=== PATIENT | female | born 1955 | race Caucasian/White ===

== ENCOUNTER 2022-12-05 09:31 | Outpatient (OUT) | payer MEDICARE, OTHER, SELFPAY ==
--- NOTE | 2022-12-05 09:58 | XR_ITS ---
The [address] [address] Patient Name: LIBBY SINGH MRN: [id number] date: 1955 Sex: F Assigned Patient Location: [facility] Current Patient Location: [facility] Accession/Order Number: [id number] Exam Date: 12/05/2022 09:49 Report Date: 12/05/2022 10:46 At the request of: DANE SHANNON Procedure: XR DEXA axial skeleton EXAMINATION: XR DEXA axial skeleton, 12/05/2022 9:49 AM EDT HISTORY: Menopause Z78 COMPARISON: None. TECHNIQUE: Dual-energy X-ray absorptiometry (DEXA) bone density study performed for the axial skeleton. HISTORY: Menopause Z78 FINDINGS: Bone mineral density right femoral trochanter measures 0.554 g/sq cm. Young adult T score -2.2. WHO classification: Osteopenia. Bone mineral density right forearm radius measures 0.637 g/sq cm. T score -1.1. WHO classification: Osteopenia XR/XR DEXA axial skeleton IMPRESSION: Osteopenia. Moderate fracture risk Electronically authenticated by: HALEIGH BAE Date: 12/05/2022 10:46
== END 2022-12-05 09:32 | disposition home or self-care (01) ==
LOC: RAD 09:31
PROVIDERS: PCP Internal Medicine; Visit Provider Internal Medicine
DX: Z78.0 Asymptomatic menopausal state (principal); M85.80 Other specified disorders of bone density and structure, unspecified site
CPT/HCPCS: 77080

== ENCOUNTER 2023-03-23 14:25 | Outpatient (OUT) | payer MEDICARE, OTHER, SELFPAY ==
--- NOTE | 2023-03-23 14:52 | MM_ITS ---
Patient Name: LIBBY SINGH MR#: [id number] : 1955 Exam Date: 03/23/2023 Ordering Doctor: DR Negrito Delgadillo D.O. RADIOLOGY REPORT PROCEDURE: MM TOMOSYNTHESIS SCREENING BI COMPARISON: MG MAMM SCREEN 3D JOSE ALEJANDRO CAD, 03/20/2022. MG MAMM SCREEN 3D JOSE ALEJANDRO CAD, 03/11/2021. INDICATIONS: Screening Calculator Name NCI Breast Cancer Risk Assessment Tool 5 Year Breast Cancer Risk 2.20% Lifetime Breast Cancer Risk 7.60% Personal Breast Cancer No Personal Ovarian Cancer No Treatments None Family Cancers None LOCATION: [facility] BREAST COMPOSITION: Heterogeneously dense,which may obscure small masses. FINDINGS: DIAGNOSTIC CATEGORY 1--NEGATIVE. NO CHANGE FROM COMPARISON ASSESSMENT. RIGHT BREAST: No significant suspicious finding. LEFT BREAST: No significant suspicious finding. RECOMMENDATIONS: ROUTINE MAMMOGRAM AND CLINICAL EVALUATION IN 12 MONTHS. PLEASE NOTE: A NORMAL MAMMOGRAM DOES NOT EXCLUDE THE POSSIBILITY OF BREAST CANCER. A CLINICALLY SUSPICIOUS PALPABLE LUMP SHOULD BE BIOPSIED. Dictated by: Markel Prescott MD on 03/23/2023 at 15:02 Approved by: Markel Prescott MD on 03/23/2023 at 15:03
== END 2023-03-23 14:26 | disposition home or self-care (01) ==
LOC: MAMMO 14:25
PROVIDERS: PCP Internal Medicine; Visit Provider Internal Medicine
DX: Z12.31 Encounter for screening mammogram for malignant neoplasm of breast (principal)
CPT/HCPCS: 77063; 77067

== ENCOUNTER 2023-12-03 11:45 | Outpatient (OUT) | payer MEDICARE, OTHER, SELFPAY ==
--- OUTSIDE RECORDS SUMMARY | 2023-12-03 12:07 | XMS_ITS | CCD ---
Author Organization [facility] Care Team Providers Care Finishing Operator Name Role Phone DR NEGRITO SHANNON Admitting Unavailable ELIE, DR VELA Primary Care Unavailable ELIE, DR VELA Consulting Unavailable ELIE, DR VELA Attending Unavailable KETAN, DR ZAIN Lott Consulting Unavailable Negrito Shannon Unavailable Allergies Allergy Classification Reported Allergen(s) Allergy Type Date of Onset Reaction(s) Facility (1 source) Lidocaine Drug Allergy 3 [facility] Repository (13 sources) Fenofibrate Drug Allergy Unknown [facility] Other (13 sources) Lovastatin Drug Allergy Unknown [facility] Other (13 sources) lidoderm patches Propensity to adverse reactions itching [facility] Other (1 source) patient allergy list reviewed by nurse or physicia Propensity to adverse reactions 3 Comment:Done [facility] Other Medications Current Medications Medication Drug Class(es) Dates Sig (Normalized) Sig (Original) alendronic acid 70 mg oral tablet (5 sources) Bisphosphonate Start: 12-07-2022 take 1 tablet by mouth once daily Alendronate Sodium 70 MG 1 tablet 30 minutes before the first food, beverage or medicine of the day with plain water Orally weekly for 30 days Nov, Active baclofen 10 mg oral tablet (13 sources) gamma-Aminobutyric Acid-ergic Agonist take 2 tablets by mouth once daily at mealtime Baclofen 10 MG 2 tablets with food or milk Orally Once a day Active Baclofen Not-Chip ing Calcium 1200 3958-9018 MG-UNIT (3 sources) take 1 tablet by mouth once daily Calcium 1200 4321-2920 MG-UNIT 1 tablet Orally Once a day Active DULoxetine 60 mg oral capsule (20 sources) Serotonin and Norepinephrine Reuptake Inhibitor Start: 3 take 1 capsule by mouth once daily DULoxetine HCl 60 MG 1 capsule Orally Once a day Feb, Active take 1 capsule by mouth once salazar ly DULoxetine HCl 60 MG take 1 capsule by mouth once daily for 90 Active Cymbalta Not-Chip ing/PRN Cymbalta Not-Chip ing ezetimibe 10 mg oral tablet (1 source) Dietary Cholesterol Absorption Inhibitor Start: 03-28-2023 take 1 tablet by mouth every twenty-four hours Ezetimibe 10 MG 1 tablet Orally Once a day for 30 days Feb, Active meloxicam 7.5 mg oral tablet (20 sources) Nonsteroidal Anti-inflammatory Drug take 1 tablet by mouth every twenty-four hours Meloxicam 7.5 MG 1 tablet Orally Once a day Active Mobic Not-Taking /PRN Mobic Not-Taking metroNIDAZOLE 7.5 mg/ml topical cream (7 sources) Nitroimidazole Antimicrobial met roNIDAZOLE 0.75 % APPLY TO FACE TWICE DAILY NEEDED FOR FLARES External for 14 Days Active metroNIDAZOLE 0. 75 % APPLY TO FACE TWICE DAILY NEEDED FOR FLARES External for 14 Days Active traMADol hydrochloride 50 mg oral tablet (13 sources) Opioid Agonist Start: 01-29-2023 take 1 tablet by mouth every twelve hours traMADol HCl 50 MG 1 tablet Orally twice a day for 30 days p/u 01/29, start 01/30 w/ 2RF Jan, Active Start: 11-01-2022 take 1 tablet by mary th every twelve hours traMADol HCl 50 MG 1 tablet Orally twice a day Start 11/01 w/ 2RF Oct, Active Start: 08-01-2022 take 1 tablet by mary th every twelve hours traMADol HCl 50 MG 1 tablet Orally twice a day p/u 08/01, start 08/02 w 2rf Jul, Active Start: 05-02-2022 take 1 tablet by mary th every twelve hours traMADol HCl 50 MG 1 tablet Orally twice a day p/u 05/02, start 05/04 w/ Apr, Active traZODone hydrochloride 50 mg oral tablet (13 sources) Serotonin Reuptake Inhibitor take 1 tablet by mouth at bedtime traZODone HCl 50 MG 1 tablet Orally at HS for 90 days Active Completed/Discontinued Medications Medication Drug Class(es) Dates Sig (Normalized) Sig (Original) amoxicillin 875 mg / clavulanate 125 mg oral tablet (13 sources) Penicillin-class Antibacterial Start: 10-25-2019 take 1 tablet by mouth every twelve hours Amoxicillin-Pot Clavulanate 875-125 MG 1 tablet Orally every 12 hrs for 7 days Sep, Not-Taking/PRN Estradiol (13 sources) Estrogen Estradiol Not-Taking/PRN Estradiol Not-Ta sam Probiotic (13 sources) Probiotic Not-Ta sam/PRN Probiotic Not-Ta sam Progesterone (13 sources) Progesterone Progesterone Not -Taking/PRN Progesterone Not -Taking Tylenol Arthritis Pain (13 sources) Tylenol Arthriti s Pain Not-Taking/PRN Tylenol Arthriti s Pain Not-Taking Problems Active Problems Problem Classification Problem Date Documented Date Episodic/Chronic Allergic reactions (1 source) Allergic contact dermatitis due to plants, except food; Translations: [Allergic contact dermatitis due to plants, except food] Episodic Cardiac dysrhythmias (1 source) Palpitations; Translations: [Palpitations] Episodic Disorders of lipid metabolism (18 sources) Mixed hyperlipidemia; Translations: [Mixed hyperlipidemia] Onset: 10-21-2012 Resolved: 06-16-2019 Chronic Immunizations and screening for infectious disease (1 source) Vaccination given; Translations: [Encounter for immunization] Episodic Miscellaneous mental health disorders (16 sources) Primary insomnia; Translations: [Primary insomnia] Chronic Nonmalignant breast conditions (1 source) Fibrocystic disease of breast; Translations: [Diffuse cystic mastopathy of unspecified breast] Chronic Osteoporosis (6 sources) Senile osteoporosis; Translations: [Age-related osteoporosis without current pathological fracture] Chronic Other aftercare (13 sources) High risk drug monitoring status; Translations: [director diversity (current) use of opiate analgesic] Episodic Other aftercare (5 sources) correction (current) use of opiate analgesic; Translations: [Chronic prescription opiate use] Episodic Other and unspecified benign neoplasm (12 sources) Lipoma of shoulder; Translations: [Benign lipomatous neoplasm of skin and subcutaneous tissue of unspecified limb] Episodic Other and unspecified benign neoplasm (1 source) Benign lipomatous tumor; Translations: [Benign lipomatous neoplasm of skin and subcutaneous tissue of unspecified limb] Episodic Other and unspecified benign neoplasm (1 source) Benign lipomatous neoplasm of skin and subcutaneous tissue of unspecified limb; Translations: [Lipoma of shoulder] Episodic Other circulatory disease (1 source) H/O: cardiovascular disease; Translations: [Unspecified circulatory disease] Episodic Other connective tissue disease (13 sources) Acquired trigger finger; Translations: [Trigger finger, unspecified finger] Episodic Other connective tissue disease (13 sources) Fibromyalgia; Translations: [Fibromyalgia] Episodic Other connective tissue disease (5 sources) Fibromyalgia Episodic Other connective tissue disease (1 source) Trigger finger, unspecified finger; Translations: [Trigger finger of right hand, unspecified finger] Episodic Other injuries and conditions due to external causes (1 source) History of fall; Translations: [History of falling] Episodic Other nervous system disorders (12 sources) Chronic pain syndrome; Translations: [Chronic pain syndrome] Chronic Other nervous system disorders (1 source) Chronic pain syndrome; Translations: [Chronic pain syndrome] Chronic Other non-epithelial cancer of skin (2 sources) Basal cell carcinoma of lower extremity; Translations: [Basal cell carcinoma of skin of lower limb, including hip] Onset: 10-21-2012 Resolved: 06-16-2019 Episodic Other screening for suspected conditions (not mental disorders or infectious disease) (8 sources) Encounter for screening mammogram for malignant neoplasm of breast; Translations: [Encounter for screening for diseases of the blood and blood-forming organs and certain disorders involving the immune mechanism] Onset: 04-13-2013 Resolved: 06-16-2019 Episodic Residual codes; unclassified (14 sources) Asymptomatic menopausal state; Translations: [Menopause] Episodic Residual codes; unclassified (1 source) Postmenopausal state; Translations: [Asymptomatic menopausal state] Episodic Spondylosis; intervertebral disc disorders; other back problems (20 sources) Lumbar spondylosis; Translations: [Spondylosis without myelopathy or radiculopathy, lumbar region] Resolved: 06-16-2019 Chronic Past or Other Problems Problem Classification Problem Date Documented Date Episodic/Chronic E Codes: Adverse effects of medical drugs (1 source) Lipid-lowering drug adverse reaction; Translations: [Adverse effect of antihyperlipidemic and antiarteriosclerotic drugs, initial encounter] Onset: 6 Resolved: 0 Episodic Inflammation; infection of eye (except that caused by tuberculosis or sexually transmitteddisease) (1 source) External hordeolum; Translations: [Hordeolum externum] Onset: 7 Episodic Malaise and fatigue (1 source) Malaise and fatigue; Translations: [Other malaise and fatigue] Resolved: 0 Episodic Menopausal disorders (1 source) Menopause present; Translations: [Menopausal and female climacteric states] Resolved: 1 Chronic Other connective tissue disease (1 source) Pain in limb; Translations: [Pain in soft tissues of limb] Onset: 6 Resolved: 0 Episodic Other connective tissue disease (1 source) Myalgia/myositis - multiple; Translations: [Unspecified myalgia and myositis] Onset: 6 Resolved: 0 Episodic Residual codes; unclassified (1 source) Requires influenza virus vaccination; Translations: [Need for prophylactic vaccination and inoculation, Influenza] Resolved: 0 Episodic Superficial injury; contusion (2 sources) Contusion of lower back; Translations: [Contusion of lower back and pelvis, initial encounter] Onset: 6 Resolved: 0 Episodic Unclassified (1 source) Long-term current use of drug therapy; Translations: [Long-term (current) use of other medications] Onset: 8 Resolved: 0 Results Test Name Value Interpretation Reference Range Facil ity MG MAMM SCREEN 3D JOSE ALEJANDRO CADon 03-11-2021 MG MAMM SCREEN 3D JOSE ALEJANDRO CAD Patient: LIBBY SINGH Exam Date: 03/11/2021 : 1955 Gender:F Ordering : DR NEGRITO SHANNON D.O. Admission #: [id number] Family : Order #: [id number] CLICK HERE TO VIEW EXAM RADIOLOGY REPORT PROCEDURE: MAMMOGRAM SCREENING 3D BILATERAL CAD COMPARISON: MG MAMM SCREEN JOSE ALEJANDRO W CAD, 02/16/2020. MG MAMM SCREEN JOSE ALEJANDRO W CAD, 02/14/2019. INDICATIONS: Screening mammography Calculator Name NCI Breast Cancer Risk Assessment Tool 5 Year Breast Cancer Risk 2.20% Lifetime Breast Cancer Risk 8.20% Personal Breast Cancer No Personal Ovarian Cancer No Treatments None Family Cancers None LOCATION: [facility] BREAST COMPOSITION: Heterogeneously dense,which may obscure small masses. FINDINGS: DIAGNOSTIC CATEGORY 1--NEGATIVE. RIGHT BREAST: No significant suspicious finding. No significant change has occurred. LEFT BREAST: No significant suspicious finding. No significant change has occurred. Skin surface moles noted and likely accounting for appearance of nodule/lymph nodes within breast on prior study. RECOMMENDATIONS: ROUTINE MAMMOGRAM AND CLINICAL EVALUATION IN 12 MONTHS. PLEASE NOTE: A NORMAL MAMMOGRAM DOES NOT EXCLUDE THE POSSIBILITY OF BREAST CANCER. A CLINICALLY SUSPICIOUS PALPABLE LUMP SHOULD BE BIOPSIED. Dictated by: Zain Owusu M.D. on 03/11/2021 at 15:03 Approved by: Zain Owusu M.D. on 03/11/2021 at 15:06 Normal [facility] CBC Without Differentialon 0 11-06-2020 Erythrocyte distribution width (RBC) [Ratio] 13.5 % Normal 11.9-15.3 [facility] Comment on above: Performed By: #### O UTREACH LIPID, OUTREACH CMP, CBCNOOUTREACH #### [address] Hematocrit (Bld) [Volume fraction] 41.1 % Normal 34.0-46.4 [facility] Comment on above: Performed By: #### O UTREACH LIPID, OUTREACH CMP, CBCNOOUTREACH #### [address] Hemoglobin (Bld) [Mass/Vol] 13.6 g/dL Normal 11.8-15.4 [facility] Comment on above: Performed By: #### O UTREACH LIPID, OUTREACH CMP, CBCNOOUTREACH #### [address] MCH (RBC) [Entitic mass] 27.4 pg Normal 24.7-34.3 [facility] Comment on above: Performed By: #### O UTREACH LIPID, OUTREACH CMP, CBCNOOUTREACH #### [place] [id number] [facility] MCV (RBC) [Entitic vol] 82.5 fL Normal 80-100 [facility] Comment on above: Performed By: #### O UTREACH LIPID, OUTREACH CMP, CBCNOOUTREACH #### [address] Mean Corpuscular HGB Conc 33.2 g/dL Normal 32.0-35.0 [facility] Comment on above: Performed By: #### O UTREACH LIPID, OUTREACH CMP, CBCNOOUTREACH #### [address] Platelet mean volume (Bld) [Entitic vol] 9.6 fL Normal 6.3-10.7 [facility] Comment on above: Result Comment: PERF ORMED BY: [place] [address] PATHOLOGIST LATH HAND MARSHA ASTORGA M.D. Performed By: #### O UTREACH LIPID, OUTREACH CMP, CBCNOOUTREACH #### [address] Platelets (Bld) [#/Vol] 231 10*3/uL Normal 150-450 [facility] Comment on above: Performed By: #### O UTREACH LIPID, OUTREACH CMP, CBCNOOUTREACH #### [address] RBC (Bld) [#/Vol] 4.98 10*6/uL Normal 3.60-5.00 [facility] Comment on above: Performed By: #### O UTREACH LIPID, OUTREACH CMP, CBCNOOUTREACH #### [address] WBC (Bld) [#/Vol] 4.3 10*3/uL Normal 3.8-11.6 [facility] Comment on above: Performed By: #### O UTREACH LIPID, OUTREACH CMP, CBCNOOUTREACH #### [address] CMP Outreachon 11-06-2020 Albumin [Mass/Vol] 4.4 g/dL Normal 3.2-5.5 [facility] Comment on above: Performed By: #### O UTREACH LIPID, OUTREACH CMP, CBCNOOUTREACH #### [address] ALP [Catalytic activity/Vol] 64 U/L Normal 32-92 [facility] Comment on above: Performed By: #### O UTREACH LIPID, OUTREACH CMP, CBCNOOUTREACH #### [facility] [address] ALT [Catalytic activity/Vol] 32 U/L Normal 10-60 [facility] Comment on above: Performed By: #### O UTREACH LIPID, OUTREACH CMP, CBCNOOUTREACH #### [facility] [address] AST [Catalytic activity/Vol] 25 U/L Normal 10-42 [facility] Comment on above: Performed By: #### O UTREACH LIPID, OUTREACH CMP, CBCNOOUTREACH #### [facility] [address] Bilirubin [Mass/Vol] 0.5 mg/dL Normal 0.3-1.2 [facility] Comment on above: Performed By: #### O UTREACH LIPID, OUTREACH CMP, CBCNOOUTREACH #### [facility] [address] [place] [address] [place] Calcium [Mass/Vol] 9.6 mg/dL Normal 8.2-10.2 [facility] Comment on above: Performed By: #### O UTREACH LIPID, OUTREACH CMP, CBCNOOUTREACH #### [facility] [address] [place] [id number] [place] Chloride [Moles/Vol] 105 mmol/L Normal 95-114 [facility] Comment on above: Performed By: #### O UTREACH LIPID, OUTREACH CMP, CBCNOOUTREACH #### [facility] [address] [place] [address] [place] CO2 [Moles/Vol] 26.7 mmol/L Normal 22.0-30.0 [facility] Comment on above: Performed By: #### O UTREACH LIPID, OUTREACH CMP, CBCNOOUTREACH #### [facility] [address] [place] [id number] [place] Creatinine [Mass/Vol] 0.63 mg/dL Normal 0.44-1.03 [facility] Comment on above: Performed By: #### O UTREACH LIPID, OUTREACH CMP, CBCNOOUTREACH #### [facility] [address] [place] [phone] [place] Estimated GFR ( Marianne > 60 Normal [facility] Comment on above: Result Comment: GFR estimated reference range: According to KDOQI guidelines, <60 ml/min/1.73m2 is sufficient to diagnose a patient with chronic kidney disease. Performed By: #### O UTREACH LIPID, OUTREACH CMP, CBCNOOUTREACH #### [facility] [address] [place] [phone] [place] Estimated GFR (Non- Am > 60 Normal [facility] Comment on above: Performed By: #### O UTREACH LIPID, OUTREACH CMP, CBCNOOUTREACH #### [facility] [address] [place] [phone] [place] Glucose [Mass/Vol] 118 mg/dL High 70-100 [facility] Comment on above: Result Comment: [place] Glucose Reference Range is dependent on time and content of last meal. Glucose of more than 200 mg/dL in a nonstressed, ambulatory subject supports the diagnosis of Diabetes Mellitus. ADA recommended reference range Performed By: #### O UTREACH LIPID, OUTREACH CMP, CBCNOOUTREACH #### [facility] [address] [place] [phone] [place] Potassium [Moles/Vol] 4.1 mmol/L Normal 3.5-5.1 [facility] Comment on above: Performed By: #### O UTREACH LIPID, OUTREACH CMP, CBCNOOUTREACH #### [facility] [address] [place] [phone] [place] Protein [Mass/Vol] 6.5 g/dL Normal 6.1-7.9 [facility] Comment on above: Performed By: #### O UTREACH LIPID, OUTREACH CMP, CBCNOOUTREACH #### [facility] [address] [place] [phone] [place] Sodium [Moles/Vol] 141 mmol/L Normal 136-146 [facility] Comment on above: Performed By: #### O UTREACH LIPID, OUTREACH CMP, CBCNOOUTREACH #### [facility] [address] [place] [address] [place] Urea nitrogen [Mass/Vol] 15 mg/dL Normal 9-23 [facility] Comment on above: Performed By: #### O UTREACH LIPID, OUTREACH CMP, CBCNOOUTREACH #### [facility] [address] [place] [address] [place] Lipid Profile Outreachon Cholesterol [Mass/Vol] 237 mg/dL High 140-200 [facility] Comment on above: Result Comment: Chol less than 200 mg/dl low risk Chol 201-239 mg/dl borderline risk Chol 240 mg/dl and greater high risk Performed By: #### O UTREACH LIPID, OUTREACH CMP, CBCNOOUTREACH #### [facility] [address] [place] [phone] [place] Cholesterol in HDL [Mass/Vol] 37 mg/dL Normal 35-85 [facility] Comment on above: Result Comment: HDL CHOL ATP-III CLASSIFICATION Cardiovascular Risk HDL > or equal to 60 mg/dL LOW HDL < 40 mg/dL HIGH Performed By: #### O UTREACH LIPID, OUTREACH CMP, CBCNOOUTREACH #### [facility] [address] [place] [phone] [place] Cholesterol.total/Ch olesterol in HDL [Mass ratio] 6.4 {ratio} Normal <5.0 [facility] Comment on above: Result Comment: PERF ORMED BY: [place] [address] PATHOLOGIST LATH HAND MARSHA ASTORGA M.D. Performed By: #### O UTREACH LIPID, OUTREACH CMP, CBCNOOUTREACH #### [facility] [address] [place] [phone] [place] LDL Cholesterol,Calculat ed 127 mg/dL High 0-100 [facility] Comment on above: Result Comment: LDL ATP III CLASSIFICATION LDL less than 100 mg/dL Optimal LDL 100-129 mg/dL Near or above optimal LDL 130-159 mg/dL Borderline high LDL 160-189 mg/dL High LDL greater than 189 mg/dL Very high Performed By: #### O UTREACH LIPID, OUTREACH CMP, CBCNOOUTREACH #### [facility] [address] [place] [address] [place] Triglyceride w/Reflex 364 mg/dL High 35-149 [facility] Comment on above: Result Comment: TRIG ATP III CLASSIFICATION TRIG less than 150 mg/dL Normal TRIG 150-199 mg/dL Borderline high TRIG 200-500 mg/dL High TRIG greater than 500 mg/dL Very high Standard traceable to the Center for Disease Conrtrol and Prevention (CDC) test method. Performed By: #### O UTREACH LIPID, OUTREACH CMP, CBCNOOUTREACH #### [facility] [address] [place] [id number] [facility] VLDL CHOLESTEROL 72 mg/dL Normal [facility] Comment on above: Performed By: #### O UTREACH LIPID, OUTREACH CMP, CBCNOOUTREACH #### [facility] [address] [place] [address] [facility] Vital Signs Date Time Vital Sign Value Performing Clinician Facility 02-16-2023 10:00-0500 Body height 167.64 cm Negrito Ball Other [facility] Other 02-16-2023 10:00-0500 Body mass index (BMI) [Ratio] 25.08 kg/m2 Negrito Ball Other [facility] Other 02-16-2023 10:00-0500 Body weight 70.49 kg Negrito Ball Other [facility] Other 02-16-2023 10:00-0500 Diastolic blood pressure 85 mm[Hg] Negrito Ball Other [facility] Other 02-16-2023 10:00-0500 Respiratory rate 18 /min Negrito Ball Other [facility] Other 02-16-2023 10:00-0500 Systolic blood pressure 135 mm[Hg] Negrito Ball Other [facility] Other 11-17-2022 11:30-0400 Body height 167.64 cm Negrito Ball Other [facility] Other 11-17-2022 11:30-0400 Body mass index (BMI) [Ratio] 24.6 kg/m2 Negrito Ball Other [facility] Other 11-17-2022 11:30-0400 Body weight 69.13 kg Negrito Ball Other [facility] Other 11-17-2022 11:30-0400 Diastolic blood pressure 84 mm[Hg] Negrito Ball Other [facility] Other 11-17-2022 11:30-0400 Respiratory rate 12 /min Negrito Ball Other [facility] Other 11-17-2022 11:30-0400 Systolic blood pressure 147 mm[Hg] Negrito Ball Other [facility] Other 08-18-2022 10:15-0400 Body height 167.64 cm Negrito Ball Other [facility] Other 08-18-2022 10:15-0400 Body mass index (BMI) [Ratio] 24.56 kg/m2 Negrito Ball Other [facility] Other 08-18-2022 10:15-0400 Body weight 69.04 kg Negrito Ball Other [facility] Other 08-18-2022 10:15-0400 Diastolic blood pressure 90 mm[Hg] Negrito Ball Other [facility] Other 08-18-2022 10:15-0400 Respiratory rate 12 /min Negrito Ball Other [facility] Other 08-18-2022 10:15-0400 Systolic blood pressure 155 mm[Hg] Negrito Ball Other [facility] Other 05-29-2022 15:30-0400 Body height 167.64 cm Negrito Ball Other [facility] Other 05-29-2022 15:30-0400 Body mass index (BMI) [Ratio] 24.24 kg/m2 Negrito Ball Other [facility] Other 05-29-2022 15:30-0400 Body weight 68.13 kg Negrito Ball Other [facility] Other 05-29-2022 15:30-0400 Diastolic blood pressure 68 mm[Hg] Negrito Ball Other [facility] Other 05-29-2022 15:30-0400 Respiratory rate 12 /min Negrito Ball Other [facility] Other 05-29-2022 15:30-0400 Systolic blood pressure 153 mm[Hg] Negrito Ball Other [facility] Other Encounters Encounter Date Encounter Type Care Provider Facility Start: 03-28-2023 End: 03-28-2023 ambulatory Negrito Ball Other [facility] Other Start: 03-28-2023 Telephone encounter Negrito Ball [facility] Start: 03-26-2023 End: 03-26-2023 ambulatory Negrito Ball Other [facility] Other Start: 03-26-2023 Telephone encounter Negrito Ball [facility] Start: 02-16-2023 End: 02-16-2023 ambulatory Negrito Ball Other [facility] Other Start: 02-16-2023 Office outpatient vi sit 15 minutes Negrito Ball [facility] Start: 01-29-2023 End: 01-29-2023 ambulatory Negrito Ball Other [facility] Other Start: 01-29-2023 Telephone encounter Negrito Ball [facility] Start: 12-06-2022 End: 12-06-2022 ambulatory Negrito Ball Other [facility] Other Start: 12-06-2022 Telephone encounter Negrito Ball [facility] Start: 12-05-2022 End: 12-05-2022 ambulatory Negrito Ball Other [facility] Other Start: 12-05-2022 Telephone encounter Negrito Ball [facility] Start: 11-17-2022 End: 11-17-2022 ambulatory Negrito Ball Other [facility] Other Start: 11-17-2022 Patient encounter procedure Negrito Ball [facility] Start: 11-01-2022 End: 11-01-2022 ambulatory Negrito Ball Other [facility] Other Start: 11-01-2022 Telephone encounter Negrito Ball [facility] Start: 09-07-2022 End: 09-07-2022 ambulatory Negrito Ball Other [facility] Other Start: 09-07-2022 Telephone encounter Negrito Ball [facility] Start: 08-18-2022 End: 08-18-2022 ambulatory Negrito Ball Other [facility] Other Start: 08-18-2022 Office outpatient vi sit 15 minutes Negrito Ball [facility] Start: 08-18-2022 Telephone encounter Negrito Ball [facility] Start: 08-01-2022 End: 08-01-2022 ambulatory Negrito Ball Other [facility] Other Start: 08-01-2022 Telephone encounter Negrito Shannon [facility] Start: 05-29-2022 End: 05-29-2022 ambulatory Negrito Shannon Other [facility] Other Start: 05-29-2022 Office outpatient vi sit 15 minutes [facility] Start: 11-11-2021 Adult health examination Negrito Shannon Other [facility] Other Start: 03-11-2021 End: 03-12-[address] NEGRITO SHANNON Facility:[facility] Procedures Date Procedure Procedure Detail Performing Clinician Start: 11-20-2017 Screening for malign ant neoplasm of colon Negrito Shannon Other Start: 11-14-2013 General examination of patient Negrito Shannon Other Depression screening Lawrence Shannon Other Screening for malign ant neoplasm of breast Negrito Shannon Other Immunizations Immunization Date Immunization Notes Care Provider Fa [facility] 01-23-2022 influenza virus vaccine, split virus (incl. purified surface antigen) Negrito Shannon Other [facility] 12-30-2021 influenza virus vaccine, split virus (incl. purified surface antigen) Negrito Shannon Other [facility] 12-31-2020 COVID-19 Vaccine Pfi zer - Documentation Purposes Only Negrito Shannon Other [facility] Other 11-08-2020 influenza virus vaccine, split virus (incl. purified surface antigen) Negrito Shannon Other [facility] 05-27-2020 COVID-19 Vaccine Pfi zer - Documentation Purposes Only Negrito Shannon Other [facility] 05-06-2020 COVID-19 Vaccine Pfi zer - Documentation Purposes Only Negrito Shannon Other [facility] 11-22-2019 influenza virus vaccine, split virus (incl. purified surface antigen) Negrito Shannon Other [facility] Other 10-25-2019 tetanus toxoid, redu paramjit diphtheria toxoid, and acellular pertussis vaccine, adsorbed Negrito Elie Other [facility] Other 11-10-2014 tetanus and diphther ia toxoids, adsorbed, preservative free, for adult use (5 Lf of tetanus toxoid and 2 Lf of diphtheria toxoid) Negrito Elie Other [facility] 12-17-2012 tetanus and diphther ia toxoids, adsorbed, preservative free, for adult use (5 Lf of tetanus toxoid and 2 Lf of diphtheria toxoid) Negrito Elie Other [facility] Other 10-07-2003 diphtheria, tetanus toxoids and acellular pertussis vaccine, unspecified formulation Negrito Shannon Other [facility] Other Payers Date Payer Category Payer Medicare [id number] 1959 Unknown [id number] 1955 Unknown [id number] Unknown [id number] Social History Date Type Detail Facility Unknown if ever smoked [facility] Sex Assigned At [facility]igned [facility] Other Clinical Notes 05-29-2022 to 03-28-2023 Note Date & Type Note Facility 03-28-2023 Evaluation note Encounter Date Diagnosis Assessment Notes Feb, Hypercholesterolemia (ICD-10 - E78.00) [facility] Other [id number] Evaluation note* Encounter Date Diagnosis Assessment Notes Treatment Notes Treatment Clinical Notes Jan, Lumbar spondylosis (ICD-10 - M47.816) The patient is instructed to avoid bending, twisting or lifting. They are to use intermittent heat and ice as needed. They may schedule a massage or gentle manipulation. They may safely use Tylenol as needed. Jan, Fibromyalgia (ICD-10 - M79.7) Stretching exercises, ice/heat and Tylenol Tramadol as needed Jan, Chronic prescription opiate use (ICD-10 - Z79.891) This patient requires opiate use on a daily basis to control pain.This patient does not exhibit drug-seeking or aberrant behavior.This patient is able to continue with ADL, with an adequate quality of life, that they would not be able toachieve without the prescription pain medication.There has been no surgical treatment recommended for this condition.Use of non-opiate treatment should be continued, such as nonstrenuous and aquatic exercises.This patient has a pain management contract and they have been counseled on safe storage of the medication.They have been counseled on the risks of concomitant use with alcohol or sedating meds. PDMP is being followed and this patient's OARRS report is being monitored every 90 days. [facility] Other 12-04-2023 Evaluation note* Encounter Date Diagnosis Assessment Notes Treatment Notes Treatment Clinical Notes Jan, Fibromyalgia (ICD-10 - M79.7) [facility] 10-11-2023 Evaluation note* Encounter Date Diagnosis Assessment Notes Treatment Notes Treatment Clinical Notes Nov, Age-related osteoporosis without current pathological fracture (ICD-10 - M81.0) [facility] 09-22-2023 Evaluation note* Encounter Date Diagnosis Assessment Notes Treatment Notes Treatment Clinical Notes Oct, Lumbar spondylosis (ICD-10 - M47.816) The patient is instructed to avoid bending, twisting or lifting. They are to use intermittent heat and ice as needed. They may schedule a massage or gentle manipulation. They may safely use Tylenol as needed. Oct, Fibromyalgia (ICD-10 - M79.7) Daily stretching and ROM exercises. Continue muscle relaxants. Oct, Chronic prescription opiate use (ICD-10 - Z79.891) Oct, Primary insomnia (ICD-10 - F51.01) Healthy diet and exercise. Proper sleep routine. Oct, Medicare annual wellness visit, subsequent (ICD-10 - Z00.00) Personalized health advice was given to the beneficiary including a written plan for screenings discussed and provided. Advanced care planning reviewed and/or information given as requested. Additional counseling was provided here today in regards to, [ ]. The above visit was performed by [ ], under direct supervision of [ ]. Document reviewed and amended by provider signed below. Oct, Menopause (ICD-10 - Z78.0) Screen for osteoporosis. Healthy diet and exercise Oct, Screening for colon cancer (ICD-10 - Z12.11) [facility] Other 09-06-2023 Evaluation note* Encounter Date Diagnosis Assessment Notes Treatment Notes Treatment Clinical Notes Oct, Lumbar spondylosis (ICD-10 - M47.816) [facility] 07-13-2023 Evaluation note* Encounter Date Diagnosis Assessment Notes Treatment Notes Treatment Clinical Notes Aug, Lumbar spondylosis (ICD-10 - M47.816) [facility] Other 06-23-2023 Evaluation note* Encounter Date Diagnosis Assessment Notes Treatment Notes Treatment Clinical Notes Jul, Lumbar spondylosis (ICD-10 - M47.816) The patient is instructed to avoid bending, twisting or lifting. They are to use intermittent heat and ice as needed. They may schedule a massage or gentle manipulation. They may safely use Tylenol as needed. Jul, Fibromyalgia (ICD-10 - M79.7) Stretching exercises, healthy diet and consistent sleep routine Jul, Chronic prescription opiate use (ICD-10 - Z79.891) This patient requires opiate use on a daily basis to control pain.This patient does not exhibit drug-seeking or aberrant behavior.This patient is able to continue with ADL, with an adequate quality of life, that they would not be able to achieve without the prescription pain medication.There has been no surgical treatment recommended for this condition.Use of nonopiate treatment should be continued, such as nonstrenuous and aquatic exercises.This patient has a pain management contract and they have been counseled on safe storage of the medication.They have been counseled on the risks of concomitant use with alcohol or sedating meds. PDMP is being followed and this patient's OARRS report is being monitored every 90 days. Jul, Primary insomnia (ICD-10 - F51.01) Continue present treatment. Consistent sleep routine, avoid TV, phone, computer and exercise prior to bedtime [facility] Other 06-23-2023 Evaluation note* Encounter Date Diagnosis Assessment Notes Treatment Notes Treatment Clinical Notes Jul, Lumbar spondylosis (ICD-10 - M47.816) [facility] 06-06-2023 Evaluation note* Encounter Date Diagnosis Assessment Notes Treatment Notes Treatment Clinical Notes Jul, Lumbar spondylosis (ICD-10 - M47.816) [facility] Other 04-03-2023 Evaluation note* Encounter Date Diagnosis Assessment Notes Treatment Notes Treatment Clinical Notes May, Lumbar spondylosis (ICD-10 - M47.816) The patient is instructed to avoid bending, twisting or lifting. They are to use intermittent heat and ice as needed. They may schedule a massage or gentle manipulation. They may safely use Tylenol as needed. May, Fibromyalgia (ICD-10 - M79.7) Stretching exercises. Healthy diet and keep active but abvoid high impact activity May, Chronic prescription opiate use (ICD-10 - Z79.891) No findings to suggest misuse May, Primary insomnia (ICD-10 - F51.01) Proper sleep routine. Healthy diet, avoid bedtime food, TV, computer and exercise [facility] Other Evaluation noteNo InformationNortiPosi Other History general Narrative - Reported* Type Description Date Medical History fibromyalgia Medical History Arthritis Medical History Chronic prescription opiate use Medical History Trigger finger of right hand, un specified finger Medical History Menopause Medical History Lipoma of shoulder Medical History Hyperlipidemia, mixed Medical History Chronic pain syndrome Surgical History tonsillectomy Surgical History C section Surgical History basal cell car right calf Surgical History lipoma removed from right shoul gaby Hospitalization History see above [facility] Other Summary Purpose Family History No Family History Records FoundNo Family History Records Found Advance Directives No Advanced Directives Records FoundNo Advanced Directives Records Found Additional Source Comments INFORMATION SOURCE (unrecogn ized section and content) DATE CREATED AUTHOR 03/16/2021 [facility] DATE CREATED AUTHOR AUTHOR'S ORGANIZ ATION 03/21/2021 [facility] REASON FOR VISIT (unrecogniz ed section and content) Med Check UpNo Information3 month Follow upNo InformationREFILLRefillwellnessCologuardDEXA resultsNo Information3 month Follow upmamm resultsMedication Question FOR RECORDS PERTAINING TO PATIENTS WHO ARE OR HAVE BEEN ENROLLED IN A CHEMICAL DEPENDENCY/SUBSTANCEABUSE PROGRAM, SOME INFORMATION MAY BE OMITTED. This clinical summary was aggregated from multiple sources. Caution should be exercised in using it in the provision of clinical care. This summary normalizes information from multiple sources, and as a consequence, information in this document may materially change the coding, format and clinical context of patient data. In addition, data may be omitted in some cases. CLINICAL DECISIONS SHOULD BE BASED ON THE PRIMARY CLINICAL RECORDS. [email or web address] provides no warranty or guarantee of the accuracy or completeness of information in this document.
--- NOTE | 2023-12-03 12:34 | P.CN_ITS ---
Consult Note: HPI Data of Consult Patient: new to practice Consult date: 12/03/23 Requesting Physician: Malgorzata Miles MD Primary Care Provider: Negrito Delgadillo, Consult Narrative Reason for consult: neck, bilateral shoulder, low back, bilateral hip pain Narrative: 68yof who presents for evaluation. longstanding chronic pain history. pain throughout neck, bilateral shoulers, low back, bilateral hips. states that first began ~30 years ago when she was injured at work. has been diagnosed with fibromyalgia. currently uses tramadol, cymbalta. engages in a series of provider directed home exercises >6 weeks, without benefit. denies adverse med side effects. cc:: CC: Malgorzata Miles MD Review of Systems ROS Status of ROS 10 or more systems reviewed and unremark able except as noted in history and below Exam Narrative Exam Narrative: Psych-alert and oriented x 3.? Attentive and appropriate, constitutionally normal, displays normal mood and affect per situation.? There are no obvious deficits in memory, reasoning, or intellect.? Skin-no obvious rashes, bruising, or erythema noted to the patient's area of pain. Extremities-upper extremities are warm with minimal edema and palpable pulses. Cervical- tenderness to palpation noted in the cervical spine and paraspinal musculature.? Pain is elicited with extension, and lateral rotation of the cervical spine.? Range of motion is slightly diminished due to pain. Facet loading maneuvers are positive bilaterally.? Lumbar-no significant tenderness to palpation noted in the lumbar spine and paraspinal musculature.? Pain is elicited with extension, and lateral rotation of the lumbar spine. Range of motion is slightly diminished with these motions due to pain. Facet loading maneuvers are positive bilaterally and do appear to be concordant with the patient's normal complaints of pain.? Coordination remains intact.? Gait remains non-antalgic. Assessment and Plan Assessment and Plan (1) Neck pain: (2) Lumbar spine pain: Plan 68yof who presents for evaluation. failed conservative measures, as noted. given symptoms and exam findings, will have her undergo cervical spine, bilateral shoulder, lumbar spine, bilateral hip, sacrum xrays. she is in agreement. discussed that we would discuss next steps based on imaging findings, whether more advanced imaging vs. interventional modalities. meds reviewed, will continue her current meds. follow up after imaging.
== END 2023-12-03 11:46 | disposition home or self-care (01) ==
LOC: PM 11:46
PROVIDERS: PCP Internal Medicine; Visit Provider Anesthesiology Pain Medicine
DX: M54.2 Cervicalgia (principal); M54.50 Low back pain, unspecified
CPT/HCPCS: G0463

== ENCOUNTER 2023-12-03 13:24 | Outpatient (OUT) | payer MEDICARE, OTHER, SELFPAY ==
--- NOTE | 2023-12-03 | XR_ITS ---
The [place] [id number] Patient Name: LIBBY SINGH MRN: [id number] date: 1955 Sex: F Assigned Patient Location: [facility] Current Patient Location: [facility] Accession/Order Number: [id number] Exam Date: 12/03/2023 13:40 Report Date: 12/03/2023 14:12 At the request of: JUSTO GONZALES Procedure: XR cervical spine 5V EXAMINATION: XR cervical spine 5V HISTORY: NECK PAIN COMPARISON: No relevant comparison available. FINDINGS: BONES: Normal alignment with no acute fracture or spondylolisthesis. Mild to moderate spondylosis and facet osteoarthropathy most significant C6-C7 DISC SPACES: Normal. No significant disc height narrowing, subluxation, or endplate abnormality. PARASPINOUS: Negative. No paraspinous abnormality is seen. OTHER: Negative. XR/XR cervical spine 5V IMPRESSION: Mild to moderate degenerative changes most significant C6-C7 Electronically authenticated by: HALEIGH BAE Date: 12/03/2023 14:12
--- NOTE | 2023-12-03 | XR_ITS ---
The [place] [id number] Patient Name: LIBBY SINGH MRN: [id number] date: 1955 Sex: F Assigned Patient Location: [facility] Current Patient Location: [facility] Accession/Order Number: [id number] Exam Date: 12/03/2023 13:40 Report Date: 12/03/2023 14:11 At the request of: JUSTO KRISHNAMURTHYEDRAINGRIS Procedure: XR sacrum coccyx min 2V EXAMINATION: XR lumbar spine min 4V, XR sacrum coccyx min 2V HISTORY: LOW BACK PAIN, BILATERAL HIP PAIN COMPARISON: No relevant comparison available. FINDINGS: BONES: 5 mm anterolisthesis of L4 in relation to L3 and L5. Otherwise normal alignment of the lumbar, sacrum and coccyx. Mild degenerative spondylosis. Moderate facet osteoarthropathy DISC SPACES: Moderate to severe narrowing with endplate sclerosis L3-4 PARASPINOUS: Negative. No paraspinous abnormality is seen. OTHER: Vascular calcifications XR/XR sacrum coccyx min 2V IMPRESSION: 5 mm anterolisthesis of L4 Mild to moderate degenerative change Electronically authenticated by: HALEIGH BAE Date: 12/03/2023 14:11
--- NOTE | 2023-12-03 | XR_ITS ---
The [place] [id number] Patient Name: LIBBY SINGH MRN: [id number] date: 1955 Sex: F Assigned Patient Location: [facility] Current Patient Location: [facility] Accession/Order Number: [id number] Exam Date: 12/03/2023 13:40 Report Date: 12/03/2023 14:11 At the request of: JUSOT GONZALES Procedure: XR lumbar spine min 4V EXAMINATION: XR lumbar spine min 4V, XR sacrum coccyx min 2V HISTORY: LOW BACK PAIN, BILATERAL HIP PAIN COMPARISON: No relevant comparison available. FINDINGS: BONES: 5 mm anterolisthesis of L4 in relation to L3 and L5. Otherwise normal alignment of the lumbar, sacrum and coccyx. Mild degenerative spondylosis. Moderate facet osteoarthropathy DISC SPACES: Moderate to severe narrowing with endplate sclerosis L3-4 PARASPINOUS: Negative. No paraspinous abnormality is seen. OTHER: Vascular calcifications XR/XR lumbar spine min 4V IMPRESSION: 5 mm anterolisthesis of L4 Mild to moderate degenerative change Electronically authenticated by: HALEIGH BAE Date: 12/03/2023 14:11
--- NOTE | 2023-12-03 | XR_ITS ---
The [address] [address] Patient Name: LIBBY SINGH MRN: [id number] date: 1955 Sex: F Assigned Patient Location: [facility] Current Patient Location: [facility] Accession/Order Number: [id number] Exam Date: 12/03/2023 13:40 Report Date: 12/03/2023 14:07 At the request of: ANDRI GIEDRAITIS Procedure: XR hip JOSE ALEJANDRO EXAMINATION: XR hip JOSE ALEJANDRO HISTORY: BILATERAL HIP PAIN COMPARISON: No relevant comparison available. FINDINGS: RIGHT FINDINGS: BONES: No acute fracture or dislocation. Mild osteoarthropathy with marginal osteophyte formation SOFT TISSUES: Negative. No visible soft tissue swelling. OTHER: Negative. LEFT FINDINGS: BONES: No acute fracture or dislocation. Mild osteoarthropathy with marginal osteophyte formation SOFT TISSUES: Negative. No visible soft tissue swelling. OTHER: Negative. XR/XR hip JOSE ALEJANDRO IMPRESSION: Mild bilateral hip osteoarthritis Electronically authenticated by: HALEIGH BAE Date: 12/03/2023 14:07
--- NOTE | 2023-12-03 | XR_ITS ---
The [address] [address] Patient Name: LIBBY SINGH MRN: [id number] date: 1955 Sex: F Assigned Patient Location: [facility] Current Patient Location: [facility] Accession/Order Number: [id number] Exam Date: 12/03/2023 13:40 Report Date: 12/03/2023 14:09 At the request of: JUSTO GONZALES Procedure: XR shoulder JOSE ALEJANDRO min 2V EXAMINATION: XR shoulder JOSE ALEJANDRO min 2V HISTORY: BILATERAL SHOULDER PAIN COMPARISON: No relevant comparison available. FINDINGS: RIGHT FINDINGS: BONES: Normal. No significant arthropathy or acute abnormality. SOFT TISSUES: Negative. No visible soft tissue swelling. OTHER: Negative. LEFT FINDINGS: BONES: Normal. No significant arthropathy or acute abnormality. SOFT TISSUES: Negative. No visible soft tissue swelling. OTHER: Negative. XR/XR shoulder JOSE ALEJANDRO min 2V IMPRESSION: No acute abnormality of the shoulders Electronically authenticated by: HALEIGH BAE Date: 12/03/2023 14:09
--- OUTSIDE RECORDS SUMMARY | 2023-12-03 13:48 | XMS_ITS | CCD ---
Author Organization 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 Name Role Phone DR NEGRITO SHANNON Admitting Unavailable ELIE, DR VELA Primary Care Unavailable ELIE, DR VELA Consulting Unavailable ELIE, DR VELA Attending Unavailable KETAN, DR ZAIN Lott Consulting Unavailable Negrito Shannon Unavailable Allergies Allergy Classification Reported Allergen(s) Allergy Type Date of Onset Reaction(s) Facility (1 source) Lidocaine Drug Allergy 3 [facility] Repository (13 sources) Fenofibrate Drug Allergy Unknown [facility] Other (13 sources) Lovastatin Drug Allergy Unknown [facility] Other (13 sources) lidoderm patches Propensity to adverse reactions itching [facility] Other (1 source) patient allergy list reviewed by nurse or physicia Propensity to adverse reactions 3 Comment:Done [facility] Other Medications Current Medications Medication Drug Class(es) [...] day Active Baclofen Not-Chip ing Calcium 1200 2774-3514 MG-UNIT (3 sources) take 1 tablet by mouth once daily Calcium 1200 9293-0495 MG-UNIT 1 tablet Orally Once a day [...] sources) High risk drug monitoring status; 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 Admission #: [id number] Family : Order #: [id number] CLICK HERE TO VIEW EXAM RADIOLOGY REPORT [...] Treatments None Family Cancers None LOCATION: [facility] BREAST COMPOSITION: Heterogeneously dense,which may obscure [...] Owusu M.D. on 03/11/2021 at 15:06 Normal [facility] CBC Without Differentialon 0 11-06-2020 Erythrocyte distribution width (RBC) [Ratio] 13.5 % Normal 11.9-15.3 [facility] Comment on above: Performed By: #### O UTREACH LIPID, OUTREACH CMP, CBCNOOUTREACH #### [address] Hematocrit (Bld) [Volume fraction] 41.1 % Normal 34.0-46.4 [facility] Comment on above: Performed By: #### O UTREACH LIPID, OUTREACH CMP, CBCNOOUTREACH #### [address] Hemoglobin (Bld) [Mass/Vol] 13.6 g/dL Normal 11.8-15.4 [facility] Comment on above: Performed By: #### O UTREACH LIPID, OUTREACH CMP, CBCNOOUTREACH #### [address] MCH (RBC) [Entitic mass] 27.4 pg Normal 24.7-34.3 [facility] Comment on above: Performed By: #### O UTREACH LIPID, OUTREACH CMP, CBCNOOUTREACH #### [place] [id number] [facility] MCV (RBC) [Entitic vol] 82.5 fL Normal 80-100 [facility] Comment on above: Performed By: #### O UTREACH LIPID, OUTREACH CMP, CBCNOOUTREACH #### [address] Mean Corpuscular HGB Conc 33.2 g/dL Normal 32.0-35.0 [facility] Comment on above: Performed By: #### O UTREACH LIPID, OUTREACH CMP, CBCNOOUTREACH #### [address] Platelet mean volume (Bld) [Entitic vol] 9.6 fL Normal 6.3-10.7 [facility] Comment on above: Result Comment: PERF ORMED BY: [place] [address] PATHOLOGIST BULLDOZER OPERATOR MARSHA ASTORGA M.D. Performed By: #### O UTREACH LIPID, OUTREACH CMP, CBCNOOUTREACH #### [address] Platelets (Bld) [#/Vol] 231 10*3/uL Normal 150-450 [facility] Comment on above: Performed By: #### O UTREACH LIPID, OUTREACH CMP, CBCNOOUTREACH #### [address] RBC (Bld) [#/Vol] 4.98 10*6/uL Normal 3.60-5.[address] [facility] Comment on above: Performed By: #### O UTREACH LIPID, OUTREACH CMP, CBCNOOUTREACH #### [address] WBC (Bld) [#/Vol] 4.3 10*3/uL Normal 3.8-11.6 [facility] Comment on above: Performed By: #### O UTREACH LIPID, OUTREACH CMP, CBCNOOUTREACH #### [address] CMP Outreachon 11-06-2020 Albumin [Mass/Vol] 4.4 g/dL Normal 3.2-5.5 [facility] Comment on above: Performed By: #### O UTREACH LIPID, OUTREACH CMP, CBCNOOUTREACH #### [address] ALP [Catalytic activity/Vol] 64 U/L Normal 32-92 [facility] Comment on above: Performed By: #### O UTREACH LIPID, OUTREACH CMP, CBCNOOUTREACH #### [facility] [address] ALT [Catalytic activity/Vol] 32 U/L Normal 10-60 [facility] Comment on above: Performed By: #### O UTREACH LIPID, OUTREACH CMP, CBCNOOUTREACH #### [facility] [address] AST [Catalytic activity/Vol] 25 U/L Normal 10-42 [facility] Comment on above: Performed By: #### O UTREACH LIPID, OUTREACH CMP, CBCNOOUTREACH #### [facility] [address] Bilirubin [Mass/Vol] 0.5 mg/dL Normal 0.3-1.2 [facility] Comment on above: Performed By: #### O UTREACH LIPID, OUTREACH CMP, CBCNOOUTREACH #### [facility] [address] [place] [address] [place] Calcium [Mass/Vol] 9.6 mg/dL Normal 8.2-10.2 [facility] Comment on above: Performed By: #### O UTREACH LIPID, OUTREACH CMP, CBCNOOUTREACH #### [facility] [address] [place] [id number] [place] Chloride [Moles/Vol] 105 mmol/L Normal 95-114 [facility] Comment on above: Performed By: #### O UTREACH LIPID, OUTREACH CMP, CBCNOOUTREACH #### [facility] [address] [place] [address] [place] CO2 [Moles/Vol] 26.7 mmol/L Normal 22.0-30.0 [facility] Comment on above: Performed By: #### O UTREACH LIPID, OUTREACH CMP, CBCNOOUTREACH #### [facility] [address] [place] [id number] [place] Creatinine [Mass/Vol] 0.63 mg/dL Normal 0.44-1.03 [facility] Comment on above: Performed By: #### O UTREACH LIPID, OUTREACH CMP, CBCNOOUTREACH #### [facility] [address] [place] [id number] [place] Estimated GFR ( Marianne > 60 Normal [facility] Comment on above: Result Comment: GFR estimated reference range: According to KDOQI guidelines, <60 ml/min/1.73m2 is sufficient to diagnose a patient with chronic kidney disease. Performed By: #### O UTREACH LIPID, OUTREACH CMP, CBCNOOUTREACH #### [facility] [address] [place] [id number] [place] Estimated GFR (Non- Am > 60 Normal [facility] Comment on above: Performed By: #### O UTREACH LIPID, OUTREACH CMP, CBCNOOUTREACH #### [facility] [address] [place] [id number] [place] Glucose [Mass/Vol] 118 mg/dL High 70-100 [facility] Comment on above: Result Comment: [place] Glucose Reference Range is dependent on time and content of last meal. Glucose of more than 200 mg/dL in a nonstressed, ambulatory subject supports the diagnosis of Diabetes Mellitus. ADA recommended reference range Performed By: #### O UTREACH LIPID, OUTREACH CMP, CBCNOOUTREACH #### [facility] [address] [place] [id number] [place] Potassium [Moles/Vol] 4.1 mmol/L Normal 3.5-5.1 [facility] Comment on above: Performed By: #### O UTREACH LIPID, OUTREACH CMP, CBCNOOUTREACH #### [facility] [address] [place] [id number] [place] Protein [Mass/Vol] 6.5 g/dL Normal 6.1-7.9 [facility] Comment on above: Performed By: #### O UTREACH LIPID, OUTREACH CMP, CBCNOOUTREACH #### [facility] [address] [place] [id number] [place] Sodium [Moles/Vol] 141 mmol/L Normal 136-146 [facility] Comment on above: Performed By: #### O UTREACH LIPID, OUTREACH CMP, CBCNOOUTREACH #### [facility] [address] [place] [address] [place] Urea nitrogen [Mass/Vol] 15 mg/dL Normal 9-23 [facility] Comment on above: Performed By: #### O UTREACH LIPID, OUTREACH CMP, CBCNOOUTREACH #### [facility] [address] [place] [address] [place] Lipid Profile Outreachon Cholesterol [Mass/Vol] 237 mg/dL High 140-200 [facility] Comment on above: Result Comment: Chol less than 200 mg/dl low risk Chol 201-239 mg/dl borderline risk Chol 240 mg/dl and greater high risk Performed By: #### O UTREACH LIPID, OUTREACH CMP, CBCNOOUTREACH #### [facility] [address] [place] [id number] [place] Cholesterol in HDL [Mass/Vol] 37 mg/dL Normal 35-85 [facility] Comment on above: Result Comment: HDL CHOL ATP-III CLASSIFICATION Cardiovascular Risk HDL > or equal to 60 mg/dL LOW HDL < 40 mg/dL HIGH Performed By: #### O UTREACH LIPID, OUTREACH CMP, CBCNOOUTREACH #### [facility] [address] [place] [id number] [place] Cholesterol.total/Ch olesterol in HDL [Mass ratio] 6.4 {ratio} Normal <5.0 [facility] Comment on above: Result Comment: PERF ORMED BY: [place] [address] PATHOLOGIST BULLDOZER OPERATOR MARSHA ASTORGA M.D. Performed By: #### O UTREACH LIPID, OUTREACH CMP, CBCNOOUTREACH #### [facility] [address] [place] [id number] [place] LDL Cholesterol,Calculat ed 127 mg/dL High 0-100 [facility] Comment on above: Result Comment: LDL ATP III CLASSIFICATION LDL less than 100 mg/dL Optimal LDL 100-129 mg/dL Near or above optimal LDL 130-159 mg/dL Borderline high LDL 160-189 mg/dL High LDL greater than 189 mg/dL Very high Performed By: #### O UTREACH LIPID, OUTREACH CMP, CBCNOOUTREACH #### [facility] [address] [place] [address] [place] Triglyceride w/Reflex 364 mg/dL High 35-149 [facility] Comment on above: Result Comment: TRIG ATP III CLASSIFICATION TRIG less than 150 mg/dL Normal TRIG 150-199 mg/dL Borderline high TRIG 200-500 mg/dL High TRIG greater than 500 mg/dL Very high Standard traceable to the Center for Disease Conrtrol and Prevention (CDC) test method. Performed By: #### O UTREACH LIPID, OUTREACH CMP, CBCNOOUTREACH #### [facility] [address] [place] [id number] [facility] VLDL CHOLESTEROL 72 mg/dL Normal [facility] Comment on above: Performed By: #### O UTREACH LIPID, OUTREACH CMP, CBCNOOUTREACH #### [facility] [address] [place] [address] [facility] Vital Signs Date Time Vital Sign Value Performing Clinician Facility 02-16-2023 10:00-0500 Body height 167.64 cm Negrito Ball Other [facility] Other 02-16-2023 10:00-0500 Body mass index (BMI) [Ratio] 25.08 kg/m2 Negrito Ball Other [facility] Other 02-16-2023 10:00-0500 Body weight 70.49 kg Negrito Ball Other [facility] Other 02-16-2023 10:00-0500 Diastolic blood pressure 85 mm[Hg] Negrito Ball Other [facility] Other 02-16-2023 10:00-0500 Respiratory rate 18 /min Negrito Ball Other [facility] Other 02-16-2023 10:00-0500 Systolic blood pressure 135 mm[Hg] Negrito Ball Other [facility] Other 11-17-2022 11:30-0400 Body height 167.64 cm Negrito Ball Other [facility] Other 11-17-2022 11:30-0400 Body mass index (BMI) [Ratio] 24.6 kg/m2 Negriot Ball Other [facility] Other 11-17-2022 11:30-0400 Body weight 69.13 kg Negrito Ball Other [facility] Other 11-17-2022 11:30-0400 Diastolic blood pressure 84 mm[Hg] Negrito Ball Other [facility] Other 11-17-2022 11:30-0400 Respiratory rate 12 /min Negrito Ball Other [facility] Other 11-17-2022 11:30-0400 Systolic blood pressure 147 mm[Hg] Negrito Ball Other [facility] Other 08-18-2022 10:15-0400 Body height 167.64 cm Negrito Ball Other [facility] Other 08-18-2022 10:15-0400 Body mass index (BMI) [Ratio] 24.56 kg/m2 Negrito Ball Other [facility] Other 08-18-2022 10:15-0400 Body weight 69.04 kg Negrito Ball Other [facility] Other 08-18-2022 10:15-0400 Diastolic blood pressure 90 mm[Hg] Negrito Ball Other [facility] Other 08-18-2022 10:15-0400 Respiratory rate 12 /min Negrito Ball Other [facility] Other 08-18-2022 10:15-0400 Systolic blood pressure 155 mm[Hg] Negrito Ball Other [facility] Other 05-29-2022 15:30-0400 Body height 167.64 cm Negrito Ball Other [facility] Other 05-29-2022 15:30-0400 Body mass index (BMI) [Ratio] 24.24 kg/m2 Negrito Ball Other [facility] Other 05-29-2022 15:30-0400 Body weight 68.13 kg Negrito Ball Other [facility] Other 05-29-2022 15:30-0400 Diastolic blood pressure 68 mm[Hg] Negrito Ball Other [facility] Other 05-29-2022 15:30-0400 Respiratory rate 12 /min Negrito Ball Other [facility] Other 05-29-2022 15:30-0400 Systolic blood pressure 153 mm[Hg] Negrito Ball Other [facility] Other Encounters Encounter Date Encounter Type Care Provider Facility Start: 03-28-2023 End: 03-28-2023 ambulatory Negrito Ball Other [facility] Other Start: 03-28-2023 Telephone encounter Negrito Ball [facility] Start: 03-26-2023 End: 03-26-2023 ambulatory Negrito Ball Other [facility] Other Start: 03-26-2023 Telephone encounter Negrito Ball [facility] Start: 02-16-2023 End: 02-16-2023 ambulatory Negrito Ball Other [facility] Other Start: 02-16-2023 Office outpatient vi sit 15 minutes Negrito Ball [facility] Start: 01-29-2023 End: 01-29-2023 ambulatory Negrito Ball Other [facility] Other Start: 01-29-2023 Telephone encounter Negrito Ball [facility] Start: 12-06-2022 End: 12-06-2022 ambulatory Negrito Ball Other [facility] Other Start: 12-06-2022 Telephone encounter Negrito Ball [facility] Start: 12-05-2022 End: 12-05-2022 ambulatory Negrito Ball Other [facility] Other Start: 12-05-2022 Telephone encounter Negrito Ball [facility] Start: 11-17-2022 End: 11-17-2022 ambulatory Negrito Ball Other [facility] Other Start: 11-17-2022 Patient encounter procedure Negrito Ball [facility] Start: 11-01-2022 End: 11-01-2022 ambulatory Negrito Ball Other [facility] Start: 11-01-2022 Telephone encounter Negrito Ball [facility] Start: 09-07-2022 End: 09-07-2022 ambulatory Negrito Ball Other [facility] Other Start: 09-07-2022 Telephone encounter Negrito Ball [facility] Start: 08-18-2022 End: 08-18-2022 ambulatory Negrito Ball Other [facility] Other Start: 08-18-2022 Office outpatient vi sit 15 minutes Negrito Ball [facility] Start: 08-18-2022 Telephone encounter Negrito Ball [facility] Start: 08-01-2022 End: 08-01-2022 ambulatory Negrito Ball Other [facility] Other Start: 08-01-2022 Telephone encounter Negrito Shannon [facility] Start: 05-29-2022 End: 05-29-2022 ambulatory Negrito Shannon Other [facility] Other Start: 05-29-2022 Office outpatient vi sit 15 minutes [facility] Start: 11-11-2021 Adult health examination Negrito Shannon Other [facility] Other Start: 03-11-2021 End: 03-12-[address] NEGRITO SHANNON Facility:[facility]1 Procedures Date Procedure Procedure Detail Performing Clinician Start: 11-20-2017 Screening for malign ant neoplasm of colon Negrito Shannon Other Start: 11-14-2013 General examination of patient Negrito Shannon Other Depression screening Lawrence Shannon Other Screening for malign ant neoplasm of breast Negrito Shannon Other Immunizations Immunization Date Immunization Notes Care Provider Fa [facility] 01-23-2022 influenza virus vaccine, split virus (incl. purified surface antigen) Negrito Shannon Other [facility] 12-30-2021 influenza virus vaccine, split virus (incl. purified surface antigen) Negrito Shannon Other [facility] 12-31-2020 COVID-19 Vaccine Pfi zer - Documentation Purposes Only Negrito Shannon Other [facility] 11-08-2020 influenza virus vaccine, split virus (incl. purified surface antigen) Negrito Shannon Other [facility] 05-27-2020 COVID-19 Vaccine Pfi zer - Documentation Purposes Only Negrito Shannon Other [facility] Other 05-06-2020 COVID-19 Vaccine Pfi zer - Documentation Purposes Only Negrito Shannon Other [facility] 11-22-2019 influenza virus vaccine, split virus (incl. purified surface antigen) Negrito Shannon Other [facility] Other 10-25-2019 tetanus toxoid, redu paramjit diphtheria toxoid, and acellular pertussis vaccine, adsorbed Negrito Elie Other [facility] Other 11-10-2014 tetanus and diphther ia toxoids, adsorbed, preservative free, for adult use (5 Lf of tetanus toxoid and 2 Lf of diphtheria toxoid) Negrito Elie Other [facility] Other 12-17-2012 tetanus and diphther ia toxoids, adsorbed, preservative free, for adult use (5 Lf of tetanus toxoid and 2 Lf of diphtheria toxoid) Negrito Elie Other [facility] Other 10-07-2003 diphtheria, tetanus toxoids and acellular pertussis vaccine, unspecified formulation Negrito Shannon Other [facility] Other Payers Date Payer Category Payer Medicare [id number] 1959 Unknown [id number] 1955 Unknown [id number] Unknown [id number] Social History Date Type Detail Facility Unknown if ever smoked [facility] Other Sex Assigned At Sex Assigned At Bir th [facility] Other Clinical Notes 05-29-2022 to 03-28-2023 Note Date & Type Note Facility 03-28-2023 Evaluation note Encounter Date Diagnosis Assessment Notes Feb, Hypercholesterolemia (ICD-10 - E78.00) [facility] Other [id number] Evaluation note* Encounter Date Diagnosis Assessment Notes [...] report is being monitored every 90 days. [facility] Other 12-04-2023 Evaluation note* Encounter Date Diagnosis Assessment Notes Treatment Notes Treatment Clinical Notes Jan, Fibromyalgia (ICD-10 - M79.7) [facility] 10-11-2023 Evaluation note* Encounter Date Diagnosis Assessment Notes Treatment Notes Treatment Clinical Notes Nov, Age-related osteoporosis without current pathological fracture (ICD-10 - M81.0) [facility] Other 09-22-2023 Evaluation note* Encounter Date Diagnosis [...] Screening for colon cancer (ICD-10 - Z12.11) [facility] Other 09-06-2023 Evaluation note* Encounter Date Diagnosis Assessment Notes Treatment Notes Treatment Clinical Notes Oct, Lumbar spondylosis (ICD-10 - M47.816) [facility] Other 07-13-2023 Evaluation note* Encounter Date Diagnosis Assessment Notes Treatment Notes Treatment Clinical Notes Aug, Lumbar spondylosis (ICD-10 - M47.816) [facility] Other 06-23-2023 Evaluation note* Encounter Date Diagnosis [...] phone, computer and exercise prior to bedtime [facility] 06-23-2023 Evaluation note* Encounter Date Diagnosis Assessment Notes Treatment Notes Treatment Clinical Notes Jul, Lumbar spondylosis (ICD-10 - M47.816) [facility] 06-06-2023 Evaluation note* Encounter Date Diagnosis Assessment Notes Treatment Notes Treatment Clinical Notes Jul, Lumbar spondylosis (ICD-10 - M47.816) [facility] Other 04-03-2023 Evaluation note* Encounter Date Diagnosis [...] avoid bedtime food, TV, computer and exercise [facility] Other Evaluation noteNo InformationNortWallerius Other History general Narrative - Reported* Type [...] right shoul gaby Hospitalization History see above [facility] Other Summary Purpose Family History No Family History Records FoundNo Family History Records Found Advance Directives No Advanced Directives Records FoundNo Advanced Directives Records Found Additional Source Comments INFORMATION SOURCE (unrecogn ized section and content) DATE CREATED AUTHOR 03/16/2021 [facility] DATE CREATED AUTHOR AUTHOR'S ORGANIZ ATION 03/21/2021 [facility] REASON FOR VISIT (unrecogniz ed section and [...] BE BASED ON THE PRIMARY CLINICAL RECORDS. [employer] provides no warranty or guarantee of the accuracy or completeness of information in this document.
== END 2023-12-03 13:25 | disposition home or self-care (01) ==
LOC: RAD 13:25
PROVIDERS: PCP Internal Medicine; Visit Provider Anesthesiology
DX: M54.2 Cervicalgia (principal); M54.50 Low back pain, unspecified; M25.511 Pain in right shoulder; M25.512 Pain in left shoulder; M25.551 Pain in right hip; M25.552 Pain in left hip; M51.369 Other intervertebral disc degeneration, lumbar region without mention of lumbar back pain or lower extremity pain
CPT/HCPCS: 72050; 72110; 72220; 73030; 73522; G0463

== ENCOUNTER 2023-12-10 13:09 | Outpatient (OUT) | payer MEDICARE, OTHER, SELFPAY ==
--- OUTSIDE RECORDS SUMMARY | 2023-12-10 13:29 | XMS_ITS | CCD ---
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 Name Role Phone DR NEGRITO SHANNON Admitting Unavailable ELIE, DR VELA Primary Care Unavailable ELIE, DR VELA Consulting Unavailable ELIE, DR VELA Attending Unavailable KETAN, DR ZAIN Lott Consulting Unavailable Negrito Shannon Unavailable Allergies Allergy Classification Reported Allergen(s) Allergy Type Date of Onset Reaction(s) Facility (1 source) Lidocaine Drug Allergy 3 [facility] Repository (13 sources) Fenofibrate Drug Allergy Unknown [facility] Other (13 sources) Lovastatin Drug Allergy Unknown [facility] Other (13 sources) lidoderm patches Propensity to adverse reactions itching [facility] Other (1 source) patient allergy list reviewed by nurse or physicia Propensity to adverse reactions 3 Comment:Done [facility] Other Medications Current Medications Medication Drug Class(es) [...] day Active Baclofen Not-Chip ing Calcium 1200 1595-3891 MG-UNIT (3 sources) take 1 tablet by mouth once daily Calcium 1200 1606-0110 MG-UNIT 1 tablet Orally Once a day [...] sources) High risk drug monitoring status; Translations: [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 Admission #: [id number] Family : Order #: [id number] CLICK HERE TO VIEW EXAM RADIOLOGY REPORT [...] Treatments None Family Cancers None LOCATION: [facility] BREAST COMPOSITION: Heterogeneously dense,which may obscure [...] M.D. on 03/11/2021 at 15:06 Normal [facility] CBC Without Differentialon 0 11-06-2020 Erythrocyte distribution width (RBC) [Ratio] 13.5 % Normal 11.9-15.3 [facility] Comment on above: Performed By: #### O UTREACH LIPID, OUTREACH CMP, CBCNOOUTREACH #### [address] Hematocrit (Bld) [Volume fraction] 41.1 % Normal 34.0-46.4 [facility] Comment on above: Performed By: #### O UTREACH LIPID, OUTREACH CMP, CBCNOOUTREACH #### [address] Hemoglobin (Bld) [Mass/Vol] 13.6 g/dL Normal 11.8-15.4 [facility] Comment on above: Performed By: #### O UTREACH LIPID, OUTREACH CMP, CBCNOOUTREACH #### [address] MCH (RBC) [Entitic mass] 27.4 pg Normal 24.7-34.3 [facility] Comment on above: Performed By: #### O UTREACH LIPID, OUTREACH CMP, CBCNOOUTREACH #### [place] [id number] [facility] MCV (RBC) [Entitic vol] 82.5 fL Normal 80-100 [facility] Comment on above: Performed By: #### O UTREACH LIPID, OUTREACH CMP, CBCNOOUTREACH #### [address] Mean Corpuscular HGB Conc 33.2 g/dL Normal 32.0-35.0 [facility] Comment on above: Performed By: #### O UTREACH LIPID, OUTREACH CMP, CBCNOOUTREACH #### [address] Platelet mean volume (Bld) [Entitic vol] 9.6 fL Normal 6.3-10.7 [facility] Comment on above: Result Comment: PERF ORMED BY: [place] [address] PATHOLOGIST SOCIAL WORK PROFESSOR MARSHA ASTORGA M.D. Performed By: #### O UTREACH LIPID, OUTREACH CMP, CBCNOOUTREACH #### [address] Platelets (Bld) [#/Vol] 231 10*3/uL Normal 150-450 [facility] Comment on above: Performed By: #### O UTREACH LIPID, OUTREACH CMP, CBCNOOUTREACH #### [address] RBC (Bld) [#/Vol] 4.98 10*6/uL Normal 3.60-5.[address] [facility] Comment on above: Performed By: #### O UTREACH LIPID, OUTREACH CMP, CBCNOOUTREACH #### [address] WBC (Bld) [#/Vol] 4.3 10*3/uL Normal 3.8-11.6 [facility] Comment on above: Performed By: #### O UTREACH LIPID, OUTREACH CMP, CBCNOOUTREACH #### [address] CMP Outreachon 11-06-2020 Albumin [Mass/Vol] 4.4 g/dL Normal 3.2-5.5 [facility] Comment on above: Performed By: #### O UTREACH LIPID, OUTREACH CMP, CBCNOOUTREACH #### [address] ALP [Catalytic activity/Vol] 64 U/L Normal 32-92 [facility] Comment on above: Performed By: #### O UTREACH LIPID, OUTREACH CMP, CBCNOOUTREACH #### [facility] [address] ALT [Catalytic activity/Vol] 32 U/L Normal 10-60 [facility] Comment on above: Performed By: #### O UTREACH LIPID, OUTREACH CMP, CBCNOOUTREACH #### [facility] [address] AST [Catalytic activity/Vol] 25 U/L Normal 10-42 [facility] Comment on above: Performed By: #### O UTREACH LIPID, OUTREACH CMP, CBCNOOUTREACH #### [facility] [address] Bilirubin [Mass/Vol] 0.5 mg/dL Normal 0.3-1.2 [facility] Comment on above: Performed By: #### O UTREACH LIPID, OUTREACH CMP, CBCNOOUTREACH #### [facility] [address] [place] [address] [place] Calcium [Mass/Vol] 9.6 mg/dL Normal 8.2-10.2 [facility] Comment on above: Performed By: #### O UTREACH LIPID, OUTREACH CMP, CBCNOOUTREACH #### [facility] [address] [place] [id number] [place] Chloride [Moles/Vol] 105 mmol/L Normal 95-114 [facility] Comment on above: Performed By: #### O UTREACH LIPID, OUTREACH CMP, CBCNOOUTREACH #### [facility] [address] [place] [address] [place] CO2 [Moles/Vol] 26.7 mmol/L Normal 22.0-30.0 [facility] Comment on above: Performed By: #### O UTREACH LIPID, OUTREACH CMP, CBCNOOUTREACH #### [facility] [address] [place] [id number] [place] Creatinine [Mass/Vol] 0.63 mg/dL Normal 0.44-1.03 [facility] Comment on above: Performed By: #### O UTREACH LIPID, OUTREACH CMP, CBCNOOUTREACH #### [facility] [address] [place] [id number] [place] Estimated GFR ( Marianne > 60 Normal [facility] Comment on above: Result Comment: GFR estimated reference range: According to KDOQI guidelines, <60 ml/min/1.73m2 is sufficient to diagnose a patient with chronic kidney disease. Performed By: #### O UTREACH LIPID, OUTREACH CMP, CBCNOOUTREACH #### [facility] [address] [place] [id number] [place] Estimated GFR (Non- Am > 60 Normal [facility] Comment on above: Performed By: #### O UTREACH LIPID, OUTREACH CMP, CBCNOOUTREACH #### [facility] [address] [place] [id number] [place] Glucose [Mass/Vol] 118 mg/dL High 70-100 [facility] Comment on above: Result Comment: [place] Glucose Reference Range is dependent on time and content of last meal. Glucose of more than 200 mg/dL in a nonstressed, ambulatory subject supports the diagnosis of Diabetes Mellitus. ADA recommended reference range Performed By: #### O UTREACH LIPID, OUTREACH CMP, CBCNOOUTREACH #### [facility] [address] [place] [id number] [place] Potassium [Moles/Vol] 4.1 mmol/L Normal 3.5-5.1 [facility] Comment on above: Performed By: #### O UTREACH LIPID, OUTREACH CMP, CBCNOOUTREACH #### [facility] [address] [place] [id number] [place] Protein [Mass/Vol] 6.5 g/dL Normal 6.1-7.9 [facility] Comment on above: Performed By: #### O UTREACH LIPID, OUTREACH CMP, CBCNOOUTREACH #### [facility] [address] [place] [id number] [place] Sodium [Moles/Vol] 141 mmol/L Normal 136-146 [facility] Comment on above: Performed By: #### O UTREACH LIPID, OUTREACH CMP, CBCNOOUTREACH #### [facility] [address] [place] [address] [place] Urea nitrogen [Mass/Vol] 15 mg/dL Normal 9-23 [facility] Comment on above: Performed By: #### O UTREACH LIPID, OUTREACH CMP, CBCNOOUTREACH #### [facility] [address] [place] [address] [place] Lipid Profile Outreachon Cholesterol [Mass/Vol] 237 mg/dL High 140-200 [facility] Comment on above: Result Comment: Chol less than 200 mg/dl low risk Chol 201-239 mg/dl borderline risk Chol 240 mg/dl and greater high risk Performed By: #### O UTREACH LIPID, OUTREACH CMP, CBCNOOUTREACH #### [facility] [address] [place] [id number] [place] Cholesterol in HDL [Mass/Vol] 37 mg/dL Normal 35-85 [facility] Comment on above: Result Comment: HDL CHOL ATP-III CLASSIFICATION Cardiovascular Risk HDL > or equal to 60 mg/dL LOW HDL < 40 mg/dL HIGH Performed By: #### O UTREACH LIPID, OUTREACH CMP, CBCNOOUTREACH #### [facility] [address] [place] [id number] [place] Cholesterol.total/Ch olesterol in HDL [Mass ratio] 6.4 {ratio} Normal <5.0 [facility] Comment on above: Result Comment: PERF ORMED BY: [place] [address] PATHOLOGIST SOCIAL WORK PROFESSOR MARSHA ASTORGA M.D. Performed By: #### O UTREACH LIPID, OUTREACH CMP, CBCNOOUTREACH #### [facility] [address] [place] [id number] [place] LDL Cholesterol,Calculat ed 127 mg/dL High 0-100 [facility] Comment on above: Result Comment: LDL ATP III CLASSIFICATION LDL less than 100 mg/dL Optimal LDL 100-129 mg/dL Near or above optimal LDL 130-159 mg/dL Borderline high LDL 160-189 mg/dL High LDL greater than 189 mg/dL Very high Performed By: #### O UTREACH LIPID, OUTREACH CMP, CBCNOOUTREACH #### [facility] [address] [place] [address] [place] Triglyceride w/Reflex 364 mg/dL High 35-149 [facility] Comment on above: Result Comment: TRIG ATP III CLASSIFICATION TRIG less than 150 mg/dL Normal TRIG 150-199 mg/dL Borderline high TRIG 200-500 mg/dL High TRIG greater than 500 mg/dL Very high Standard traceable to the Center for Disease Conrtrol and Prevention (CDC) test method. Performed By: #### O UTREACH LIPID, OUTREACH CMP, CBCNOOUTREACH #### [facility] [address] [place] [id number] [facility] VLDL CHOLESTEROL 72 mg/dL Normal [facility] Comment on above: Performed By: #### O UTREACH LIPID, OUTREACH CMP, CBCNOOUTREACH #### [facility] [address] [place] [address] [facility] Vital Signs Date Time Vital Sign Value Performing Clinician Facility 02-16-2023 10:00-0500 Body height 167.64 cm Negrito Ball Other [facility] Other 02-16-2023 10:00-0500 Body mass index (BMI) [Ratio] 25.08 kg/m2 Negrito Ball Other [facility] Other 02-16-2023 10:00-0500 Body weight 70.49 kg Negrito Ball Other [facility] Other 02-16-2023 10:00-0500 Diastolic blood pressure 85 mm[Hg] Negrito Ball Other [facility] Other 02-16-2023 10:00-0500 Respiratory rate 18 /min Negrito Ball Other [facility] Other 02-16-2023 10:00-0500 Systolic blood pressure 135 mm[Hg] Negrito Ball Other [facility] Other 11-17-2022 11:30-0400 Body height 167.64 cm Negrito Ball Other [facility] Other 11-17-2022 11:30-0400 Body mass index (BMI) [Ratio] 24.6 kg/m2 Negrito Ball Other [facility] Other 11-17-2022 11:30-0400 Body weight 69.13 kg Negrito Ball Other [facility] Other 11-17-2022 11:30-0400 Diastolic blood pressure 84 mm[Hg] Negrito Ball Other [facility] Other 11-17-2022 11:30-0400 Respiratory rate 12 /min Negrito Ball Other [facility] Other 11-17-2022 11:30-0400 Systolic blood pressure 147 mm[Hg] Negrito Ball Other [facility] Other 08-18-2022 10:15-0400 Body height 167.64 cm Negrito Ball Other [facility] Other 08-18-2022 10:15-0400 Body mass index (BMI) [Ratio] 24.56 kg/m2 Negrito Ball Other [facility] Other 08-18-2022 10:15-0400 Body weight 69.04 kg Negrito Ball Other [facility] Other 08-18-2022 10:15-0400 Diastolic blood pressure 90 mm[Hg] Negrito Ball Other [facility] Other 08-18-2022 10:15-0400 Respiratory rate 12 /min Negrito Ball Other [facility] Other 08-18-2022 10:15-0400 Systolic blood pressure 155 mm[Hg] Negrito Ball Other [facility] Other 05-29-2022 15:30-0400 Body height 167.64 cm Negrito Ball Other [facility] Other 05-29-2022 15:30-0400 Body mass index (BMI) [Ratio] 24.24 kg/m2 Negrito Ball Other [facility] Other 05-29-2022 15:30-0400 Body weight 68.13 kg Negrito Ball Other [facility] Other 05-29-2022 15:30-0400 Diastolic blood pressure 68 mm[Hg] Negrito Ball Other [facility] Other 05-29-2022 15:30-0400 Respiratory rate 12 /min Negrito Ball Other [facility] Other 05-29-2022 15:30-0400 Systolic blood pressure 153 mm[Hg] Negrito Ball Other [facility] Other Encounters Encounter Date Encounter Type Care Provider Facility Start: 03-28-2023 End: 03-28-2023 ambulatory Negrito Ball Other [facility] Other Start: 03-28-2023 Telephone encounter Negrito Ball [facility] Start: 03-26-2023 End: 03-26-2023 ambulatory Negrito Ball Other [facility] Other Start: 03-26-2023 Telephone encounter Negrito Ball [facility] Start: 02-16-2023 End: 02-16-2023 ambulatory Negrito Ball Other [facility] Other Start: 02-16-2023 Office outpatient vi sit 15 minutes Negrito Ball [facility] Start: 01-29-2023 End: 01-29-2023 ambulatory Negrito Ball Other [facility] Other Start: 01-29-2023 Telephone encounter Negrito Ball [facility] Start: 12-06-2022 End: 12-06-2022 ambulatory Negrito Ball Other [facility] Other Start: 12-06-2022 Telephone encounter Negrito Ball [facility] Start: 12-05-2022 End: 12-05-2022 ambulatory Negrito Ball Other [facility] Other Start: 12-05-2022 Telephone encounter Negrito Ball [facility] Start: 11-17-2022 End: 11-17-2022 ambulatory Negrito Ball Other [facility] Other Start: 11-17-2022 Patient encounter procedure Negrito Ball [facility] Start: 11-01-2022 End: 11-01-2022 ambulatory Negrito Ball Other [facility] Other Start: 11-01-2022 Telephone encounter Negrito Ball [facility] Start: 09-07-2022 End: 09-07-2022 ambulatory Negrito Ball Other [facility] Other Start: 09-07-2022 Telephone encounter Negrito Ball [facility] Start: 08-18-2022 End: 08-18-2022 ambulatory Negrito Ball Other [facility] Other Start: 08-18-2022 Office outpatient vi sit 15 minutes Negrito Ball [facility] Start: 08-18-2022 Telephone encounter Negrito Ball [facility] Start: 08-01-2022 End: 08-01-2022 ambulatory Negrito Ball Other [facility] Other Start: 08-01-2022 Telephone encounter Negrito Shannon [facility] Start: 05-29-2022 End: 05-29-2022 ambulatory Negrito Shannon Other [facility] Other Start: 05-29-2022 Office outpatient vi sit 15 minutes [facility] Start: 11-11-2021 Adult health examination Negrito Shannon Other [facility] Other Start: 03-11-2021 End: 03-12-[address] NEGRITO SHANNON Facility:H1 Procedures Date Procedure Procedure Detail Performing Clinician Start: 11-20-2017 Screening for malign ant neoplasm of colon Negrito Shannon Other Start: 11-14-2013 General examination of patient Negrito Shannon Other Depression screening Lawrence Shannon Other Screening for malign ant neoplasm of breast Negrito Shannon Other Immunizations Immunization Date Immunization Notes Care Provider [facility] 01-23-2022 influenza virus vaccine, split virus (incl. purified surface antigen) Negrito Shannon Other [facility] Other 12-30-2021 influenza virus vaccine, split virus (incl. purified surface antigen) Negrito Shannon Other [facility] Other 12-31-2020 COVID-19 Vaccine Pfi zer - Documentation Purposes Only Negrito Shannon Other [facility] Other 11-08-2020 influenza virus vaccine, split virus (incl. purified surface antigen) Negrito Shannon Other [facility] Other 05-27-2020 COVID-19 Vaccine Pfi zer - Documentation Purposes Only Negrito Shannon Other [facility] Other 05-06-2020 COVID-19 Vaccine Pfi zer - Documentation Purposes Only Negrito Shannon Other [facility] Other 11-22-2019 influenza virus vaccine, split virus (incl. purified surface antigen) Negrito Shannon Other [facility] Other 10-25-2019 tetanus toxoid, redu paramjit diphtheria toxoid, and acellular pertussis vaccine, adsorbed Negrito Elie Other [facility] Other 11-10-2014 tetanus and diphther ia toxoids, adsorbed, preservative free, for adult use (5 Lf of tetanus toxoid and 2 Lf of diphtheria toxoid) Negrito Elie Other [facility] Other 12-17-2012 tetanus and diphther ia toxoids, adsorbed, preservative free, for adult use (5 Lf of tetanus toxoid and 2 Lf of diphtheria toxoid) Negrito Elie Other [facility] Other 10-07-2003 diphtheria, tetanus toxoids and acellular pertussis vaccine, unspecified formulation Negrito Shannon Other [facility] Other Payers Date Payer Category Payer Medicare [id number] 1959 Unknown [id number] 1955 Unknown [id number] Unknown [id number] Social History Date Type Detail Facility Unknown if ever smoked [facility] Other Sex Assigned At Sex Assigned At Bir th [facility] Other Clinical Notes 05-29-2022 to 03-28-2023 Note Date & Type Note Facility 03-28-2023 Evaluation note Encounter Date Diagnosis Assessment Notes Feb, Hypercholesterolemia (ICD-10 - E78.00) [facility] Other [id number] Evaluation note* Encounter Date Diagnosis Assessment Notes [...] report is being monitored every 90 days. [facility] Other 12-04-2023 Evaluation note* Encounter Date Diagnosis Assessment Notes Treatment Notes Treatment Clinical Notes Jan, Fibromyalgia (ICD-10 - M79.7) [facility] Other 10-11-2023 Evaluation note* Encounter Date Diagnosis Assessment Notes Treatment Notes Treatment Clinical Notes Nov, Age-related osteoporosis without current pathological fracture (ICD-10 - M81.0) [facility] Other 09-22-2023 Evaluation note* Encounter Date Diagnosis [...] Screening for colon cancer (ICD-10 - Z12.11) [facility] Other 09-06-2023 Evaluation note* Encounter Date Diagnosis Assessment Notes Treatment Notes Treatment Clinical Notes Oct, Lumbar spondylosis (ICD-10 - M47.816) [facility] Other 07-13-2023 Evaluation note* Encounter Date Diagnosis Assessment Notes Treatment Notes Treatment Clinical Notes Aug, Lumbar spondylosis (ICD-10 - M47.816) [facility] Other 06-23-2023 Evaluation note* Encounter Date Diagnosis [...] phone, computer and exercise prior to bedtime [facility] Other 06-23-2023 Evaluation note* Encounter Date Diagnosis Assessment Notes Treatment Notes Treatment Clinical Notes Jul, Lumbar spondylosis (ICD-10 - M47.816) [facility] Other 06-06-2023 Evaluation note* Encounter Date Diagnosis Assessment Notes Treatment Notes Treatment Clinical Notes Jul, Lumbar spondylosis (ICD-10 - M47.816) [facility] Other 04-03-2023 Evaluation note* Encounter Date Diagnosis [...] avoid bedtime food, TV, computer and exercise [facility] Other Evaluation noteNo InformationNortLK FREEMAN Other History general Narrative - Reported* Type [...] right shoul gaby Hospitalization History see above [facility] Other Summary Purpose Family History No Family History Records FoundNo Family History Records Found Advance Directives No Advanced Directives Records FoundNo Advanced Directives Records Found Additional Source Comments INFORMATION SOURCE (unrecogn ized section and content) DATE CREATED AUTHOR 03/16/2021 [facility] DATE CREATED AUTHOR AUTHOR'S ORGANIZ ATION 03/21/2021 [facility] REASON FOR VISIT (unrecogniz ed section and [...] BE BASED ON THE PRIMARY CLINICAL RECORDS. [email or web address] provides no warranty or guarantee of the accuracy or completeness of information in this document.
--- NOTE | 2023-12-10 14:10 | P.CN_ITS ---
Consult Note: HPI Data of Consult Patient: known to practice within the last 3 years Consult date: 12/10/23 Requesting Physician: Warren Ayoub MD Primary Care Provider: Non-Staff Physician, Consult Narrative Reason for consult: low back, bilateral hip, neck, bilateral shoulder pain Narrative: 68yof who presents for assessment. continues to have low back, bilateral hip, neck and bilateral shoulder pain. imaging reviewed, which is significant for moderate facet arthropathy in both the lumbar and cervical spine. she continues in a series of provider directed home exercises, which she has attempted for over 6 weeks without benefit. she uses tramadol and mobic as needed. denies adverse med side effects. cc:: CC: Warren Ayoub MD Review of Systems ROS Status of ROS 10 or more systems reviewed and unremark able except as noted in history and below Meds Home Medications and Allergies Home Medications ?Medication ?Instructions ?Recorded ?Confirmed ?Type Probiotic DAILY 12/03/23 History amlodipine 5 mg tablet 5 mg PO DAILY 12/03/23 12/03/23 History baclofen 20 mg tablet 20 mg PO DAILY 12/03/23 12/03/23 History duloxetine 60 mg capsule,delayed 60 mg PO DAILY 12/03/23 12/03/23 History release ezetimibe 10 mg tablet (Zetia) 10 mg PO DAILY 12/03/23 12/03/23 History losartan 25 mg tablet 25 mg PO DAILY 12/03/23 12/03/23 History meloxicam 7.5 mg tablet 7.5 mg PO DAILY 12/03/23 12/03/23 History tramadol 50 mg tablet 50 mg PO BID 12/03/23 12/03/23 History trazodone 50 mg tablet 50 mg PO DAILY 12/03/23 12/03/23 History Allergies Allergy/AdvReac Type Severity Reaction Status Date / Time No Known Drug Allergies Allergy Verified 12/03/23 13:15 Exam Narrative Exam Narrative: Psych-alert and oriented x 3. Attentive and appropriate, constitutionally normal, displays normal mood and affect per situation.? There are no obvious deficits in memory, reasoning, or intellect.? Skin-no obvious rashes, bruising, erythema noted to the patient's area of pain. Extremities- extremities are warm with minimal edema and palpable pulses. Lumbar-no significant tenderness to palpation noted in the lumbar spine and paraspinal musculature.? Pain is elicited with extension, and lateral rotation of the lumbar spine. Range of motion is slightly diminished with these motions due to pain. Facet loading maneuvers are positive bilaterally and do appear to be concordant with the patient's normal complaints of pain.? Coordination remains intact.? Gait remains non-antalgic. Assessment and Plan Assessment and Plan (1) Lumbar spondylosis: (2) Cervical spondylosis: Plan 68yof who presents for assessment. failed conservative measures, as noted. imaging reviewed, as noted. given symptoms and imaging, prudent to attempt diagnostic bilateral l4-5, l5-s1 medial branch blocks under fluoroscopic guidance with intention of proceeding to radiofrequency ablation. she is in agreement. meds reviewed, no changes. follow up after procedure.
== END 2023-12-10 13:10 | disposition home or self-care (01) ==
LOC: PM 13:09
PROVIDERS: Visit Provider Anesthesiology
DX: M47.816 Spondylosis without myelopathy or radiculopathy, lumbar region (principal); M47.812 Spondylosis without myelopathy or radiculopathy, cervical region
CPT/HCPCS: G0463

== ENCOUNTER 2023-12-24 06:54 | Day surgery (SDC) | payer MEDICARE, OTHER, SELFPAY ==
--- OUTSIDE RECORDS SUMMARY | 2023-12-24 06:57 | XMS_ITS | CCD ---
Author Organization [facility] Inform ion Partnership [facility] Care Team Providers Care Wellness Coach Name Role Phone DR NEGRITO SHANNON Admitting Unavailable ELIE, DR VELA Primary Care Unavailable DR NEGRITO SHANNON Consulting Unavailable ELIE, DR VELA Attending Unavailable KETAN, DR ZAIN Lott Consulting Unavailable Negrito Shannon Unavailable Mega MCQUEEN, Warren Collins Attending Unavailable Mega MCQUEEN, Warren Collins Attending Unavailable Allergies Allergy Classification Reported Allergen(s) Allergy Type Date of Onset Reaction(s) Facility (1 source) Lidocaine Drug Allergy 3 [facility] Repository (13 sources) Fenofibrate Drug Allergy Unknown [facility] Other (13 sources) Lovastatin Drug Allergy Unknown [facility] Other (13 sources) lidoderm patches Propensity to adverse reactions itching [facility] Other (1 source) patient allergy list reviewed by nurse or physicia Propensity to adverse reactions 3 Comment:Done [facility] Other Medications Current Medications Medication Drug Class(es) [...] day Active Baclofen Not-Chip ing Calcium 1200 3963-8184 MG-UNIT (3 sources) take 1 tablet by mouth once daily Calcium 1200 4702-0247 MG-UNIT 1 tablet Orally Once a day Active DULoxetine 60 mg oral capsule (20 sources) Serotonin and Norepinephrine Reuptake Inhibitor Start: take 1 capsule by mouth once daily [...] twice a day for 30 days p/u 12, start 01/30 w/ 2RF Jan, Active Start: [...] 1 tablet Orally twice a day p/u 3, start 3 w/ 2 RF Apr, Active traZODone hydrochloride 50 mg oral [...] sources) High risk drug monitoring status; Translations: [[facility] (current) use of opiate analgesic] Episodic Other 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 Admission #: [id number] Family : Order #: [id number] CLICK HERE TO VIEW EXAM RADIOLOGY REPORT [...] Treatments None Family Cancers None LOCATION: [facility] BREAST COMPOSITION: Heterogeneously dense,which may obscure [...] Owusu M.D. on 03/11/2021 at 15:06 Normal [facility] CBC Without Differentialon 0 11-06-2020 Erythrocyte distribution width (RBC) [Ratio] 13.5 % Normal 11.9-15.3 [facility] Comment on above: Performed By: #### O UTREACH LIPID, OUTREACH CMP, CBCNOOUTREACH #### [address] Hematocrit (Bld) [Volume fraction] 41.1 % Normal 34.0-46.4 [facility] Comment on above: Performed By: #### O UTREACH LIPID, OUTREACH CMP, CBCNOOUTREACH #### [address] Hemoglobin (Bld) [Mass/Vol] 13.6 g/dL Normal 11.8-15.4 [facility] Comment on above: Performed By: #### O UTREACH LIPID, OUTREACH CMP, CBCNOOUTREACH #### [address] MCH (RBC) [Entitic mass] 27.4 pg Normal 24.7-34.3 [facility] Comment on above: Performed By: #### O UTREACH LIPID, OUTREACH CMP, CBCNOOUTREACH #### [address] MCV (RBC) [Entitic vol] 82.5 fL Normal 80-100 [facility] Comment on above: Performed By: #### O UTREACH LIPID, OUTREACH CMP, CBCNOOUTREACH #### [facility] [address] [place] [address] Mean Corpuscular HGB Conc 33.2 g/dL Normal 32.0-35.0 [facility] Comment on above: Performed By: #### O UTREACH LIPID, OUTREACH CMP, CBCNOOUTREACH #### [address] Platelet mean volume (Bld) [Entitic vol] 9.6 fL Normal 6.3-10.7 [facility] Comment on above: Result Comment: PERF ORMED BY: [place] [address] PATHOLOGIST MASTER [employer]RAFTSMAN MARSHA ASTORGA M.D. Performed By: #### O UTREACH LIPID, OUTREACH CMP, CBCNOOUTREACH #### [address] Platelets (Bld) [#/Vol] 231 10*3/uL Normal 150-450 [facility] Comment on above: Performed By: #### O UTREACH LIPID, OUTREACH CMP, CBCNOOUTREACH #### [address] RBC (Bld) [#/Vol] 4.98 10*6/uL Normal 3.60-5.00 [facility] Comment on above: Performed By: #### O UTREACH LIPID, OUTREACH CMP, CBCNOOUTREACH #### [address] WBC (Bld) [#/Vol] 4.3 10*3/uL Normal 3.8-11.6 [facility] Comment on above: Performed By: #### O UTREACH LIPID, OUTREACH CMP, CBCNOOUTREACH #### [address] CMP Outreachon 11-06-2020 Albumin [Mass/Vol] 4.4 g/dL Normal 3.2-5.5 [facility] Comment on above: Performed By: #### O UTREACH LIPID, OUTREACH CMP, CBCNOOUTREACH #### [facility] [address] [id number] [place] ALP [Catalytic activity/Vol] 64 U/L Normal 32-92 [facility] Comment on above: Performed By: #### O UTREACH LIPID, OUTREACH CMP, CBCNOOUTREACH #### [facility] [address] [id number] [place] ALT [Catalytic activity/Vol] 32 U/L Normal 10-60 [facility] Comment on above: Performed By: #### O UTREACH LIPID, OUTREACH CMP, CBCNOOUTREACH #### [facility] [address] [id number] [place] AST [Catalytic activity/Vol] 25 U/L Normal 10-42 [facility] Comment on above: Performed By: #### O UTREACH LIPID, OUTREACH CMP, CBCNOOUTREACH #### [facility] [address] [place] [address] [place] Bilirubin [Mass/Vol] 0.5 mg/dL Normal 0.3-1.2 [facility] Comment on above: Performed By: #### O UTREACH LIPID, OUTREACH CMP, CBCNOOUTREACH #### [facility] [address] [place] [address] [place] Calcium [Mass/Vol] 9.6 mg/dL Normal 8.2-10.2 [facility] Comment on above: Performed By: #### O UTREACH LIPID, OUTREACH CMP, CBCNOOUTREACH #### [facility] [address] [place] [address] [place] Chloride [Moles/Vol] 105 mmol/L Normal 95-114 [facility] Comment on above: Performed By: #### O UTREACH LIPID, OUTREACH CMP, CBCNOOUTREACH #### [facility] [address] [place] [address] [place] CO2 [Moles/Vol] 26.7 mmol/L Normal 22.0-30.0 [facility] Comment on above: Performed By: #### O UTREACH LIPID, OUTREACH CMP, CBCNOOUTREACH #### [facility] [address] Creatinine [Mass/Vol] 0.63 mg/dL Normal 0.44-1.03 [facility] Comment on above: Performed By: #### O UTREACH LIPID, OUTREACH CMP, CBCNOOUTREACH #### [facility] [address] [place] [address] [place] Estimated GFR ( Marianne > 60 Normal [facility] Comment on above: Result Comment: GFR estimated reference range: According to KDOQI guidelines, <60 ml/min/1.73m2 is sufficient to diagnose a patient with chronic kidney disease. Performed By: #### O UTREACH LIPID, OUTREACH CMP, CBCNOOUTREACH #### [facility] [address] Estimated GFR (Non- Am > 60 Normal [facility] Comment on above: Performed By: #### O UTREACH LIPID, OUTREACH CMP, CBCNOOUTREACH #### [address] Glucose [Mass/Vol] 118 mg/dL High 70-100 [facility] Comment on above: Result Comment: [place] om Glucose Reference Range is dependent on time and content of last meal. Glucose of more than 200 mg/dL in a nonstressed, ambulatory subject supports the diagnosis of Diabetes Mellitus. ADA recommended reference range Performed By: #### O UTREACH LIPID, OUTREACH CMP, CBCNOOUTREACH #### [place] [address] [place] Potassium [Moles/Vol] 4.1 mmol/L Normal 3.5-5.1 [facility] Comment on above: Performed By: #### O UTREACH LIPID, OUTREACH CMP, CBCNOOUTREACH #### [facility] [address] [place] [address] [place] Protein [Mass/Vol] 6.5 g/dL Normal 6.1-7.9 [facility] Comment on above: Performed By: #### O UTREACH LIPID, OUTREACH CMP, CBCNOOUTREACH #### [place] [address] [place] Sodium [Moles/Vol] 141 mmol/L Normal 136-146 [facility] Comment on above: Performed By: #### O UTREACH LIPID, OUTREACH CMP, CBCNOOUTREACH #### [facility] [address] Urea nitrogen [Mass/Vol] 15 mg/dL Normal 9-23 [facility] Comment on above: Performed By: #### O UTREACH LIPID, OUTREACH CMP, CBCNOOUTREACH #### [facility] [address] [id number] [facility] Lipid Profile Outreachon Cholesterol [Mass/Vol] 237 mg/dL High 140-200 [facility] Comment on above: Result Comment: Chol less than 200 mg/dl low risk Chol 201-239 mg/dl borderline risk Chol 240 mg/dl and greater high risk Performed By: #### O UTREACH LIPID, OUTREACH CMP, CBCNOOUTREACH #### [facility] [address] [place] [address] [place] Cholesterol in HDL [Mass/Vol] 37 mg/dL Normal 35-85 [facility] Comment on above: Result Comment: HDL CHOL ATP-III CLASSIFICATION Cardiovascular Risk HDL > or equal to 60 mg/dL LOW HDL < 40 mg/dL HIGH Performed By: #### O UTREACH LIPID, OUTREACH CMP, CBCNOOUTREACH #### [facility] [address] [place] [address] [place] Cholesterol.total/Ch olesterol in HDL [Mass ratio] 6.4 {ratio} Normal <5.0 [facility] Comment on above: Result Comment: PERF ORMED BY: [place] [address] PATHOLOGIST MASTER [employer]SM[employer] MARSHA ASTORGA M.D. Performed By: #### O UTREACH LIPID, OUTREACH CMP, CBCNOOUTREACH #### [facility] [address] [id number] [facility] LDL Cholesterol,Calculat ed 127 mg/dL High 0-100 [facility] Comment on above: Result Comment: LDL ATP III CLASSIFICATION LDL less than 100 mg/dL Optimal LDL 100-129 mg/dL Near or above optimal LDL 130-159 mg/dL Borderline high LDL 160-189 mg/dL High LDL greater than 189 mg/dL Very high Performed By: #### O UTREACH LIPID, OUTREACH CMP, CBCNOOUTREACH #### [facility] [address] [id number] [facility] Triglyceride w/Reflex 364 mg/dL High 35-149 [facility] Comment on above: Result Comment: TRIG ATP III CLASSIFICATION TRIG less than 150 mg/dL Normal TRIG 150-199 mg/dL Borderline high TRIG 200-500 mg/dL High TRIG greater than 500 mg/dL Very high Standard traceable to the Center for Disease Conrtrol and Prevention (CDC) test method. Performed By: #### O UTREACH LIPID, OUTREACH CMP, CBCNOOUTREACH #### [facility] [address] VLDL CHOLESTEROL 72 mg/dL Normal [facility] Comment on above: Performed By: #### O UTREACH LIPID, OUTREACH CMP, CBCNOOUTREACH #### [facility] [address] [id number] [facility] Vital Signs Date Time Vital Sign Value Performing Clinician Facility 02-16-2023 10:00-0500 Body height 167.64 cm Negrito Shannon Other [facility] Other 02-16-2023 10:00-0500 Body mass index (BMI) [Ratio] 25.08 kg/m2 [facility]ito [facility] Other [facility] Other 02-16-2023 10:00-0500 Body weight 70.49 kg Negrtio [facility] Other [facility] Other 02-16-2023 10:00-0500 Diastolic blood pressure 85 mm[Hg] Negrito [facility] Other [facility] Other 02-16-2023 10:00-0500 Respiratory rate 18 /min Negrito [facility] Other [facility] Other 02-16-2023 10:00-0500 Systolic blood pressure 135 mm[Hg] Negrito Ball Other [facility] Other 11-17-2022 11:30-0400 Body height 167.64 cm Negrito Ball Other [facility] Other 11-17-2022 11:30-0400 Body mass index (BMI) [Ratio] 24.6 kg/m2 Negrito Ball Other [facility] Other 11-17-2022 11:30-0400 Body weight 69.13 kg Negrito Ball Other [facility] Other 11-17-2022 11:30-0400 Diastolic blood pressure 84 mm[Hg] Negrito Ball Other [facility] Other 11-17-2022 11:30-0400 Respiratory rate 12 /min Negrito Ball Other [facility] Other 11-17-2022 11:30-0400 Systolic blood pressure 147 mm[Hg] Negrito Ball Other [facility] Other 08-18-2022 10:15-0400 Body height 167.64 cm Negrito Ball Other [facility] Other 08-18-2022 10:15-0400 Body mass index (BMI) [Ratio] 24.56 kg/m2 Negrito Ball Other [facility] Other 08-18-2022 10:15-0400 Body weight 69.04 kg Negrito Ball Other [facility] Other 08-18-2022 10:15-0400 Diastolic blood pressure 90 mm[Hg] Negrito Ball Other [facility] Other 08-18-2022 10:15-0400 Respiratory rate 12 /min Negrito Ball Other [facility] Other 08-18-2022 10:15-0400 Systolic blood pressure 155 mm[Hg] Negrito Ball Other [facility] Other 05-29-2022 15:30-0400 Body height 167.64 cm Negrito Ball Other [facility] Other 05-29-2022 15:30-0400 Body mass index (BMI) [Ratio] 24.24 kg/m2 Negrito Ball Other [facility] Other 05-29-2022 15:30-0400 Body weight 68.13 kg Negrito Ball Other [facility] Other 05-29-2022 15:30-0400 Diastolic blood pressure 68 mm[Hg] Negrito Ball Other [facility] Other 05-29-2022 15:30-0400 Respiratory rate 12 /min Negrito Ball Other [facility] Other 05-29-2022 15:30-0400 Systolic blood pressure 153 mm[Hg] Negrito Ball Other [facility] Other Encounters Encounter Date Encounter Type Care Provider Facility Start: 12-10-2023 End: 12-10-2023 ambulatory Warren Ayoub MD Facility: [facility] Start: 12-03-2023 End: 12-03-2023 ambulatory Warren Ayoub MD Facility: [facility] Start: 03-28-2023 End: 03-28-2023 ambulatory Negrito Ball Other [facility] Other Start: 03-28-2023 Telephone encounter Negrito Ball [facility] Start: 03-26-2023 End: 03-26-2023 ambulatory Negrito Shannon Other [facility] Other Start: 03-26-2023 Telephone encounter Negrito Shannon [facility] Start: 02-16-2023 End: 02-16-2023 ambulatory Negrito Shannon Other [facility] Other Start: 02-16-2023 Office outpatient vi sit 15 minutes Negrito Shannon [facility] Start: 01-29-2023 End: 01-29-2023 ambulatory Negrito Shannon Other [facility] Other Start: 01-29-2023 Telephone encounter Negrito Shannon [facility] Start: 12-06-2022 End: 12-06-2022 ambulatory Negrito Shannon Other [facility] Other Start: 12-06-2022 Telephone encounter Negrito Shannon [facility] Start: 12-05-2022 End: 12-05-2022 ambulatory Negrito Shannon Other [facility] Other Start: 12-05-2022 Telephone encounter Negrito Shannon [facility] Start: 11-17-2022 End: 11-17-2022 ambulatory Negrito Shannon Other [facility] Other Start: 11-17-2022 Patient encounter procedure Negrito Shannon [facility] Start: 11-01-2022 End: 11-01-2022 ambulatory Negrito Shannon Other [facility] Other Start: 11-01-2022 Telephone encounter Negrito Shannon [facility] Start: 09-07-2022 End: 09-07-2022 ambulatory Negrito Shannon Other [facility] Other Start: 09-07-2022 Telephone encounter Negrito Shannon [facility] Start: 08-18-2022 End: 08-18-2022 ambulatory Negrito Shannon Other [facility] Other Start: 08-18-2022 Office outpatient vi sit 15 minutes Negrito Shannon [facility] Start: 08-18-2022 Telephone encounter Negrito [facility] Start: 08-01-2022 End: 08-01-2022 ambulatory Negrito Shannon Other [facility] Other Start: 08-01-2022 Telephone encounter [facility] Start: 05-29-2022 End: 05-29-2022 ambulatory Negrito Shannon Other [facility] Other Start: 05-29-2022 Office outpatient vi sit 15 minutes Negrito Shannon [facility] Start: 11-11-2021 Adult health examination Negrito Shannon Other [facility] Other Start: 03-11-2021 End: 03-12-[address] NEGRITO SHANNON Facility:[facility] Procedures Date Procedure Procedure Detail Performing Clinician Start: 11-20-2017 Screening for malign ant neoplasm of colon Negrito Shannon Other Start: 11-14-2013 General examination of patient Negrito Shannon Other Depression screening Lawrence Shannon Other Screening for malign ant neoplasm of breast Negrito Shannon Other Immunizations Immunization Date Immunization Notes Care Provider Kiki chao 01-23-2022 influenza virus vaccine, split virus (incl. purified surface antigen) Negrito Shannon Other [facility] Other 12-30-2021 influenza virus vaccine, split virus (incl. purified surface antigen) Negrito Shannon Other [facility] Other 12-31-2020 COVID-19 Vaccine Pfi zer - Documentation Purposes Only Negrito Shannon Other [facility] Other 11-08-2020 influenza virus vaccine, split virus (incl. purified surface antigen) Negrito Shannon Other [facility] Other 05-27-2020 COVID-19 Vaccine Pfi zer - Documentation Purposes Only Negrito Shannon Other [facility] Other 05-06-2020 COVID-19 Vaccine Pfi zer - Documentation Purposes Only Negrito Shannon Other [facility] Other 11-22-2019 influenza virus vaccine, split virus (incl. purified surface antigen) Negrito Shannon Other [facility] Other 10-25-2019 tetanus toxoid, redu paramjit diphtheria toxoid, and acellular pertussis vaccine, adsorbed Negrito Shannon Other [facility] Other 11-10-2014 tetanus and diphther ia toxoids, adsorbed, preservative free, for adult use (5 Lf of tetanus toxoid and 2 Lf of diphtheria toxoid) Negrito Shannon Other [facility] Other 12-17-2012 tetanus and diphther ia toxoids, adsorbed, preservative free, for adult use (5 Lf of tetanus toxoid and 2 Lf of diphtheria toxoid) Negrito Shannon Other [facility] Other 10-07-2003 diphtheria, tetanus toxoids and acellular pertussis vaccine, unspecified formulation Negrito Shannon Other [facility] Other Payers Date Payer Category Payer Medicare 2023 Unknown 1959 Medicare [id number] 1959 Unknown [id number] 1955 Unknown [id number] [id number] [id number] 1955 Unknown [id number] [id number] 1955 Unknown [id number] [id number] Unknown [id number] [id number] Social History Date Type Detail Facility Unknown if ever smoked [facility] Other Sex Assigned At Sex Assigned At Bir th [facility] Other Clinical Notes 05-29-2022 to 03-28-2023 Note Date & Type Note Facility 03-28-2023 Evaluation note Encounter Date Diagnosis Assessment Notes Feb, Hypercholesterolemia (ICD-10 - E78.00) [facility] Other 12-22-2023 Evaluation note* Encounter Date Diagnosis Assessment Notes [...] report is being monitored every 90 days. [facility] Other 12-04-2023 Evaluation note* Encounter Date Diagnosis Assessment Notes Treatment Notes Treatment Clinical Notes Jan, Fibromyalgia (ICD-10 - M79.7) [facility] Other 10-11-2023 Evaluation note* Encounter Date Diagnosis Assessment Notes Treatment Notes Treatment Clinical Notes Nov, Age-related osteoporosis without current pathological fracture (ICD-10 - M81.0) [facility] Other 09-22-2023 Evaluation note* Encounter Date Diagnosis [...] Screening for colon cancer (ICD-10 - Z12.11) [facility] Other 09-06-2023 Evaluation note* Encounter Date Diagnosis Assessment Notes Treatment Notes Treatment Clinical Notes Oct, Lumbar spondylosis (ICD-10 - M47.816) [facility] Other 07-13-2023 Evaluation note* Encounter Date Diagnosis Assessment Notes Treatment Notes Treatment Clinical Notes Aug, Lumbar spondylosis (ICD-10 - M47.816) [facility] Other 06-23-2023 Evaluation note* Encounter Date Diagnosis [...] phone, computer and exercise prior to bedtime [facility] Other 06-23-2023 Evaluation note* Encounter Date Diagnosis Assessment Notes Treatment Notes Treatment Clinical Notes Jul, Lumbar spondylosis (ICD-10 - M47.816) [facility] Other 06-06-2023 Evaluation note* Encounter Date Diagnosis Assessment Notes Treatment Notes Treatment Clinical Notes Jul, Lumbar spondylosis (ICD-10 - M47.816) [facility] Other 04-03-2023 Evaluation note* Encounter Date Diagnosis [...] avoid bedtime food, TV, computer and exercise [facility] Other Evaluation noteNo InformationN[facility] Other History general Narrative - Reported* Type [...] right shoul gaby Hospitalization History see above [facility] Other Summary Purpose Family History No Family History Records FoundNo Family History Records FoundNo Family History Records Found Advance Directives No Advanced Directives Records FoundNo Advanced Directives Records FoundNo Advanced Directives Records Found Additional Source Comments INFORMATION SOURCE (unrecogn ized section and content) DATE CREATED AUTHOR 03/16/2021 [facility] DATE CREATED AUTHOR AUTHOR'S ORGANIZ ATION 03/21/2021 [facility] DATE CREATED AUTHOR AUTHOR'S ORGANIZ ATION 12/20/2023 [facility] REASON FOR VISIT (unrecogniz ed section [...] BE BASED ON THE PRIMARY CLINICAL RECORDS. [email or web address]. provides no warranty or guarantee of the accuracy or completeness of information in this document.
[2023-12-24 07:01] VITALS: BP 141/82; PULSE 96; TEMP 37; O2SAT 97
[2023-12-24 07:55] VITALS: BP 165/76; PULSE 88; O2SAT 96
[2023-12-24 07:56] VITALS: BP 162/85; PULSE 85; O2SAT 96
[2023-12-24] MEDS: BUPIVACAINE HCL 0.25% PF 25 MG/10 ML VIAL 8 ML INJ (08:01)
--- NOTE | 2023-12-24 08:01 | W.PM.PROCNOT ---
Date of procedure: 12/24/23 Pre-op diagnosis: Pain due to lumbar spondylosis without myelopathy Post-op diagnosis: same as pre-op Procedure: Procedure: Bilateral L4-5, L5-S1 medial branch block Medications: Bupivacaine 0.25% 6cc The patient was seen and examined in the preoperative holding area.? An informed consent was obtained and placed on the chart.? The patient was brought to the medical procedure unit and placed in the prone position.? A timeout was completed verifying correct patient, procedure site, positioning, plan, and special equipment.? Using aseptic technique, the needle was placed at left L4. Under direct fluoroscopic visualization a Quincke-tipped spinal needle was advanced to the junction of the superior articulating process with the transverse process at the designated medial branch segment.? Preceded by negative aspiration, the above-mentioned injectate was placed in 1 mL aliquots.? The procedure was repeated at left L5, S1.? The needle was removed and insertion site was covered. The same procedure, at the same levels, was completed on the right side. The patient was taken to the postprocedural recovery area and monitored for an appropriate length of time before found suitable for discharge in the company of a responsible adult. Anesthesia: Local Surgeon: Warren Ayoub Pathology: none sent Condition: stable Disposition: no change
[2023-12-24] MEDS: LIDOCAINE HCL 2% 400 MG/20 ML MDV INJ (08:02)
== END 2023-12-24 08:04 | disposition home or self-care (01) ==
PROVIDERS: Visit Provider Anesthesiology
DX: M47.816 Spondylosis without myelopathy or radiculopathy, lumbar region (principal)
CPT/HCPCS: 64493; 64494; J0665

== ENCOUNTER 2023-12-26 10:41 | Outpatient (OUT) | payer MEDICARE, OTHER, SELFPAY ==
--- OUTSIDE RECORDS SUMMARY | 2023-12-26 10:55 | XMS_ITS | CCD ---
Author Organization [facility] Inform ion Partnership [facility] Care Team Providers Care Foley Artist Name Role Phone DR NEGRITO SHANNON Admitting [...] (1 source) Lidocaine Drug Allergy 3 [facility] Repository (13 sources) Fenofibrate Drug Allergy Unknown [facility] Other (13 sources) Lovastatin Drug Allergy Unknown [facility] Other (13 sources) lidoderm patches Propensity to adverse reactions itching [facility] Other (1 source) patient allergy list reviewed by nurse or physicia Propensity to adverse reactions 3 Comment:Done [facility] Other Medications Current Medications Medication Drug Class(es) [...] day Active Baclofen Not-Chip ing Calcium 1200 3385-5680 MG-UNIT (3 sources) take 1 tablet by mouth once daily Calcium 1200 0727-6330 MG-UNIT 1 tablet Orally Once a day [...] sources) High risk drug monitoring status; Translations: [senior living (current) use of opiate analgesic] Episodic Other aftercare (5 sources) 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 Admission #: [id number] Family : Order #: [id number] CLICK HERE TO VIEW EXAM RADIOLOGY REPORT [...] Treatments None Family Cancers None LOCATION: [facility] BREAST COMPOSITION: Heterogeneously dense,which may obscure [...] Owusu M.D. on 03/11/2021 at 15:06 Normal [facility] CBC Without Differentialon 0 11-06-2020 Erythrocyte distribution width (RBC) [Ratio] 13.5 % Normal 11.9-15.3 [facility] Comment on above: Performed By: #### O UTREACH LIPID, OUTREACH CMP, CBCNOOUTREACH #### [address] Hematocrit (Bld) [Volume fraction] 41.1 % Normal 34.0-46.4 [facility] Comment on above: Performed By: #### O UTREACH LIPID, OUTREACH CMP, CBCNOOUTREACH #### [address] Hemoglobin (Bld) [Mass/Vol] 13.6 g/dL Normal 11.8-15.4 [facility] Comment on above: Performed By: #### O UTREACH LIPID, OUTREACH CMP, CBCNOOUTREACH #### [address] MCH (RBC) [Entitic mass] 27.4 pg Normal 24.7-34.3 [facility] Comment on above: Performed By: #### O UTREACH LIPID, OUTREACH CMP, CBCNOOUTREACH #### [address] MCV (RBC) [Entitic vol] 82.5 fL Normal 80-100 [facility] Comment on above: Performed By: #### O UTREACH LIPID, OUTREACH CMP, CBCNOOUTREACH #### [facility] [address] [place] [address] Mean Corpuscular HGB Conc 33.2 g/dL Normal 32.0-35.0 [facility] Comment on above: Performed By: #### O UTREACH LIPID, OUTREACH CMP, CBCNOOUTREACH #### [address] Platelet mean volume (Bld) [Entitic vol] 9.6 fL Normal 6.3-10.7 [facility] Comment on above: Result Comment: PERF ORMED BY: [place] [address] PATHOLOGIST ENRICHMENT DIRECTOR MARSHA ASTORGA M.D. Performed By: #### O UTREACH LIPID, OUTREACH CMP, CBCNOOUTREACH #### [address] Platelets (Bld) [#/Vol] 231 10*3/uL Normal 150-450 [facility] Comment on above: Performed By: #### O UTREACH LIPID, OUTREACH CMP, CBCNOOUTREACH #### [address] RBC (Bld) [#/Vol] 4.98 10*6/uL Normal 3.60-5.00 [facility] Comment on above: Performed By: #### O UTREACH LIPID, OUTREACH CMP, CBCNOOUTREACH #### [address] WBC (Bld) [#/Vol] 4.3 10*3/uL Normal 3.8-11.6 [facility] Comment on above: Performed By: #### O UTREACH LIPID, OUTREACH CMP, CBCNOOUTREACH #### [address] CMP Outreachon 11-06-2020 Albumin [Mass/Vol] 4.4 g/dL Normal 3.2-5.5 [facility] Comment on above: Performed By: #### O UTREACH LIPID, OUTREACH CMP, CBCNOOUTREACH #### [facility] [address] [id number] [place] ALP [Catalytic activity/Vol] 64 U/L Normal 32-92 [facility] Comment on above: Performed By: #### O UTREACH LIPID, OUTREACH CMP, CBCNOOUTREACH #### [facility] [address] [id number] [place] ALT [Catalytic activity/Vol] 32 U/L Normal 10-60 [facility] Comment on above: Performed By: #### O UTREACH LIPID, OUTREACH CMP, CBCNOOUTREACH #### [facility] [address] [id number] [place] AST [Catalytic activity/Vol] 25 U/L Normal 10-42 [facility] Comment on above: Performed By: #### O UTREACH LIPID, OUTREACH CMP, CBCNOOUTREACH #### [facility] [address] [place] [address] [place] Bilirubin [Mass/Vol] 0.5 mg/dL Normal 0.3-1.2 [facility] Comment on above: Performed By: #### O UTREACH LIPID, OUTREACH CMP, CBCNOOUTREACH #### [facility] [address] [place] [address] [place] Calcium [Mass/Vol] 9.6 mg/dL Normal 8.2-10.2 [facility] Comment on above: Performed By: #### O UTREACH LIPID, OUTREACH CMP, CBCNOOUTREACH #### [facility] [address] [place] [address] [place] Chloride [Moles/Vol] 105 mmol/L Normal 95-114 [facility] Comment on above: Performed By: #### O UTREACH LIPID, OUTREACH CMP, CBCNOOUTREACH #### [facility] [address] [place] [address] [place] CO2 [Moles/Vol] 26.7 mmol/L Normal 22.0-30.0 [facility] Comment on above: Performed By: #### O UTREACH LIPID, OUTREACH CMP, CBCNOOUTREACH #### [facility] [address] Creatinine [Mass/Vol] 0.63 mg/dL Normal 0.44-1.03 [facility] Comment on above: Performed By: #### O UTREACH LIPID, OUTREACH CMP, CBCNOOUTREACH #### [facility] [place] [facility] [address] [place] [address] [place] Estimated GFR ( Marianne > 60 Normal [facility] Comment on above: Result Comment: GFR estimated reference range: According to KDOQI guidelines, <60 ml/min/1.73m2 is sufficient to diagnose a patient with chronic kidney disease. Performed By: #### O UTREACH LIPID, OUTREACH CMP, CBCNOOUTREACH #### [facility] [place] [facility] [address] Estimated GFR (Non- Am > 60 Normal [facility] Comment on above: Performed By: #### O UTREACH LIPID, OUTREACH CMP, CBCNOOUTREACH #### [address] Glucose [Mass/Vol] 118 mg/dL High 70-100 [facility] Comment on above: Result Comment: [place] om Glucose Reference Range is dependent on time and content of last meal. Glucose of more than 200 mg/dL in a nonstressed, ambulatory subject supports the diagnosis of Diabetes Mellitus. ADA recommended reference range Performed By: #### O UTREACH LIPID, OUTREACH CMP, CBCNOOUTREACH #### [place] [address] [place] Potassium [Moles/Vol] 4.1 mmol/L Normal 3.5-5.1 [facility] Comment on above: Performed By: #### O UTREACH LIPID, OUTREACH CMP, CBCNOOUTREACH #### [facility] [address] [place] [address] [place] Protein [Mass/Vol] 6.5 g/dL Normal 6.1-7.9 [facility] Comment on above: Performed By: #### O UTREACH LIPID, OUTREACH CMP, CBCNOOUTREACH #### [place] [address] [place] Sodium [Moles/Vol] 141 mmol/L Normal 136-146 [facility] Comment on above: Performed By: #### O UTREACH LIPID, OUTREACH CMP, CBCNOOUTREACH #### [facility] [address] Urea nitrogen [Mass/Vol] 15 mg/dL Normal 9-23 [facility] Comment on above: Performed By: #### O UTREACH LIPID, OUTREACH CMP, CBCNOOUTREACH #### [facility] [address] [id number] [facility] Lipid Profile Outreachon Cholesterol [Mass/Vol] 237 mg/dL High 140-200 [facility] Comment on above: Result Comment: Chol less than 200 mg/dl low risk Chol 201-239 mg/dl borderline risk Chol 240 mg/dl and greater high risk Performed By: #### O UTREACH LIPID, OUTREACH CMP, CBCNOOUTREACH #### [facility] [address] [place] [address] [place] Cholesterol in HDL [Mass/Vol] 37 mg/dL Normal 35-85 [facility] Comment on above: Result Comment: HDL CHOL ATP-III CLASSIFICATION Cardiovascular Risk HDL > or equal to 60 mg/dL LOW HDL < 40 mg/dL HIGH Performed By: #### O UTREACH LIPID, OUTREACH CMP, CBCNOOUTREACH #### [facility] [address] [place] [address] [place] Cholesterol.total/Ch olesterol in HDL [Mass ratio] 6.4 {ratio} Normal <5.0 [facility] Comment on above: Result Comment: PERF ORMED BY: [place] [address] PATHOLOGIST ENRICHMENT DIRECTOR MARSHA ASTORGA M.D. Performed By: #### O UTREACH LIPID, OUTREACH CMP, CBCNOOUTREACH #### [facility] [address] [id number] [facility] LDL Cholesterol,Calculat ed 127 mg/dL High 0-100 [facility] Comment on above: Result Comment: LDL ATP III CLASSIFICATION LDL less than 100 mg/dL Optimal LDL 100-129 mg/dL Near or above optimal LDL 130-159 mg/dL Borderline high LDL 160-189 mg/dL High LDL greater than 189 mg/dL Very high Performed By: #### O UTREACH LIPID, OUTREACH CMP, CBCNOOUTREACH #### [facility] [address] [id number] [facility] Triglyceride w/Reflex 364 mg/dL High 35-149 [facility] Comment on above: Result Comment: TRIG ATP III CLASSIFICATION TRIG less than 150 mg/dL Normal TRIG 150-199 mg/dL Borderline high TRIG 200-500 mg/dL High TRIG greater than 500 mg/dL Very high Standard traceable to the Center for Disease Conrtrol and Prevention (CDC) test method. Performed By: #### O UTREACH LIPID, OUTREACH CMP, CBCNOOUTREACH #### [facility] [address] VLDL CHOLESTEROL 72 mg/dL Normal [facility] Comment on above: Performed By: #### O UTREACH LIPID, OUTREACH CMP, CBCNOOUTREACH #### [facility] [address] [id number] [facility] Vital Signs Date Time Vital Sign Value Performing Clinician Facility 02-16-2023 10:00-0500 Body height 167.64 cm Negrito Shannon Other [facility] Other 02-16-2023 10:00-0500 Body mass index (BMI) [Ratio] 25.08 kg/m2 [facility] Other [facility] Other 02-16-2023 10:00-0500 Body weight 70.49 kg Negrito [facility] Other [facility] Other 02-16-2023 10:00-0500 Diastolic blood pressure 85 mm[Hg] [facility] Other [facility] Other 02-16-2023 10:00-0500 Respiratory rate 18 /min [facility] Other [facility] Other 02-16-2023 10:00-0500 Systolic blood pressure 135 mm[Hg] Negrito [facility] Other [facility] Other 11-17-2022 11:30-0400 Body height 167.64 cm Negrito Ball Other [facility] Other 11-17-2022 11:30-0400 Body mass index (BMI) [Ratio] 24.6 kg/m2 Negrito Ball Other [facility] Other 11-17-2022 11:30-0400 Body weight 69.13 kg Negrito Ball Other [facility] Other 11-17-2022 11:30-0400 Diastolic blood pressure 84 mm[Hg] Negrito Ball Other [facility] Other 11-17-2022 11:30-0400 Respiratory rate 12 /min Negrito Ball Other [facility] Other 11-17-2022 11:30-0400 Systolic blood pressure 147 mm[Hg] Negrito Ball Other [facility] Other 08-18-2022 10:15-0400 Body height 167.64 cm Negrito Ball Other [facility] Other 08-18-2022 10:15-0400 Body mass index (BMI) [Ratio] 24.56 kg/m2 Negrito Ball Other [facility] Other 08-18-2022 10:15-0400 Body weight 69.04 kg Negrito Ball Other [facility] Other 08-18-2022 10:15-0400 Diastolic blood pressure 90 mm[Hg] Negrito Ball Other [facility] Other 08-18-2022 10:15-0400 Respiratory rate 12 /min Negrito Ball Other [facility] Other 08-18-2022 10:15-0400 Systolic blood pressure 155 mm[Hg] Negrito Ball Other [facility] Other 05-29-2022 15:30-0400 Body height 167.64 cm Negrito Ball Other [facility] Other 05-29-2022 15:30-0400 Body mass index (BMI) [Ratio] 24.24 kg/m2 Negrito Ball Other [facility] Other 05-29-2022 15:30-0400 Body weight 68.13 kg Negrito Ball Other [facility] Other 05-29-2022 15:30-0400 Diastolic blood pressure 68 mm[Hg] Negrito Ball Other [facility] Other 05-29-2022 15:30-0400 Respiratory rate 12 /min Negrito Ball Other [facility] Other 05-29-2022 15:30-0400 Systolic blood pressure 153 mm[Hg] Negrito Ball Other [facility] Other Encounters Encounter Date Encounter Type Care Provider Facility Start: 12-10-2023 End: 12-10-2023 ambulatory Warren Ayoub MD Facility: [facility] Start: 12-03-2023 End: 12-03-2023 ambulatory Warren Ayoub MD Facility: [facility] Start: 03-28-2023 End: 03-28-2023 ambulatory Negrito Ball Other [facility] Other Start: 03-28-2023 Telephone encounter Negrito [facility] Start: 03-26-2023 End: 03-26-2023 ambulatory Negrito Shannon Other [facility] Other Start: 03-26-2023 Telephone encounter Negrito Shannon [facility] Start: 02-16-2023 End: 02-16-2023 ambulatory Negrito Shannon Other [facility] Other Start: 02-16-2023 Office outpatient vi sit 15 minutes Negrito Shannon [facility] Start: 01-29-2023 End: 01-29-2023 ambulatory Negrito Shannon Other [facility] Other Start: 01-29-2023 Telephone encounter Negrito Shannon [facility] Start: 12-06-2022 End: 12-06-2022 ambulatory Negrito Shannon Other [facility] Other Start: 12-06-2022 Telephone encounter Negrito Shannon [facility] Start: 12-05-2022 End: 12-05-2022 ambulatory Negrito Shannon Other [facility] Other Start: 12-05-2022 Telephone encounter Negrito Shannon [facility] Start: 11-17-2022 End: 11-17-2022 ambulatory Negrito Shannon Other [facility] Other Start: 11-17-2022 Patient encounter procedure Negrito Shannon [facility] Start: 11-01-2022 End: 11-01-2022 ambulatory Negrito Shannon Other [facility] Other Start: 11-01-2022 Telephone encounter Negrito Shannon [facility] Start: 09-07-2022 End: 09-07-2022 ambulatory Negrito Shannon Other [facility] Other Start: 09-07-2022 Telephone encounter Negrito Shannon [facility] Start: 08-18-2022 End: 08-18-2022 ambulatory Negrito Shannon Other [facility] Other Start: 08-18-2022 Office outpatient vi sit 15 minutes Negrito Shannon [facility] Start: 08-18-2022 Telephone encounter Negrito [facility] Start: 08-01-2022 End: 08-01-2022 ambulatory Negrito Shannon Other [facility] Other Start: 08-01-2022 Telephone encounter [facility] Start: 05-29-2022 End: 05-29-2022 ambulatory Negrito Shannon Other [facility] Other Start: 05-29-2022 Office outpatient vi sit 15 minutes Negrito Shannon [facility] Start: 11-11-2021 Adult health examination Negrito Shannon Other [facility] Other Start: 03-11-2021 End: 03-12-[address] [...] (incl. purified surface antigen) Negrito Shannon Other [facility] Other 12-30-2021 influenza virus vaccine, split virus (incl. purified surface antigen) Negrito Shannon Other [facility] Other 12-31-2020 COVID-19 Vaccine Pfi zer - Documentation Purposes Only Negrito Shannon Other [facility] Other 11-08-2020 influenza virus vaccine, split virus (incl. purified surface antigen) Negrito Shannon Other [facility] Other 05-27-2020 COVID-19 Vaccine Pfi zer - Documentation Purposes Only Negrito Shannon Other [facility] Other 05-06-2020 COVID-19 Vaccine Pfi zer - Documentation Purposes Only Negrito Shannon Other [facility] Other 11-22-2019 influenza virus vaccine, split virus (incl. purified surface antigen) Negrito Shannon Other [facility] Other 10-25-2019 tetanus toxoid, redu paramjit diphtheria toxoid, and acellular pertussis vaccine, adsorbed Negrito Shannon Other [facility] Other 11-10-2014 tetanus and diphther ia toxoids, adsorbed, preservative free, for adult use (5 Lf of tetanus toxoid and 2 Lf of diphtheria toxoid) Negrito Shannon Other [facility] Other 12-17-2012 tetanus and diphther ia toxoids, adsorbed, preservative free, for adult use (5 Lf of tetanus toxoid and 2 Lf of diphtheria toxoid) Negrito Shannon Other [facility] Other 10-07-2003 diphtheria, tetanus toxoids and acellular pertussis vaccine, unspecified formulation Negrito Shannon Other [facility] Other Payers Date Payer Category Payer Medicare 2023 Unknown 1959 Medicare [id number] 1959 Unknown [id number] 1955 Unknown [id number] [id number] [id number] 1955 Unknown [id number] [id number]. [id number] 1955 Unknown [id number] [id number]. [id number] Unknown [id number] [id number] Social History Date Type Detail Facility Unknown if ever smoked [facility] Other Sex Assigned At Sex Assigned At Bir th [facility] Other Clinical Notes 05-29-2022 to 03-28-2023 Note Date & Type Note Facility 03-28-2023 Evaluation note Encounter Date Diagnosis Assessment Notes Feb, Hypercholesterolemia (ICD-10 - E78.00) [facility] Other 12-22-2023 Evaluation note* Encounter Date Diagnosis [...] report is being monitored every 90 days. [facility] Other 12-04-2023 Evaluation note* Encounter Date Diagnosis Assessment Notes Treatment Notes Treatment Clinical Notes Jan, Fibromyalgia (ICD-10 - M79.7) [facility] Other 10-11-2023 Evaluation note* Encounter Date Diagnosis Assessment Notes Treatment Notes Treatment Clinical Notes Nov, Age-related osteoporosis without current pathological fracture (ICD-10 - M81.0) [facility] Other 09-22-2023 Evaluation note* Encounter Date Diagnosis [...] Screening for colon cancer (ICD-10 - Z12.11) [facility] Other 09-06-2023 Evaluation note* Encounter Date Diagnosis Assessment Notes Treatment Notes Treatment Clinical Notes Oct, Lumbar spondylosis (ICD-10 - M47.816) [facility] Other 07-13-2023 Evaluation note* Encounter Date Diagnosis Assessment Notes Treatment Notes Treatment Clinical Notes Aug, Lumbar spondylosis (ICD-10 - M47.816) [facility] Other 06-23-2023 Evaluation note* Encounter Date Diagnosis [...] phone, computer and exercise prior to bedtime [facility] Other 06-23-2023 Evaluation note* Encounter Date Diagnosis Assessment Notes Treatment Notes Treatment Clinical Notes Jul, Lumbar spondylosis (ICD-10 - M47.816) [facility] Other 06-06-2023 Evaluation note* Encounter Date Diagnosis Assessment Notes Treatment Notes Treatment Clinical Notes Jul, Lumbar spondylosis (ICD-10 - M47.816) [facility] Other 04-03-2023 Evaluation note* Encounter Date Diagnosis [...] avoid bedtime food, TV, computer and exercise [facility] Other Evaluation noteNo [employer] Other History general Narrative - Reported* Type [...] right shoul gaby Hospitalization History see above [facility] Other Summary Purpose Family History No Family History Records FoundNo Family History Records FoundNo Family History Records Found Advance Directives No Advanced Directives Records FoundNo Advanced Directives Records FoundNo Advanced Directives Records Found Additional Source Comments INFORMATION SOURCE (unrecogn ized section and content) DATE CREATED AUTHOR 03/16/2021 [facility] DATE CREATED AUTHOR AUTHOR'S ORGANIZ ATION 03/21/2021 [facility] DATE CREATED AUTHOR AUTHOR'S ORGANIZ ATION 12/20/2023 [facility] REASON FOR [...] BE BASED ON THE PRIMARY CLINICAL RECORDS. [facility]. provides no warranty or guarantee of the accuracy or completeness of information in this document.
--- NOTE | 2023-12-26 11:05 | P.CN_ITS ---
Consult Note: HPI Data of Consult Patient: known to practice within the last 3 years Consult date: 12/10/23 Requesting Physician: Abena Cotton NP Primary Care Provider: Non-Staff Physician, MD Consult Narrative Reason for consult: low back, bilateral hip, neck, bilateral shoulder pain Narrative: 68yof who presents for assessment. continues to have low back, bilateral hip, neck and bilateral shoulder pain. imaging reviewed, which is significant for moderate facet arthropathy in both the lumbar and cervical spine. she continues in a series of provider directed home exercises, which she has attempted for over 6 weeks without benefit. she uses tramadol and mobic as needed. denies adverse med side effects. recently underwent bilateral L4-5 L5-S1 MBB #1 with 90% improvement in her pain and functional ability immediately following and hours after the injection, did not have to take any pain medication. was able to do laundry, change the sheets, rake leaves, ambulate with significantly less pain. cc:: CC: Abena Cotton NP Review of Systems ROS Status of ROS 10 or more systems reviewed and unremark able except as noted in history and below Musculoskeletal Reports: back pain, neck pain and joint pain Meds Home Medications and Allergies Home Medications ?Medication ?Instructions ?Recorded ?Confirmed ?Type Probiotic DAILY 12/03/23 History amlodipine 5 mg tablet 5 mg PO DAILY 12/03/23 12/24/23 History baclofen 20 mg tablet 20 mg PO DAILY 12/03/23 12/24/23 History duloxetine 60 mg capsule,delayed 60 mg PO DAILY 12/03/23 12/24/23 History release ezetimibe 10 mg tablet (Zetia) 10 mg PO DAILY 12/03/23 12/24/23 History losartan 25 mg tablet 25 mg PO DAILY 12/03/23 12/24/23 History meloxicam 7.5 mg tablet 7.5 mg PO DAILY 12/03/23 12/24/23 History tramadol 50 mg tablet 50 mg PO BID 12/03/23 12/24/23 History trazodone 50 mg tablet 50 mg PO DAILY 12/03/23 12/24/23 History Allergies Allergy/AdvReac Type Severity Reaction Status Date / Time No Known Drug Allergies Allergy Verified 12/24/23 07:09 Exam Narrative Exam Narrative: Psych-alert and oriented x 3. Attentive and appropriate, constitutionally normal, displays normal mood and affect per situation.? There are no obvious deficits in memory, reasoning, or intellect.? Skin-no obvious rashes, bruising, erythema noted to the patient's area of pain. Extremities- extremities are warm with minimal edema and palpable pulses. Lumbar-no significant tenderness to palpation noted in the lumbar spine and paraspinal musculature.? Pain is elicited with extension, and lateral rotation of the lumbar spine. Range of motion is slightly diminished with these motions due to pain. Facet loading maneuvers are positive bilaterally and do appear to be concordant with the patient's normal complaints of pain.? Coordination remains intact.? Gait remains non-antalgic. Assessment and Plan Assessment and Plan (1) Lumbar spondylosis: (2) Cervical spondylosis: Plan 68yof who presents for assessment. failed conservative measures, as noted. antoinette ging reviewed, as noted. given symptoms and imaging, prudent to attempt diagnostic bilateral l4-5, l5-s1 medial branch block x2 under fluoroscopic guidance with intention of proceeding to radiofrequency ablation. she is in agreement. meds reviewed, no changes. follow up after procedure.
== END 2023-12-26 10:42 | disposition home or self-care (01) ==
LOC: PM 10:45
PROVIDERS: Visit Provider Nurse Practitioner
DX: M47.816 Spondylosis without myelopathy or radiculopathy, lumbar region (principal); M47.812 Spondylosis without myelopathy or radiculopathy, cervical region
CPT/HCPCS: G0463

== ENCOUNTER 2024-01-07 09:38 | Day surgery (SDC) | payer MEDICARE, OTHER, SELFPAY ==
[2024-01-07 10:08] VITALS: BP 148/89; PULSE 93; TEMP 37; O2SAT 98
[2024-01-07 10:57] VITALS: PULSE 82; O2SAT 96
[2024-01-07] MEDS: BUPIVACAINE HCL 0.25% PF 25 MG/10 ML VIAL 6 ML INJ (11:00)
[2024-01-07] MEDS: LIDOCAINE HCL 2% 400 MG/20 ML MDV INJ (11:00)
[2024-01-07 11:01] VITALS: PULSE 84; O2SAT 96
--- NOTE | 2024-01-07 11:01 | W.PM.PROCNOT ---
Date of procedure: 01/07/24 Pre-op diagnosis: Pain due to lumbar spondylosis without myelopathy Post-op diagnosis: same as pre-op Procedure: Procedure: Bilateral L4-5, L5-S1 medial branch block Medications: Bupivacaine 0.25% 6cc The patient was seen and examined in the preoperative holding area.? An informed consent was obtained and placed on the chart.? The patient was brought to the medical procedure unit and placed in the prone position.? A timeout was completed verifying correct patient, procedure site, positioning, plan, and special equipment.? Using aseptic technique, the needle was placed at left L4. Under direct fluoroscopic visualization a Quincke-tipped spinal needle was advanced to the junction of the superior articulating process with the transverse process at the designated medial branch segment.? Preceded by negative aspiration, the above-mentioned injectate was placed in 1 mL aliquots.? The procedure was repeated at left L5, S1.? The needle was removed and insertion site was covered. The same procedure, at the same levels, was completed on the right side. The patient was taken to the postprocedural recovery area and monitored for an appropriate length of time before found suitable for discharge in the company of a responsible adult. Anesthesia: Local Surgeon: Warren Ayoub Pathology: none sent Condition: stable Disposition: no change
--- NOTE | 2024-01-07 11:09 | PC.NURSE ---
BP post op 159/78
== END 2024-01-07 11:09 | disposition home or self-care (01) ==
LOC: SURGOUT 09:39
PROVIDERS: Visit Provider Anesthesiology
DX: M47.816 Spondylosis without myelopathy or radiculopathy, lumbar region (principal)
CPT/HCPCS: 64493; 64494; J0665

== ENCOUNTER 2024-01-09 11:39 | Outpatient (OUT) | payer MEDICARE, OTHER, SELFPAY ==
--- OUTSIDE RECORDS SUMMARY | 2024-01-09 11:44 | XMS_ITS | CCD ---
Author Organization [facility] Care Team Providers Care Sheriff Detective Name Role Phone DR NEGRITO SHANNON Admitting [...] (1 source) Lidocaine Drug Allergy 3 [facility] Repository (13 sources) Fenofibrate Drug Allergy Unknown [facility] Other (13 sources) Lovastatin Drug Allergy Unknown [facility] Other (13 sources) lidoderm patches Propensity to adverse reactions itching [facility] Other (1 source) patient allergy list reviewed by nurse or physicia Propensity to adverse reactions 3 Comment:Done [facility] Other Medications Current Medications Medication Drug Class(es) [...] day Active Baclofen Not-Chip ing Calcium 1200 6120-2998 MG-UNIT (3 sources) take 1 tablet by mouth once daily Calcium 1200 4183-7659 MG-UNIT 1 tablet Orally Once a day [...] a day p/u 05/02, start 05/04 w/ 2 RF Apr, Active traZODone hydrochloride [...] sources) High risk drug monitoring status; Translations: [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 Admission #: [id number] Family : Order #: [id number] CLICK HERE TO VIEW EXAM RADIOLOGY REPORT [...] Treatments None Family Cancers None LOCATION: [facility] BREAST COMPOSITION: Heterogeneously dense,which may obscure [...] on 03/11/2021 at 15:06 Normal [facility] CBC Without Differentialon 0 11-06-2020 Erythrocyte distribution width (RBC) [Ratio] 13.5 % Normal 11.9-15.3 [facility] Comment on above: Performed By: #### O UTREACH LIPID, OUTREACH CMP, CBCNOOUTREACH #### [address] Hematocrit (Bld) [Volume fraction] 41.1 % Normal 34.0-46.4 [facility] Comment on above: Performed By: #### O UTREACH LIPID, OUTREACH CMP, CBCNOOUTREACH #### [facility] [address] [place] [address] Hemoglobin (Bld) [Mass/Vol] 13.6 g/dL Normal 11.8-15.4 [facility] Comment on above: Performed By: #### O UTREACH LIPID, OUTREACH CMP, CBCNOOUTREACH #### [facility] [address] [place], [place] [id number] [facility] MCH (RBC) [Entitic mass] 27.4 pg Normal 24.7-34.3 [facility] Comment on above: Performed By: #### O UTREACH LIPID, OUTREACH CMP, CBCNOOUTREACH #### [place] [id number] [facility] MCV (RBC) [Entitic vol] 82.5 fL Normal 80-100 [facility] Comment on above: Performed By: #### O UTREACH LIPID, OUTREACH CMP, CBCNOOUTREACH #### [address] Mean Corpuscular HGB Conc 33.2 g/dL Normal 32.0-35.0 [facility] Comment on above: Performed By: #### O UTREACH LIPID, OUTREACH CMP, CBCNOOUTREACH #### [address] Platelet mean volume (Bld) [Entitic vol] 9.6 fL Normal 6.3-10.7 [facility] Comment on above: Result Comment: PERF ORMED BY: [place] [address] PATHOLOGIST LICENSING SERVICES CLERK MARSHA ASTORGA M.D. Performed By: #### O UTREACH LIPID, OUTREACH CMP, CBCNOOUTREACH #### [address] Platelets (Bld) [#/Vol] 231 10*3/uL Normal 150-450 [facility] Comment on above: Performed By: #### O UTREACH LIPID, OUTREACH CMP, CBCNOOUTREACH #### [address] RBC (Bld) [#/Vol] 4.98 10*6/uL Normal 3.60-5.00 [facility] Comment on above: Performed By: #### O UTREACH LIPID, OUTREACH CMP, CBCNOOUTREACH #### [address] WBC (Bld) [#/Vol] 4.3 10*3/uL Normal 3.8-11.6 [facility] Comment on above: Performed By: #### O UTREACH LIPID, OUTREACH CMP, CBCNOOUTREACH #### [address] CMP Outreachon 11-06-2020 Albumin [Mass/Vol] 4.4 g/dL Normal 3.2-5.5 [facility] Comment on above: Performed By: #### O UTREACH LIPID, OUTREACH CMP, CBCNOOUTREACH #### [facility] [address] [place] [address] [place] ALP [Catalytic activity/Vol] 64 U/L Normal 32-92 [facility] Comment on above: Performed By: #### O UTREACH LIPID, OUTREACH CMP, CBCNOOUTREACH #### [facility] [address] [place] [id number] [place] ALT [Catalytic activity/Vol] 32 U/L Normal 10-60 [facility] Comment on above: Performed By: #### O UTREACH LIPID, OUTREACH CMP, CBCNOOUTREACH #### [facility] [address] [place] [address] [place] AST [Catalytic activity/Vol] 25 U/L Normal 10-42 [facility] Comment on above: Performed By: #### O UTREACH LIPID, OUTREACH CMP, CBCNOOUTREACH #### [facility] [address] [place] [address] [place] Bilirubin [Mass/Vol] 0.5 mg/dL Normal 0.3-1.2 [facility] Comment on above: Performed By: #### O UTREACH LIPID, OUTREACH CMP, CBCNOOUTREACH #### [facility] [address] [place] [address] [place] Calcium [Mass/Vol] 9.6 mg/dL Normal 8.2-10.2 [facility] Comment on above: Performed By: #### O UTREACH LIPID, OUTREACH CMP, CBCNOOUTREACH #### [facility] [address] [place], [place] [id number] [place] Chloride [Moles/Vol] 105 mmol/L Normal 95-114 [facility] Comment on above: Performed By: #### O UTREACH LIPID, OUTREACH CMP, CBCNOOUTREACH #### [facility] [address] [place], [place] [phone] [place] CO2 [Moles/Vol] 26.7 mmol/L Normal 22.0-30.0 [facility] Comment on above: Performed By: #### O UTREACH LIPID, OUTREACH CMP, CBCNOOUTREACH #### [facility] [address] Creatinine [Mass/Vol] 0.63 mg/dL Normal 0.44-1.03 [facility] Comment on above: Performed By: #### O UTREACH LIPID, OUTREACH CMP, CBCNOOUTREACH #### [address] Estimated GFR ( Marianne > 60 Normal [facility] Comment on above: Result Comment: GFR estimated reference range: According to KDOQI guidelines, <60 ml/min/1.73m2 is sufficient to diagnose a patient with chronic kidney disease. Performed By: #### O UTREACH LIPID, OUTREACH CMP, CBCNOOUTREACH #### [address] Estimated GFR (Non- Am > 60 Normal [facility] Comment on above: Performed By: #### O UTREACH LIPID, OUTREACH CMP, CBCNOOUTREACH #### [address] Glucose [Mass/Vol] 118 mg/dL High 70-100 [facility] Comment on above: Result Comment: [place] om Glucose Reference Range is dependent on time and content of last meal. Glucose of more than 200 mg/dL in a nonstressed, ambulatory subject supports the diagnosis of Diabetes Mellitus. ADA recommended reference range Performed By: #### O UTREACH LIPID, OUTREACH CMP, CBCNOOUTREACH #### [address] Potassium [Moles/Vol] 4.1 mmol/L Normal 3.5-5.1 [facility] Comment on above: Performed By: #### O UTREACH LIPID, OUTREACH CMP, CBCNOOUTREACH #### [address] Protein [Mass/Vol] 6.5 g/dL Normal 6.1-7.9 [facility] Comment on above: Performed By: #### O UTREACH LIPID, OUTREACH CMP, CBCNOOUTREACH #### [address] [place] [address] [place] Sodium [Moles/Vol] 141 mmol/L Normal 136-146 [facility] Comment on above: Performed By: #### O UTREACH LIPID, OUTREACH CMP, CBCNOOUTREACH #### [facility] [address] [place] [id number] [place] Urea nitrogen [Mass/Vol] 15 mg/dL Normal 9-23 [facility] Comment on above: Performed By: #### O UTREACH LIPID, OUTREACH CMP, CBCNOOUTREACH #### [facility] [address] [place] [address] [place] Lipid Profile Outreachon Cholesterol [Mass/Vol] 237 mg/dL High 140-200 [facility] Comment on above: Result Comment: Chol less than 200 mg/dl low risk Chol 201-239 mg/dl borderline risk Chol 240 mg/dl and greater high risk Performed By: #### O UTREACH LIPID, OUTREACH CMP, CBCNOOUTREACH #### [facility] [address] [place] [id number] [place] Cholesterol in HDL [Mass/Vol] 37 mg/dL Normal 35-85 [facility] Comment on above: Result Comment: HDL CHOL ATP-III CLASSIFICATION Cardiovascular Risk HDL > or equal to 60 mg/dL LOW HDL < 40 mg/dL HIGH Performed By: #### O UTREACH LIPID, OUTREACH CMP, CBCNOOUTREACH #### [facility] [address] [place] [id number] [place] Cholesterol.total/Ch olesterol in HDL [Mass ratio] 6.4 {ratio} Normal <5.0 [facility] Comment on above: Result Comment: PERF ORMED BY: [place] [address] PATHOLOGIST LICENSING SERVICES CLERK MARSHA ASTORGA M.D. Performed By: #### O UTREACH LIPID, OUTREACH CMP, CBCNOOUTREACH #### [facility] [address] [place] [id number] [facility] LDL Cholesterol,Calculat ed 127 mg/dL High 0-100 [facility] Comment on above: Result Comment: LDL ATP III CLASSIFICATION LDL less than 100 mg/dL Optimal LDL 100-129 mg/dL Near or above optimal LDL 130-159 mg/dL Borderline high LDL 160-189 mg/dL High LDL greater than 189 mg/dL Very high Performed By: #### O UTREACH LIPID, OUTREACH CMP, CBCNOOUTREACH #### [facility] [address] [place] [address] [place] Triglyceride w/Reflex 364 mg/dL High 35-149 [facility] Comment on above: Result Comment: TRIG ATP III CLASSIFICATION TRIG less than 150 mg/dL Normal TRIG 150-199 mg/dL Borderline high TRIG 200-500 mg/dL High TRIG greater than 500 mg/dL Very high Standard traceable to the Center for Disease Conrtrol and Prevention (CDC) test method. Performed By: #### O UTREACH LIPID, OUTREACH CMP, CBCNOOUTREACH #### [facility] [address] [place] [phone] [facility] VLDL CHOLESTEROL 72 mg/dL Normal [facility] Comment on above: Performed By: #### O UTREACH LIPID, OUTREACH CMP, CBCNOOUTREACH #### [facility] [address] [place] [id number] [facility] Vital Signs Date Time Vital Sign Value Performing Clinician Facility 02-16-2023 10:00-0500 Body height 167.64 cm Negrito Shannon Other [facility] Other 02-16-2023 10:00-0500 Body mass index (BMI) [Ratio] 25.08 kg/m2 Negrito LINYWORKS Other [facility] Other 02-16-2023 10:00-0500 Body weight 70.49 kg Negrito LINYWORKS Other [facility] Other 02-16-2023 10:00-0500 Diastolic blood pressure 85 mm[Hg] Negrito LINYWORKS Other [facility] Other 02-16-2023 10:00-0500 Respiratory rate 18 /min Negrito LINYWORKS Other [facility] Other 02-16-2023 10:00-0500 Systolic blood pressure 135 mm[Hg] Negrito Ball Other [facility] Other 11-17-2022 11:30-0400 Body height 167.64 cm Negrito Ball Other [facility] Other 11-17-2022 11:30-0400 Body mass index (BMI) [Ratio] 24.6 kg/m2 Negrito Ball Other [facility] Other 11-17-2022 11:30-0400 Body weight 69.13 kg Negrito Ball Other [facility] Other 11-17-2022 11:30-0400 Diastolic blood pressure 84 mm[Hg] Negrito Ball Other [facility] Other 11-17-2022 11:30-0400 Respiratory rate 12 /min Negrito Ball Other [facility] Other 11-17-2022 11:30-0400 Systolic blood pressure 147 mm[Hg] Negrito Ball Other [facility] Other 08-18-2022 10:15-0400 Body height 167.64 cm Negrito Ball Other [facility] Other 08-18-2022 10:15-0400 Body mass index (BMI) [Ratio] 24.56 kg/m2 Negrito Ball Other [facility] Other 08-18-2022 10:15-0400 Body weight 69.04 kg Negrito Ball Other [facility] Other 08-18-2022 10:15-0400 Diastolic blood pressure 90 mm[Hg] Negrito Ball Other [facility] Other 08-18-2022 10:15-0400 Respiratory rate 12 /min Negrito Ball Other [facility] Other 08-18-2022 10:15-0400 Systolic blood pressure 155 mm[Hg] Negrito Ball Other [facility] Other 05-29-2022 15:30-0400 Body height 167.64 cm Negrito Ball Other [facility] Other 05-29-2022 15:30-0400 Body mass index (BMI) [Ratio] 24.24 kg/m2 Negrito Ball Other [facility] Other 05-29-2022 15:30-0400 Body weight 68.13 kg Negrito Ball Other [facility] Other 05-29-2022 15:30-0400 Diastolic blood pressure 68 mm[Hg] Negrito Ball Other [facility] Other 05-29-2022 15:30-0400 Respiratory rate 12 /min Negrito Ball Other [facility] Other 05-29-2022 15:30-0400 Systolic blood pressure 153 mm[Hg] Negrito Ball Other [facility] Other Encounters Encounter Date Encounter Type Care Provider Facility Start: 12-24-2023 End: 12-24-2023 ambulatory Warren Ayoub MD Facility: [facility] Start: 12-10-2023 End: 12-10-2023 ambulatory Warren Ayoub MD Facility: [facility] Start: 12-03-2023 End: 12-03-2023 ambulatory Warren Ayoub MD Facility: [facility] Start: 03-28-2023 End: 03-28-2023 ambulatory Negrito Ball Other [facility] Other Start: 03-28-2023 Telephone encounter Negrito Ball [facility] Start: 03-26-2023 End: 03-26-2023 ambulatory Negrito Ball Other [facility] Other Start: 03-26-2023 Telephone encounter Negrito Ball [facility] Start: 02-16-2023 End: 02-16-2023 ambulatory Negrito Ball Other [facility] Other Start: 02-16-2023 Office outpatient vi sit 15 minutes Negrito Ball [facility] Start: 01-29-2023 End: 01-29-2023 ambulatory Negrito Ball Other [facility] Other Start: 01-29-2023 Telephone encounter Negrito Ball [facility] Start: 12-06-2022 End: 12-06-2022 ambulatory Negrito Ball Other [facility] Other Start: 12-06-2022 Telephone encounter Negrito Ball [facility] Start: 12-05-2022 End: 12-05-2022 ambulatory Negrito Ball Other [facility] Other Start: 12-05-2022 Telephone encounter Negrito Ball [facility] Start: 11-17-2022 End: 11-17-2022 ambulatory Negrito Ball Other [facility] Other Start: 11-17-2022 Patient encounter procedure Negrito Ball [facility] Start: 11-01-2022 End: 11-01-2022 ambulatory Negrito Ball Other [facility] Other Start: 11-01-2022 Telephone encounter Negrito Ball [facility] Start: 09-07-2022 End: 09-07-2022 ambulatory Negrito Ball Other [facility] Other Start: 09-07-2022 Telephone encounter Negrito Shannon [facility] Start: 08-18-2022 End: 08-18-2022 ambulatory Negrito Shannon Other [facility] Other Start: 08-18-2022 Office outpatient vi sit 15 minutes Negrtio Shannon [facility] Start: 08-18-2022 Telephone encounter Negrito DUMONT [facility] Start: 08-01-2022 End: 08-01-2022 ambulatory Negrito Shannon Other [facility] Other Start: 08-01-2022 Telephone encounter Negrito DUMONT [facility] Start: 05-29-2022 End: 05-29-2022 ambulatory Negrito Shannon Other [facility] Other Start: 05-29-2022 Office outpatient vi sit 15 minutes Negrito Shannon [facility] Start: 11-11-2021 Adult health examination Negrito Shannon Other [facility] Other Start: 03-11-2021 End: 03-12-[address] NEGRITO SHANNON Facility:[facility] Procedures Date Procedure Procedure Detail Performing Clinician Start: 11-20-2017 Screening for malign ant neoplasm of colon Negrito Shannon Other Start: 11-14-2013 General examination of patient Negrito Shannon Other Depression screening Lawrence Shannon Other Screening for malign ant neoplasm of breast Negrito Shannon Other Immunizations Immunization Date Immunization Notes Care Provider Fa zhanna 01-23-2022 influenza virus vaccine, split virus (incl. purified surface antigen) Negrito Shannon Other [facility] Other 12-30-2021 influenza virus vaccine, split virus (incl. purified surface antigen) Negrito Shannon Other [facility] Other 12-31-2020 COVID-19 Vaccine Pfi zer - Documentation Purposes Only Negrito Shannon Other [facility] Other 11-08-2020 influenza virus vaccine, split virus (incl. purified surface antigen) Negrito Shannon Other [facility] Other 05-27-2020 COVID-19 Vaccine Pfi zer - Documentation Purposes Only Negrito Shannon Other [facility] Other 05-06-2020 COVID-19 Vaccine Pfi zer - Documentation Purposes Only Negrito Shannon Other [facility] Other 11-22-2019 influenza virus vaccine, split virus (incl. purified surface antigen) Negrito Shannon Other [facility] Other 10-25-2019 tetanus toxoid, redu paramjit diphtheria toxoid, and acellular pertussis vaccine, adsorbed Negrito Shannon Other [facility] Other 11-10-2014 tetanus and diphther ia toxoids, adsorbed, preservative free, for adult use (5 Lf of tetanus toxoid and 2 Lf of diphtheria toxoid) Negrito Shannon Other [facility] Other 12-17-2012 tetanus and diphther ia toxoids, adsorbed, preservative free, for adult use (5 Lf of tetanus toxoid and 2 Lf of diphtheria toxoid) Negrito Shannon Other [facility] Other 10-07-2003 diphtheria, tetanus toxoids and acellular pertussis vaccine, unspecified formulation Negrito Shannon Other [facility] Other Payers Date Payer Category Payer Medicare 2023 Unknown 1959 Medicare [id number] 1959 Unknown [id number] 1955 Unknown [id number] 2.16.84 [id number] 1955 Unknown [id number] 2.16. [id number] 1955 Unknown [id number] 2.16. [id number] 1955 Unknown [id number] 2.16. [id number] Unknown [id number] [id number] [id number] Social History Date Type Detail Facility Unknown if ever smoked [facility] Other Sex Assigned At Sex Assigned At Bir th [facility] Other Clinical Notes 05-29-2022 to 03-28-2023 Note Date & Type Note Facility 03-28-2023 Evaluation note Encounter Date Diagnosis Assessment Notes Feb, Hypercholesterolemia (ICD-10 - E78.00) [facility] Other [id number] Evaluation note* Encounter Date Diagnosis Assessment Notes [...] report is being monitored every 90 days. [facility] Other 12-04-2023 Evaluation note* Encounter Date Diagnosis Assessment Notes Treatment Notes Treatment Clinical Notes Jan, Fibromyalgia (ICD-10 - M79.7) [facility] Other 10-11-2023 Evaluation note* Encounter Date Diagnosis Assessment Notes Treatment Notes Treatment Clinical Notes Nov, Age-related osteoporosis without current pathological fracture (ICD-10 - M81.0) [facility] Other 09-22-2023 Evaluation note* Encounter Date Diagnosis [...] Screening for colon cancer (ICD-10 - Z12.11) [facility] Other 09-06-2023 Evaluation note* Encounter Date Diagnosis Assessment Notes Treatment Notes Treatment Clinical Notes Oct, Lumbar spondylosis (ICD-10 - M47.816) [facility] Other 07-13-2023 Evaluation note* Encounter Date Diagnosis Assessment Notes Treatment Notes Treatment Clinical Notes Aug, Lumbar spondylosis (ICD-10 - M47.816) [facility] Other 06-23-2023 Evaluation note* Encounter Date Diagnosis [...] phone, computer and exercise prior to bedtime [facility] Other 06-23-2023 Evaluation note* Encounter Date Diagnosis Assessment Notes Treatment Notes Treatment Clinical Notes Jul, Lumbar spondylosis (ICD-10 - M47.816) [facility] Other 06-06-2023 Evaluation note* Encounter Date Diagnosis Assessment Notes Treatment Notes Treatment Clinical Notes Jul, Lumbar spondylosis (ICD-10 - M47.816) [facility] Other 04-03-2023 Evaluation note* Encounter Date Diagnosis [...] avoid bedtime food, TV, computer and exercise [facility] Other Evaluation noteNo InformationNortVerient Other History general Narrative - Reported* Type [...] right shoul gaby Hospitalization History see above [facility] Other Summary Purpose Family History No Family History Records FoundNo Family History Records FoundNo Family History Records Found Advance Directives No Advanced Directives Records FoundNo Advanced Directives Records FoundNo Advanced Directives Records Found Additional Source Comments INFORMATION SOURCE (unrecogn ized section and content) DATE CREATED AUTHOR 03/16/2021 [facility] DATE CREATED AUTHOR AUTHOR'S ORGANIZ ATION 03/21/2021 [facility] DATE CREATED AUTHOR AUTHOR'S ORGANIZ ATION 12/28/2023 [facility] REASON FOR VISIT (unrecogniz ed section and [...] BE BASED ON THE PRIMARY CLINICAL RECORDS. [employer] [facility]. provides no warranty or guarantee of the accuracy or completeness of information in this document.
--- NOTE | 2024-01-09 11:59 | PM.CN ---
Consult Note: HPI Data of Consult Patient: known to practice within the last 3 years Consult date: 12/10/23 Requesting Physician: Abena Cotton NP Primary Care Provider: Non-Staff Physician, MD Consult Narrative Reason for consult: low back, bilateral hip, neck, bilateral shoulder pain Narrative: 68yof who presents for assessment. continues to have low back, bilateral hip, neck and bilateral shoulder pain. imaging reviewed, which is significant for moderate facet arthropathy in both the lumbar and cervical spine. she continues in a series of provider directed home exercises, which she has attempted for over 6 weeks without benefit. she uses tramadol and mobic as needed. denies adverse med side effects. recently underwent bilateral L4-5 L5-S1 MBB #1 and #2 with >80% improvement in her pain and functional ability immediately following and hours after the injection. cc:: CC: Abena Cotton NP Review of Systems ROS Status of ROS 10 or more systems reviewed and unremarkable except as noted in history and below Musculoskeletal Reports: back pain, neck pain and joint pain PFSH PFS Medical History (Updated 12/28/23 @ 11:35 by Rocío Sands RN) Osteoarthritis ?M19.90 - Unspecified osteoarthritis, unspecified site (ICD-10) Anxiety ?F41.9 - Anxiety disorder, unspecified (ICD-10) Fibromyalgia ?M79.7 - Fibromyalgia (ICD-10) HTN (hypertension) ?I10 - Essential (primary) hypertension (ICD-10) Surgical History History of lumbar laminectomy ?Z98.890 - Other specified postprocedural states (ICD-10) H/O section ?Z98.891 - History of uterine scar from previous surgery (ICD-10) Hx of tonsillectomy ?Z90.89 - Acquired absence of other organs (ICD-10) Meds Home Medications and Allergies Home Medications ?Medication ?Instructions ?Recorded ?Confirmed ?Type Probiotic DAILY 12/03/23 History amlodipine 5 mg tablet 5 mg PO DAILY 12/03/23 01/07/24 History baclofen 20 mg tablet 20 mg PO DAILY 12/03/23 01/07/24 History duloxetine 60 mg capsule,delayed 60 mg PO DAILY 12/03/23 01/07/24 History release ezetimibe 10 mg tablet (Zetia) 10 mg PO DAILY 12/03/23 01/07/24 History losartan 25 mg tablet 25 mg PO DAILY 12/03/23 01/07/24 History meloxicam 7.5 mg tablet 7.5 mg PO DAILY 12/03/23 01/07/24 History tramadol 50 mg tablet 50 mg PO BID 12/03/23 01/07/24 History trazodone 50 mg tablet 50 mg PO DAILY 12/03/23 01/07/24 History Allergies Allergy/AdvReac Type Severity Reaction Status Date / Time No Known Drug Allergies Allergy Verified 01/07/24 10:10 Exam Narrative Exam Narrative: Psych-alert and oriented x 3. Attentive and appropriate, constitutionally normal, displays normal mood and affect per situation.? There are no obvious deficits in memory, reasoning, or intellect.? Skin-no obvious rashes, bruising, erythema noted to the patient's area of pain. Extremities- extremities are warm with minimal edema and palpable pulses. Lumbar-no significant tenderness to palpation noted in the lumbar spine and paraspinal musculature.? Pain is elicited with extension, and lateral rotation of the lumbar spine. Range of motion is slightly diminished with these motions due to pain. Facet loading maneuvers are positive bilaterally and do appear to be concordant with the patient's normal complaints of pain.? Coordination remains intact.? Gait remains non-antalgic. Assessment and Plan Assessment and Plan (1) Lumbar spondylosis: Plan 68yof who presents for assessment. failed conservative measures, as noted. imaging reviewed, as noted. given symptoms and imaging, prudent to attempt diagnostic bilateral l4-5, l5-s1 medial branch radiofrequency ablation. she is in agreement. meds reviewed, no changes. follow up after procedure.
== END 2024-01-09 11:40 | disposition home or self-care (01) ==
LOC: PM 11:40
PROVIDERS: Visit Provider Nurse Practitioner
DX: M47.816 Spondylosis without myelopathy or radiculopathy, lumbar region (principal)
CPT/HCPCS: G0463

== ENCOUNTER 2024-01-14 10:14 | Day surgery (SDC) | payer MEDICARE, OTHER, SELFPAY ==
--- OUTSIDE RECORDS SUMMARY | 2024-01-14 10:32 | XMS_ITS | CCD ---
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 Role Phone DR NEGRITO [...] (1 source) Lidocaine Drug Allergy 3 [facility] Repository (13 sources) Fenofibrate Drug Allergy Unknown [facility] Other (13 sources) Lovastatin Drug Allergy Unknown [facility] Other (13 sources) lidoderm patches Propensity to adverse reactions itching [facility] Other (1 source) patient allergy list reviewed by nurse or physicia Propensity to adverse reactions 3 Comment:Done [facility] Other Medications Current Medications Medication Drug Class(es) [...] day Active Baclofen Not-Chip ing Calcium 1200 4080-4167 MG-UNIT (3 sources) take 1 tablet by mouth once daily Calcium 1200 5063-2564 MG-UNIT 1 tablet Orally Once a day [...] sources) High risk drug monitoring status; Translations: [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 Admission #: [id number] Family : Order #: [id number] CLICK HERE TO VIEW EXAM RADIOLOGY REPORT [...] Treatments None Family Cancers None LOCATION: [facility] BREAST COMPOSITION: Heterogeneously dense,which may obscure [...] width (RBC) [Ratio] 13.5 % Normal 11.9-15.3 [facility] Comment on above: Performed By: #### O UTREACH LIPID, OUTREACH CMP, CBCNOOUTREACH #### [address] Hematocrit (Bld) [Volume fraction] 41.1 % Normal 34.0-46.4 [facility] Comment on above: Performed By: #### O UTREACH LIPID, OUTREACH CMP, CBCNOOUTREACH #### [facility] [address] [place] [address] Hemoglobin (Bld) [Mass/Vol] 13.6 g/dL Normal 11.8-15.4 [facility] Comment on above: Performed By: #### O UTREACH LIPID, OUTREACH CMP, CBCNOOUTREACH #### [facility] [address] [place], [place] [id number] [facility] MCH (RBC) [Entitic mass] 27.4 pg Normal 24.7-34.3 [facility] Comment on above: Performed By: #### O UTREACH LIPID, OUTREACH CMP, CBCNOOUTREACH #### [place] [id number] [facility] MCV (RBC) [Entitic vol] 82.5 fL Normal 80-100 [facility] Comment on above: Performed By: #### O UTREACH LIPID, OUTREACH CMP, CBCNOOUTREACH #### [address] Mean Corpuscular HGB Conc 33.2 g/dL Normal 32.0-35.0 [facility] Comment on above: Performed By: #### O UTREACH LIPID, OUTREACH CMP, CBCNOOUTREACH #### [address] Platelet mean volume (Bld) [Entitic vol] 9.6 fL Normal 6.3-10.7 [facility] Comment on above: Result Comment: PERF ORMED BY: [place] [address] PATHOLOGIST EDGE TRIMMER MARSHA ASTORGA M.D. Performed By: #### O UTREACH LIPID, OUTREACH CMP, CBCNOOUTREACH #### [address] Platelets (Bld) [#/Vol] 231 10*3/uL Normal 150-450 [facility] Comment on above: Performed By: #### O UTREACH LIPID, OUTREACH CMP, CBCNOOUTREACH #### [address] RBC (Bld) [#/Vol] 4.98 10*6/uL Normal 3.60-5.00 [facility] Comment on above: Performed By: #### O UTREACH LIPID, OUTREACH CMP, CBCNOOUTREACH #### [address] WBC (Bld) [#/Vol] 4.3 10*3/uL Normal 3.8-11.6 [facility] Comment on above: Performed By: #### O UTREACH LIPID, OUTREACH CMP, CBCNOOUTREACH #### [address] CMP Outreachon 11-06-2020 Albumin [Mass/Vol] 4.4 g/dL Normal 3.2-5.5 [facility] Comment on above: Performed By: #### O UTREACH LIPID, OUTREACH CMP, CBCNOOUTREACH #### [facility] [address] [place] [address] [place] ALP [Catalytic activity/Vol] 64 U/L Normal 32-92 [facility] Comment on above: Performed By: #### O UTREACH LIPID, OUTREACH CMP, CBCNOOUTREACH #### [facility] [address] [place] [id number] [place] ALT [Catalytic activity/Vol] 32 U/L Normal 10-60 [facility] Comment on above: Performed By: #### O UTREACH LIPID, OUTREACH CMP, CBCNOOUTREACH #### [facility] [address] [place] [address] [place] AST [Catalytic activity/Vol] 25 U/L Normal 10-42 [facility] Comment on above: Performed By: #### O UTREACH LIPID, OUTREACH CMP, CBCNOOUTREACH #### [facility] [address] [place] [address] [place] Bilirubin [Mass/Vol] 0.5 mg/dL Normal 0.3-1.2 [facility] Comment on above: Performed By: #### O UTREACH LIPID, OUTREACH CMP, CBCNOOUTREACH #### [facility] [address] [place] [address] [place] Calcium [Mass/Vol] 9.6 mg/dL Normal 8.2-10.2 [facility] Comment on above: Performed By: #### O UTREACH LIPID, OUTREACH CMP, CBCNOOUTREACH #### [facility] [address] [place], [place] [id number] [place] Chloride [Moles/Vol] 105 mmol/L Normal 95-114 [facility] Comment on above: Performed By: #### O UTREACH LIPID, OUTREACH CMP, CBCNOOUTREACH #### [facility] [address] [place], [place] [phone] [place] CO2 [Moles/Vol] 26.7 mmol/L Normal 22.0-30.0 [facility] Comment on above: Performed By: #### O UTREACH LIPID, OUTREACH CMP, CBCNOOUTREACH #### [facility] [address] Creatinine [Mass/Vol] 0.63 mg/dL Normal 0.44-1.03 [facility] Comment on above: Performed By: #### O UTREACH LIPID, OUTREACH CMP, CBCNOOUTREACH #### [address] Estimated GFR ( Marianne > 60 Normal [facility] Comment on above: Result Comment: GFR estimated reference range: According to KDOQI guidelines, <60 ml/min/1.73m2 is sufficient to diagnose a patient with chronic kidney disease. Performed By: #### O UTREACH LIPID, OUTREACH CMP, CBCNOOUTREACH #### [address] Estimated GFR (Non- Am > 60 Normal [facility] Comment on above: Performed By: #### O UTREACH LIPID, OUTREACH CMP, CBCNOOUTREACH #### [address] Glucose [Mass/Vol] 118 mg/dL High 70-100 [facility] Comment on above: Result Comment: [place] om Glucose Reference Range is dependent on time and content of last meal. Glucose of more than 200 mg/dL in a nonstressed, ambulatory subject supports the diagnosis of Diabetes Mellitus. ADA recommended reference range Performed By: #### O UTREACH LIPID, OUTREACH CMP, CBCNOOUTREACH #### [address] Potassium [Moles/Vol] 4.1 mmol/L Normal 3.5-5.1 [facility] Comment on above: Performed By: #### O UTREACH LIPID, OUTREACH CMP, CBCNOOUTREACH #### [address] Protein [Mass/Vol] 6.5 g/dL Normal 6.1-7.9 [facility] Comment on above: Performed By: #### O UTREACH LIPID, OUTREACH CMP, CBCNOOUTREACH #### [address] [place] [address] [place] Sodium [Moles/Vol] 141 mmol/L Normal 136-146 [facility] Comment on above: Performed By: #### O UTREACH LIPID, OUTREACH CMP, CBCNOOUTREACH #### [facility] [address] [place] [id number] [place] Urea nitrogen [Mass/Vol] 15 mg/dL Normal 9-23 [facility] Comment on above: Performed By: #### O UTREACH LIPID, OUTREACH CMP, CBCNOOUTREACH #### [facility] [address] [place] [address] [place] Lipid Profile Outreachon Cholesterol [Mass/Vol] 237 mg/dL High 140-200 [facility] Comment on above: Result Comment: Chol less than 200 mg/dl low risk Chol 201-239 mg/dl borderline risk Chol 240 mg/dl and greater high risk Performed By: #### O UTREACH LIPID, OUTREACH CMP, CBCNOOUTREACH #### [facility] [address] [place] [id number] [place] Cholesterol in HDL [Mass/Vol] 37 mg/dL Normal 35-85 [facility] Comment on above: Result Comment: HDL CHOL ATP-III CLASSIFICATION Cardiovascular Risk HDL > or equal to 60 mg/dL LOW HDL < 40 mg/dL HIGH Performed By: #### O UTREACH LIPID, OUTREACH CMP, CBCNOOUTREACH #### [facility] [address] [place] [id number] [place] Cholesterol.total/Ch olesterol in HDL [Mass ratio] 6.4 {ratio} Normal <5.0 [facility] Comment on above: Result Comment: PERF ORMED BY: [place] [address] PATHOLOGIST EDGE TRIMMER MARSHA ASTORGA M.D. Performed By: #### O UTREACH LIPID, OUTREACH CMP, CBCNOOUTREACH #### [facility] [address] [place] [id number] [facility] LDL Cholesterol,Calculat ed 127 mg/dL High 0-100 [facility] Comment on above: Result Comment: LDL ATP III CLASSIFICATION LDL less than 100 mg/dL Optimal LDL 100-129 mg/dL Near or above optimal LDL 130-159 mg/dL Borderline high LDL 160-189 mg/dL High LDL greater than 189 mg/dL Very high Performed By: #### O UTREACH LIPID, OUTREACH CMP, CBCNOOUTREACH #### [facility] [address] [place] [address] [place] Triglyceride w/Reflex 364 mg/dL High 35-149 [facility] Comment on above: Result Comment: TRIG ATP III CLASSIFICATION TRIG less than 150 mg/dL Normal TRIG 150-199 mg/dL Borderline high TRIG 200-500 mg/dL High TRIG greater than 500 mg/dL Very high Standard traceable to the Center for Disease Conrtrol and Prevention (CDC) test method. Performed By: #### O UTREACH LIPID, OUTREACH CMP, CBCNOOUTREACH #### [facility] [address] [place] [id number] [facility] VLDL CHOLESTEROL 72 mg/dL Normal [facility] Comment on above: Performed By: #### O UTREACH LIPID, OUTREACH CMP, CBCNOOUTREACH #### [facility] [address] [place] [id number] [facility] Vital Signs Date Time Vital Sign Value Performing Clinician Facility 02-16-2023 10:00-0500 Body height 167.64 cm Negrito [facility] Other [facility] 02-16-2023 10:00-0500 Body mass index (BMI) [Ratio] 25.08 kg/m2 Negrito [facility] Other [facility] 02-16-2023 10:00-0500 Body weight 70.49 kg Negrito [facility] Other [facility] 02-16-2023 10:00-0500 Diastolic blood pressure 85 mm[Hg] Negrito [facility] Other [facility] 02-16-2023 10:00-0500 Respiratory rate 18 /min Negrito [facility] Other [facility] 02-16-2023 10:00-0500 Systolic blood pressure 135 mm[Hg] Negrito [facility] Other [facility] 11-17-2022 11:30-0400 Body height 167.64 cm Negrito Ball Other [facility] 11-17-2022 11:30-0400 Body mass index (BMI) [Ratio] 24.6 kg/m2 Negrito Ball Other [facility] 11-17-2022 11:30-0400 Body weight 69.13 kg Negrito Ball Other [facility] 11-17-2022 11:30-0400 Diastolic blood pressure 84 mm[Hg] Negrito Ball Other [facility] 11-17-2022 11:30-0400 Respiratory rate 12 /min Negrito Ball Other [facility] 11-17-2022 11:30-0400 Systolic blood pressure 147 mm[Hg] Negrito Ball Other [facility] 08-18-2022 10:15-0400 Body height 167.64 cm Negrito Ball Other [facility] 08-18-2022 10:15-0400 Body mass index (BMI) [Ratio] 24.56 kg/m2 Negrito Ball Other [facility] 08-18-2022 10:15-0400 Body weight 69.04 kg Negrito Ball Other [facility] 08-18-2022 10:15-0400 Diastolic blood pressure 90 mm[Hg] Negrito Ball Other [facility] 08-18-2022 10:15-0400 Respiratory rate 12 /min Negrito Ball Other [facility] 08-18-2022 10:15-0400 Systolic blood pressure 155 mm[Hg] Negrito Ball Other [facility] Other 05-29-2022 15:30-0400 Body height 167.64 cm Negrito Ball Other [facility] 05-29-2022 15:30-0400 Body mass index (BMI) [Ratio] 24.24 kg/m2 Negrito Ball Other [facility] 05-29-2022 15:30-0400 Body weight 68.13 kg Negrito Ball Other [facility] Other 05-29-2022 15:30-0400 Diastolic blood pressure 68 mm[Hg] Negrito Ball Other [facility] Other 05-29-2022 15:30-0400 Respiratory rate 12 /min Negrito Ball Other [facility] Other 05-29-2022 15:30-0400 Systolic blood pressure 153 mm[Hg] Negrito Ball Other [facility] Other Encounters Encounter Date Encounter Type Care Provider Facility Start: 12-24-2023 End: 12-24-2023 ambulatory Warren Ayoub MD [facility]: [facility] Start: 12-10-2023 End: 12-10-2023 ambulatory Warren Ayoub MD Facility: [facility] Start: 12-03-2023 End: 12-03-2023 ambulatory Warren Ayoub MD Facility: [facility] Start: 03-28-2023 End: 03-28-2023 ambulatory Negrito Ball Other [facility] Start: 03-28-2023 Telephone encounter Negrito Ball [facility] Start: 03-26-2023 End: 03-26-2023 ambulatory Negrito Ball Other [facility] Start: 03-26-2023 Telephone encounter Negrito Ball [facility] Start: 02-16-2023 End: 02-16-2023 ambulatory Negrito Ball Other [facility] Start: 02-16-2023 Office outpatient vi sit 15 minutes Negrito Ball [facility] Start: 01-29-2023 End: 01-29-2023 ambulatory Negrito Ball Other [facility] Start: 01-29-2023 Telephone encounter Negrito Ball [facility] Start: 12-06-2022 End: 12-06-2022 ambulatory Negrito Ball Other [facility] Start: 12-06-2022 Telephone encounter Negrito Ball [facility] Start: 12-05-2022 End: 12-05-2022 ambulatory Negrito Ball Other [facility] Start: 12-05-2022 Telephone encounter Negrito Ball [facility] Start: 11-17-2022 End: 11-17-2022 ambulatory Negrito Ball Other [facility] Start: 11-17-2022 Patient encounter procedure Negrito Ball [facility] Start: 11-01-2022 End: 11-01-2022 ambulatory Negrito Ball Other [facility] Start: 11-01-2022 Telephone encounter Negrito Ball [facility] Start: 09-07-2022 End: 09-07-2022 ambulatory Negrito Ball Other [facility] Start: 09-07-2022 Telephone encounter Negrito Shannon [facility] Start: 08-18-2022 End: 08-18-2022 ambulatory Negrito Shannon Other [facility] Start: 08-18-2022 Office outpatient vi sit 15 minutes Negrito Shannon [facility] Start: 08-18-2022 Telephone encounter Negrito DUMONT [facility] Start: 08-01-2022 End: 08-01-2022 ambulatory Negrito Shannon Other [facility] Start: 08-01-2022 Telephone encounter Negrito DUMONT [facility] Start: 05-29-2022 End: 05-29-2022 ambulatory Negrito Shannon Other [facility] Start: 05-29-2022 Office outpatient vi sit 15 minutes Negrito Shannon [facility] Start: 11-11-2021 Adult health examination Negrito Shannon Other [facility] Start: 03-11-2021 End: 03-12-[address] [...] (incl. purified surface antigen) Negrito Shannon Other [facility] 12-30-2021 influenza virus vaccine, split virus (incl. purified surface antigen) Negrito Shannon Other [facility] 12-31-2020 COVID-19 Vaccine Pfi zer - Documentation Purposes Only Negrito Shannon Other [facility] 11-08-2020 influenza virus vaccine, split virus (incl. purified surface antigen) Negrito Shannon Other [facility] 05-27-2020 COVID-19 Vaccine Pfi zer - Documentation Purposes Only Negrito Shannon Other [facility] 05-06-2020 COVID-19 Vaccine Pfi zer - Documentation Purposes Only Negrito Shannon Other [facility] 11-22-2019 influenza virus vaccine, split virus (incl. purified surface antigen) Negrito Shannon Other [facility] 10-25-2019 tetanus toxoid, redu paramjit diphtheria toxoid, and acellular pertussis vaccine, adsorbed Negrito Shannon Other [facility] 11-10-2014 tetanus and diphther ia toxoids, adsorbed, preservative free, for adult use (5 Lf of tetanus toxoid and 2 Lf of diphtheria toxoid) Ngerito Shannon Other [facility] 12-17-2012 tetanus and diphther ia toxoids, adsorbed, preservative free, for adult use (5 Lf of tetanus toxoid and 2 Lf of diphtheria toxoid) Negrito Shannon Other [facility] Other 10-07-2003 diphtheria, tetanus toxoids and acellular pertussis vaccine, unspecified formulation Negrito Shannon Other [facility] Other Payers Date Payer Category Payer Medicare 2023 Unknown 1959 Medicare [id number] 1959 Unknown [id number] 1955 Unknown [id number] 2.16.84 [id number] 1955 Unknown [id number] 2.16. [id number] 1955 Unknown [id number] 2.16. [id number] 1955 Unknown [id number] 2.16. [id number] Unknown [id number] 2.16.84 [id number] Social History Date Type Detail Facility Unknown if ever smoked [facility] Sex Assigned At Sex Assigned At Bir th [facility] Other Clinical Notes 05-29-2022 to 03-28-2023 Note Date & Type Note Facility 03-28-2023 Evaluation note Encounter Date Diagnosis Assessment Notes Feb, Hypercholesterolemia (ICD-10 - E78.00) [facility] Other [id number] Evaluation note* Encounter Date Diagnosis Assessment Notes [...] report is being monitored every 90 days. [facility] Other 12-04-2023 Evaluation note* Encounter Date Diagnosis Assessment Notes Treatment Notes Treatment Clinical Notes Jan, Fibromyalgia (ICD-10 - M79.7) [facility] 10-11-2023 Evaluation note* Encounter Date Diagnosis Assessment Notes Treatment Notes Treatment Clinical Notes Nov, Age-related osteoporosis without current pathological fracture (ICD-10 - M81.0) [facility] 09-22-2023 Evaluation note* Encounter Date Diagnosis [...] Screening for colon cancer (ICD-10 - Z12.11) [facility] 09-06-2023 Evaluation note* Encounter Date Diagnosis Assessment Notes Treatment Notes Treatment Clinical Notes Oct, Lumbar spondylosis (ICD-10 - M47.816) [facility] 07-13-2023 Evaluation note* Encounter Date Diagnosis Assessment Notes Treatment Notes Treatment Clinical Notes Aug, Lumbar spondylosis (ICD-10 - M47.816) [facility] 06-23-2023 Evaluation note* Encounter Date Diagnosis [...] phone, computer and exercise prior to bedtime [facility] 06-23-2023 Evaluation note* Encounter Date Diagnosis Assessment Notes Treatment Notes Treatment Clinical Notes Jul, Lumbar spondylosis (ICD-10 - M47.816) [facility] 06-06-2023 Evaluation note* Encounter Date Diagnosis Assessment Notes Treatment Notes Treatment Clinical Notes Jul, Lumbar spondylosis (ICD-10 - M47.816) [facility] 04-03-2023 Evaluation note* Encounter Date Diagnosis [...] avoid bedtime food, TV, computer and exercise [facility] Other Evaluation noteNo InformationNortlark Other History general Narrative - Reported* Type [...] right shoul gaby Hospitalization History see above [facility] Other Summary Purpose Family History No Family History Records FoundNo Family History Records FoundNo Family History Records Found Advance Directives No Advanced Directives Records FoundNo Advanced Directives Records FoundNo Advanced Directives Records Found Additional Source Comments INFORMATION SOURCE (unrecogn ized section and content) DATE CREATED AUTHOR 03/16/2021 [facility] DATE CREATED AUTHOR AUTHOR'S ORGANIZ ATION 03/21/2021 [facility] DATE CREATED AUTHOR AUTHOR'S ORGANIZ ATION 12/28/2023 [facility] REASON FOR VISIT (unrecogniz ed section [...] BE BASED ON THE PRIMARY CLINICAL RECORDS. [facility]. provides no warranty or guarantee of the accuracy or completeness of information in this document.
[2024-01-14 11:00] VITALS: BP 158/83; PULSE 85; TEMP 36.7; O2SAT 98
[2024-01-14 11:44] VITALS: BP 172/79; PULSE 84; PULSE 86; O2SAT 96; O2SAT 97
[2024-01-14] MEDS: LIDOCAINE HCL 2% 400 MG/20 ML MDV 15 ML INJ (11:47)
[2024-01-14] MEDS: BUPIVACAINE HCL 0.25% PF 25 MG/10 ML VIAL 4 ML INJ (11:47)
[2024-01-14] MEDS: TRIAMCINOLONE ACETONIDE 40 MG/ML VIAL 80 MG INJ (11:48)
[2024-01-14 11:56] VITALS: BP 174/84
--- NOTE | 2024-01-14 11:57 | P.ON_ITS ---
Date of procedure: 01/14/24 Pre-op diagnosis: Pain due to lumbar spondylosis without myelopathy Post-op diagnosis: same as pre-op Procedure: Procedure: Bilateral L4-5, L5-S1 radiofrequency ablation Medications: Bupivacaine 0.25% 6cc, lidocaine 2% 6cc, kenalog 80mg The patient was seen and examined in the preoperative holding area.? The site was marked.? Written informed consent was obtained and placed on the chart.? The patient was brought to the medical procedure unit and placed in the prone position.? A timeout was completed verifying correct patient, procedure, positioning, and special requirements.? The skin overlying the target points, the designated medial branch, were prepped and draped in the usual sterile fashion.? The target point was achieved with a 20-gauge 15 cm with a 10 mm curved active tip radiofrequency cannula under direct fluoroscopic visualization.? The needle was inserted at level L4 on the right side. Needle tip position was confirmed with lateral fluoroscopic position.? Motor stimulation was carried out at 2 Hz up to 5 volts with the absence of extremity activity.? This was repeated at level L5, S1 on right side.?? Sensory stimulation was carried out.? Concordant pain was realized at the above- mentioned sites.? Then radiofrequency lesioning was carried out times 90 seconds at 80 degrees times 2 lesions at each level.? The radiofrequency probe was removed prior to cannula removal.? The above-mentioned injectate was placed in 1 mL increments.? The needle was removed. The same procedure, with the same steps, was then completed on the left side at the same levels. Insertion sites were covered.? The patient was taken to the postoperative recovery area and monitored for an appropriate length of time before being found suitable for discharge in the company of a responsible adult. Anesthesia: Local Surgeon: Warren Ayoub Pathology: none sent Condition: stable Disposition: no change
== END 2024-01-14 12:52 | disposition home or self-care (01) ==
LOC: SURGOUT 10:15
PROVIDERS: Visit Provider Anesthesiology
DX: M47.816 Spondylosis without myelopathy or radiculopathy, lumbar region (principal)
CPT/HCPCS: 64635; 64636; J0665; J3301

== ENCOUNTER 2024-02-13 10:00 | Outpatient (OUT) | payer MEDICARE, OTHER, SELFPAY ==
--- OUTSIDE RECORDS SUMMARY | 2024-02-13 10:20 | XMS_ITS | CCD ---
Author Organization [facility] Care Team Providers Care Wax Pattern Coater Name Role Phone DR NEGRITO SHANNON Admitting Crow SHANNON, DR VELA Primary Care Unavailable DR NEGRITO SHANNON Consulting Unavailable ELIE, DR VELA Attending Unavailable KETAN, DR ZAIN Lott Consulting Unavailable Negrito Shannon Unavailable Gitessaitis , Warren Collins Attending Unavailable Giedraitis , Andgloria Collins Attending Unavailable Giedraitis , Andgloria Collins Attending Unavailable Giedraitis , Andrius Collins Attending Unavailable Giedraitis , Andrius Karina Attending Unavailable Allergies Allergy Classification Reported Allergen(s) Allergy Type Date of Onset Reaction(s) Facility (1 source) Lidocaine Drug Allergy 3 [facility] Repository (13 sources) Fenofibrate Drug Allergy Unknown [facility] Other (13 sources) Lovastatin Drug Allergy Unknown [facility] Other (13 sources) lidoderm patches Propensity to adverse reactions itching [facility] Other (1 source) patient allergy list reviewed by nurse or physicia Propensity to adverse reactions 3 Comment:Done [facility] Other Medications Current Medications Medication Drug Class(es) [...] day Active Baclofen Not-Chip ing Calcium 1200 9059-0206 MG-UNIT (3 sources) take 1 tablet by mouth once daily Calcium 1200 4145-9659 MG-UNIT 1 tablet Orally Once a day [...] sources) High risk drug monitoring status; Translations: [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 Admission #: [id number] Family : Order #: [id number] CLICK HERE TO VIEW EXAM RADIOLOGY REPORT [...] Treatments None Family Cancers None LOCATION: [facility] BREAST COMPOSITION: Heterogeneously dense,which may obscure [...] Owusu M.D. on 03/11/2021 at 15:06 Normal [facility] CBC Without Differentialon 0 11-06-2020 Erythrocyte distribution width (RBC) [Ratio] 13.5 % Normal 11.9-15.3 [facility] Comment on above: Performed By: #### O UTREACH LIPID, OUTREACH CMP, CBCNOOUTREACH #### [address] Hematocrit (Bld) [Volume fraction] 41.1 % Normal 34.0-46.4 [facility] Comment on above: Performed By: #### O UTREACH LIPID, OUTREACH CMP, CBCNOOUTREACH #### [address] Hemoglobin (Bld) [Mass/Vol] 13.6 g/dL Normal 11.8-15.4 [facility] Comment on above: Performed By: #### O UTREACH LIPID, OUTREACH CMP, CBCNOOUTREACH #### [address] MCH (RBC) [Entitic mass] 27.4 pg Normal 24.7-34.3 [facility] Comment on above: Performed By: #### O UTREACH LIPID, OUTREACH CMP, CBCNOOUTREACH #### [address] MCV (RBC) [Entitic vol] 82.5 fL Normal 80-100 [facility] Comment on above: Performed By: #### O UTREACH LIPID, OUTREACH CMP, CBCNOOUTREACH #### [facility] [address] Mean Corpuscular HGB Conc 33.2 g/dL Normal 32.0-35.0 [facility] Comment on above: Performed By: #### O UTREACH LIPID, OUTREACH CMP, CBCNOOUTREACH #### [facility] [address] Platelet mean volume (Bld) [Entitic vol] 9.6 fL Normal 6.3-10.7 [facility] Comment on above: Result Comment: PERF ORMED BY: [place] [address] PATHOLOGIST CARD SORTER MARSHA ASTORGA M.D. Performed By: #### O UTREACH LIPID, OUTREACH CMP, CBCNOOUTREACH #### [facility] [address] Platelets (Bld) [#/Vol] 231 10*3/uL Normal 150-450 [facility] Comment on above: Performed By: #### O UTREACH LIPID, OUTREACH CMP, CBCNOOUTREACH #### [address] RBC (Bld) [#/Vol] 4.98 10*6/uL Normal 3.60-5.00 [facility] Comment on above: Performed By: #### O UTREACH LIPID, OUTREACH CMP, CBCNOOUTREACH #### [facility] [address] WBC (Bld) [#/Vol] 4.3 10*3/uL Normal 3.8-11.6 [facility] Comment on above: Performed By: #### O UTREACH LIPID, OUTREACH CMP, CBCNOOUTREACH #### [facility] [address] CMP Outreachon 11-06-2020 Albumin [Mass/Vol] 4.4 g/dL Normal 3.2-5.5 [facility] Comment on above: Performed By: #### O UTREACH LIPID, OUTREACH CMP, CBCNOOUTREACH #### [facility] [address] [place] [id number] [facility] ALP [Catalytic activity/Vol] 64 U/L Normal 32-92 [facility] Comment on above: Performed By: #### O UTREACH LIPID, OUTREACH CMP, CBCNOOUTREACH #### [facility] [address] [place] [id number] [place] ALT [Catalytic activity/Vol] 32 U/L Normal 10-60 [facility] Comment on above: Performed By: #### O UTREACH LIPID, OUTREACH CMP, CBCNOOUTREACH #### [facility] [address] [place] [address] [place] AST [Catalytic activity/Vol] 25 U/L Normal 10-42 [facility] Comment on above: Performed By: #### O UTREACH LIPID, OUTREACH CMP, CBCNOOUTREACH #### [facility] [address] [place] [id number] [place] Bilirubin [Mass/Vol] 0.5 mg/dL Normal 0.3-1.2 [facility] Comment on above: Performed By: #### O UTREACH LIPID, OUTREACH CMP, CBCNOOUTREACH #### [facility] [address] [place] [address] [place] Calcium [Mass/Vol] 9.6 mg/dL Normal 8.2-10.2 [facility] Comment on above: Performed By: #### O UTREACH LIPID, OUTREACH CMP, CBCNOOUTREACH #### [facility] [address] [place] [id number] [place] Chloride [Moles/Vol] 105 mmol/L Normal 95-114 [facility] Comment on above: Performed By: #### O UTREACH LIPID, OUTREACH CMP, CBCNOOUTREACH #### [facility] [address] [place] [id number] [place] CO2 [Moles/Vol] 26.7 mmol/L Normal 22.0-30.0 [facility] Comment on above: Performed By: #### O UTREACH LIPID, OUTREACH CMP, CBCNOOUTREACH #### [facility] [address] Creatinine [Mass/Vol] 0.63 mg/dL Normal 0.44-1.03 [facility] Comment on above: Performed By: #### O UTREACH LIPID, OUTREACH CMP, CBCNOOUTREACH #### [facility] [address] Estimated GFR ( Marianne > 60 Normal [facility] Comment on above: Result Comment: GFR estimated reference range: According to KDOQI guidelines, <60 ml/min/1.73m2 is sufficient to diagnose a patient with chronic kidney disease. Performed By: #### O UTREACH LIPID, OUTREACH CMP, CBCNOOUTREACH #### [facility] [address] Estimated GFR (Non- Am > 60 Normal [facility] Comment on above: Performed By: #### O UTREACH LIPID, OUTREACH CMP, CBCNOOUTREACH #### [facility] [address] Glucose [Mass/Vol] 118 mg/dL High 70-100 [facility] Comment on above: Result Comment: [place] Glucose Reference Range is dependent on time and content of last meal. Glucose of more than 200 mg/dL in a nonstressed, ambulatory subject supports the diagnosis of Diabetes Mellitus. ADA recommended reference range Performed By: #### O UTREACH LIPID, OUTREACH CMP, CBCNOOUTREACH #### [facility] [address] [place] [id number] [facility] Potassium [Moles/Vol] 4.1 mmol/L Normal 3.5-5.1 [facility] Comment on above: Performed By: #### O UTREACH LIPID, OUTREACH CMP, CBCNOOUTREACH #### [facility] [address] [place] [phone] [facility] Protein [Mass/Vol] 6.5 g/dL Normal 6.1-7.9 [facility] Comment on above: Performed By: #### O UTREACH LIPID, OUTREACH CMP, CBCNOOUTREACH #### [facility] [address] Sodium [Moles/Vol] 141 mmol/L Normal 136-146 [facility] Comment on above: Performed By: #### O UTREACH LIPID, OUTREACH CMP, CBCNOOUTREACH #### [facility] [address] [place] [address] [place] Urea nitrogen [Mass/Vol] 15 mg/dL Normal 9-23 [facility] Comment on above: Performed By: #### O UTREACH LIPID, OUTREACH CMP, CBCNOOUTREACH #### [facility] [address] Lipid Profile Outreachon Cholesterol [Mass/Vol] 237 mg/dL High 140-200 [facility] Comment on above: Result Comment: Chol less than 200 mg/dl low risk Chol 201-239 mg/dl borderline risk Chol 240 mg/dl and greater high risk Performed By: #### O UTREACH LIPID, OUTREACH CMP, CBCNOOUTREACH #### [facility] [address] [place] [address] Cholesterol in HDL [Mass/Vol] 37 mg/dL Normal 35-85 [facility] Comment on above: Result Comment: HDL CHOL ATP-III CLASSIFICATION Cardiovascular Risk HDL > or equal to 60 mg/dL LOW HDL < 40 mg/dL HIGH Performed By: #### O UTREACH LIPID, OUTREACH CMP, CBCNOOUTREACH #### [facility] [address] [place] [address] Cholesterol.total/Ch olesterol in HDL [Mass ratio] 6.4 {ratio} Normal <5.0 [facility] Comment on above: Result Comment: PERF ORMED BY: [place] [address] PATHOLOGIST CARD SORTER MARSHA ASTORGA M.D. Performed By: #### O UTREACH LIPID, OUTREACH CMP, CBCNOOUTREACH #### [address] LDL Cholesterol,Calculat ed 127 mg/dL High 0-100 [facility] Comment on above: Result Comment: LDL ATP III CLASSIFICATION LDL less than 100 mg/dL Optimal LDL 100-129 mg/dL Near or above optimal LDL 130-159 mg/dL Borderline high LDL 160-189 mg/dL High LDL greater than 189 mg/dL Very high Performed By: #### O UTREACH LIPID, OUTREACH CMP, CBCNOOUTREACH #### [facility] [address] [place] [phone] [place] Triglyceride w/Reflex 364 mg/dL High 35-149 [facility] Comment on above: Result Comment: TRIG ATP III CLASSIFICATION TRIG less than 150 mg/dL Normal TRIG 150-199 mg/dL Borderline high TRIG 200-500 mg/dL High TRIG greater than 500 mg/dL Very high Standard traceable to the Center for Disease Conrtrol and Prevention (CDC) test method. Performed By: #### O UTREACH LIPID, OUTREACH CMP, CBCNOOUTREACH #### [facility] [address] [place] [id number] [facility] VLDL CHOLESTEROL 72 mg/dL Normal [facility] Comment on above: Performed By: #### O UTREACH LIPID, OUTREACH CMP, CBCNOOUTREACH #### [facility] [address] [place] [id number] [facility] Vital Signs Date Time Vital Sign Value Performing Clinician Facility 02-16-2023 10:00-0500 Body height 167.64 cm Negrito Shannon Other [facility] Other 02-16-2023 10:00-0500 Body mass index (BMI) [Ratio] 25.08 kg/m2 Negrito [facility] Other [facility] Other 02-16-2023 10:00-0500 Body weight 70.49 kg Negrito [facility] Other [facility] Other 02-16-2023 10:00-0500 Diastolic blood pressure 85 mm[Hg] Negrito [facility] Other [facility] Other 02-16-2023 10:00-0500 Respiratory rate 18 /min Negrito Ball Other [facility] Other 02-16-2023 10:00-0500 Systolic blood pressure 135 mm[Hg] Negrito Ball Other [facility] Other 11-17-2022 11:30-0400 Body height 167.64 cm Negrito Ball Other [facility] Other 11-17-2022 11:30-0400 Body mass index (BMI) [Ratio] 24.6 kg/m2 Negrito Ball Other [facility] Other 11-17-2022 11:30-0400 Body weight 69.13 kg Negrito Ball Other [facility] Other 11-17-2022 11:30-0400 Diastolic blood pressure 84 mm[Hg] Negrito Ball Other [facility] Other 11-17-2022 11:30-0400 Respiratory rate 12 /min Negrito Ball Other [facility] Other 11-17-2022 11:30-0400 Systolic blood pressure 147 mm[Hg] Negrito Ball Other [facility] Other 08-18-2022 10:15-0400 Body height 167.64 cm Negrito Ball Other [facility] Other 08-18-2022 10:15-0400 Body mass index (BMI) [Ratio] 24.56 kg/m2 Negrito Ball Other [facility] Other 08-18-2022 10:15-0400 Body weight 69.04 kg Negrito Ball Other [facility] Other 08-18-2022 10:15-0400 Diastolic blood pressure 90 mm[Hg] Negrito Ball Other [facility] Other 08-18-2022 10:15-0400 Respiratory rate 12 /min Negrito Ball Other [facility] Other 08-18-2022 10:15-0400 Systolic blood pressure 155 mm[Hg] Negrito Ball Other [facility] Other 05-29-2022 15:30-0400 Body height 167.64 cm Negrito Ball Other [facility] Other 05-29-2022 15:30-0400 Body mass index (BMI) [Ratio] 24.24 kg/m2 Negrito Ball Other [facility] Other 05-29-2022 15:30-0400 Body weight 68.13 kg Negrito Ball Other [facility] Other 05-29-2022 15:30-0400 Diastolic blood pressure 68 mm[Hg] Negrito Ball Other [facility] Other 05-29-2022 15:30-0400 Respiratory rate 12 /min Negrito Ball Other [facility] Other 05-29-2022 15:30-0400 Systolic blood pressure 153 mm[Hg] Negrito Ball Other [facility] Other Encounters Encounter Date Encounter Type Care Provider Facility Start: 01-14-2024 End: 01-14-2024 ambulatory Warren Ayoub MD [facility] Start: 01-07-2024 End: 01-07-2024 ambulatory Warren Ayoub MD [facility] Start: 12-24-2023 End: 12-24-2023 ambulatory Warren Ayoub MD [facility]: [facility] Start: 12-10-2023 End: 12-10-2023 ambulatory Warren Ayoub MD [facility]: [facility] Start: 12-03-2023 End: 12-03-2023 ambulatory Warren Ayoub MD Facility: [facility] Start: 03-28-2023 End: 03-28-2023 ambulatory Negrito Shannon Other [facility] Other Start: 03-28-2023 Telephone encounter Negrito Shannon [facility] Start: 03-26-2023 End: 03-26-2023 ambulatory Negrito Shannon Other [facility] Other Start: 03-26-2023 Telephone encounter Negrito Ball [facility] Start: 02-16-2023 End: 02-16-2023 ambulatory Negrito Elie Other [facility] Other Start: 02-16-2023 Office outpatient vi sit 15 minutes Negrito Ball [facility] Start: 01-29-2023 End: 01-29-2023 ambulatory Negrito Elie Other [facility] Other Start: 01-29-2023 Telephone encounter Negrito Ball [facility] Start: 12-06-2022 End: 12-06-2022 ambulatory Negrito Ball Other [facility] Other Start: 12-06-2022 Telephone encounter Negrito Ball [facility] Start: 12-05-2022 End: 12-05-2022 ambulatory Negrito Ball Other [facility] Other Start: 12-05-2022 Telephone encounter Negrito Ball [facility] Start: 11-17-2022 End: 11-17-2022 ambulatory Negrito Ball Other [facility] Other Start: 11-17-2022 Patient encounter procedure Negrito Shannon [facility] Start: 11-01-2022 End: 11-01-2022 ambulatory Negrito Shannon Other [facility] Other Start: 11-01-2022 Telephone encounter Negrito Shannon [facility] Start: 09-07-2022 End: 09-07-2022 ambulatory Negrito Shannon Other [facility] Other Start: 09-07-2022 Telephone encounter Negrito Shannon [facility] Start: 08-18-2022 End: 08-18-2022 ambulatory Negrito Shannon Other [facility] Other Start: 08-18-2022 Office outpatient vi sit 15 minutes Negrito Shannon [facility] Start: 08-18-2022 Telephone encounter Negrito Shannon [facility] Start: 08-01-2022 End: 08-01-2022 ambulatory Negrito Shannon Other [facility] Other Start: 08-01-2022 Telephone encounter Negrito Shannon [facility] Start: 05-29-2022 End: 05-29-2022 ambulatory Negrito Shannon Other [facility] Other Start: 05-29-2022 Office outpatient vi sit 15 minutes Negrito Shannon [facility] Start: 11-11-2021 Adult health examination Negrito Shannon Other [facility] Other Start: 03-11-2021 End: 03-12-[address] [...] (incl. purified surface antigen) Negrito Shannon Other [facility] Other 12-30-2021 influenza virus vaccine, split virus (incl. purified surface antigen) Negrito Shannon Other [facility] Other 12-31-2020 COVID-19 Vaccine Pfi zer - Documentation Purposes Only Negrito Shannon Other [facility] Other 11-08-2020 influenza virus vaccine, split virus (incl. purified surface antigen) Negrito Shannon Other [facility] Other 05-27-2020 COVID-19 Vaccine Pfi zer - Documentation Purposes Only Negrito Shannon Other [facility] Other 05-06-2020 COVID-19 Vaccine Pfi zer - Documentation Purposes Only Negrito Shannon Other [facility] Other 11-22-2019 influenza virus vaccine, split virus (incl. purified surface antigen) Negrito Shannon Other [facility] Other 10-25-2019 tetanus toxoid, redu paramjit diphtheria toxoid, and acellular pertussis vaccine, adsorbed Negrito Shannon Other [facility] Other 11-10-2014 tetanus and diphther ia toxoids, adsorbed, preservative free, for adult use (5 Lf of tetanus toxoid and 2 Lf of diphtheria toxoid) Negrito Elie Other [facility] Other 12-17-2012 tetanus and diphther ia toxoids, adsorbed, preservative free, for adult use (5 Lf of tetanus toxoid and 2 Lf of diphtheria toxoid) Negrito Shannon Other [facility] Other 10-07-2003 diphtheria, tetanus toxoids and acellular pertussis vaccine, unspecified formulation Negrito Shannon Other [facility] Other Payers Date Payer Category Payer Medicare 2023 Unknown 1959 Medicare [id number] 1959 Unknown [id number] 1955 Unknown [id number] 2.16.84 [id number] 1955 Unknown [id number] 2.16. [id number] 1955 Unknown [id number] 2.16. [id number] 1955 Unknown [id number] 2.16. [id number] 1955 Unknown [id number] 2.16. [id number] 1955 Unknown [id number] 2.16. [id number] Unknown [id number] 2.16.84 [id number] Social History Date Type Detail Facility Unknown if ever smoked [facility] Other Sex Assigned At Sex Assigned At Bir th [facility] Other Clinical Notes 05-29-2022 to 03-28-2023 Note Date & Type Note Facility 03-28-2023 Evaluation note Encounter Date Diagnosis Assessment Notes Feb, Hypercholesterolemia (ICD-10 - E78.00) [facility] Other [id number] Evaluation note* Encounter Date Diagnosis Assessment Notes [...] report is being monitored every 90 days. [facility] Other 12-04-2023 Evaluation note* Encounter Date Diagnosis Assessment Notes Treatment Notes Treatment Clinical Notes Jan, Fibromyalgia (ICD-10 - M79.7) [facility] Other 10-11-2023 Evaluation note* Encounter Date Diagnosis Assessment Notes Treatment Notes Treatment Clinical Notes Nov, Age-related osteoporosis without current pathological fracture (ICD-10 - M81.0) [facility] Other 09-22-2023 Evaluation note* Encounter Date Diagnosis [...] Screening for colon cancer (ICD-10 - Z12.11) [facility] Other 09-06-2023 Evaluation note* Encounter Date Diagnosis Assessment Notes Treatment Notes Treatment Clinical Notes Oct, Lumbar spondylosis (ICD-10 - M47.816) [facility] Other 07-13-2023 Evaluation note* Encounter Date Diagnosis Assessment Notes Treatment Notes Treatment Clinical Notes Aug, Lumbar spondylosis (ICD-10 - M47.816) [facility] Other 06-23-2023 Evaluation note* Encounter Date Diagnosis [...] phone, computer and exercise prior to bedtime [facility] Other 06-23-2023 Evaluation note* Encounter Date Diagnosis Assessment Notes Treatment Notes Treatment Clinical Notes Jul, Lumbar spondylosis (ICD-10 - M47.816) [facility] Other 06-06-2023 Evaluation note* Encounter Date Diagnosis Assessment Notes Treatment Notes Treatment Clinical Notes Jul, Lumbar spondylosis (ICD-10 - M47.816) [facility] Other 04-03-2023 Evaluation note* Encounter Date Diagnosis [...] avoid bedtime food, TV, computer and exercise [facility] Other Evaluation noteNo [employer] Other History general Narrative - Reported* Type [...] right shoul gaby Hospitalization History see above [facility] Other Summary Purpose Family History No Family History Records FoundNo Family History Records FoundNo Family History Records Found Advance Directives No Advanced Directives Records FoundNo Advanced Directives Records FoundNo Advanced Directives Records Found Additional Source Comments INFORMATION SOURCE (unrecogn ized section and content) DATE CREATED AUTHOR 03/16/2021 [facility] DATE CREATED AUTHOR AUTHOR'S ORGANIZ ATION 03/21/[address] [facility] DATE CREATED AUTHOR AUTHOR'S ORGANIZ ATION 01/19/2024 [facility] REASON FOR VISIT (unrecogniz ed section [...] BE BASED ON THE PRIMARY CLINICAL RECORDS. Directly [facility]. provides no warranty or guarantee of the accuracy or completeness of information in this document.
--- NOTE | 2024-02-13 10:27 | PM.CN ---
Consult Note: HPI Data of Consult Patient: known to practice within the last 3 years Consult date: 12/10/23 Requesting Physician: Abena Cotton NP Primary Care Provider: Non-Staff Physician, MD Consult Narrative Reason for consult: low back, bilateral hip, neck, bilateral shoulder pain Narrative: 68yof who presents for assessment. continues to have low back, bilateral hip, neck and bilateral shoulder pain. imaging reviewed, which is significant for moderate facet arthropathy in both the lumbar and cervical spine. she continues in a series of provider directed home exercises, which she has attempted for over 6 weeks without benefit. she uses tramadol and mobic as needed. denies adverse med side effects. recently underwent bilateral L4-5 L5-S1 facet RFA with 70% improvement in pain and functional ability. pt would like to address chronic neck and shoulder pain secondary for cervical spondylosis. cc:: CC: Abena Cotton NP Review of Systems ROS Status of ROS 10 or more systems reviewed and unremarkable except as noted in history and below Musculoskeletal Reports: back pain, neck pain and joint pain [facility] Medical History (Updated 12/28/23 @ 11:35 by Rocío Sands RN) Osteoarthritis ?M19.90 - Unspecified osteoarthritis, unspecified site (ICD-10) Anxiety ?F41.9 - Anxiety disorder, unspecified (ICD-10) Fibromyalgia ?M79.7 - Fibromyalgia (ICD-10) HTN (hypertension) ?I10 - Essential (primary) hypertension (ICD-10) Surgical History History of lumbar laminectomy ?Z98.890 - Other specified postprocedural states (ICD-10) H/O section ?Z98.891 - History of uterine scar from previous surgery (ICD-10) Hx of tonsillectomy ?Z90.89 - Acquired absence of other organs (ICD-10) Meds Home Medications and Allergies Home Medications ?Medication ?Instructions ?Recorded ?Confirmed ?Type Probiotic DAILY 12/03/23 History amlodipine 5 mg tablet 5 mg PO DAILY 12/03/23 01/14/24 History baclofen 20 mg tablet 20 mg PO DAILY 12/03/23 01/14/24 History duloxetine 60 mg capsule,delayed 60 mg PO DAILY 12/03/23 01/14/24 History release ezetimibe 10 mg tablet (Zetia) 10 mg PO DAILY 12/03/23 01/14/24 History losartan 25 mg tablet 25 mg PO DAILY 12/03/23 01/14/24 History meloxicam 7.5 mg tablet 7.5 mg PO DAILY 12/03/23 01/14/24 History tramadol 50 mg tablet 50 mg PO BID 12/03/23 01/14/24 History trazodone 50 mg tablet 50 mg PO DAILY 12/03/23 01/14/24 History Allergies Allergy/AdvReac Type Severity Reaction Status Date / Time No Known Drug Allergies Allergy Verified 01/14/24 11:04 Exam Constitutional Documenting provider has reviewed patient's vital signs: yes Common normals: no apparent distress, oriented x3, healthy appearing, alert and well nourished General appearance: cooperative HENMT Common normals: normocephalic, hearing grossly normal bilaterally and moist oral mucous membranes Head and scalp: normocephalic Eye Common normals: PERRL Pupil: PERRL Neck & C-Spine Common normals: full ROM General: normal visual inspection Cervical spine: cervical ROM abnormal, pain with cervical ROM, cervical spine tenderness, paracervical muscle tenderness and trapezius muscle tenderness Other: facet loading positive bilateral C5-7 negative spurlings strength 5/5 in BUE Chest Common normals: inspection of chest normal Respiratory Common normals: normal respiratory effort, no retractions and no use of accessory muscles Neuro Common normals: oriented x3, CN's II-XII intact bilaterally, moves all extremities, no focal motor deficits, no sensory deficits noted and deep tendon reflexes 2+ bilaterally Sensorium/orientation: alert Motor exam: strength 5/5 throughout and no movement abnormalities noted Psych Common normals: mental status grossly normal, thought process normal, cooperative, affect normal, speech normal and activity/motor behavior normal Speech: normal speech Thought process: normal thought process Assessment and Plan Assessment and Plan (1) Lumbar spondylosis: (2) Cervical spondylosis: Plan proceed with bilateral C5/6 C6/7 MBB x2 working towards RFA for cervical spondylosis, risks vs benefits reviewed continue HEP as tolerated continue medications through PCP f/u after each injection
== END 2024-02-13 10:01 | disposition home or self-care (01) ==
PROVIDERS: Visit Provider Nurse Practitioner
DX: M47.816 Spondylosis without myelopathy or radiculopathy, lumbar region (principal); M47.812 Spondylosis without myelopathy or radiculopathy, cervical region
CPT/HCPCS: G0463

== ENCOUNTER 2024-02-18 06:40 | Day surgery (SDC) | payer MEDICARE, OTHER, SELFPAY ==
--- OUTSIDE RECORDS SUMMARY | 2024-02-18 06:43 | XMS_ITS | CCD ---
Author Organization [facility] Care Team Providers Care Inspector Subassemblies Name Role Phone DR NEGRITO SHANNON Admitting [...] (1 source) Lidocaine Drug Allergy 3 [facility] Rep[facility] (13 sources) Fenofibrate Drug Allergy Unknown [facility] Other (13 sources) Lovastatin Drug Allergy Unknown [facility] Other (13 sources) lidoderm patches Propensity to adverse reactions itching [facility] Other (1 source) patient allergy list reviewed by nurse or physicia Propensity to adverse reactions 3 Comment:Done [facility] Other Medications Current Medications Medication Drug Class(es) [...] day Active Baclofen Not-Chip ing Calcium 1200 7037-1856 MG-UNIT (3 sources) take 1 tablet by mouth once daily Calcium 1200 0041-8858 MG-UNIT 1 tablet Orally Once a day [...] sources) High risk drug monitoring status; Translations: [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 Admission #: [id number] Family : Order #: [id number] CLICK HERE TO VIEW EXAM RADIOLOGY REPORT [...] Treatments None Family Cancers None LOCATION: [facility] BREAST COMPOSITION: Heterogeneously dense,which may obscure small [...] M.D. on 03/11/2021 at 15:06 Normal [facility] CBC Without Differentialon 0 11-06-2020 Erythrocyte distribution width (RBC) [Ratio] 13.5 % Normal 11.9-15.3 [facility] Comment on above: Performed By: #### O UTREACH LIPID, OUTREACH CMP, CBCNOOUTREACH #### [address] Hematocrit (Bld) [Volume fraction] 41.1 % Normal 34.0-46.4 [facility] Comment on above: Performed By: #### O UTREACH LIPID, OUTREACH CMP, CBCNOOUTREACH #### [address] Hemoglobin (Bld) [Mass/Vol] 13.6 g/dL Normal 11.8-15.4 [facility] Comment on above: Performed By: #### O UTREACH LIPID, OUTREACH CMP, CBCNOOUTREACH #### [address] MCH (RBC) [Entitic mass] 27.4 pg Normal 24.7-34.3 [facility] Comment on above: Performed By: #### O UTREACH LIPID, OUTREACH CMP, CBCNOOUTREACH #### [address] MCV (RBC) [Entitic vol] 82.5 fL Normal 80-100 [facility] Comment on above: Performed By: #### O UTREACH LIPID, OUTREACH CMP, CBCNOOUTREACH #### [facility] [address] Mean Corpuscular HGB Conc 33.2 g/dL Normal 32.0-35.0 [facility] Comment on above: Performed By: #### O UTREACH LIPID, OUTREACH CMP, CBCNOOUTREACH #### [facility] [address] Platelet mean volume (Bld) [Entitic vol] 9.6 fL Normal 6.3-10.7 [facility] Comment on above: Result Comment: PERF ORMED BY: [place] [address] PATHOLOGIST [employer] MARSHA ASTORGA M.D. Performed By: #### O UTREACH LIPID, OUTREACH CMP, CBCNOOUTREACH #### [facility] [address] Platelets (Bld) [#/Vol] 231 10*3/uL Normal 150-450 [facility] Comment on above: Performed By: #### O UTREACH LIPID, OUTREACH CMP, CBCNOOUTREACH #### [address] RBC (Bld) [#/Vol] 4.98 10*6/uL Normal 3.60-5.00 [facility] Comment on above: Performed By: #### O UTREACH LIPID, OUTREACH CMP, CBCNOOUTREACH #### [facility] [address] WBC (Bld) [#/Vol] 4.3 10*3/uL Normal 3.8-11.6 [facility] Comment on above: Performed By: #### O UTREACH LIPID, OUTREACH CMP, CBCNOOUTREACH #### [facility] [address] CMP Outreachon 11-06-2020 Albumin [Mass/Vol] 4.4 g/dL Normal 3.2-5.5 [facility] Comment on above: Performed By: #### O UTREACH LIPID, OUTREACH CMP, CBCNOOUTREACH #### [facility] [address] [place] [id number] [facility] ALP [Catalytic activity/Vol] 64 U/L Normal 32-92 [facility] Comment on above: Performed By: #### O UTREACH LIPID, OUTREACH CMP, CBCNOOUTREACH #### [facility] [address] [place] [id number] [place] ALT [Catalytic activity/Vol] 32 U/L Normal 10-60 [facility] Comment on above: Performed By: #### O UTREACH LIPID, OUTREACH CMP, CBCNOOUTREACH #### [facility] [address] [place] [address] [place] AST [Catalytic activity/Vol] 25 U/L Normal 10-42 [facility] Comment on above: Performed By: #### O UTREACH LIPID, OUTREACH CMP, CBCNOOUTREACH #### [facility] [address] [place] [id number] [place] Bilirubin [Mass/Vol] 0.5 mg/dL Normal 0.3-1.2 [facility] Comment on above: Performed By: #### O UTREACH LIPID, OUTREACH CMP, CBCNOOUTREACH #### [facility] [address] [place] [address] [place] Calcium [Mass/Vol] 9.6 mg/dL Normal 8.2-10.2 [facility] Comment on above: Performed By: #### O UTREACH LIPID, OUTREACH CMP, CBCNOOUTREACH #### [facility] [address] [place] [id number] [place] Chloride [Moles/Vol] 105 mmol/L Normal 95-114 [facility] Comment on above: Performed By: #### O UTREACH LIPID, OUTREACH CMP, CBCNOOUTREACH #### [facility] [address] [place] [phone] [place] CO2 [Moles/Vol] 26.7 mmol/L Normal 22.0-30.0 [facility] Comment on above: Performed By: #### O UTREACH LIPID, OUTREACH CMP, CBCNOOUTREACH #### [facility] [address] Creatinine [Mass/Vol] 0.63 mg/dL Normal 0.44-1.03 [facility] Comment on above: Performed By: #### O UTREACH LIPID, OUTREACH CMP, CBCNOOUTREACH #### [facility] [address] Estimated GFR ( Marianne > 60 Normal [facility] Comment on above: Result Comment: GFR estimated reference range: According to KDOQI guidelines, <60 ml/min/1.73m2 is sufficient to diagnose a patient with chronic kidney disease. Performed By: #### O UTREACH LIPID, OUTREACH CMP, CBCNOOUTREACH #### [facility] [address] Estimated GFR (Non- Am > 60 Normal [facility] Comment on above: Performed By: #### O UTREACH LIPID, OUTREACH CMP, CBCNOOUTREACH #### [facility] [address] Glucose [Mass/Vol] 118 mg/dL High 70-100 [facility] Comment on above: Result Comment: [place] Glucose Reference Range is dependent on time and content of last meal. Glucose of more than 200 mg/dL in a nonstressed, ambulatory subject supports the diagnosis of Diabetes Mellitus. ADA recommended reference range Performed By: #### O UTREACH LIPID, OUTREACH CMP, CBCNOOUTREACH #### [facility] [address] [place] [id number] [facility] Potassium [Moles/Vol] 4.1 mmol/L Normal 3.5-5.1 [facility] Comment on above: Performed By: #### O UTREACH LIPID, OUTREACH CMP, CBCNOOUTREACH #### [facility] [address] [place] [id number] [facility] Protein [Mass/Vol] 6.5 g/dL Normal 6.1-7.9 [facility] Comment on above: Performed By: #### O UTREACH LIPID, OUTREACH CMP, CBCNOOUTREACH #### [facility] [address] Sodium [Moles/Vol] 141 mmol/L Normal 136-146 [facility] Comment on above: Performed By: #### O UTREACH LIPID, OUTREACH CMP, CBCNOOUTREACH #### [facility] [address] [place] [address] [place] Urea nitrogen [Mass/Vol] 15 mg/dL Normal 9-23 [facility] Comment on above: Performed By: #### O UTREACH LIPID, OUTREACH CMP, CBCNOOUTREACH #### [facility] [address] Lipid Profile Outreachon Cholesterol [Mass/Vol] 237 mg/dL High 140-200 [facility] Comment on above: Result Comment: Chol less than 200 mg/dl low risk Chol 201-239 mg/dl borderline risk Chol 240 mg/dl and greater high risk Performed By: #### O UTREACH LIPID, OUTREACH CMP, CBCNOOUTREACH #### [facility] [address] [place] [address] Cholesterol in HDL [Mass/Vol] 37 mg/dL Normal 35-85 [facility] Comment on above: Result Comment: HDL CHOL ATP-III CLASSIFICATION Cardiovascular Risk HDL > or equal to 60 mg/dL LOW HDL < 40 mg/dL HIGH Performed By: #### O UTREACH LIPID, OUTREACH CMP, CBCNOOUTREACH #### [facility] [address] [place] [address] Cholesterol.total/Ch olesterol in HDL [Mass ratio] 6.4 {ratio} Normal <5.0 [facility] Comment on above: Result Comment: PERF ORMED BY: [place] [address] PATHOLOGIST [employer] MARSHA ASTORGA M.D. Performed By: #### O UTREACH LIPID, OUTREACH CMP, CBCNOOUTREACH #### [address] LDL Cholesterol,Calculat ed 127 mg/dL High 0-100 [facility] Comment on above: Result Comment: LDL ATP III CLASSIFICATION LDL less than 100 mg/dL Optimal LDL 100-129 mg/dL Near or above optimal LDL 130-159 mg/dL Borderline high LDL 160-189 mg/dL High LDL greater than 189 mg/dL Very high Performed By: #### O UTREACH LIPID, OUTREACH CMP, CBCNOOUTREACH #### [facility] [address] [place] [phone] [place] Triglyceride w/Reflex 364 mg/dL High 35-149 [facility] Comment on above: Result Comment: TRIG ATP III CLASSIFICATION TRIG less than 150 mg/dL Normal TRIG 150-199 mg/dL Borderline high TRIG 200-500 mg/dL High TRIG greater than 500 mg/dL Very high Standard traceable to the Center for Disease Conrtrol and Prevention (CDC) test method. Performed By: #### O UTREACH LIPID, OUTREACH CMP, CBCNOOUTREACH #### [facility] [address] [place] [id number] [facility] VLDL CHOLESTEROL 72 mg/dL Normal [facility] Comment on above: Performed By: #### O UTREACH LIPID, OUTREACH CMP, CBCNOOUTREACH #### [facility] [address] [place] [id number] [facility] Vital Signs Date Time Vital Sign Value Performing Clinician Facility 02-16-2023 10:00-0500 Body height 167.64 cm Negrito Shannon Other [facility] Other 02-16-2023 10:00-0500 Body mass index (BMI) [Ratio] 25.08 kg/m2 Negrito SuperMama Other [facility] Other 02-16-2023 10:00-0500 Body weight 70.49 kg Negrito SuperMama Other [facility] Other 02-16-2023 10:00-0500 Diastolic blood pressure 85 mm[Hg] Negrito SuperMama Other [facility] Other 02-16-2023 10:00-0500 Respiratory rate 18 /min Negrito Ball Other [facility] Other 02-16-2023 10:00-0500 Systolic blood pressure 135 mm[Hg] Negrito Ball Other [facility] Other 11-17-2022 11:30-0400 Body height 167.64 cm Negrito Ball Other [facility] Other 11-17-2022 11:30-0400 Body mass index (BMI) [Ratio] 24.6 kg/m2 Negrito Ball Other [facility] Other 11-17-2022 11:30-0400 Body weight 69.13 kg Negrito Ball Other [facility] Other 11-17-2022 11:30-0400 Diastolic blood pressure 84 mm[Hg] Negrito Ball Other [facility] Other 11-17-2022 11:30-0400 Respiratory rate 12 /min Negrito Ball Other [facility] Other 11-17-2022 11:30-0400 Systolic blood pressure 147 mm[Hg] Negrito Ball Other [facility] Other 08-18-2022 10:15-0400 Body height 167.64 cm Negrito Ball Other [facility] Other 08-18-2022 10:15-0400 Body mass index (BMI) [Ratio] 24.56 kg/m2 Negrito Ball Other [facility] Other 08-18-2022 10:15-0400 Body weight 69.04 kg Negrito Ball Other [facility] Other 08-18-2022 10:15-0400 Diastolic blood pressure 90 mm[Hg] Negrito Ball Other [facility] Other 08-18-2022 10:15-0400 Respiratory rate 12 /min Negrito Ball Other [facility] Other 08-18-2022 10:15-0400 Systolic blood pressure 155 mm[Hg] Negrito Ball Other [facility] Other 05-29-2022 15:30-0400 Body height 167.64 cm Negrito Ball Other [facility] Other 05-29-2022 15:30-0400 Body mass index (BMI) [Ratio] 24.24 kg/m2 Negrito Ball Other [facility] Other 05-29-2022 15:30-0400 Body weight 68.13 kg Negrito Ball Other [facility] Other 05-29-2022 15:30-0400 Diastolic blood pressure 68 mm[Hg] Negrito Ball Other [facility] Other 05-29-2022 15:30-0400 Respiratory rate 12 /min Negrito Ball Other [facility] Other 05-29-2022 15:30-0400 Systolic blood pressure 153 mm[Hg] Negrito Ball Other [facility] Other Encounters Encounter Date Encounter Type Care [...] 03-28-2023 End: 03-28-2023 ambulatory Negrito Shannon Other [facility] Other Start: 03-28-2023 Telephone encounter Negrito Shannon [facility] Start: 03-26-2023 End: 03-26-2023 ambulatory Negrito Shannon Other [facility] Other Start: 03-26-2023 Telephone encounter Negrito Ball [facility] Start: 02-16-2023 End: 02-16-2023 ambulatory Negrito Elie Other [facility] Other Start: 02-16-2023 Office outpatient vi sit 15 minutes Negrito Ball [facility] Start: 01-29-2023 End: 01-29-2023 ambulatory Negrito Elie Other [facility] Other Start: 01-29-2023 Telephone encounter Negrito Ball [facility] Start: 12-06-2022 End: 12-06-2022 ambulatory Negrito Ball Other [facility] Other Start: 12-06-2022 Telephone encounter Negrito Ball [facility] Start: 12-05-2022 End: 12-05-2022 ambulatory Negrito Ball Other [facility] Other Start: 12-05-2022 Telephone encounter Negrito Ball [facility] Start: 11-17-2022 End: 11-17-2022 ambulatory Negrito Ball Other [facility] Other Start: 11-17-2022 Patient encounter procedure Negrito Shannon [facility] Start: 11-01-2022 End: 11-01-2022 ambulatory Negrito Shannon Other [facility] Other Start: 11-01-2022 Telephone encounter Negrito Shannon [facility] Start: 09-07-2022 End: 09-07-2022 ambulatory Negrito Shannon Other [facility] Other Start: 09-07-2022 Telephone encounter Negrito Shannon [facility] Start: 08-18-2022 End: 08-18-2022 ambulatory Negrito Shannon Other [facility] Other Start: 08-18-2022 Office outpatient vi sit 15 minutes Negrito Shannon [facility] Start: 08-18-2022 Telephone encounter Negrito Shannon [facility] Start: 08-01-2022 End: 08-01-2022 ambulatory Negrito Shannon Other [facility] Other Start: 08-01-2022 Telephone encounter Negrito Shannon [facility] Start: 05-29-2022 End: 05-29-2022 ambulatory Negrito Shannon Other [facility] Other Start: 05-29-2022 Office outpatient vi sit 15 minutes Negrito Shannon [facility] Start: 11-11-2021 Adult health examination Negrito Shannon Other [facility] Other Start: 03-11-2021 End: 03-12-[address] [...] (incl. purified surface antigen) Negrito Shannon Other [facility] Other 12-30-2021 influenza virus vaccine, split virus (incl. purified surface antigen) Negrito Shannon Other [facility] Other 12-31-2020 COVID-19 Vaccine Pfi zer - Documentation Purposes Only Negrito Shannon Other [facility] Other 11-08-2020 influenza virus vaccine, split virus (incl. purified surface antigen) Negrito Shannon Other [facility] Other 05-27-2020 COVID-19 Vaccine Pfi zer - Documentation Purposes Only Negrito Shannon Other [facility] Other 05-06-2020 COVID-19 Vaccine Pfi zer - Documentation Purposes Only Negrito Shannon Other [facility] Other 11-22-2019 influenza virus vaccine, split virus (incl. purified surface antigen) Negrito Shannon Other [facility] Other 10-25-2019 tetanus toxoid, redu paramjit diphtheria toxoid, and acellular pertussis vaccine, adsorbed Negrito Shannon Other [facility] Other 11-10-2014 tetanus and diphther ia toxoids, adsorbed, preservative free, for adult use (5 Lf of tetanus toxoid and 2 Lf of diphtheria toxoid) Negrito Elie Other [facility] Other 12-17-2012 tetanus and diphther ia toxoids, adsorbed, preservative free, for adult use (5 Lf of tetanus toxoid and 2 Lf of diphtheria toxoid) Negrito Shannon Other [facility] Other 10-07-2003 diphtheria, tetanus toxoids and acellular pertussis vaccine, unspecified formulation Negrito Shannon Other [facility] Other Payers Date Payer Category Payer Medicare 2023 Unknown 1959 Medicare [id number] 1959 Unknown [id number] 1955 Unknown [id number] 2.16.84 [id number] 1955 Unknown [id number] 2.16. [id number] 1955 Unknown [id number] 2.16. [id number] 1955 Unknown [id number] 2.16. [id number] 1955 Unknown [id number] 2.16. [id number] 1955 Unknown [id number] 2.16. [id number] Unknown [id number] 2.16.84 [id number] Social History Date Type Detail Facility Unknown if ever smoked [facility] Other Sex Assigned At Sex Assigned At Bir th [facility] Other Clinical Notes 05-29-2022 to 03-28-2023 Note Date & Type Note Facility 03-28-2023 Evaluation note Encounter Date Diagnosis Assessment Notes Feb, Hypercholesterolemia (ICD-10 - E78.00) [facility] Other [id number] Evaluation note* Encounter Date Diagnosis Assessment Notes [...] report is being monitored every 90 days. [facility] Other 12-04-2023 Evaluation note* Encounter Date Diagnosis Assessment Notes Treatment Notes Treatment Clinical Notes Jan, Fibromyalgia (ICD-10 - M79.7) [facility] Other 10-11-2023 Evaluation note* Encounter Date Diagnosis Assessment Notes Treatment Notes Treatment Clinical Notes Nov, Age-related osteoporosis without current pathological fracture (ICD-10 - M81.0) [facility] Other 09-22-2023 Evaluation note* Encounter Date Diagnosis [...] Screening for colon cancer (ICD-10 - Z12.11) [facility] Other 09-06-2023 Evaluation note* Encounter Date Diagnosis Assessment Notes Treatment Notes Treatment Clinical Notes Oct, Lumbar spondylosis (ICD-10 - M47.816) [facility] Other 07-13-2023 Evaluation note* Encounter Date Diagnosis Assessment Notes Treatment Notes Treatment Clinical Notes Aug, Lumbar spondylosis (ICD-10 - M47.816) [facility] Other 06-23-2023 Evaluation note* Encounter Date Diagnosis [...] phone, computer and exercise prior to bedtime [facility] Other 06-23-2023 Evaluation note* Encounter Date Diagnosis Assessment Notes Treatment Notes Treatment Clinical Notes Jul, Lumbar spondylosis (ICD-10 - M47.816) [facility] Other 06-06-2023 Evaluation note* Encounter Date Diagnosis Assessment Notes Treatment Notes Treatment Clinical Notes Jul, Lumbar spondylosis (ICD-10 - M47.816) [facility] Other 04-03-2023 Evaluation note* Encounter Date Diagnosis [...] avoid bedtime food, TV, computer and exercise [facility] Other Evaluation noteNo InformationNortFur and Mask Other History general Narrative - Reported* Type [...] right shoul gaby Hospitalization History see above [facility] Other Summary Purpose Family History No Family History Records FoundNo Family History Records FoundNo Family History Records Found Advance Directives No Advanced Directives Records FoundNo Advanced Directives Records FoundNo Advanced Directives Records Found Additional Source Comments INFORMATION SOURCE (unrecogn ized section and content) DATE CREATED AUTHOR 03/16/2021 [facility] DATE CREATED AUTHOR AUTHOR'S ORGANIZ ATION 03/21/2021 [facility] DATE CREATED AUTHOR AUTHOR'S ORGANIZ ATION 01/19/2024 [facility] REASON FOR VISIT (unrecogniz ed [...] BE BASED ON THE PRIMARY CLINICAL RECORDS. [facility]. provides no warranty or guarantee of the accuracy or completeness of information in this document.
[2024-02-18 06:57] VITALS: BP 151/87; PULSE 96; TEMP 36.6; O2SAT 99
[2024-02-18 07:54] VITALS: BP 148/75; PULSE 82; O2SAT 95
[2024-02-18 07:55] VITALS: BP 158/74; PULSE 94; O2SAT 99
[2024-02-18] MEDS: LIDOCAINE HCL 2% 400 MG/20 ML MDV 15 ML INJ (07:56)
[2024-02-18] MEDS: BUPIVACAINE HCL 0.25% PF 25 MG/10 ML VIAL INJ (07:56)
--- NOTE | 2024-02-18 07:59 | W.PM.PROCNOT ---
Date of procedure: 02/18/24 Pre-op diagnosis: Pain due to cervical spondylosis without myelopathy Post-op diagnosis: same as pre-op Procedure: Procedure: Bilateral C5-6, 6-7 medial branch block Medications: Bupivacaine 0.25% 6cc The patient was seen and examined in the preoperative holding area.? The informed consent was obtained and placed on the chart.? The patient was brought to the medical procedure unit and placed in the prone position.? A timeout was completed verifying correct patient, procedure site, positioning, plan, and special equipment.? Using aseptic technique, the needle was placed at left C5.? Under direct fluoroscopic visualization, a Quincke tip needle was advanced to the midpoint of the waist of the articular pillar at the respective medial branch segment. The above-mentioned injectate was placed in a 1 mL aliquot proceeded by negative aspiration.? The needle was removed.? The procedure was completed at all left C6, 7. The same procedure, at the same levels, was then completed on the right side. Insertion site was covered.? Patient was taken to the postprocedural recovery area and monitored for an appropriate length of time before found suitable for discharge in the accompaniment of a responsible adult. Anesthesia: Local Surgeon: Warren Ayoub Pathology: none sent Condition: stable Disposition: no change
== END 2024-02-18 08:17 | disposition home or self-care (01) ==
LOC: SURGOUT 06:41
PROVIDERS: Visit Provider Anesthesiology
DX: M47.812 Spondylosis without myelopathy or radiculopathy, cervical region (principal)
CPT/HCPCS: 64490; 64491; J0665

== ENCOUNTER 2024-02-28 14:42 | Outpatient (OUT) | payer MEDICARE, OTHER, SELFPAY ==
--- OUTSIDE RECORDS SUMMARY | 2024-02-28 14:54 | XMS_ITS | CCD ---
Author Organization [facility] Care Team Providers Care Acid Treater Name Role Phone DR NEGRITO SHANNON Admitting Crow SHANNON, DR VELA Primary Care Unavailable DR NEGRITO SHANNON Consulting Unavailable ELIE, DR VELA Attending Unavailable KETAN, DR ZAIN Lott Consulting Unavailable Nergito Shannon Unavailable Gitessaitis , Andrius Herreraytoscar Attending Unavailable Giedraitis , Andrius Vytoscar Attending Unavailable Giedraitis MD, Andrius Vytoscar Attending Unavailable Giedraitis , Andrius Vytoscar Attending Unavailable Giedraitis , Andrius Vytautjavier Attending Unavailable Giedraitis MD, Andrius Vytautjavier Attending Unavailable Allergies Allergy Classification Reported Allergen(s) Allergy Type Date of Onset Reaction(s) Facility (1 source) Lidocaine Drug Allergy 3 [facility] Repository (13 sources) Fenofibrate Drug Allergy Unknown [facility] Other (13 sources) Lovastatin Drug Allergy Unknown [facility] Other (13 sources) lidoderm patches Propensity to adverse reactions itching [facility] Other (1 source) patient allergy list reviewed by nurse or physicia Propensity to adverse reactions 3 Comment:Done [facility] Other Medications Current Medications Medication Drug Class(es) [...] day Active Baclofen Not-Chip ing Calcium 1200 1887-1509 MG-UNIT (3 sources) take 1 tablet by mouth once daily Calcium 1200 4900-5275 MG-UNIT 1 tablet Orally Once a day [...] sources) High risk drug monitoring status; Translations: [emt intermediate (current) use of opiate analgesic] Episodic Other aftercare (5 sources) emt intermediate (current) use of opiate analgesic; Translations: [...] : DR NEGRITO SHANNON D.O. Admission #: [id number] Family : Order #: [id number] CLICK HERE TO VIEW EXAM RADIOLOGY REPORT [...] Treatments None Family Cancers None LOCATION: [facility] BREAST COMPOSITION: Heterogeneously dense,which may obscure [...] M.D. on 03/11/2021 at 15:06 Normal [facility] CBC Without Differentialon 0 11-06-2020 Erythrocyte distribution width (RBC) [Ratio] 13.5 % Normal 11.9-15.3 [facility] Comment on above: Performed By: #### O UTREACH LIPID, OUTREACH CMP, CBCNOOUTREACH #### [address] Hematocrit (Bld) [Volume fraction] 41.1 % Normal 34.0-46.4 [facility] Comment on above: Performed By: #### O UTREACH LIPID, OUTREACH CMP, CBCNOOUTREACH #### [address] Hemoglobin (Bld) [Mass/Vol] 13.6 g/dL Normal 11.8-15.4 [facility] Comment on above: Performed By: #### O UTREACH LIPID, OUTREACH CMP, CBCNOOUTREACH #### [address] MCH (RBC) [Entitic mass] 27.4 pg Normal 24.7-34.3 [facility] Comment on above: Performed By: #### O UTREACH LIPID, OUTREACH CMP, CBCNOOUTREACH #### [address] MCV (RBC) [Entitic vol] 82.5 fL Normal 80-100 [facility] Comment on above: Performed By: #### O UTREACH LIPID, OUTREACH CMP, CBCNOOUTREACH #### [address] Mean Corpuscular HGB Conc 33.2 g/dL Normal 32.0-35.0 [facility] Comment on above: Performed By: #### O UTREACH LIPID, OUTREACH CMP, CBCNOOUTREACH #### [address] Platelet mean volume (Bld) [Entitic vol] 9.6 fL Normal 6.3-10.7 [facility] Comment on above: Result Comment: PERF ORMED BY: [place] [address] PATHOLOGIST PROJECT CONSTRUCTION MANAGER MARSHA ASTORGA M.D. Performed By: #### O UTREACH LIPID, OUTREACH CMP, CBCNOOUTREACH #### [place] [address] [place] Platelets (Bld) [#/Vol] 231 10*3/uL Normal 150-450 [facility] Comment on above: Performed By: #### O UTREACH LIPID, OUTREACH CMP, CBCNOOUTREACH #### [place] [address] [place] RBC (Bld) [#/Vol] 4.98 10*6/uL Normal 3.60-5.[address] [facility] Comment on above: Performed By: #### O UTREACH LIPID, OUTREACH CMP, CBCNOOUTREACH #### [place] [address] [place] WBC (Bld) [#/Vol] 4.3 10*3/uL Normal 3.8-11.6 [facility] Comment on above: Performed By: #### O UTREACH LIPID, OUTREACH CMP, CBCNOOUTREACH #### [address] [address] [place] CMP Outreachon 11-06-2020 Albumin [Mass/Vol] 4.4 g/dL Normal 3.2-5.5 [facility] Comment on above: Performed By: #### O UTREACH LIPID, OUTREACH CMP, CBCNOOUTREACH #### [facility] [address] [id number] [facility] ALP [Catalytic activity/Vol] 64 U/L Normal 32-92 [facility] Comment on above: Performed By: #### O UTREACH LIPID, OUTREACH CMP, CBCNOOUTREACH #### [facility] [address] [place] [address] [place] ALT [Catalytic activity/Vol] 32 U/L Normal 10-60 [facility] Comment on above: Performed By: #### O UTREACH LIPID, OUTREACH CMP, CBCNOOUTREACH #### [facility] [address] [place] [address] [place] AST [Catalytic activity/Vol] 25 U/L Normal 10-42 [facility] Comment on above: Performed By: #### O UTREACH LIPID, OUTREACH CMP, CBCNOOUTREACH #### [facility] [address] [phone] [place] Bilirubin [Mass/Vol] 0.5 mg/dL Normal 0.3-1.2 [facility] Comment on above: Performed By: #### O UTREACH LIPID, OUTREACH CMP, CBCNOOUTREACH #### [facility] [address] [phone] [place] Calcium [Mass/Vol] 9.6 mg/dL Normal 8.2-10.2 [facility] Comment on above: Performed By: #### O UTREACH LIPID, OUTREACH CMP, CBCNOOUTREACH #### [facility] [address] [phone] [place] Chloride [Moles/Vol] 105 mmol/L Normal 95-114 [facility] Comment on above: Performed By: #### O UTREACH LIPID, OUTREACH CMP, CBCNOOUTREACH #### [facility] [address] [place] [address] [place] CO2 [Moles/Vol] 26.7 mmol/L Normal 22.0-30.0 [facility] Comment on above: Performed By: #### O UTREACH LIPID, OUTREACH CMP, CBCNOOUTREACH #### [facility] [address] [phone] [place] Creatinine [Mass/Vol] 0.63 mg/dL Normal 0.44-1.03 [facility] Comment on above: Performed By: #### O UTREACH LIPID, OUTREACH CMP, CBCNOOUTREACH #### [facility] [address] [place] [address] [place] Estimated GFR ( Marianne > 60 Normal [facility] Comment on above: Result Comment: GFR estimated reference range: According to KDOQI guidelines, <60 ml/min/1.73m2 is sufficient to diagnose a patient with chronic kidney disease. Performed By: #### O UTREACH LIPID, OUTREACH CMP, CBCNOOUTREACH #### [facility] [address] [place] [address] [place] Estimated GFR (Non- Am > 60 Normal [facility] Comment on above: Performed By: #### O UTREACH LIPID, OUTREACH CMP, CBCNOOUTREACH #### [facility] [address] [place] [address] [place] Glucose [Mass/Vol] 118 mg/dL High 70-100 [facility] Comment on above: Result Comment: [place] om Glucose Reference Range is dependent on time and content of last meal. Glucose of more than 200 mg/dL in a nonstressed, ambulatory subject supports the diagnosis of Diabetes Mellitus. ADA recommended reference range Performed By: #### O UTREACH LIPID, OUTREACH CMP, CBCNOOUTREACH #### [facility] [address] [phone] [place] Potassium [Moles/Vol] 4.1 mmol/L Normal 3.5-5.1 [facility] Comment on above: Performed By: #### O UTREACH LIPID, OUTREACH CMP, CBCNOOUTREACH #### [facility] [address] [phone] [place] Protein [Mass/Vol] 6.5 g/dL Normal 6.1-7.9 [facility] Comment on above: Performed By: #### O UTREACH LIPID, OUTREACH CMP, CBCNOOUTREACH #### [facility] [address] Sodium [Moles/Vol] 141 mmol/L Normal 136-146 [facility] Comment on above: Performed By: #### O UTREACH LIPID, OUTREACH CMP, CBCNOOUTREACH #### [facility] [address] Urea nitrogen [Mass/Vol] 15 mg/dL Normal 9-23 [facility] Comment on above: Performed By: #### O UTREACH LIPID, OUTREACH CMP, CBCNOOUTREACH #### [facility] [address] [place] [address] Lipid Profile Outreachon Cholesterol [Mass/Vol] 237 mg/dL High 140-200 [facility] Comment on above: Result Comment: Chol less than 200 mg/dl low risk Chol 201-239 mg/dl borderline risk Chol 240 mg/dl and greater high risk Performed By: #### O UTREACH LIPID, OUTREACH CMP, CBCNOOUTREACH #### [facility] [address] [place] [address] Cholesterol in HDL [Mass/Vol] 37 mg/dL Normal 35-85 [facility] Comment on above: Result Comment: HDL CHOL ATP-III CLASSIFICATION Cardiovascular Risk HDL > or equal to 60 mg/dL LOW HDL < 40 mg/dL HIGH Performed By: #### O UTREACH LIPID, OUTREACH CMP, CBCNOOUTREACH #### [facility] [address] [place] [address] Cholesterol.total/Ch olesterol in HDL [Mass ratio] 6.4 {ratio} Normal <5.0 [facility] Comment on above: Result Comment: PERF ORMED BY: [place] [address] PATHOLOGIST PROJECT CONSTRUCTION MANAGER MARSHA ASTORGA M.D. Performed By: #### O UTREACH LIPID, OUTREACH CMP, CBCNOOUTREACH #### [address] [place] [address] [place] LDL Cholesterol,Calculat ed 127 mg/dL High 0-100 [facility] Comment on above: Result Comment: LDL ATP III CLASSIFICATION LDL less than 100 mg/dL Optimal LDL 100-129 mg/dL Near or above optimal LDL 130-159 mg/dL Borderline high LDL 160-189 mg/dL High LDL greater than 189 mg/dL Very high Performed By: #### O UTREACH LIPID, OUTREACH CMP, CBCNOOUTREACH #### [facility] [address] Triglyceride w/Reflex 364 mg/dL High 35-149 [facility] Comment on above: Result Comment: TRIG ATP III CLASSIFICATION TRIG less than 150 mg/dL Normal TRIG 150-199 mg/dL Borderline high TRIG 200-500 mg/dL High TRIG greater than 500 mg/dL Very high Standard traceable to the Center for Disease Conrtrol and Prevention (CDC) test method. Performed By: #### O UTREACH LIPID, OUTREACH CMP, CBCNOOUTREACH #### [facility] [address] VLDL CHOLESTEROL 72 mg/dL Normal [facility] Comment on above: Performed By: #### O UTREACH LIPID, OUTREACH CMP, CBCNOOUTREACH #### [facility] [address] Vital Signs Date Time Vital Sign Value Performing Clinician Facility 02-16-2023 10:00-0500 Body height 167.64 cm [facility] [employer] Other [facility] Other 02-16-2023 10:00-0500 Body mass index (BMI) [Ratio] 25.08 kg/m2 [facility] [employer] Other [facility] Other 02-16-2023 10:00-0500 Body weight 70.49 kg [facility] [employer] Other [facility] Other 02-16-2023 10:00-0500 Diastolic blood pressure 85 mm[Hg] [facility] [employer] Other [facility] Other 02-16-2023 10:00-0500 Respiratory rate 18 /min Negrito Ball Other [facility] Other 02-16-2023 10:00-0500 Systolic blood pressure 135 mm[Hg] Negrito Ball Other [facility] Other 11-17-2022 11:30-0400 Body height 167.64 cm Negrito Ball Other [facility] Other 11-17-2022 11:30-0400 Body mass index (BMI) [Ratio] 24.6 kg/m2 Negrito Ball Other [facility] Other 11-17-2022 11:30-0400 Body weight 69.13 kg Negrito Ball Other [facility] Other 11-17-2022 11:30-0400 Diastolic blood pressure 84 mm[Hg] Negrito Ball Other [facility] Other 11-17-2022 11:30-0400 Respiratory rate 12 /min Negrito Ball Other [facility] Other 11-17-2022 11:30-0400 Systolic blood pressure 147 mm[Hg] Negrito Ball Other [facility] Other 08-18-2022 10:15-0400 Body height 167.64 cm Negrito Ball Other [facility] Other 08-18-2022 10:15-0400 Body mass index (BMI) [Ratio] 24.56 kg/m2 Negrito Ball Other [facility] Other 08-18-2022 10:15-0400 Body weight 69.04 kg Negrito Ball Other [facility] Other 08-18-2022 10:15-0400 Diastolic blood pressure 90 mm[Hg] Negrito Ball Other [facility] Other 08-18-2022 10:15-0400 Respiratory rate 12 /min Negrito Ball Other [facility] Other 08-18-2022 10:15-0400 Systolic blood pressure 155 mm[Hg] Negrito Ball Other [facility] Other 05-29-2022 15:30-0400 Body height 167.64 cm Negrito Ball Other [facility] Other 05-29-2022 15:30-0400 Body mass index (BMI) [Ratio] 24.24 kg/m2 Negrito Ball Other [facility] Other 05-29-2022 15:30-0400 Body weight 68.13 kg Negrito Ball Other [facility] Other 05-29-2022 15:30-0400 Diastolic blood pressure 68 mm[Hg] Negrito Ball Other [facility] Other 05-29-2022 15:30-0400 Respiratory rate 12 /min Negrito Ball Other [facility] Other 05-29-2022 15:30-0400 Systolic blood pressure 153 mm[Hg] Negrito Ball Other [facility] Other Encounters Encounter Date Encounter Type Care Provider Facility Start: 02-18-2024 End: 02-18-2024 ambulatory Warren Ayoub MD [facility]: [facility] Start: 01-14-2024 End: 01-14-2024 ambulatory Warren Ayoub MD Facility: [facility] Start: 01-07-2024 End: 01-07-2024 ambulatory Warren Ayoub MD Facility: [facility] Start: 12-24-2023 End: 12-24-2023 ambulatory Warren Ayoub MD Facility: [facility] Start: 12-10-2023 End: 12-10-2023 ambulatory Warren Ayoub MD Facility: [facility] Start: 12-03-2023 End: 12-03-2023 ambulatory Warren Ayoub MD Facility: [facility] Start: 03-28-2023 End: 03-28-2023 ambulatory Negrito Shannon Other [facility] Other Start: 03-28-2023 Telephone encounter Negrito Elie [facility] Start: 03-26-2023 End: 03-26-2023 ambulatory Negrito Shannon Other [facility] Other Start: 03-26-2023 Telephone encounter Negrito Ball [facility] Start: 02-16-2023 End: 02-16-2023 ambulatory Negrito Shannon Other [facility] Other Start: 02-16-2023 Office outpatient vi sit 15 minutes Negrito Shannon [facility] Start: 01-29-2023 End: 01-29-2023 ambulatory Negrito Shannon Other [facility] Other Start: 01-29-2023 Telephone encounter Negrito Ball [facility] Start: 12-06-2022 End: 12-06-2022 ambulatory Negrito Elie Other [facility] Other Start: 12-06-2022 Telephone encounter Negrito Ball [facility] Start: 12-05-2022 End: 12-05-2022 ambulatory Negrito Ball Other [facility] Other Start: 12-05-2022 Telephone encounter Negrito Ball [facility] Start: 11-17-2022 End: 11-17-2022 ambulatory Negrito Shannon Other [facility] Other Start: 11-17-2022 Patient encounter procedure Negrito Shannon [facility] Start: 11-01-2022 End: 11-01-2022 ambulatory Negrito Shannon Other [facility] Other Start: 11-01-2022 Telephone encounter Negrito Shannon [facility] Start: 09-07-2022 End: 09-07-2022 ambulatory Negrito Shannon Other [facility] Other Start: 09-07-2022 Telephone encounter Negrito Shannon [facility] Start: 08-18-2022 End: 08-18-2022 ambulatory Negrito Shannon Other [facility] Other Start: 08-18-2022 Office outpatient vi sit 15 minutes Negrito Shannon [facility] Start: 08-18-2022 Telephone encounter Negrito DUMONT [facility] Start: 08-01-2022 End: 08-01-2022 ambulatory Negrito Shannon Other [facility] Other Start: 08-01-2022 Telephone encounter Negrito DUMONT [facility] Start: 05-29-2022 End: 05-29-2022 ambulatory Negrito Shannon Other [facility] Other Start: 05-29-2022 Office outpatient vi sit 15 minutes Negrito Shannon [facility] Start: 11-11-2021 Adult health examination Negrito Shannon Other [facility] Other Start: 03-11-2021 End: 03-12-2021 ambulatory NEGRITO SHANNON Facility:[facility] Procedures Date Procedure Procedure [...] (incl. purified surface antigen) [facility]gr[facility] Shannon Other [facility] Other 12-30-2021 influenza virus vaccine, split virus (incl. purified surface antigen) [facility]grito Shannon Other [facility] Other 12-31-2020 COVID-19 Vaccine Pfi zer - Documentation Purposes Only Negrito Shannon Other [facility] Other 11-08-2020 influenza virus vaccine, split virus (incl. purified surface antigen) Negrito Shannon Other [facility] Other 05-27-2020 COVID-19 Vaccine Pfi zer - Documentation Purposes Only Negrito Shannon Other [facility] Other 05-06-2020 COVID-19 Vaccine Pfi zer - Documentation Purposes Only Negrito Shannon Other [facility] Other 11-22-2019 influenza virus vaccine, split virus (incl. purified surface antigen) [facility]grito Shannon Other [facility] Other 10-25-2019 tetanus toxoid, redu paramjit diphtheria toxoid, and acellular pertussis vaccine, adsorbed [facility]grito Shannon Other [facility] Other 11-10-2014 tetanus and diphther ia toxoids, adsorbed, preservative free, for adult use (5 Lf of tetanus toxoid and 2 Lf of diphtheria toxoid) [facility]grito Shannon Other [facility] Other 12-17-2012 tetanus and diphther ia toxoids, adsorbed, preservative free, for adult use (5 Lf of tetanus toxoid and 2 Lf of diphtheria toxoid) [facility]grito Shannon Other [facility] Other 10-07-2003 diphtheria, tetanus toxoids and acellular pertussis vaccine, unspecified formulation [facility]grito Shannon Other [facility] Other Payers Date Payer Category Payer Medicare 2023 Unknown 1959 Medicare [id number] 1959 Unknown [id number] 1955 Unknown [id number] 2.16.84 [id number] 1955 Unknown [id number] 2.16. [id number] 1955 Unknown [id number] 2.16. [id number] 1955 Unknown [id number] 2.16. [id number] 1955 Unknown [id number] 2.16. [id number] 1955 Unknown [id number] 2.16. [id number] 1955 Unknown [id number] 2.16. [id number] Unknown [id number] 2.16.84 [id number] Social History Date Type Detail Facility Unknown if ever smoked [facility] Other Sex Assigned At Sex Assigned At Bir th [facility] Other Clinical Notes 05-29-2022 to 03-28-2023 Note Date & Type Note Facility 03-28-2023 Evaluation note Encounter Date Diagnosis Assessment Notes Feb, Hypercholesterolemia (ICD-10 - E78.00) [facility] Other [id number] Evaluation note* Encounter Date Diagnosis Assessment Notes [...] report is being monitored every 90 days. [facility] Other 12-04-2023 Evaluation note* Encounter Date Diagnosis Assessment Notes Treatment Notes Treatment Clinical Notes Jan, Fibromyalgia (ICD-10 - M79.7) [facility] Other 10-11-2023 Evaluation note* Encounter Date Diagnosis Assessment Notes Treatment Notes Treatment Clinical Notes Nov, Age-related osteoporosis without current pathological fracture (ICD-10 - M81.0) [facility] Other 09-22-2023 Evaluation note* Encounter Date Diagnosis [...] stretching and ROM exercises. Continue muscle relaxants. 22 Sep, 2023 Chronic prescription opiate use (ICD-10 - Z79.891) [...] Screening for colon cancer (ICD-10 - Z12.11) [facility] Other 09-06-2023 Evaluation note* Encounter Date Diagnosis Assessment Notes Treatment Notes Treatment Clinical Notes Oct, Lumbar spondylosis (ICD-10 - M47.816) [facility] Other 07-13-2023 Evaluation note* Encounter Date Diagnosis Assessment Notes Treatment Notes Treatment Clinical Notes Aug, Lumbar spondylosis (ICD-10 - M47.816) [facility] Other 06-23-2023 Evaluation note* Encounter Date Diagnosis [...] phone, computer and exercise prior to bedtime [facility] Other 06-23-2023 Evaluation note* Encounter Date Diagnosis Assessment Notes Treatment Notes Treatment Clinical Notes Jul, Lumbar spondylosis (ICD-10 - M47.816) [facility] Other 06-06-2023 Evaluation note* Encounter Date Diagnosis Assessment Notes Treatment Notes Treatment Clinical Notes Jul, Lumbar spondylosis (ICD-10 - M47.816) [facility] Other 04-03-2023 Evaluation note* Encounter Date Diagnosis [...] avoid bedtime food, TV, computer and exercise [facility] Other Evaluation noteNo InformationNort [employer] Other History general Narrative - Reported* Type [...] right shoul gaby Hospitalization History see above [facility] Other Summary Purpose Family History No Family History Records FoundNo Family History Records FoundNo Family History Records Found Advance Directives No Advanced Directives Records FoundNo Advanced Directives Records FoundNo Advanced Directives Records Found Additional Source Comments INFORMATION SOURCE (unrecogn ized section and content) DATE CREATED AUTHOR 03/16/2021 [facility] DATE CREATED AUTHOR AUTHOR'S ORGANIZ ATION 03/21/2021 [facility] DATE CREATED AUTHOR AUTHOR'S ORGANIZ ATION 02/22/2024 [facility] REASON FOR VISIT (unrecogniz ed [...] BE BASED ON THE PRIMARY CLINICAL RECORDS. [employer] provides no warranty or guarantee of the accuracy or completeness of information in this document.
--- NOTE | 2024-02-28 15:17 | P.CN_ITS ---
Consult Note: HPI Data of Consult Patient: known to practice within the last 3 years Consult date: 12/10/23 Requesting Physician: Abena Cotton NP Primary Care Provider: Non-Staff Physician, MD Consult Narrative Reason for consult: low back, bilateral hip, neck, bilateral shoulder pain Narrative: 68yof who presents for assessment. continues to have low back, bilateral hip, neck and bilateral shoulder pain. imaging reviewed, which is significant for moderate facet arthropathy in both the lumbar and cervical spine. she continues in a series of provider directed home exercises, which she has attempted for over 6 weeks without benefit. she uses tramadol and mobic as needed. denies adverse med side effects. recently underwent bilateral L4-5 L5-S1 facet RFA with 70% improvement in pain and functional ability. pt would like to address chronic neck and shoulder pain secondary for cervical spondylosis. recently underwent bilateral C5/6 C6/7 MBB #1 with 80% improvement in combined pain and functional improvement immediately following and 3 hours after the procedure. cc:: CC: Abena Cotton NP Review of Systems ROS Status of ROS 10 or more systems reviewed and unremark able except as noted in history and below Musculoskeletal Reports: back pain, neck pain and joint pain PFSH PFSH Medical History (Updated 12/28/23 @ 11:35 by Rocío Sands RN) Osteoarthritis ?M19.90 - Unspecified osteoarthritis, unspecified site (ICD-10) Anxiety ?F41.9 - Anxiety disorder, unspecified (ICD-10) Fibromyalgia ?M79.7 - Fibromyalgia (ICD-10) HTN (hypertension) ?I10 - Essential (primary) hypertension (ICD-10) Surgical History History of lumbar laminectomy ?Z98.890 - Other specified postprocedural states (ICD-10) H/O section ?Z98.891 - History of uterine scar from previous surgery (ICD-10) Hx of tonsillectomy ?Z90.89 - Acquired absence of other organs (ICD-10) Meds Home Medications and Allergies Home Medications ?Medication ?Instructions ?Recorded ?Confirmed ?Type Probiotic DAILY 12/03/23 History amlodipine 5 mg tablet 5 mg PO DAILY 12/03/23 02/18/24 History baclofen 20 mg tablet 20 mg PO DAILY 12/03/23 02/18/24 History duloxetine 60 mg capsule,delayed 60 mg PO DAILY 12/03/23 02/18/24 History release ezetimibe 10 mg tablet (Zetia) 10 mg PO DAILY 12/03/23 02/18/24 History losartan 25 mg tablet 25 mg PO DAILY 12/03/23 02/18/24 History meloxicam 7.5 mg tablet 7.5 mg PO DAILY 12/03/23 02/18/24 History tramadol 50 mg tablet 50 mg PO BID 12/03/23 02/18/24 History trazodone 50 mg tablet 50 mg PO DAILY 12/03/23 02/18/24 History Allergies Allergy/AdvReac Type Severity Reaction Status Date / Time No Known Drug Allergies Allergy Verified 02/18/24 06:55 Exam Constitutional Documenting provider has reviewed patient's vital signs: yes Common normals: no apparent distress, oriented x3, healthy appearing, alert and well nourished General appearance: cooperative HENMT Common normals: normocephalic, hearing grossly normal bilaterally and moist oral mucous membranes Head and scalp: normocephalic Eye Common normals: PERRL Pupil: PERRL Neck & C-Spine Common normals: full ROM General: normal visual inspection Cervical spine: cervical ROM abnormal, pain with cervical ROM, cervical spine tenderness, paracervical muscle tenderness and trapezius muscle tenderness Other: facet loading positive bilateral C5-7 negative spurlings strength 5/5 in BUE Chest Common normals: inspection of chest normal Respiratory Common normals: normal respiratory effort, no retractions and no use of accessory muscles Neuro Common normals: oriented x3, CN's II-XII intact bilaterally, moves all extremities, no focal motor deficits, no sensory deficits noted and deep tendon reflexes 2+ bilaterally Sensorium/orientation: alert Motor exam: strength 5/5 throughout and no movement abnormalities noted Psych Common normals: mental status grossly normal, thought process normal, cooperative, affect normal, speech normal and activity/motor behavior normal Speech: normal speech Thought process: normal thought process Assessment and Plan Assessment and Plan (1) Lumbar spondylosis: (2) Cervical spondylosis: Plan proceed with bilateral C5/6 C6/7 MBB x2 working towards RFA for cervical spondylosis, risks vs benefits reviewed continue HEP as tolerated continue medications through PCP f/u after each injection
== END 2024-02-28 14:43 | disposition home or self-care (01) ==
PROVIDERS: Visit Provider Nurse Practitioner
DX: M47.816 Spondylosis without myelopathy or radiculopathy, lumbar region (principal); M47.812 Spondylosis without myelopathy or radiculopathy, cervical region
CPT/HCPCS: G0463

== ENCOUNTER 2024-04-09 11:29 | Outpatient (OUT) | payer MEDICARE, OTHER, SELFPAY ==
--- NOTE | 2024-04-09 11:32 | MM_ITS ---
Patient Name: LIBBY SINGH MR#: [id number] : 1955 Exam Date: 04/09/2024 Ordering Doctor: DR Negrito Delgadillo D.O. RADIOLOGY REPORT PROCEDURE: MM TOMOSYNTHESIS SCREENING BI COMPARISON: MM TOMOSYNTHESIS SCREENING BI, 03/23/2023. MG MAMM SCREEN 3D JOSE ALEJANDRO CAD, 03/20/2022. MG MAMM SCREEN 3D JOSE ALEJANDRO CAD, 03/11/2021. MG MAMM JOSE ALEJANDRO SCRN W CAD DIG, 02/12/2013. INDICATIONS: Screening Calculator Name NCI Breast Cancer Risk Assessment Tool 5 Year Breast Cancer Risk 2.20% Lifetime Breast Cancer Risk 7.20% Personal Breast Cancer No Personal Ovarian Cancer No Treatments None Family Cancers None LOCATION: [facility] BREAST COMPOSITION: The breasts are heterogeneously dense,which may obscure small masses. FINDINGS: DIAGNOSTIC CATEGORY 1--NEGATIVE. RIGHT BREAST: No significant suspicious finding. No significant change has occurred. LEFT BREAST: No significant suspicious finding. No significant change has occurred. RECOMMENDATIONS: ROUTINE MAMMOGRAM AND CLINICAL EVALUATION IN 12 MONTHS. PLEASE NOTE: A NORMAL MAMMOGRAM DOES NOT EXCLUDE THE POSSIBILITY OF BREAST CANCER. A CLINICALLY SUSPICIOUS PALPABLE LUMP SHOULD BE BIOPSIED. Dictated by: Zain Owusu M.D. on 04/11/2024 at 11:02 Approved by: Zani Owusu M.D. on 04/11/2024 at 11:10
--- OUTSIDE RECORDS SUMMARY | 2024-04-09 11:43 | XMS_ITS | CCD ---
Author Organization [facility] Care Team Providers Care Supervisor [place] Name Role Phone DR NEGRITO SHANNON Admitting Crow SHANNON, DR VELA Primary Care Unavailable DR NEGRITO SHANNON Consulting Unavailable ELIE, DR VELA Attending Unavailable KETAN, DR ZAIN Lott Consulting Unavailable Negrito Shannon Unavailable Gitessaitis , Andrius Herreraytoscar Attending Unavailable Giedraitis , Andrius Vytoscar Attending Unavailable Giedraitis MD, Andrius Vfrederick Attending Unavailable Giedraitis , Andrius Vytoscar Attending Unavailable Giedraitis , Andrius Vytautjavier Attending Unavailable Giedraitis MD, Andrius Vytautjavier Attending Unavailable Allergies Allergy Classification Reported Allergen(s) Allergy Type Date of Onset Reaction(s) Facility (1 source) Lidocaine Drug Allergy [address] [facility] Repository (13 sources) Fenofibrate Drug Allergy Unknown [facility] Other (13 sources) Lovastatin Drug Allergy Unknown [facility] Other (13 sources) lidoderm patches Propensity to adverse reactions itching [facility] Other (1 source) patient allergy list reviewed by nurse or physicia Propensity to adverse reactions 3 Comment:Done [facility] Other Medications Current Medications Medication Drug Class(es) [...] day Active Baclofen Not-Chip ing Calcium 1200 3695-8399 MG-UNIT (3 sources) take 1 tablet by mouth once daily Calcium 1200 2791-7344 MG-UNIT 1 tablet Orally Once a day [...] High risk drug monitoring status; Translations: [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 Admission #: [id number] Family : Order #: [id number] CLICK HERE TO VIEW EXAM RADIOLOGY REPORT [...] Treatments None Family Cancers None LOCATION: [facility] BREAST COMPOSITION: Heterogeneously dense,which may obscure small [...] M.D. on 03/11/2021 at 15:06 Normal [facility] CBC Without Differentialon 0 11-06-2020 Erythrocyte distribution width (RBC) [Ratio] 13.5 % Normal 11.9-15.3 [facility] Comment on above: Performed By: #### O UTREACH LIPID, OUTREACH CMP, CBCNOOUTREACH #### [address] Hematocrit (Bld) [Volume fraction] 41.1 % Normal 34.0-46.4 [facility] Comment on above: Performed By: #### O UTREACH LIPID, OUTREACH CMP, CBCNOOUTREACH #### [address] Hemoglobin (Bld) [Mass/Vol] 13.6 g/dL Normal 11.8-15.4 [facility] Comment on above: Performed By: #### O UTREACH LIPID, OUTREACH CMP, CBCNOOUTREACH #### [address] MCH (RBC) [Entitic mass] 27.4 pg Normal 24.7-34.3 [facility] Comment on above: Performed By: #### O UTREACH LIPID, OUTREACH CMP, CBCNOOUTREACH #### [address] MCV (RBC) [Entitic vol] 82.5 fL Normal 80-100 [facility] Comment on above: Performed By: #### O UTREACH LIPID, OUTREACH CMP, CBCNOOUTREACH #### [address] Mean Corpuscular HGB Conc 33.2 g/dL Normal 32.0-35.0 [facility] Comment on above: Performed By: #### O UTREACH LIPID, OUTREACH CMP, CBCNOOUTREACH #### [address] Platelet mean volume (Bld) [Entitic vol] 9.6 fL Normal 6.3-10.7 [facility] Comment on above: Result Comment: PERF ORMED BY: [place] [address] PATHOLOGIST GATEKEEPER MARSHA ASTORGA M.D. Performed By: #### O UTREACH LIPID, OUTREACH CMP, CBCNOOUTREACH #### [place] [address] [place] Platelets (Bld) [#/Vol] 231 10*3/uL Normal 150-450 [facility] Comment on above: Performed By: #### O UTREACH LIPID, OUTREACH CMP, CBCNOOUTREACH #### [place] [address] [place] RBC (Bld) [#/Vol] 4.98 10*6/uL Normal 3.60-5.00 [facility] Comment on above: Performed By: #### O UTREACH LIPID, OUTREACH CMP, CBCNOOUTREACH #### [place] [address] [place] WBC (Bld) [#/Vol] 4.3 10*3/uL Normal 3.8-11.6 [facility] Comment on above: Performed By: #### O UTREACH LIPID, OUTREACH CMP, CBCNOOUTREACH #### [address] [address] [place] CMP Outreachon 11-06-2020 Albumin [Mass/Vol] 4.4 g/dL Normal 3.2-5.5 [facility] Comment on above: Performed By: #### O UTREACH LIPID, OUTREACH CMP, CBCNOOUTREACH #### [facility] [address] [id number] [facility] ALP [Catalytic activity/Vol] 64 U/L Normal 32-92 [facility] Comment on above: Performed By: #### O UTREACH LIPID, OUTREACH CMP, CBCNOOUTREACH #### [facility] [address] [place] [address] [place] ALT [Catalytic activity/Vol] 32 U/L Normal 10-60 [facility] Comment on above: Performed By: #### O UTREACH LIPID, OUTREACH CMP, CBCNOOUTREACH #### [facility] [address] [place] [address] [place] AST [Catalytic activity/Vol] 25 U/L Normal 10-42 [facility] Comment on above: Performed By: #### O UTREACH LIPID, OUTREACH CMP, CBCNOOUTREACH #### [facility] [address] [place] [id number] [place] Bilirubin [Mass/Vol] 0.5 mg/dL Normal 0.3-1.2 [facility] Comment on above: Performed By: #### O UTREACH LIPID, OUTREACH CMP, CBCNOOUTREACH #### [facility] [address] [place] [id number] [place] Calcium [Mass/Vol] 9.6 mg/dL Normal 8.2-10.2 [facility] Comment on above: Performed By: #### O UTREACH LIPID, OUTREACH CMP, CBCNOOUTREACH #### [facility] [address] [place] [id number] [place] Chloride [Moles/Vol] 105 mmol/L Normal 95-114 [facility] Comment on above: Performed By: #### O UTREACH LIPID, OUTREACH CMP, CBCNOOUTREACH #### [facility] [address] [place] [address] [place] CO2 [Moles/Vol] 26.7 mmol/L Normal 22.0-30.0 [facility] Comment on above: Performed By: #### O UTREACH LIPID, OUTREACH CMP, CBCNOOUTREACH #### [facility] [address] [place] [id number] [place] Creatinine [Mass/Vol] 0.63 mg/dL Normal 0.44-1.03 [facility] Comment on above: Performed By: #### O UTREACH LIPID, OUTREACH CMP, CBCNOOUTREACH #### [facility] [address] [place] [address] [place] Estimated GFR ( Marianne > 60 Normal [facility] Comment on above: Result Comment: GFR estimated reference range: According to KDOQI guidelines, <60 ml/min/1.73m2 is sufficient to diagnose a patient with chronic kidney disease. Performed By: #### O UTREACH LIPID, OUTREACH CMP, CBCNOOUTREACH #### [facility] [address] [place] [address] [place] Estimated GFR (Non- Am > 60 Normal [facility] Comment on above: Performed By: #### O UTREACH LIPID, OUTREACH CMP, CBCNOOUTREACH #### [facility] [address] [place] [address] [place] Glucose [Mass/Vol] 118 mg/dL High 70-100 [facility] Comment on above: Result Comment: [place] om Glucose Reference Range is dependent on time and content of last meal. Glucose of more than 200 mg/dL in a nonstressed, ambulatory subject supports the diagnosis of Diabetes Mellitus. ADA recommended reference range Performed By: #### O UTREACH LIPID, OUTREACH CMP, CBCNOOUTREACH #### [facility] [address] [place] [id number] [place] Potassium [Moles/Vol] 4.1 mmol/L Normal 3.5-5.1 [facility] Comment on above: Performed By: #### O UTREACH LIPID, OUTREACH CMP, CBCNOOUTREACH #### [facility] [address] [place] [id number] [place] Protein [Mass/Vol] 6.5 g/dL Normal 6.1-7.9 [facility] Comment on above: Performed By: #### O UTREACH LIPID, OUTREACH CMP, CBCNOOUTREACH #### [facility] [address] Sodium [Moles/Vol] 141 mmol/L Normal 136-146 [facility] Comment on above: Performed By: #### O UTREACH LIPID, OUTREACH CMP, CBCNOOUTREACH #### [facility] [address] Urea nitrogen [Mass/Vol] 15 mg/dL Normal 9-23 [facility] Comment on above: Performed By: #### O UTREACH LIPID, OUTREACH CMP, CBCNOOUTREACH #### [facility] [address] [place] [address] Lipid Profile Outreachon Cholesterol [Mass/Vol] 237 mg/dL High 140-200 [facility] Comment on above: Result Comment: Chol less than 200 mg/dl low risk Chol 201-239 mg/dl borderline risk Chol 240 mg/dl and greater high risk Performed By: #### O UTREACH LIPID, OUTREACH CMP, CBCNOOUTREACH #### [facility] [address] [place] [address] Cholesterol in HDL [Mass/Vol] 37 mg/dL Normal 35-85 [facility] Comment on above: Result Comment: HDL CHOL ATP-III CLASSIFICATION Cardiovascular Risk HDL > or equal to 60 mg/dL LOW HDL < 40 mg/dL HIGH Performed By: #### O UTREACH LIPID, OUTREACH CMP, CBCNOOUTREACH #### [facility] [address] [place] [address] Cholesterol.total/Ch olesterol in HDL [Mass ratio] 6.4 {ratio} Normal <5.0 [facility] Comment on above: Result Comment: PERF ORMED BY: [place] [address] PATHOLOGIST GATEKEEPER MARSHA ASTORGA M.D. Performed By: #### O UTREACH LIPID, OUTREACH CMP, CBCNOOUTREACH #### [address] [place] [address] [place] LDL Cholesterol,Calculat ed 127 mg/dL High 0-100 [facility] Comment on above: Result Comment: LDL ATP III CLASSIFICATION LDL less than 100 mg/dL Optimal LDL 100-129 mg/dL Near or above optimal LDL 130-159 mg/dL Borderline high LDL 160-189 mg/dL High LDL greater than 189 mg/dL Very high Performed By: #### O UTREACH LIPID, OUTREACH CMP, CBCNOOUTREACH #### [facility] [address] Triglyceride w/Reflex 364 mg/dL High 35-149 [facility] Comment on above: Result Comment: TRIG ATP III CLASSIFICATION TRIG less than 150 mg/dL Normal TRIG 150-199 mg/dL Borderline high TRIG 200-500 mg/dL High TRIG greater than 500 mg/dL Very high Standard traceable to the Center for Disease Conrtrol and Prevention (CDC) test method. Performed By: #### O UTREACH LIPID, OUTREACH CMP, CBCNOOUTREACH #### [facility] [address] VLDL CHOLESTEROL 72 mg/dL Normal [facility] Comment on above: Performed By: #### O UTREACH LIPID, OUTREACH CMP, CBCNOOUTREACH #### [facility] [address] Vital Signs Date Time Vital Sign Value Performing Clinician Facility 02-16-2023 10:00-0500 Body height 167.64 cm [facility] Other [facility] Other 02-16-2023 10:00-0500 Body mass index (BMI) [Ratio] 25.08 kg/m2 [facility] Other [facility] Other 02-16-2023 10:00-0500 Body weight 70.49 kg [facility] Other [facility] Other 02-16-2023 10:00-0500 Diastolic blood pressure 85 mm[Hg] [facility] Other [facility] Other 02-16-2023 10:00-0500 Respiratory rate 18 /min Negrito Ball Other [facility] Other 02-16-2023 10:00-0500 Systolic blood pressure 135 mm[Hg] Negrito Ball Other [facility] Other 11-17-2022 11:30-0400 Body height 167.64 cm Negrito Ball Other [facility] Other 11-17-2022 11:30-0400 Body mass index (BMI) [Ratio] 24.6 kg/m2 Negrito Ball Other [facility] Other 11-17-2022 11:30-0400 Body weight 69.13 kg Negrito Ball Other [facility] Other 11-17-2022 11:30-0400 Diastolic blood pressure 84 mm[Hg] Negrito Ball Other [facility] Other 11-17-2022 11:30-0400 Respiratory rate 12 /min Negrito Ball Other [facility] Other 11-17-2022 11:30-0400 Systolic blood pressure 147 mm[Hg] Negrito Ball Other [facility] Other 08-18-2022 10:15-0400 Body height 167.64 cm Negrito Ball Other [facility] Other 08-18-2022 10:15-0400 Body mass index (BMI) [Ratio] 24.56 kg/m2 Negrito Ball Other [facility] Other 08-18-2022 10:15-0400 Body weight 69.04 kg Negrito Ball Other [facility] Other 08-18-2022 10:15-0400 Diastolic blood pressure 90 mm[Hg] Negrito Ball Other [facility] Other 08-18-2022 10:15-0400 Respiratory rate 12 /min Negrito Ball Other [facility] Other 08-18-2022 10:15-0400 Systolic blood pressure 155 mm[Hg] Negrito Ball Other [facility] Other 05-29-2022 15:30-0400 Body height 167.64 cm Negrito Ball Other [facility] Other 05-29-2022 15:30-0400 Body mass index (BMI) [Ratio] 24.24 kg/m2 Negrito Ball Other [facility] Other 05-29-2022 15:30-0400 Body weight 68.13 kg Negrito Ball Other [facility] Other 05-29-2022 15:30-0400 Diastolic blood pressure 68 mm[Hg] Negrito Ball Other [facility] Other 05-29-2022 15:30-0400 Respiratory rate 12 /min Negrito Ball Other [facility] Other 05-29-2022 15:30-0400 Systolic blood pressure 153 mm[Hg] Negrito Ball Other [facility] Other Encounters Encounter Date Encounter Type Care Provider Facility Start: 02-18-2024 End: 02-18-2024 ambulatory Warren Ayoub MD [facility]: [facility] Start: 01-14-2024 End: 01-14-2024 ambulatory Warren Ayoub MD [facility]: [facility] Start: 01-07-2024 End: 01-07-2024 ambulatory Warren Ayoub MD Facility: [facility] Start: 12-24-2023 End: 12-24-2023 ambulatory Warren Ayoub MD Facility: [facility] Start: 12-10-2023 End: 12-10-2023 ambulatory Warren Ayoub MD Facility: [facility] Start: 12-03-2023 End: 12-03-2023 ambulatory Warren Ayoub MD Facility: [facility] Start: 03-28-2023 End: 03-28-2023 ambulatory Negrito Shannon Other [facility] Other Start: 03-28-2023 Telephone encounter Negrito Elie [facility] Start: 03-26-2023 End: 03-26-2023 ambulatory Negrito Shannon Other [facility] Other Start: 03-26-2023 Telephone encounter Negrito Ball [facility] Start: 02-16-2023 End: 02-16-2023 ambulatory Negrito Shannon Other [facility] Other Start: 02-16-2023 Office outpatient vi sit 15 minutes Negrito Shannon [facility] Start: 01-29-2023 End: 01-29-2023 ambulatory Negrito Shannon Other [facility] Other Start: 01-29-2023 Telephone encounter Negrito Ball [facility] Start: 12-06-2022 End: 12-06-2022 ambulatory Negrito Elie Other [facility] Other Start: 12-06-2022 Telephone encounter Negrito Ball [facility] Start: 12-05-2022 End: 12-05-2022 ambulatory Negrito Ball Other [facility] Other Start: 12-05-2022 Telephone encounter Negrito Ball [facility] Start: 11-17-2022 End: 11-17-2022 ambulatory Negrito Shannon Other [facility] Other Start: 11-17-2022 Patient encounter procedure Negrito Shannon [facility] Start: 11-01-2022 End: 11-01-2022 ambulatory Negrito Shannon Other [facility] Other Start: 11-01-2022 Telephone encounter Negrito Shannon [facility] Start: 09-07-2022 End: 09-07-2022 ambulatory Negrito Shannon Other [facility] Other Start: 09-07-2022 Telephone encounter Negrito Shannon [facility] Start: 08-18-2022 End: 08-18-2022 ambulatory Negrito Shannon Other [facility] Other Start: 08-18-2022 Office outpatient vi sit 15 minutes Negrito Shannon [facility] Start: 08-18-2022 Telephone encounter Negrito DUMONT [facility] Start: 08-01-2022 End: 08-01-2022 ambulatory Negrito Shannon Other [facility] Other Start: 08-01-2022 Telephone encounter Negrito DUMONT [facility] Start: 05-29-2022 End: 05-29-2022 ambulatory Negrito Shannon Other [facility] Other Start: 05-29-2022 Office outpatient vi sit 15 minutes Negrito Shannon [facility] Start: 11-11-2021 Adult health examination Negrito Shannon Other [facility] Other Start: 03-11-2021 End: 03-12-2021 ambulatory NEGRITO [...] (incl. purified surface antigen) Negrito Shannon Other [facility] Other 12-30-2021 influenza virus vaccine, split virus (incl. purified surface antigen) [facility]grito Shannon Other [facility] Other 12-31-2020 COVID-19 Vaccine Pfi zer - Documentation Purposes Only Negrito Shannon Other [facility] Other 11-08-2020 influenza virus vaccine, split virus (incl. purified surface antigen) Negrito Shannon Other [facility] Other 05-27-2020 COVID-19 Vaccine Pfi zer - Documentation Purposes Only Negrito Shannon Other [facility] Other 05-06-2020 COVID-19 Vaccine Pfi zer - Documentation Purposes Only Negrito Shannon Other [facility] Other 11-22-2019 influenza virus vaccine, split virus (incl. purified surface antigen) Negrito Shannon Other [facility] Other 10-25-2019 tetanus toxoid, redu paramjit diphtheria toxoid, and acellular pertussis vaccine, adsorbed [facility]gr[facility] Shannon Other [facility] Other 11-10-2014 tetanus and diphther ia toxoids, adsorbed, preservative free, for adult use (5 Lf of tetanus toxoid and 2 Lf of diphtheria toxoid) [facility]grito Shannon Other [facility] Other 12-17-2012 tetanus and diphther ia toxoids, adsorbed, preservative free, for adult use (5 Lf of tetanus toxoid and 2 Lf of diphtheria toxoid) [facility]grito Shannon Other [facility] Other 10-07-2003 diphtheria, tetanus toxoids and acellular pertussis vaccine, unspecified formulation Negrito Shannon Other [facility] Other Payers Date Payer Category Payer Medicare 2023 Unknown 1959 Medicare [id number] 1959 Unknown [id number] 1955 Unknown [id number] 2.16.84 [id number] 1955 Unknown [id number] 2.16. [id number] 1955 Unknown [id number] 2.16. [id number] 1955 Unknown [id number] 2.16. [id number] 1955 Unknown [id number] 2.16. [id number] 1955 Unknown [id number] 2.16. [id number] 1955 Unknown [id number] 2.16. [id number] Unknown [id number] 2.16.84 [id number] Social History Date Type Detail Facility Unknown if ever smoked [facility] Other Sex Assigned At Sex Assigned At Bir th [facility] Other Clinical Notes 05-29-2022 to 03-28-2023 Note Date & Type Note Facility 03-28-2023 Evaluation note Encounter Date Diagnosis Assessment Notes Feb, Hypercholesterolemia (ICD-10 - E78.00) [facility] Other [id number] Evaluation note* Encounter Date Diagnosis Assessment Notes [...] report is being monitored every 90 days. [facility] Other 12-04-2023 Evaluation note* Encounter Date Diagnosis Assessment Notes Treatment Notes Treatment Clinical Notes Jan, Fibromyalgia (ICD-10 - M79.7) [facility] Other 10-11-2023 Evaluation note* Encounter Date Diagnosis Assessment Notes Treatment Notes Treatment Clinical Notes Nov, Age-related osteoporosis without current pathological fracture (ICD-10 - M81.0) [facility] Other 09-22-2023 Evaluation note* Encounter Date Diagnosis [...] Screening for colon cancer (ICD-10 - Z12.11) [facility] Other 09-06-2023 Evaluation note* Encounter Date Diagnosis Assessment Notes Treatment Notes Treatment Clinical Notes Oct, Lumbar spondylosis (ICD-10 - M47.816) [facility] Other 07-13-2023 Evaluation note* Encounter Date Diagnosis Assessment Notes Treatment Notes Treatment Clinical Notes Aug, Lumbar spondylosis (ICD-10 - M47.816) [facility] Other 06-23-2023 Evaluation note* Encounter Date Diagnosis [...] phone, computer and exercise prior to bedtime [facility] Other 06-23-2023 Evaluation note* Encounter Date Diagnosis Assessment Notes Treatment Notes Treatment Clinical Notes Jul, Lumbar spondylosis (ICD-10 - M47.816) [facility] Other 06-06-2023 Evaluation note* Encounter Date Diagnosis Assessment Notes Treatment Notes Treatment Clinical Notes Jul, Lumbar spondylosis (ICD-10 - M47.816) [facility] Other 04-03-2023 Evaluation note* Encounter Date Diagnosis [...] avoid bedtime food, TV, computer and exercise [facility] Other Evaluation noteNo [employer] Other History general Narrative - Reported* Type [...] right shoul gaby Hospitalization History see above [facility] Other Summary Purpose Family History No Family History Records FoundNo Family History Records FoundNo Family History Records Found Advance Directives No Advanced Directives Records FoundNo Advanced Directives Records FoundNo Advanced Directives Records Found Additional Source Comments INFORMATION SOURCE (unrecogn ized section and content) DATE CREATED AUTHOR 03/16/2021 [facility] DATE CREATED AUTHOR AUTHOR'S ORGANIZ ATION 03/21/2021 [facility] DATE CREATED AUTHOR AUTHOR'S ORGANIZ ATION 02/22/2024 [facility] REASON FOR VISIT (unrecogniz ed section [...] BE BASED ON THE PRIMARY CLINICAL RECORDS. [employer] provides no warranty or guarantee of the accuracy or completeness of information in this document.
== END 2024-04-09 11:30 | disposition home or self-care (01) ==
LOC: MAMMO 11:29
PROVIDERS: Visit Provider Internal Medicine
DX: Z12.31 Encounter for screening mammogram for malignant neoplasm of breast (principal)
CPT/HCPCS: 77063; 77067

== ENCOUNTER 2024-04-28 08:09 | Day surgery (SDC) | payer MEDICARE, OTHER, SELFPAY ==
--- OUTSIDE RECORDS SUMMARY | 2024-04-28 08:23 | XMS_ITS | CCD ---
Author Organization [facility] Care Team Providers Care Ldr Rn Name Role Phone DR NEGRITO SHANNON Admitting [...] (1 source) Lidocaine Drug Allergy 3 [facility] Repository (13 sources) Fenofibrate Drug Allergy Unknown [facility] Other (13 sources) Lovastatin Drug Allergy Unknown [facility] Other (13 sources) lidoderm patches Propensity to adverse reactions itching [facility] Other (1 source) patient allergy list reviewed by nurse or physicia Propensity to adverse reactions 3 Comment:Done [facility] Other Medications Current Medications Medication Drug Class(es) [...] day Active Baclofen Not-Chip ing Calcium 1200 6863-4619 MG-UNIT (3 sources) take 1 tablet by mouth once daily Calcium 1200 3999-9485 MG-UNIT 1 tablet Orally Once a day [...] sources) High risk drug monitoring status; 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 Admission #: [id number] Family : Order #: [id number] CLICK HERE TO VIEW EXAM RADIOLOGY REPORT [...] Treatments None Family Cancers None LOCATION: [facility] BREAST COMPOSITION: Heterogeneously dense,which may obscure [...] M.D. on 03/11/2021 at 15:06 Normal [facility] CBC Without Differentialon 0 11-06-2020 Erythrocyte distribution width (RBC) [Ratio] 13.5 % Normal 11.9-15.3 [facility] Comment on above: Performed By: #### O UTREACH LIPID, OUTREACH CMP, CBCNOOUTREACH #### [address] Hematocrit (Bld) [Volume fraction] 41.1 % Normal 34.0-46.4 [facility] Comment on above: Performed By: #### O UTREACH LIPID, OUTREACH CMP, CBCNOOUTREACH #### [address] Hemoglobin (Bld) [Mass/Vol] 13.6 g/dL Normal 11.8-15.4 [facility] Comment on above: Performed By: #### O UTREACH LIPID, OUTREACH CMP, CBCNOOUTREACH #### [address] MCH (RBC) [Entitic mass] 27.4 pg Normal 24.7-34.3 [facility] Comment on above: Performed By: #### O UTREACH LIPID, OUTREACH CMP, CBCNOOUTREACH #### [address] MCV (RBC) [Entitic vol] 82.5 fL Normal 80-100 [facility] Comment on above: Performed By: #### O UTREACH LIPID, OUTREACH CMP, CBCNOOUTREACH #### [address] Mean Corpuscular HGB Conc 33.2 g/dL Normal 32.0-35.0 [facility] Comment on above: Performed By: #### O UTREACH LIPID, OUTREACH CMP, CBCNOOUTREACH #### [address] Platelet mean volume (Bld) [Entitic vol] 9.6 fL Normal 6.3-10.7 [facility] Comment on above: Result Comment: PERF ORMED BY: [place] [address] PATHOLOGIST ROOF PAINTER MARSHA ASTORGA M.D. Performed By: #### O UTREACH LIPID, OUTREACH CMP, CBCNOOUTREACH #### [place] [address] [place] Platelets (Bld) [#/Vol] 231 10*3/uL Normal 150-450 [facility] Comment on above: Performed By: #### O UTREACH LIPID, OUTREACH CMP, CBCNOOUTREACH #### [place] [address] [place] RBC (Bld) [#/Vol] 4.98 10*6/uL Normal 3.60-5.00 [facility] Comment on above: Performed By: #### O UTREACH LIPID, OUTREACH CMP, CBCNOOUTREACH #### [place] [address] [place] WBC (Bld) [#/Vol] 4.3 10*3/uL Normal 3.8-11.6 [facility] Comment on above: Performed By: #### O UTREACH LIPID, OUTREACH CMP, CBCNOOUTREACH #### [address] [address] [place] CMP Outreachon 11-06-2020 Albumin [Mass/Vol] 4.4 g/dL Normal 3.2-5.5 [facility] Comment on above: Performed By: #### O UTREACH LIPID, OUTREACH CMP, CBCNOOUTREACH #### [facility] [address] [id number] [facility] ALP [Catalytic activity/Vol] 64 U/L Normal 32-92 [facility] Comment on above: Performed By: #### O UTREACH LIPID, OUTREACH CMP, CBCNOOUTREACH #### [facility] [address] [place] [address] [place] ALT [Catalytic activity/Vol] 32 U/L Normal 10-60 [facility] Comment on above: Performed By: #### O UTREACH LIPID, OUTREACH CMP, CBCNOOUTREACH #### [facility] [address] [place] [address] [place] AST [Catalytic activity/Vol] 25 U/L Normal 10-42 [facility] Comment on above: Performed By: #### O UTREACH LIPID, OUTREACH CMP, CBCNOOUTREACH #### [facility] [address] [phone] [place] Bilirubin [Mass/Vol] 0.5 mg/dL Normal 0.3-1.2 [facility] Comment on above: Performed By: #### O UTREACH LIPID, OUTREACH CMP, CBCNOOUTREACH #### [facility] [address] [phone] [place] Calcium [Mass/Vol] 9.6 mg/dL Normal 8.2-10.2 [facility] Comment on above: Performed By: #### O UTREACH LIPID, OUTREACH CMP, CBCNOOUTREACH #### [facility] [address] [phone] [place] Chloride [Moles/Vol] 105 mmol/L Normal 95-114 [facility] Comment on above: Performed By: #### O UTREACH LIPID, OUTREACH CMP, CBCNOOUTREACH #### [facility] [address] [place] [address] [place] CO2 [Moles/Vol] 26.7 mmol/L Normal 22.0-30.0 [facility] Comment on above: Performed By: #### O UTREACH LIPID, OUTREACH CMP, CBCNOOUTREACH #### [facility] [address] [phone] [place] Creatinine [Mass/Vol] 0.63 mg/dL Normal 0.44-1.03 [facility] Comment on above: Performed By: #### O UTREACH LIPID, OUTREACH CMP, CBCNOOUTREACH #### [facility] [address] [place] [address] [place] Estimated GFR ( Marianne > 60 Normal [facility] Comment on above: Result Comment: GFR estimated reference range: According to KDOQI guidelines, <60 ml/min/1.73m2 is sufficient to diagnose a patient with chronic kidney disease. Performed By: #### O UTREACH LIPID, OUTREACH CMP, CBCNOOUTREACH #### [facility] [address] [place] [address] [place] Estimated GFR (Non- Am > 60 Normal [facility] Comment on above: Performed By: #### O UTREACH LIPID, OUTREACH CMP, CBCNOOUTREACH #### [facility] [address] [place] [address] [place] Glucose [Mass/Vol] 118 mg/dL High 70-100 [facility] Comment on above: Result Comment: Katy om Glucose Reference Range is dependent on time and content of last meal. Glucose of more than 200 mg/dL in a nonstressed, ambulatory subject supports the diagnosis of Diabetes Mellitus. ADA recommended reference range Performed By: #### O UTREACH LIPID, OUTREACH CMP, CBCNOOUTREACH #### [facility] [address] [phone] [place] Potassium [Moles/Vol] 4.1 mmol/L Normal 3.5-5.1 [facility] Comment on above: Performed By: #### O UTREACH LIPID, OUTREACH CMP, CBCNOOUTREACH #### [facility] [address] [phone] [place] Protein [Mass/Vol] 6.5 g/dL Normal 6.1-7.9 [facility] Comment on above: Performed By: #### O UTREACH LIPID, OUTREACH CMP, CBCNOOUTREACH #### [facility] [address] Sodium [Moles/Vol] 141 mmol/L Normal 136-146 [facility] Comment on above: Performed By: #### O UTREACH LIPID, OUTREACH CMP, CBCNOOUTREACH #### [facility] [address] Urea nitrogen [Mass/Vol] 15 mg/dL Normal 9-23 [facility] Comment on above: Performed By: #### O UTREACH LIPID, OUTREACH CMP, CBCNOOUTREACH #### [facility] [address] [place] [address] Lipid Profile Outreachon Cholesterol [Mass/Vol] 237 mg/dL High 140-200 [facility] Comment on above: Result Comment: Chol less than 200 mg/dl low risk Chol 201-239 mg/dl borderline risk Chol 240 mg/dl and greater high risk Performed By: #### O UTREACH LIPID, OUTREACH CMP, CBCNOOUTREACH #### [facility] [address] [place] [address] Cholesterol in HDL [Mass/Vol] 37 mg/dL Normal 35-85 [facility] Comment on above: Result Comment: HDL CHOL ATP-III CLASSIFICATION Cardiovascular Risk HDL > or equal to 60 mg/dL LOW HDL < 40 mg/dL HIGH Performed By: #### O UTREACH LIPID, OUTREACH CMP, CBCNOOUTREACH #### [facility] [address] [place] [address] Cholesterol.total/Ch olesterol in HDL [Mass ratio] 6.4 {ratio} Normal <5.0 [facility] Comment on above: Result Comment: PERF ORMED BY: [place] [address] PATHOLOGIST ROOF PAINTER MARSHA ASTORGA M.D. Performed By: #### O UTREACH LIPID, OUTREACH CMP, CBCNOOUTREACH #### [address] [place] [address] [place] LDL Cholesterol,Calculat ed 127 mg/dL High 0-100 [facility] Comment on above: Result Comment: LDL ATP III CLASSIFICATION LDL less than 100 mg/dL Optimal LDL 100-129 mg/dL Near or above optimal LDL 130-159 mg/dL Borderline high LDL 160-189 mg/dL High LDL greater than 189 mg/dL Very high Performed By: #### O UTREACH LIPID, OUTREACH CMP, CBCNOOUTREACH #### [facility] [address] Triglyceride w/Reflex 364 mg/dL High 35-149 [facility] Comment on above: Result Comment: TRIG ATP III CLASSIFICATION TRIG less than 150 mg/dL Normal TRIG 150-199 mg/dL Borderline high TRIG 200-500 mg/dL High TRIG greater than 500 mg/dL Very high Standard traceable to the Center for Disease Conrtrol and Prevention (CDC) test method. Performed By: #### O UTREACH LIPID, OUTREACH CMP, CBCNOOUTREACH #### [facility] [address] VLDL CHOLESTEROL 72 mg/dL Normal [facility] Comment on above: Performed By: #### O UTREACH LIPID, OUTREACH CMP, CBCNOOUTREACH #### [facility] [address] Vital Signs Date Time Vital Sign Value Performing Clinician Facility 02-16-2023 10:00-0500 Body height 167.64 cm Negrito Vendavo Other [facility] Other 02-16-2023 10:00-0500 Body mass index (BMI) [Ratio] 25.08 kg/m2 Negrito Vendavo Other [facility] Other 02-16-2023 10:00-0500 Body weight 70.49 kg Negrito Vendavo Other [facility] Other 02-16-2023 10:00-0500 Diastolic blood pressure 85 mm[Hg] Negrito Vendavo Other [facility] Other 02-16-2023 10:00-0500 Respiratory rate 18 /min Negrito Ball Other [facility] Other 02-16-2023 10:00-0500 Systolic blood pressure 135 mm[Hg] Negrito Ball Other [facility] Other 11-17-2022 11:30-0400 Body height 167.64 cm Negrito Ball Other [facility] Other 11-17-2022 11:30-0400 Body mass index (BMI) [Ratio] 24.6 kg/m2 Negrito Ball Other [facility] Other 11-17-2022 11:30-0400 Body weight 69.13 kg Negrito Ball Other [facility] Other 11-17-2022 11:30-0400 Diastolic blood pressure 84 mm[Hg] Negrito Ball Other [facility] Other 11-17-2022 11:30-0400 Respiratory rate 12 /min Negrito Ball Other [facility] Other 11-17-2022 11:30-0400 Systolic blood pressure 147 mm[Hg] Negrito Ball Other [facility] Other 08-18-2022 10:15-0400 Body height 167.64 cm Negrito Ball Other [facility] Other 08-18-2022 10:15-0400 Body mass index (BMI) [Ratio] 24.56 kg/m2 Negrito Ball Other [facility] Other 08-18-2022 10:15-0400 Body weight 69.04 kg Negrito Ball Other [facility] Other 08-18-2022 10:15-0400 Diastolic blood pressure 90 mm[Hg] Negrito Ball Other [facility] Other 08-18-2022 10:15-0400 Respiratory rate 12 /min Negrito Ball Other [facility] Other 08-18-2022 10:15-0400 Systolic blood pressure 155 mm[Hg] Negrito Ball Other [facility] Other 05-29-2022 15:30-0400 Body height 167.64 cm Negrito Ball Other [facility] Other 05-29-2022 15:30-0400 Body mass index (BMI) [Ratio] 24.24 kg/m2 Negrito Ball Other [facility] Other 05-29-2022 15:30-0400 Body weight 68.13 kg Negrito Ball Other [facility] Other 05-29-2022 15:30-0400 Diastolic blood pressure 68 mm[Hg] Negrito Ball Other [facility] Other 05-29-2022 15:30-0400 Respiratory rate 12 /min Negrito Ball Other [facility] Other 05-29-2022 15:30-0400 Systolic blood pressure 153 mm[Hg] Negrito Ball Other [facility] Other Encounters Encounter Date Encounter Type Care Provider Facility Start: 02-18-2024 End: 02-18-2024 ambulatory Warren Ayoub MD [facility]: [facility] Start: 01-14-2024 End: 01-14-2024 ambulatory Warren Ayoub MD [facility]: [facility] Start: 01-07-2024 End: 01-07-2024 ambulatory Warern Ayoub MD Facility: [facility] Start: 12-24-2023 End: 12-24-2023 ambulatory Warren Ayoub MD Facility: [facility] Start: 12-10-2023 End: 12-10-2023 ambulatory Warren Ayoub MD Facility: [facility] Start: 12-03-2023 End: 12-03-2023 ambulatory Warren Ayoub MD Facility: [facility] Start: 03-28-2023 End: 03-28-2023 ambulatory Negrito Shannon Other [facility] Other Start: 03-28-2023 Telephone encounter Negrito Elie [facility] Start: 03-26-2023 End: 03-26-2023 ambulatory Negrito Shannon Other [facility] Other Start: 03-26-2023 Telephone encounter Negrito Ball [facility] Start: 02-16-2023 End: 02-16-2023 ambulatory Negrito Shannon Other [facility] Other Start: 02-16-2023 Office outpatient vi sit 15 minutes Negrito Shannon [facility] Start: 01-29-2023 End: 01-29-2023 ambulatory Negrito Shannon Other [facility] Other Start: 01-29-2023 Telephone encounter Negrito Ball [facility] Start: 12-06-2022 End: 12-06-2022 ambulatory Negrito Elie Other [facility] Other Start: 12-06-2022 Telephone encounter Negrito Ball [facility] Start: 12-05-2022 End: 12-05-2022 ambulatory Negrito Ball Other [facility] Other Start: 12-05-2022 Telephone encounter Negrito Ball [facility] Start: 11-17-2022 End: 11-17-2022 ambulatory Negrito Shannon Other [facility] Other Start: 11-17-2022 Patient encounter procedure Negrito Shannon [facility] Start: 11-01-2022 End: 11-01-2022 ambulatory Negrito Shannon Other [facility] Other Start: 11-01-2022 Telephone encounter Negrito Shannon [facility] Start: 09-07-2022 End: 09-07-2022 ambulatory Negrito Shannon Other [facility] Other Start: 09-07-2022 Telephone encounter Negrito Shannon [facility] Start: 08-18-2022 End: 08-18-2022 ambulatory Negrito Shannon Other [facility] Other Start: 08-18-2022 Office outpatient vi sit 15 minutes Negrito Shannon [facility] Start: 08-18-2022 Telephone encounter Negrito DUMONT [facility] Start: 08-01-2022 End: 08-01-2022 ambulatory Negrito Shannon Other [facility] Other Start: 08-01-2022 Telephone encounter Negrito DUMONT [facility] Start: 05-29-2022 End: 05-29-2022 ambulatory Negrito Shannon Other [facility] Other Start: 05-29-2022 Office outpatient vi sit 15 minutes Negrito Shannon [facility] Start: 11-11-2021 Adult health examination Negrito Shannon Other [facility] Other Start: 03-11-2021 End: 03-12-2021 ambulatory NEGRITO [...] (incl. purified surface antigen) Negrito Shannon Other [facility] Other 12-30-2021 influenza virus vaccine, split virus (incl. purified surface antigen) Negrito Shannon Other [facility] Other 12-31-2020 COVID-19 Vaccine Pfi zer - Documentation Purposes Only Negrito Shannon Other [facility] Other 11-08-2020 influenza virus vaccine, split virus (incl. purified surface antigen) Negrito Shannon Other [facility] Other 05-27-2020 COVID-19 Vaccine Pfi zer - Documentation Purposes Only Negrito Shannon Other [facility] Other 05-06-2020 COVID-19 Vaccine Pfi zer - Documentation Purposes Only Negrito Shannon Other [facility] Other 11-22-2019 influenza virus vaccine, split virus (incl. purified surface antigen) Negrito Shannon Other [facility] Other 10-25-2019 tetanus toxoid, redu paramjit diphtheria toxoid, and acellular pertussis vaccine, adsorbed Negrito Shannon Other [facility] Other 11-10-2014 tetanus and diphther ia toxoids, adsorbed, preservative free, for adult use (5 Lf of tetanus toxoid and 2 Lf of diphtheria toxoid) Negrito Shannon Other [facility] Other 12-17-2012 tetanus and diphther ia toxoids, adsorbed, preservative free, for adult use (5 Lf of tetanus toxoid and 2 Lf of diphtheria toxoid) Negrito Shannon Other [facility] Other 10-07-2003 diphtheria, tetanus toxoids and acellular pertussis vaccine, unspecified formulation Negrito Shannon Other [facility] Other Payers Date Payer Category Payer Medicare 2023 Unknown 1959 Medicare [id number] 1959 Unknown [id number] 1955 Unknown [id number] 2.16.84 [id number] 1955 Unknown [id number] 2.16. [id number] 1955 Unknown [id number] 2.16. [id number] 1955 Unknown [id number] 2.16. [id number] 1955 Unknown [id number] 2.16. [id number] 1955 Unknown [id number] 2.16. [id number] 1955 Unknown [id number] 2.16. [id number] Unknown [id number] 2.16.84 [id number] Social History Date Type Detail Facility Unknown if ever smoked [facility] Other Sex Assigned At Sex Assigned At Bir th [facility] Other Clinical Notes 05-29-2022 to 03-28-2023 Note Date & Type Note Facility 03-28-2023 Evaluation note Encounter Date Diagnosis Assessment Notes Feb, Hypercholesterolemia (ICD-10 - E78.00) [facility] Other [id number] Evaluation note* Encounter Date Diagnosis Assessment Notes [...] report is being monitored every 90 days. [facility] Other 12-04-2023 Evaluation note* Encounter Date Diagnosis Assessment Notes Treatment Notes Treatment Clinical Notes Jan, Fibromyalgia (ICD-10 - M79.7) [facility] Other 10-11-2023 Evaluation note* Encounter Date Diagnosis Assessment Notes Treatment Notes Treatment Clinical Notes Nov, Age-related osteoporosis without current pathological fracture (ICD-10 - M81.0) [facility] Other 09-22-2023 Evaluation note* Encounter Date Diagnosis [...] Screening for colon cancer (ICD-10 - Z12.11) [facility] Other 09-06-2023 Evaluation note* Encounter Date Diagnosis Assessment Notes Treatment Notes Treatment Clinical Notes Oct, Lumbar spondylosis (ICD-10 - M47.816) [facility] Other 07-13-2023 Evaluation note* Encounter Date Diagnosis Assessment Notes Treatment Notes Treatment Clinical Notes Aug, Lumbar spondylosis (ICD-10 - M47.816) [facility] Other 06-23-2023 Evaluation note* Encounter Date Diagnosis [...] phone, computer and exercise prior to bedtime [facility] Other 06-23-2023 Evaluation note* Encounter Date Diagnosis Assessment Notes Treatment Notes Treatment Clinical Notes Jul, Lumbar spondylosis (ICD-10 - M47.816) [facility] Other 06-06-2023 Evaluation note* Encounter Date Diagnosis Assessment Notes Treatment Notes Treatment Clinical Notes Jul, Lumbar spondylosis (ICD-10 - M47.816) [facility] Other 04-03-2023 Evaluation note* Encounter Date Diagnosis [...] avoid bedtime food, TV, computer and exercise [facility] Other Evaluation noteNo InformationNort ONtheAIR Other History general Narrative - Reported* Type [...] right shoul gaby Hospitalization History see above [facility] Other Summary Purpose Family History No Family History Records FoundNo Family History Records FoundNo Family History Records Found Advance Directives No Advanced Directives Records FoundNo Advanced Directives Records FoundNo Advanced Directives Records Found Additional Source Comments INFORMATION SOURCE (unrecogn ized section and content) DATE CREATED AUTHOR 03/16/2021 [facility] DATE CREATED AUTHOR AUTHOR'S ORGANIZ ATION 03/21/2021 [facility] DATE CREATED AUTHOR AUTHOR'S ORGANIZ ATION 02/22/2024 [facility] REASON FOR VISIT (unrecogniz ed section [...] BE BASED ON THE PRIMARY CLINICAL RECORDS. [employer] provides no warranty or guarantee of the accuracy or completeness of information in this document.
[2024-04-28 08:24] VITALS: BP 149/84; PULSE 89; TEMP 36.7; O2SAT 98
[2024-04-28 09:11] VITALS: BP 148/72; PULSE 83; O2SAT 98
[2024-04-28 09:17] VITALS: BP 136/72; PULSE 79; O2SAT 98
[2024-04-28] MEDS: BUPIVACAINE HCL 0.25% PF 25 MG/10 ML VIAL 8 ML INJ (09:17)
[2024-04-28] MEDS: LIDOCAINE HCL 2% 400 MG/20 ML MDV 3 ML INJ (09:17)
--- NOTE | 2024-04-28 09:17 | W.PM.PROCNOT ---
Date of procedure: 04/28/24 Pre-op diagnosis: Pain due to cervical spondylosis without myelopathy Post-op diagnosis: same as pre-op Procedure: Procedure: Bilateral C5-6, 6-7 medial branch block Medications: Bupivacaine 0.25% 6cc The patient was seen and examined in the preoperative holding area.? The informed consent was obtained and placed on the chart.? The patient was brought to the medical procedure unit and placed in the prone position.? A timeout was completed verifying correct patient, procedure site, positioning, plan, and special equipment.? Using aseptic technique, the needle was placed at left C5.? Under direct fluoroscopic visualization, a Quincke tip needle was advanced to the midpoint of the waist of the articular pillar at the respective medial branch segment. The above-mentioned injectate was placed in a 1 mL aliquot proceeded by negative aspiration.? The needle was removed.? The procedure was completed at all left C6, 7. The same procedure, at the same levels, was then completed on the right side. Insertion site was covered.? Patient was taken to the postprocedural recovery area and monitored for an appropriate length of time before found suitable for discharge in the accompaniment of a responsible adult. Anesthesia: Local Surgeon: Warren Ayoub Pathology: none sent Condition: stable Disposition: no change
== END 2024-04-28 09:21 | disposition home or self-care (01) ==
PROVIDERS: Visit Provider Anesthesiology
DX: M47.812 Spondylosis without myelopathy or radiculopathy, cervical region (principal)
CPT/HCPCS: 64490; 64491; J0665

== ENCOUNTER 2024-05-07 10:59 | Outpatient (OUT) | payer MEDICARE, OTHER, SELFPAY ==
--- NOTE | 2024-05-07 11:11 | PM.CN ---
Consult Note: HPI Data of Consult Patient: known to practice within the last 3 years Requesting Physician: Abena Cotton NP Primary Care Provider: Non-Staff Physician, Consult Narrative Reason for consult: pain Narrative: 69yof who presents for assessment. continues to have low back, bilateral hip, neck and bilateral shoulder pain. imaging reviewed, which is significant for moderate facet arthropathy in both the lumbar and cervical spine. she continues in a series of provider directed home exercises, which she has attempted for over 6 weeks without benefit. she uses tramadol and mobic as needed. denies adverse med side effects. recently underwent bilateral L4-5 L5-S1 facet RFA with 70% improvement in pain and functional ability. pt would like to address chronic neck and shoulder pain secondary for cervical spondylosis. recently underwent bilateral C5/6 C6/7 MBB #1 and #2 with 80% improvement in combined pain and functional improvement immediately following and 3 hours after the procedure. Preop pain up to 12/05 post op pain 03/07. cc:: CC: Abena Cotton NP Review of Systems ROS Status of ROS 10 or more systems reviewed and unremarkable except as noted in history and below Musculoskeletal Reports: back pain, neck pain and joint pain PFSH PFSH Medical History (Updated 05/07/24 @ 11:36 by Abena Cotton NP) Osteoarthritis ?M19.90 - Unspecified osteoarthritis, unspecified site (ICD-10) Anxiety ?F41.9 - Anxiety disorder, unspecified (ICD-10) Fibromyalgia ?M79.7 - Fibromyalgia (ICD-10) HTN (hypertension) ?I10 - Essential (primary) hypertension (ICD-10) Surgical History History of lumbar laminectomy ?Z98.890 - Other specified postprocedural states (ICD-10) H/O section ?Z98.891 - History of uterine scar from previous surgery (ICD-10) Hx of tonsillectomy ?Z90.89 - Acquired absence of other organs (ICD-10) Meds Home Medications and Allergies Home Medications ?Medication ?Instructions ?Recorded ?Confirmed ?Type Probiotic DAILY 12/03/23 History amlodipine 5 mg tablet 5 mg PO DAILY 12/03/23 04/28/24 History baclofen 20 mg tablet 20 mg PO DAILY 12/03/23 04/28/24 History duloxetine 60 mg capsule,delayed 60 mg PO DAILY 12/03/23 04/28/24 History release ezetimibe 10 mg tablet (Zetia) 10 mg PO DAILY 12/03/23 04/28/24 History losartan 25 mg tablet 25 mg PO DAILY 12/03/23 04/28/24 History meloxicam 7.5 mg tablet 7.5 mg PO DAILY 12/03/23 04/28/24 History tramadol 50 mg tablet 50 mg PO BID 12/03/23 04/28/24 History trazodone 50 mg tablet 50 mg PO DAILY 12/03/23 04/28/24 History Allergies Allergy/AdvReac Type Severity Reaction Status Date / Time No Known Drug Allergies Allergy Verified 04/28/24 08:27 Exam Constitutional Documenting provider has reviewed patient's vital signs: yes Common normals: no apparent distress, oriented x3, healthy appearing, alert and well nourished General appearance: cooperative HENMT Common normals: normocephalic, hearing grossly normal bilaterally and moist oral mucous membranes Head and scalp: normocephalic Eye Common normals: PERRL Pupil: PERRL Neck & C-Spine Common normals: full ROM General: normal visual inspection Cervical spine: cervical ROM abnormal, pain with cervical ROM, cervical spine tenderness, paracervical muscle tenderness and trapezius muscle tenderness Other: facet loading positive bilateral C5-7 negative spurlings strength 5/5 in BUE Chest Common normals: inspection of chest normal Respiratory Common normals: normal respiratory effort, no retractions and no use of accessory muscles Back & Pelvis Sacroiliac joints: SI joint(s) abnormal Other: left sij positive eugene(patricks), gaenslens, thigh thrust, compression test Neuro Common normals: oriented x3, CN's II-XII intact bilaterally, moves all extremities, no focal motor deficits, no sensory deficits noted and deep tendon reflexes 2+ bilaterally Sensorium/orientation: alert Motor exam: strength 5/5 throughout and no movement abnormalities noted Psych Common normals: mental status grossly normal, thought process normal, cooperative, affect normal, speech normal and activity/motor behavior normal Speech: normal speech Thought process: normal thought process Assessment and Plan Assessment and Plan (1) Cervical spondylosis: Assessment and Plan: The patient has had over 3 months of moderate to severe neck pain with functional impairment and inadequate response to conservative care including NSAIDS (unless there are contraindication such as concurrent blood thinners), multiple oral or topical pain medications, and home exercise program/physical therapy.? Patient has completed >6 weeks of guided home exercise program and/or formal physical therapy program without relief of their symptoms.? I have reviewed the imaging of the cervical spine and no red flags were identified.? The imaging reveals radiographic findings consistent with cervical spondylosis The Oswestry Disability Index was completed, and the patient scored a 24%.? The patient noted the following:?? moderate to severe pain impacting ADLs, sleep, social life, and travel We discussed the risks and benefits of the procedure with the patient, and we are NOT planning on using sedation as outlined in the guidelines from Medicare unless there is a documented reason that sedation would be strongly recommended.???The procedure will be completed with fluoroscopic guidance.? (2) Lumbar spondylosis: (3) Sacroiliitis: Plan left SIJ injection under fluoroscopy for sacroiliitis proceed with right and left C5/6 C6/7 medial branch RFA continue HEP as tolerated continue medications through PCP f/u 2 weeks after SIJ injection and 1 month after RFAs complete
--- OUTSIDE RECORDS SUMMARY | 2024-05-07 11:19 | XMS_ITS | CCD ---
Author Organization [facility] Care Team Providers Care Register Of Deeds Name Role Phone DR NEGRITO SHANNON Admitting [...] (1 source) Lidocaine Drug Allergy 3 [facility] Repository (13 sources) Fenofibrate Drug Allergy Unknown [facility] Other (13 sources) Lovastatin Drug Allergy Unknown [facility] Other (13 sources) lidoderm patches Propensity to adverse reactions itching [facility] Other (1 source) patient allergy list reviewed by nurse or physicia Propensity to adverse reactions 3 Comment:Done [facility] Other Medications Current Medications Medication Drug Class(es) [...] day Active Baclofen Not-Chip ing Calcium 1200 5519-1030 MG-UNIT (3 sources) take 1 tablet by mouth once daily Calcium 1200 8895-7367 MG-UNIT 1 tablet Orally Once a day [...] sources) High risk drug monitoring status; Translations: [care home (current) use of opiate analgesic] Episodic Other aftercare (5 sources) 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 Admission #: [id number] Family : Order #: [id number] CLICK HERE TO VIEW EXAM RADIOLOGY REPORT [...] Treatments None Family Cancers None LOCATION: [facility] BREAST COMPOSITION: Heterogeneously dense,which may [...] M.D. on 03/11/2021 at 15:06 Normal [facility] CBC Without Differentialon 0 11-06-2020 Erythrocyte distribution width (RBC) [Ratio] 13.5 % Normal 11.9-15.3 [facility] Comment on above: Performed By: #### O UTREACH LIPID, OUTREACH CMP, CBCNOOUTREACH #### [address] Hematocrit (Bld) [Volume fraction] 41.1 % Normal 34.0-46.4 [facility] Comment on above: Performed By: #### O UTREACH LIPID, OUTREACH CMP, CBCNOOUTREACH #### [address] Hemoglobin (Bld) [Mass/Vol] 13.6 g/dL Normal 11.8-15.4 [facility] Comment on above: Performed By: #### O UTREACH LIPID, OUTREACH CMP, CBCNOOUTREACH #### [address] MCH (RBC) [Entitic mass] 27.4 pg Normal 24.7-34.3 [facility] Comment on above: Performed By: #### O UTREACH LIPID, OUTREACH CMP, CBCNOOUTREACH #### [address] MCV (RBC) [Entitic vol] 82.5 fL Normal 80-100 [facility] Comment on above: Performed By: #### O UTREACH LIPID, OUTREACH CMP, CBCNOOUTREACH #### [address] Mean Corpuscular HGB Conc 33.2 g/dL Normal 32.0-35.0 [facility] Comment on above: Performed By: #### O UTREACH LIPID, OUTREACH CMP, CBCNOOUTREACH #### [address] Platelet mean volume (Bld) [Entitic vol] 9.6 fL Normal 6.3-10.7 [facility] Comment on above: Result Comment: PERF ORMED BY: [place] [address] PATHOLOGIST [employer] MARSHA ASTORGA M.D. Performed By: #### O UTREACH LIPID, OUTREACH CMP, CBCNOOUTREACH #### [place] [address] [place] Platelets (Bld) [#/Vol] 231 10*3/uL Normal 150-450 [facility] Comment on above: Performed By: #### O UTREACH LIPID, OUTREACH CMP, CBCNOOUTREACH #### [place] [address] [place] RBC (Bld) [#/Vol] 4.98 10*6/uL Normal 3.60-5.00 [facility] Comment on above: Performed By: #### O UTREACH LIPID, OUTREACH CMP, CBCNOOUTREACH #### [place] [address] [place] WBC (Bld) [#/Vol] 4.3 10*3/uL Normal 3.8-11.6 [facility] Comment on above: Performed By: #### O UTREACH LIPID, OUTREACH CMP, CBCNOOUTREACH #### [address] [address] [place] CMP Outreachon 11-06-2020 Albumin [Mass/Vol] 4.4 g/dL Normal 3.2-5.5 [facility] Comment on above: Performed By: #### O UTREACH LIPID, OUTREACH CMP, CBCNOOUTREACH #### [facility] [address] [id number] [facility] ALP [Catalytic activity/Vol] 64 U/L Normal 32-92 [facility] Comment on above: Performed By: #### O UTREACH LIPID, OUTREACH CMP, CBCNOOUTREACH #### [facility] [address] [place] [address] [place] ALT [Catalytic activity/Vol] 32 U/L Normal 10-60 [facility] Comment on above: Performed By: #### O UTREACH LIPID, OUTREACH CMP, CBCNOOUTREACH #### [facility] [address] [place] [address] [place] AST [Catalytic activity/Vol] 25 U/L Normal 10-42 [facility] Comment on above: Performed By: #### O UTREACH LIPID, OUTREACH CMP, CBCNOOUTREACH #### [facility] [address] [phone] [place] Bilirubin [Mass/Vol] 0.5 mg/dL Normal 0.3-1.2 [facility] Comment on above: Performed By: #### O UTREACH LIPID, OUTREACH CMP, CBCNOOUTREACH #### [facility] [address] [phone] [place] Calcium [Mass/Vol] 9.6 mg/dL Normal 8.2-10.2 [facility] Comment on above: Performed By: #### O UTREACH LIPID, OUTREACH CMP, CBCNOOUTREACH #### [facility] [address] [phone] [place] Chloride [Moles/Vol] 105 mmol/L Normal 95-114 [facility] Comment on above: Performed By: #### O UTREACH LIPID, OUTREACH CMP, CBCNOOUTREACH #### [facility] [address] [place] [address] [place] CO2 [Moles/Vol] 26.7 mmol/L Normal 22.0-30.0 [facility] Comment on above: Performed By: #### O UTREACH LIPID, OUTREACH CMP, CBCNOOUTREACH #### [facility] [address] [phone] [place] Creatinine [Mass/Vol] 0.63 mg/dL Normal 0.44-1.03 [facility] Comment on above: Performed By: #### O UTREACH LIPID, OUTREACH CMP, CBCNOOUTREACH #### [facility] [address] [place] [address] [place] Estimated GFR ( Marianne > 60 Normal [facility] Comment on above: Result Comment: GFR estimated reference range: According to KDOQI guidelines, <60 ml/min/1.73m2 is sufficient to diagnose a patient with chronic kidney disease. Performed By: #### O UTREACH LIPID, OUTREACH CMP, CBCNOOUTREACH #### [facility] [address] [place] [address] [place] Estimated GFR (Non- Am > 60 Normal [facility] Comment on above: Performed By: #### O UTREACH LIPID, OUTREACH CMP, CBCNOOUTREACH #### [facility] [address] [place] [address] [place] Glucose [Mass/Vol] 118 mg/dL High 70-100 [facility] Comment on above: Result Comment: [facility] [place] om Glucose Reference Range is dependent on time and content of last meal. Glucose of more than 200 mg/dL in a nonstressed, ambulatory subject supports the diagnosis of Diabetes Mellitus. ADA recommended reference range Performed By: #### O UTREACH LIPID, OUTREACH CMP, CBCNOOUTREACH #### [facility] [address] [phone] [place] Potassium [Moles/Vol] 4.1 mmol/L Normal 3.5-5.1 [facility] Comment on above: Performed By: #### O UTREACH LIPID, OUTREACH CMP, CBCNOOUTREACH #### [facility] [address] [phone] [place] Protein [Mass/Vol] 6.5 g/dL Normal 6.1-7.9 [facility] Comment on above: Performed By: #### O UTREACH LIPID, OUTREACH CMP, CBCNOOUTREACH #### [facility] [address] Sodium [Moles/Vol] 141 mmol/L Normal 136-146 [facility] Comment on above: Performed By: #### O UTREACH LIPID, OUTREACH CMP, CBCNOOUTREACH #### [facility] [address] Urea nitrogen [Mass/Vol] 15 mg/dL Normal 9-23 [facility] Comment on above: Performed By: #### O UTREACH LIPID, OUTREACH CMP, CBCNOOUTREACH #### [facility] [address] [place] [address] Lipid Profile Outreachon Cholesterol [Mass/Vol] 237 mg/dL High 140-200 [facility] Comment on above: Result Comment: Chol less than 200 mg/dl low risk Chol 201-239 mg/dl borderline risk Chol 240 mg/dl and greater high risk Performed By: #### O UTREACH LIPID, OUTREACH CMP, CBCNOOUTREACH #### [facility] [address] [place] [address] Cholesterol in HDL [Mass/Vol] 37 mg/dL Normal 35-85 [facility] Comment on above: Result Comment: HDL CHOL ATP-III CLASSIFICATION Cardiovascular Risk HDL > or equal to 60 mg/dL LOW HDL < 40 mg/dL HIGH Performed By: #### O UTREACH LIPID, OUTREACH CMP, CBCNOOUTREACH #### [facility] [address] [place] [address] Cholesterol.total/Ch olesterol in HDL [Mass ratio] 6.4 {ratio} Normal <5.0 [facility] Comment on above: Result Comment: PERF ORMED BY: [place] [address] PATHOLOGIST [employer] MARSHA ASTORGA M.D. Performed By: #### O UTREACH LIPID, OUTREACH CMP, CBCNOOUTREACH #### [address] [place] [address] [place] LDL Cholesterol,Calculat ed 127 mg/dL High 0-100 [facility] Comment on above: Result Comment: LDL ATP III CLASSIFICATION LDL less than 100 mg/dL Optimal LDL 100-129 mg/dL Near or above optimal LDL 130-159 mg/dL Borderline high LDL 160-189 mg/dL High LDL greater than 189 mg/dL Very high Performed By: #### O UTREACH LIPID, OUTREACH CMP, CBCNOOUTREACH #### [facility] [address] Triglyceride w/Reflex 364 mg/dL High 35-149 [facility] Comment on above: Result Comment: TRIG ATP III CLASSIFICATION TRIG less than 150 mg/dL Normal TRIG 150-199 mg/dL Borderline high TRIG 200-500 mg/dL High TRIG greater than 500 mg/dL Very high Standard traceable to the Center for Disease Conrtrol and Prevention (CDC) test method. Performed By: #### O UTREACH LIPID, OUTREACH CMP, CBCNOOUTREACH #### [facility] [address] VLDL CHOLESTEROL 72 mg/dL Normal [facility] Comment on above: Performed By: #### O UTREACH LIPID, OUTREACH CMP, CBCNOOUTREACH #### [facility] [address] Vital Signs Date Time Vital Sign Value Performing Clinician Facility 02-16-2023 10:00-0500 Body height 167.64 cm [facility] Other [facility] Other 02-16-2023 10:00-0500 Body mass index (BMI) [Ratio] 25.08 kg/m2 [facility] Other [facility] Other 02-16-2023 10:00-0500 Body weight 70.49 kg [facility] Other [facility] Other 02-16-2023 10:00-0500 Diastolic blood pressure 85 mm[Hg] [facility] Other [facility] Other 02-16-2023 10:00-0500 Respiratory rate 18 /min [facility] Other [facility] Other 02-16-2023 10:00-0500 Systolic blood pressure 135 mm[Hg] [facility] Other [facility] Other 11-17-2022 11:30-0400 Body height 167.64 cm [facility] Other [facility] Other 11-17-2022 11:30-0400 Body mass index (BMI) [Ratio] 24.6 kg/m2 [facility] Other [facility] Other 11-17-2022 11:30-0400 Body weight 69.13 kg [facility] Other [facility] Other 11-17-2022 11:30-0400 Diastolic blood pressure 84 mm[Hg] [facility] Other [facility] Other 11-17-2022 11:30-0400 Respiratory rate 12 /min [facility] Other [facility] Other 11-17-2022 11:30-0400 Systolic blood pressure 147 mm[Hg] [facility] Other [facility] Other 08-18-2022 10:15-0400 Body height 167.64 cm [facility] Other [facility] Other 08-18-2022 10:15-0400 Body mass index (BMI) [Ratio] 24.56 kg/m2 [facility] Other [facility] Other 08-18-2022 10:15-0400 Body weight 69.04 kg [facility] Other [facility] Other 08-18-2022 10:15-0400 Diastolic blood pressure 90 mm[Hg] [facility] Other [facility] Other 08-18-2022 10:15-0400 Respiratory rate 12 /min [facility] Other [facility] Other 08-18-2022 10:15-0400 Systolic blood pressure 155 mm[Hg] [facility] Other [facility] Other 05-29-2022 15:30-0400 Body height 167.64 cm [facility] Other [facility] Other 05-29-2022 15:30-0400 Body mass index (BMI) [Ratio] 24.24 kg/m2 [facility] Other [facility] Other 05-29-2022 15:30-0400 Body weight 68.13 kg [facility] Other [facility] Other 05-29-2022 15:30-0400 Diastolic blood pressure 68 mm[Hg] [facility] Other [facility] Other 05-29-2022 15:30-0400 Respiratory rate 12 /min [facility] Other [facility] Other 05-29-2022 15:30-0400 Systolic blood pressure 153 mm[Hg] [facility] Other [facility] Other Encounters Encounter Date Encounter Type Care [...] End: 12-03-2023 ambulatory Warren Ayoub MD Facility: [facility] Start: 03-28-2023 End: 03-28-2023 ambulatory [facility] Other [facility] Other Start: 03-28-2023 Telephone encounter Negrito Elie [facility] Start: 03-26-2023 End: 03-26-2023 ambulatory [facility]grito Shannon Other [facility] Other Start: 03-26-2023 Telephone encounter Negrito [facility] Start: 02-16-2023 End: 02-16-2023 ambulatory Negrito Shannon Other [facility] Other Start: 02-16-2023 Office outpatient vi sit 15 minutes Negrito Shannon [facility] Start: 01-29-2023 End: 01-29-2023 ambulatory Negrito Shannon Other [facility] Other Start: 01-29-2023 Telephone encounter Negrito Ball [facility] Start: 12-06-2022 End: 12-06-2022 ambulatory Negrito Elie Other [facility] Other Start: 12-06-2022 Telephone encounter Negrito Ball [facility] Start: 12-05-2022 End: 12-05-2022 ambulatory Negrito Ball Other [facility] Other Start: 12-05-2022 Telephone encounter Negrito Ball [facility] Start: 11-17-2022 End: 11-17-2022 ambulatory Negrito Shannon Other [facility] Other Start: 11-17-2022 Patient encounter procedure Negrito Shannon [facility] Start: 11-01-2022 End: 11-01-2022 ambulatory Negrito Shannon Other [facility] Other Start: 11-01-2022 Telephone encounter Negrito Shannon [facility] Start: 09-07-2022 End: 09-07-2022 ambulatory Negrito Shannon Other [facility] Other Start: 09-07-2022 Telephone encounter Negrito Shannon [facility] Start: 08-18-2022 End: 08-18-2022 ambulatory Negrito Shannon Other [facility] Other Start: 08-18-2022 Office outpatient vi sit 15 minutes Negrito Shannon [facility] Start: 08-18-2022 Telephone encounter Negrito DUMONT [facility] Start: 08-01-2022 End: 08-01-2022 ambulatory Negrito Shannon Other [facility] Other Start: 08-01-2022 Telephone encounter [facility]grito DUMONT [facility] Start: 05-29-2022 End: 05-29-2022 ambulatory Negrito Shannon Other [facility] Other Start: 05-29-2022 Office outpatient vi sit 15 minutes Negrito Shannon [facility] Start: 11-11-2021 Adult health examination Negrito Shannon Other [facility] Other Start: 03-11-2021 End: 03-12-2021 ambulatory NEGRITO [...] (incl. purified surface antigen) [facility] Other [facility] Other 12-30-2021 influenza virus vaccine, split virus (incl. purified surface antigen) [facility] Shannon Other [facility] Other 12-31-2020 COVID-19 Vaccine Pfi zer - Documentation Purposes Only [facility]gr[facility] Shannon Other [facility] Other 11-08-2020 influenza virus vaccine, split virus (incl. purified surface antigen) [facility] Shannon Other [facility] Other 05-27-2020 COVID-19 Vaccine Pfi zer - Documentation Purposes Only Negrito Shannon Other [facility] Other 05-06-2020 COVID-19 Vaccine Pfi zer - Documentation Purposes Only [facility]grito Shannon Other [facility] Other 11-22-2019 influenza virus vaccine, split virus (incl. purified surface antigen) [facility] Shannon Other [facility] Other 10-25-2019 tetanus toxoid, redu paramjit diphtheria toxoid, and acellular pertussis vaccine, adsorbed [facility] Shannon Other [facility] Other 11-10-2014 tetanus and diphther ia toxoids, adsorbed, preservative free, for adult use (5 Lf of tetanus toxoid and 2 Lf of diphtheria toxoid) [facility] Shannon Other [facility] Other 12-17-2012 tetanus and diphther ia toxoids, adsorbed, preservative free, for adult use (5 Lf of tetanus toxoid and 2 Lf of diphtheria toxoid) [facility] Shannon Other [facility] Other 10-07-2003 diphtheria, tetanus toxoids and acellular pertussis vaccine, unspecified formulation [facility] Shannon Other [facility] Other Payers Date Payer Category Payer Medicare 2023 Unknown 1959 Medicare [id number] 1959 Unknown [id number] 1955 Unknown [id number] 2.16.84 [id number] 1955 Unknown [id number] 2.16. [id number] 1955 Unknown [id number] 2.16. [id number] 1955 Unknown [id number] 2.16. [id number] 1955 Unknown [id number] 2.16. [id number] 1955 Unknown [id number] 2.16. [id number] 1955 Unknown [id number] 2.16. [id number] Unknown [id number] 2.16.84 [id number] Social History Date Type Detail Facility Unknown if ever smoked [facility] Other Sex Assigned At Sex Assigned At Bir th [facility] Other Clinical Notes 05-29-2022 to 03-28-2023 Note Date & Type Note Facility 03-28-2023 Evaluation note Encounter Date Diagnosis Assessment Notes Feb, Hypercholesterolemia (ICD-10 - E78.00) [facility] Other [id number] Evaluation note* Encounter Date Diagnosis Assessment Notes [...] report is being monitored every 90 days. [facility] Other 12-04-2023 Evaluation note* Encounter Date Diagnosis Assessment Notes Treatment Notes Treatment Clinical Notes Jan, Fibromyalgia (ICD-10 - M79.7) [facility] Other 10-11-2023 Evaluation note* Encounter Date Diagnosis Assessment Notes Treatment Notes Treatment Clinical Notes Nov, Age-related osteoporosis without current pathological fracture (ICD-10 - M81.0) [facility] Other 09-22-2023 Evaluation note* Encounter Date Diagnosis [...] Screening for colon cancer (ICD-10 - Z12.11) [facility] Other 09-06-2023 Evaluation note* Encounter Date Diagnosis Assessment Notes Treatment Notes Treatment Clinical Notes Oct, Lumbar spondylosis (ICD-10 - M47.816) [facility] Other 07-13-2023 Evaluation note* Encounter Date Diagnosis Assessment Notes Treatment Notes Treatment Clinical Notes Aug, Lumbar spondylosis (ICD-10 - M47.816) [facility] Other 06-23-2023 Evaluation note* Encounter Date Diagnosis [...] phone, computer and exercise prior to bedtime [facility] Other 06-23-2023 Evaluation note* Encounter Date Diagnosis Assessment Notes Treatment Notes Treatment Clinical Notes Jul, Lumbar spondylosis (ICD-10 - M47.816) [facility] Other 06-06-2023 Evaluation note* Encounter Date Diagnosis Assessment Notes Treatment Notes Treatment Clinical Notes Jul, Lumbar spondylosis (ICD-10 - M47.816) [facility] Other 04-03-2023 Evaluation note* Encounter Date Diagnosis [...] avoid bedtime food, TV, computer and exercise [facility] Other Evaluation noteNo InformationNort Ge[facility] Other History general Narrative - Reported* Type [...] right shoul gaby Hospitalization History see above [facility] Other Summary Purpose Family History No Family History Records FoundNo Family History Records FoundNo Family History Records Found Advance Directives No Advanced Directives Records FoundNo Advanced Directives Records FoundNo Advanced Directives Records Found Additional Source Comments INFORMATION SOURCE (unrecogn ized section and content) DATE CREATED AUTHOR 03/16/2021 [facility] DATE CREATED AUTHOR AUTHOR'S ORGANIZ ATION 03/21/2021 [facility] DATE CREATED AUTHOR AUTHOR'S ORGANIZ ATION 02/22/2024 [facility] REASON FOR VISIT (unrecogniz ed [...] BE BASED ON THE PRIMARY CLINICAL RECORDS. [employer] provides no warranty or guarantee of the accuracy or completeness of information in this document.
== END 2024-05-07 11:00 | disposition home or self-care (01) ==
LOC: PM 10:59
PROVIDERS: Visit Provider Nurse Practitioner
DX: M47.812 Spondylosis without myelopathy or radiculopathy, cervical region (principal); M47.816 Spondylosis without myelopathy or radiculopathy, lumbar region; M46.1 Sacroiliitis, not elsewhere classified
CPT/HCPCS: G0463

== ENCOUNTER 2024-05-26 08:02 | Day surgery (SDC) | payer MEDICARE, OTHER, SELFPAY ==
--- OUTSIDE RECORDS SUMMARY | 2024-05-26 08:11 | XMS_ITS | CCD ---
Author Organization [facility] Care Team Providers Care Sales Contractor Name Role Phone DR NEGRITO SHANNON Admitting [...] (1 source) Lidocaine Drug Allergy 3 [facility] Repository (13 sources) Fenofibrate Drug Allergy Unknown [facility] Other (13 sources) Lovastatin Drug Allergy Unknown [facility] Other (13 sources) lidoderm patches Propensity to adverse reactions itching [facility] Other (1 source) patient allergy list reviewed by nurse or physicia Propensity to adverse reactions 3 Comment:Done [facility] Other Medications Current Medications Medication Drug Class(es) [...] day Active Baclofen Not-Chip ing Calcium 1200 1823-4330 MG-UNIT (3 sources) take 1 tablet by mouth once daily Calcium 1200 2339-2452 MG-UNIT 1 tablet Orally Once a day [...] sources) High risk drug monitoring status; Translations: [jail (current) use of opiate analgesic] Episodic Other aftercare (5 sources) 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 Admission #: [id number] Family : Order #: [id number] CLICK HERE TO VIEW EXAM RADIOLOGY REPORT [...] Treatments None Family Cancers None LOCATION: [facility] BREAST COMPOSITION: Heterogeneously dense,which may obscure [...] M.D. on 03/11/2021 at 15:06 Normal [facility] CBC Without Differentialon 0 11-06-2020 Erythrocyte distribution width (RBC) [Ratio] 13.5 % Normal 11.9-15.3 [facility] Comment on above: Performed By: #### O UTREACH LIPID, OUTREACH CMP, CBCNOOUTREACH #### [address] Hematocrit (Bld) [Volume fraction] 41.1 % Normal 34.0-46.4 [facility] Comment on above: Performed By: #### O UTREACH LIPID, OUTREACH CMP, CBCNOOUTREACH #### [address] Hemoglobin (Bld) [Mass/Vol] 13.6 g/dL Normal 11.8-15.4 [facility] Comment on above: Performed By: #### O UTREACH LIPID, OUTREACH CMP, CBCNOOUTREACH #### [address] MCH (RBC) [Entitic mass] 27.4 pg Normal 24.7-34.3 [facility] Comment on above: Performed By: #### O UTREACH LIPID, OUTREACH CMP, CBCNOOUTREACH #### [address] MCV (RBC) [Entitic vol] 82.5 fL Normal 80-100 [facility] Comment on above: Performed By: #### O UTREACH LIPID, OUTREACH CMP, CBCNOOUTREACH #### [address] Mean Corpuscular HGB Conc 33.2 g/dL Normal 32.0-35.0 [facility] Comment on above: Performed By: #### O UTREACH LIPID, OUTREACH CMP, CBCNOOUTREACH #### [address] Platelet mean volume (Bld) [Entitic vol] 9.6 fL Normal 6.3-10.7 [facility] Comment on above: Result Comment: PERF ORMED BY: [place] [address] PATHOLOGIST PORTABLE FEED MILL OPERATOR MARSHA ASTORGA M.D. Performed By: #### O UTREACH LIPID, OUTREACH CMP, CBCNOOUTREACH #### [place] [address] [place] Platelets (Bld) [#/Vol] 231 10*3/uL Normal 150-450 [facility] Comment on above: Performed By: #### O UTREACH LIPID, OUTREACH CMP, CBCNOOUTREACH #### [place] [address] [place] RBC (Bld) [#/Vol] 4.98 10*6/uL Normal 3.60-5.00 [facility] Comment on above: Performed By: #### O UTREACH LIPID, OUTREACH CMP, CBCNOOUTREACH #### [place] [address] [place] WBC (Bld) [#/Vol] 4.3 10*3/uL Normal 3.8-11.6 [facility] Comment on above: Performed By: #### O UTREACH LIPID, OUTREACH CMP, CBCNOOUTREACH #### [address] [address] [place] CMP Outreachon 11-06-2020 Albumin [Mass/Vol] 4.4 g/dL Normal 3.2-5.5 [facility] Comment on above: Performed By: #### O UTREACH LIPID, OUTREACH CMP, CBCNOOUTREACH #### [facility] [address] [id number] [facility] ALP [Catalytic activity/Vol] 64 U/L Normal 32-92 [facility] Comment on above: Performed By: #### O UTREACH LIPID, OUTREACH CMP, CBCNOOUTREACH #### [facility] [address] [place] [address] [place] ALT [Catalytic activity/Vol] 32 U/L Normal 10-60 [facility] Comment on above: Performed By: #### O UTREACH LIPID, OUTREACH CMP, CBCNOOUTREACH #### [facility] [address] [place] [address] [place] AST [Catalytic activity/Vol] 25 U/L Normal 10-42 [facility] Comment on above: Performed By: #### O UTREACH LIPID, OUTREACH CMP, CBCNOOUTREACH #### [facility] [address] [id number] [place] Bilirubin [Mass/Vol] 0.5 mg/dL Normal 0.3-1.2 [facility] Comment on above: Performed By: #### O UTREACH LIPID, OUTREACH CMP, CBCNOOUTREACH #### [facility] [address] [id number] [place] Calcium [Mass/Vol] 9.6 mg/dL Normal 8.2-10.2 [facility] Comment on above: Performed By: #### O UTREACH LIPID, OUTREACH CMP, CBCNOOUTREACH #### [facility] [address] [phone] [place] Chloride [Moles/Vol] 105 mmol/L Normal 95-114 [facility] Comment on above: Performed By: #### O UTREACH LIPID, OUTREACH CMP, CBCNOOUTREACH #### [facility] [address] [place] [address] [place] CO2 [Moles/Vol] 26.7 mmol/L Normal 22.0-30.0 [facility] Comment on above: Performed By: #### O UTREACH LIPID, OUTREACH CMP, CBCNOOUTREACH #### [facility] [address] [phone] [place] Creatinine [Mass/Vol] 0.63 mg/dL Normal 0.44-1.03 [facility] Comment on above: Performed By: #### O UTREACH LIPID, OUTREACH CMP, CBCNOOUTREACH #### [facility] [address] [place] [address] [place] Estimated GFR ( Marianne > 60 Normal [facility] Comment on above: Result Comment: GFR estimated reference range: According to KDOQI guidelines, <60 ml/min/1.73m2 is sufficient to diagnose a patient with chronic kidney disease. Performed By: #### O UTREACH LIPID, OUTREACH CMP, CBCNOOUTREACH #### [facility] [address] [place] [address] [place] Estimated GFR (Non- Am > 60 Normal [facility] Comment on above: Performed By: #### O UTREACH LIPID, OUTREACH CMP, CBCNOOUTREACH #### [facility] [address] [place] [address] [place] Glucose [Mass/Vol] 118 mg/dL High 70-100 [facility] Comment on above: Result Comment: [place] om Glucose Reference Range is dependent on time and content of last meal. Glucose of more than 200 mg/dL in a nonstressed, ambulatory subject supports the diagnosis of Diabetes Mellitus. ADA recommended reference range Performed By: #### O UTREACH LIPID, OUTREACH CMP, CBCNOOUTREACH #### [facility] [address] [phone] [place] Potassium [Moles/Vol] 4.1 mmol/L Normal 3.5-5.1 [facility] Comment on above: Performed By: #### O UTREACH LIPID, OUTREACH CMP, CBCNOOUTREACH #### [facility] [address] [phone] [place] Protein [Mass/Vol] 6.5 g/dL Normal 6.1-7.9 [facility] Comment on above: Performed By: #### O UTREACH LIPID, OUTREACH CMP, CBCNOOUTREACH #### [facility] [address] Sodium [Moles/Vol] 141 mmol/L Normal 136-146 [facility] Comment on above: Performed By: #### O UTREACH LIPID, OUTREACH CMP, CBCNOOUTREACH #### [facility] [address] Urea nitrogen [Mass/Vol] 15 mg/dL Normal 9-23 [facility] Comment on above: Performed By: #### O UTREACH LIPID, OUTREACH CMP, CBCNOOUTREACH #### [facility] [address] [place] [address] Lipid Profile Outreachon Cholesterol [Mass/Vol] 237 mg/dL High 140-200 [facility] Comment on above: Result Comment: Chol less than 200 mg/dl low risk Chol 201-239 mg/dl borderline risk Chol 240 mg/dl and greater high risk Performed By: #### O UTREACH LIPID, OUTREACH CMP, CBCNOOUTREACH #### [facility] [address] [place] [address] Cholesterol in HDL [Mass/Vol] 37 mg/dL Normal 35-85 [facility] Comment on above: Result Comment: HDL CHOL ATP-III CLASSIFICATION Cardiovascular Risk HDL > or equal to 60 mg/dL LOW HDL < 40 mg/dL HIGH Performed By: #### O UTREACH LIPID, OUTREACH CMP, CBCNOOUTREACH #### [facility] [address] [place] [address] Cholesterol.total/Ch olesterol in HDL [Mass ratio] 6.4 {ratio} Normal <5.0 [facility] Comment on above: Result Comment: PERF ORMED BY: [place] [address] PATHOLOGIST PORTABLE FEED MILL OPERATOR MARSHA ASTORGA M.D. Performed By: #### O UTREACH LIPID, OUTREACH CMP, CBCNOOUTREACH #### [address] [place] [address] [place] LDL Cholesterol,Calculat ed 127 mg/dL High 0-100 [facility] Comment on above: Result Comment: LDL ATP III CLASSIFICATION LDL less than 100 mg/dL Optimal LDL 100-129 mg/dL Near or above optimal LDL 130-159 mg/dL Borderline high LDL 160-189 mg/dL High LDL greater than 189 mg/dL Very high Performed By: #### O UTREACH LIPID, OUTREACH CMP, CBCNOOUTREACH #### [facility] [address] Triglyceride w/Reflex 364 mg/dL High 35-149 [facility] Comment on above: Result Comment: TRIG ATP III CLASSIFICATION TRIG less than 150 mg/dL Normal TRIG 150-199 mg/dL Borderline high TRIG 200-500 mg/dL High TRIG greater than 500 mg/dL Very high Standard traceable to the Center for Disease Conrtrol and Prevention (CDC) test method. Performed By: #### O UTREACH LIPID, OUTREACH CMP, CBCNOOUTREACH #### [facility] [address] VLDL CHOLESTEROL 72 mg/dL Normal [facility] Comment on above: Performed By: #### O UTREACH LIPID, OUTREACH CMP, CBCNOOUTREACH #### [facility] [address] Vital Signs Date Time Vital Sign Value Performing Clinician Facility 02-16-2023 10:00-0500 Body height 167.64 cm [facility] [employer] Other [facility] Other 02-16-2023 10:00-0500 Body mass index (BMI) [Ratio] 25.08 kg/m2 [facility] [employer] Other [facility] Other 02-16-2023 10:00-0500 Body weight 70.49 kg [facility] [employer] Other [facility] Other 02-16-2023 10:00-0500 Diastolic blood pressure 85 mm[Hg] [facility] [employer] Other [facility] Other 02-16-2023 10:00-0500 Respiratory rate 18 /min Negrito Ball Other [facility] Other 02-16-2023 10:00-0500 Systolic blood pressure 135 mm[Hg] Negrito Ball Other [facility] Other 11-17-2022 11:30-0400 Body height 167.64 cm Negrito Ball Other [facility] Other 11-17-2022 11:30-0400 Body mass index (BMI) [Ratio] 24.6 kg/m2 [facility] Ball Other [facility] Other 11-17-2022 11:30-0400 Body weight 69.13 kg Negrito Ball Other [facility] Other 11-17-2022 11:30-0400 Diastolic blood pressure 84 mm[Hg] Negrito Ball Other [facility] Other 11-17-2022 11:30-0400 Respiratory rate 12 /min Negrito Ball Other [facility] Other 11-17-2022 11:30-0400 Systolic blood pressure 147 mm[Hg] Negrito Ball Other [facility] Other 08-18-2022 10:15-0400 Body height 167.64 cm Negrito Ball Other [facility] Other 08-18-2022 10:15-0400 Body mass index (BMI) [Ratio] 24.56 kg/m2 Negrito Ball Other [facility] Other 08-18-2022 10:15-0400 Body weight 69.04 kg Negrito Ball Other [facility] Other 08-18-2022 10:15-0400 Diastolic blood pressure 90 mm[Hg] Negrito Ball Other [facility] Other 08-18-2022 10:15-0400 Respiratory rate 12 /min Negrito Ball Other [facility] Other 08-18-2022 10:15-0400 Systolic blood pressure 155 mm[Hg] Negrito Ball Other [facility] Other 05-29-2022 15:30-0400 Body height 167.64 cm Negrito Ball Other [facility] Other 05-29-2022 15:30-0400 Body mass index (BMI) [Ratio] 24.24 kg/m2 Negrito Ball Other [facility] Other 05-29-2022 15:30-0400 Body weight 68.13 kg Negrito Ball Other [facility] Other 05-29-2022 15:30-0400 Diastolic blood pressure 68 mm[Hg] Negrito Ball Other [facility] Other 05-29-2022 15:30-0400 Respiratory rate 12 /min Negrito Ball Other [facility] Other 05-29-2022 15:30-0400 Systolic blood pressure 153 mm[Hg] [facility] Ball Other [facility] Other Encounters Encounter Date Encounter Type Care [...] End: 12-03-2023 ambulatory Warren Ayoub MD Facility: [facility] Start: 03-28-2023 End: 03-28-2023 ambulatory Negrito Shannon Other [facility] Other Start: 03-28-2023 Telephone encounter Negrito Elie [facility] Start: 03-26-2023 End: 03-26-2023 ambulatory Negrito Shannon Other [facility] Other Start: 03-26-2023 Telephone encounter Negrito Ball [facility] Start: 02-16-2023 End: 02-16-2023 ambulatory Negrito Shannon Other [facility] Other Start: 02-16-2023 Office outpatient vi sit 15 minutes Negrito Shannon [facility] Start: 01-29-2023 End: 01-29-2023 ambulatory Negrito Shannon Other [facility] Other Start: 01-29-2023 Telephone encounter Negrito Ball [facility] Start: 12-06-2022 End: 12-06-2022 ambulatory Negrito Elie Other [facility] Other Start: 12-06-2022 Telephone encounter Negrito Ball [facility] Start: 12-05-2022 End: 12-05-2022 ambulatory Negrito Ball Other [facility] Other Start: 12-05-2022 Telephone encounter Negrito Ball [facility] Start: 11-17-2022 End: 11-17-2022 ambulatory Negrito Shannon Other [facility] Other Start: 11-17-2022 Patient encounter procedure Negrito Shannon [facility] Start: 11-01-2022 End: 11-01-2022 ambulatory Negrito Shannon Other [facility] Other Start: 11-01-2022 Telephone encounter Negrito Shannon [facility] Start: 09-07-2022 End: 09-07-2022 ambulatory Negrito Shannon Other [facility] Other Start: 09-07-2022 Telephone encounter Negrito Shannon [facility] Start: 08-18-2022 End: 08-18-2022 ambulatory Negrito Shannon Other [facility] Other Start: 08-18-2022 Office outpatient vi sit 15 minutes Negrito Shannon [facility] Start: 08-18-2022 Telephone encounter Negrito DUMONT [facility] Start: 08-01-2022 End: 08-01-2022 ambulatory Negrito Shannon Other [facility] Other Start: 08-01-2022 Telephone encounter Negrito DUMONT [facility] Start: 05-29-2022 End: 05-29-2022 ambulatory Negrito Shannon Other [facility] Other Start: 05-29-2022 Office outpatient vi sit 15 minutes Negrito Shannon [facility] Start: 11-11-2021 Adult health examination Negrito Shannon Other [facility] Other Start: 03-11-2021 End: 03-12-2021 ambulatory NEGRITO [...] (incl. purified surface antigen) [facility] Other [facility] Other 12-30-2021 influenza virus vaccine, split virus (incl. purified surface antigen) [facility] Shannon Other [facility] Other 12-31-2020 COVID-19 Vaccine Pfi zer - Documentation Purposes Only [facility]grito Shannon Other [facility] Other 11-08-2020 influenza virus vaccine, split virus (incl. purified surface antigen) Negrito Shannon Other [facility] Other 05-27-2020 COVID-19 Vaccine Pfi zer - Documentation Purposes Only Negrito Shannon Other [facility] Other 05-06-2020 COVID-19 Vaccine Pfi zer - Documentation Purposes Only Negrito Shannon Other [facility] Other 11-22-2019 influenza virus vaccine, split virus (incl. purified surface antigen) [facility]grito Shannon Other [facility] Other 10-25-2019 tetanus toxoid, redu paramjit diphtheria toxoid, and acellular pertussis vaccine, adsorbed [facility] Shannon Other [facility] Other 11-10-2014 tetanus and diphther ia toxoids, adsorbed, preservative free, for adult use (5 Lf of tetanus toxoid and 2 Lf of diphtheria toxoid) [facility] Shannon Other [facility] Other 12-17-2012 tetanus and diphther ia toxoids, adsorbed, preservative free, for adult use (5 Lf of tetanus toxoid and 2 Lf of diphtheria toxoid) [facility] Shannon Other [facility] Other 10-07-2003 diphtheria, tetanus toxoids and acellular pertussis vaccine, unspecified formulation [facility] Shannon Other [facility] Other Payers Date Payer Category Payer Medicare 2023 Unknown 1959 Medicare [id number] 1959 Unknown [id number] 1955 Unknown [id number] 2.16.84 [id number] 1955 Unknown [id number] 2.16. [id number] 1955 Unknown [id number] 2.16. [id number] 1955 Unknown [id number] 2.16. [id number] 1955 Unknown [id number] 2.16. [id number] 1955 Unknown [id number] 2.16. [id number] 1955 Unknown [id number] 2.16. [id number] Unknown [id number] 2.16.84 [id number] Social History Date Type Detail Facility Unknown if ever smoked [facility] Other Sex Assigned At Sex Assigned At Bir th [facility] Other Clinical Notes 05-29-2022 to 03-28-2023 Note Date & Type Note Facility 03-28-2023 Evaluation note Encounter Date Diagnosis Assessment Notes Feb, Hypercholesterolemia (ICD-10 - E78.00) [facility] Other [id number] Evaluation note* Encounter Date Diagnosis Assessment Notes [...] report is being monitored every 90 days. [facility] Other 12-04-2023 Evaluation note* Encounter Date Diagnosis Assessment Notes Treatment Notes Treatment Clinical Notes Jan, Fibromyalgia (ICD-10 - M79.7) [facility] Other 10-11-2023 Evaluation note* Encounter Date Diagnosis Assessment Notes Treatment Notes Treatment Clinical Notes Nov, Age-related osteoporosis without current pathological fracture (ICD-10 - M81.0) [facility] Other 09-22-2023 Evaluation note* Encounter Date Diagnosis [...] Screening for colon cancer (ICD-10 - Z12.11) [facility] Other 09-06-2023 Evaluation note* Encounter Date Diagnosis Assessment Notes Treatment Notes Treatment Clinical Notes Oct, Lumbar spondylosis (ICD-10 - M47.816) [facility] Other 07-13-2023 Evaluation note* Encounter Date Diagnosis Assessment Notes Treatment Notes Treatment Clinical Notes Aug, Lumbar spondylosis (ICD-10 - M47.816) [facility] Other 06-23-2023 Evaluation note* Encounter Date Diagnosis [...] phone, computer and exercise prior to bedtime [facility] Other 06-23-2023 Evaluation note* Encounter Date Diagnosis Assessment Notes Treatment Notes Treatment Clinical Notes Jul, Lumbar spondylosis (ICD-10 - M47.816) [facility] Other 06-06-2023 Evaluation note* Encounter Date Diagnosis Assessment Notes Treatment Notes Treatment Clinical Notes Jul, Lumbar spondylosis (ICD-10 - M47.816) [facility] Other 04-03-2023 Evaluation note* Encounter Date Diagnosis [...] avoid bedtime food, TV, computer and exercise [facility] Other Evaluation noteNo InformationNort [employer] Other History general Narrative - Reported* Type [...] right shoul gaby Hospitalization History see above [facility] Other Summary Purpose Family History No Family History Records FoundNo Family History Records FoundNo Family History Records Found Advance Directives No Advanced Directives Records FoundNo Advanced Directives Records FoundNo Advanced Directives Records Found Additional Source Comments INFORMATION SOURCE (unrecogn ized section and content) DATE CREATED AUTHOR 03/16/2021 [facility] DATE CREATED AUTHOR AUTHOR'S ORGANIZ ATION 03/21/2021 [facility] DATE CREATED AUTHOR AUTHOR'S ORGANIZ ATION 02/22/2024 [facility] REASON FOR VISIT (unrecogniz ed [...] BE BASED ON THE PRIMARY CLINICAL RECORDS. [employer] provides no warranty or guarantee of the accuracy or completeness of information in this document.
[2024-05-26 08:22] VITALS: BP 140/80; PULSE 88; TEMP 36.4; O2SAT 96
[2024-05-26 09:17] VITALS: BP 166/80; PULSE 77; O2SAT 98
[2024-05-26 09:18] VITALS: BP 149/78; PULSE 76; O2SAT 99
[2024-05-26] MEDS: BUPIVACAINE HCL 0.25% PF 25 MG/10 ML VIAL 2 ML INJ (09:18)
[2024-05-26] MEDS: IOHEXOL 240 MG/ML - 10 ML VIAL 24 MG INJ (09:18)
[2024-05-26] MEDS: LIDOCAINE HCL 2% 400 MG/20 ML MDV INJ (09:18)
--- NOTE | 2024-05-26 09:18 | W.PM.PROCNOT ---
Date of procedure: 05/26/24 Pre-op diagnosis: Pain due to left sacroiliitis Post-op diagnosis: same as pre-op Procedure: Procedure: Left sacroiliac joint injection Medications: Bupivacaine 0.25% 3cc, depomedrol 40mg After informed consent was obtained, the patient was brought to the medical procedure unit and placed in the prone position, when a timeout was completed verifying correct patient, procedure, site, positioning, implant, and/or special equipment.? The skin overlying the area was prepped and draped in standard sterile fashion using alcohol.? A 25-gauge needle was inserted towards the left sacroiliac joint under direct fluoroscopic imaging.? Needle tip was advanced until the joint was encountered.? We instilled a total of 2 mL of solution.? Postoperatively needles were removed.? The patient tolerated the procedure well without complication.? The patient reported reduction in pain symptoms postoperatively. Anesthesia: Local Surgeon: Warren Ayoub Pathology: none sent Condition: stable Disposition: no change
[2024-05-26] MEDS: METHYLPREDNISOLONE ACETATE 40 MG/ML VIAL INJ (09:19)
== END 2024-05-26 09:23 | disposition home or self-care (01) ==
LOC: SURGOUT 08:03
PROVIDERS: Visit Provider Anesthesiology
DX: M46.1 Sacroiliitis, not elsewhere classified (principal); M53.3 Sacrococcygeal disorders, not elsewhere classified
CPT/HCPCS: 27096; J0665; J1010; Q9966

== ENCOUNTER 2024-06-02 08:11 | Day surgery (SDC) | payer MEDICARE, OTHER, SELFPAY ==
[2024-06-02 08:18] VITALS: BP 135/81; PULSE 88; TEMP 36.4; O2SAT 98
[2024-06-02 09:07] VITALS: BP 152/74; PULSE 72; O2SAT 98
[2024-06-02 09:17] VITALS: BP 137/76; PULSE 82; O2SAT 97
[2024-06-02] MEDS: BUPIVACAINE HCL 0.25% PF 25 MG/10 ML VIAL 2 ML INJ (09:17)
[2024-06-02] MEDS: LIDOCAINE HCL 2% 400 MG/20 ML MDV 8 ML INJ (09:18)
[2024-06-02] MEDS: DEXAMETHASONE SOD PHOS 10 MG/ML VIAL INJ (09:18)
--- NOTE | 2024-06-02 09:18 | P.ON_ITS ---
Date of procedure: 06/02/24 Pre-op diagnosis: Pain due to cervical spondylosis without myelopathy Post-op diagnosis: same as pre-op Procedure: Procedure: Right C5-6, 6-7 radiofrequency ablation Medications: Bupivacaine 0.25% 2cc, lidocaine 2% 3cc, dexamethasone 10mg The patient was seen and examined in the preoperative holding area.? The site was marked.? Written informed consent was obtained and placed on the chart.? The patient was brought to the medical procedure unit and placed in the prone position.? A timeout was completed verifying correct patient, procedure, positioning, and special requirements.? The skin overlying the target points, the designated medial branch, were prepped and draped in the usual sterile fashion.? The target point was achieved with a 20-gauge 15 cm with a 10 mm curved active tip radiofrequency cannula under direct fluoroscopic visualizatio n.? The needle was inserted at level C5 on the right side. Needle tip position was confirmed with lateral fluoroscopic position.? Motor stimulation was carried out at 2 Hz up to 5 volts with the absence of extremity activity.? This was repeated at level C6, 7 on right side.?? Sensory stimulation was carried out.? Concordant pain was realized at the above- mentioned sites.? Then radiofrequency lesioning was carried out times 90 seconds at 80 degrees times 2 lesions at each level.? The radiofrequency probe was removed prior to cannula removal.? The above-mentioned injectate was placed in 1 mL increments.? The needle was removed.? Insertion sites were covered.? The patient was taken to the postoperative recovery area and monitored for an appropriate length of time before being found suitable for discharge in the company of a responsible adult. Anesthesia: Local Surgeon: Warren Ayoub Pathology: none sent Condition: stable Disposition: no change
== END 2024-06-02 09:24 | disposition home or self-care (01) ==
LOC: SURGOUT 08:11
PROVIDERS: Visit Provider Anesthesiology
DX: M47.812 Spondylosis without myelopathy or radiculopathy, cervical region (principal); M54.2 Cervicalgia
CPT/HCPCS: 64633; 64634; J0665; J1100

== ENCOUNTER 2024-06-16 07:53 | Day surgery (SDC) | payer MEDICARE, OTHER, SELFPAY ==
[2024-06-16 07:57] VITALS: BP 143/88; PULSE 79; TEMP 36.3; O2SAT 97
--- OUTSIDE RECORDS SUMMARY | 2024-06-16 08:15 | XMS_ITS | CCD ---
Author Organization [facility] Care Team Providers Care Bilingual Operator Name Role Phone DR NEGRITO SHANNON Admitting Crow SHANNON, DR VELA Primary Care Unavailable ELIE, DR VELA Consulting Unavailable ELIE, DR VELA Attending Unavailable KETAN, DR ZAIN Lott Consulting Unavailable Negrito Shannon Unavailable Giedraitis MD, Andrius Vytautjavier Attending Unavailable Giedraitis MD, Andrius Vytautas Attending Unavailable Giedraitis MD, Andrius Vytautas Attending Unavailable Giedraitis MD, Andrius Vytautas Attending Unavailable Giedraitis MD, Andrius Vytautas Attending Unavailable Giedraitis MD, Andrius Vytautas Attending Unavailable Giedraitis MD, Andrius Vytautas Attending Unavailable Giedraitis MD, Andrius Vytautas Attending Unavailable Allergies Allergy Classification Reported Allergen(s) Allergy Type Date of Onset Reaction(s) Facility (1 source) Lidocaine Drug Allergy 3 [facility] Repository (13 sources) Fenofibrate Drug Allergy Unknown [facility] Other (13 sources) Lovastatin Drug Allergy Unknown [facility] Other (13 sources) lidoderm patches Propensity to adverse reactions itching [facility] Other (1 source) patient allergy list reviewed by nurse or physicia Propensity to adverse reactions 3 Comment:Done [facility] Other Medications Current Medications Medication Drug Class(es) [...] day Active Baclofen Not-Chip ing Calcium 1200 2169-4720 MG-UNIT (3 sources) take 1 tablet by mouth once daily Calcium 1200 6877-7046 MG-UNIT 1 tablet Orally Once a day [...] 30 days p/u 01/29, start 01/30 w/ 2RJan, Active Start: 11-01-2022 take 1 tablet by [...] sources) High risk drug monitoring status; Translations: [[facility] (current) use of opiate analgesic] Episodic Other aftercare (5 sources) intermediate card tender (current) use of opiate analgesic; Translations: [Chronic [...] : DR NEGRITO SHANNON D.O. Admission #: [id number] Family : Order #: [id number] CLICK HERE TO VIEW EXAM RADIOLOGY REPORT [...] No Treatments None Family Cancers None LOCATION: [facility] BREAST COMPOSITION: Heterogeneously dense,which may obscure [...] M.D. on 03/11/2021 at 15:06 Normal [facility] CBC Without Differentialon 0 11-06-2020 Erythrocyte distribution width (RBC) [Ratio] 13.5 % Normal 11.9-15.3 [facility] Comment on above: Performed By: #### O UTREACH LIPID, OUTREACH CMP, CBCNOOUTREACH #### [facility] [address] Hematocrit (Bld) [Volume fraction] 41.1 % Normal 34.0-46.4 [facility] Comment on above: Performed By: #### O UTREACH LIPID, OUTREACH CMP, CBCNOOUTREACH #### [facility] [address] [place] [phone] [facility] Hemoglobin (Bld) [Mass/Vol] 13.6 g/dL Normal 11.8-15.4 [facility] Comment on above: Performed By: #### O UTREACH LIPID, OUTREACH CMP, CBCNOOUTREACH #### [facility] [address] [place] [phone] [place] MCH (RBC) [Entitic mass] 27.4 pg Normal 24.7-34.3 [facility] Comment on above: Performed By: #### O UTREACH LIPID, OUTREACH CMP, CBCNOOUTREACH #### [address] MCV (RBC) [Entitic vol] 82.5 fL Normal 80-100 [facility] Comment on above: Performed By: #### O UTREACH LIPID, OUTREACH CMP, CBCNOOUTREACH #### [address] Mean Corpuscular HGB Conc 33.2 g/dL Normal 32.0-35.0 [facility] Comment on above: Performed By: #### O UTREACH LIPID, OUTREACH CMP, CBCNOOUTREACH #### [address] Platelet mean volume (Bld) [Entitic vol] 9.6 fL Normal 6.3-10.7 [facility] Comment on above: Result Comment: PERF ORMED BY: [place] [address] PATHOLOGIST [employer] MARSHA ASTORGA M.D. Performed By: #### O UTREACH LIPID, OUTREACH CMP, CBCNOOUTREACH #### [address] Platelets (Bld) [#/Vol] 231 10*3/uL Normal 150-450 [facility] Comment on above: Performed By: #### O UTREACH LIPID, OUTREACH CMP, CBCNOOUTREACH #### [address] RBC (Bld) [#/Vol] 4.98 10*6/uL Normal 3.60-5.00 [facility] Comment on above: Performed By: #### O UTREACH LIPID, OUTREACH CMP, CBCNOOUTREACH #### [address] WBC (Bld) [#/Vol] 4.3 10*3/uL Normal 3.8-11.6 [facility] Comment on above: Performed By: #### O UTREACH LIPID, OUTREACH CMP, CBCNOOUTREACH #### [facility] [address] [place] [address] [place] CMP Outreachon 11-06-2020 Albumin [Mass/Vol] 4.4 g/dL Normal 3.2-5.5 [facility] Comment on above: Performed By: #### O UTREACH LIPID, OUTREACH CMP, CBCNOOUTREACH #### [facility] [address] ALP [Catalytic activity/Vol] 64 U/L Normal 32-92 [facility] Comment on above: Performed By: #### O UTREACH LIPID, OUTREACH CMP, CBCNOOUTREACH #### [facility] [address] [place] [address] ALT [Catalytic activity/Vol] 32 U/L Normal 10-60 [facility] Comment on above: Performed By: #### O UTREACH LIPID, OUTREACH CMP, CBCNOOUTREACH #### [facility] [address] [place] [address] AST [Catalytic activity/Vol] 25 U/L Normal 10-42 [facility] Comment on above: Performed By: #### O UTREACH LIPID, OUTREACH CMP, CBCNOOUTREACH #### [facility] [address] [place], [place] [id number] [place] Bilirubin [Mass/Vol] 0.5 mg/dL Normal 0.3-1.2 [facility] Comment on above: Performed By: #### O UTREACH LIPID, OUTREACH CMP, CBCNOOUTREACH #### [facility] [address] [place] [address] [place] Calcium [Mass/Vol] 9.6 mg/dL Normal 8.2-10.2 [facility] Comment on above: Performed By: #### O UTREACH LIPID, OUTREACH CMP, CBCNOOUTREACH #### [facility] [address] [place] [address] [place] Chloride [Moles/Vol] 105 mmol/L Normal 95-114 [facility] Comment on above: Performed By: #### O UTREACH LIPID, OUTREACH CMP, CBCNOOUTREACH #### [facility] [address] CO2 [Moles/Vol] 26.7 mmol/L Normal 22.0-30.0 [facility] Comment on above: Performed By: #### O UTREACH LIPID, OUTREACH CMP, CBCNOOUTREACH #### [facility] [address] Creatinine [Mass/Vol] 0.63 mg/dL Normal 0.44-1.03 [facility] Comment on above: Performed By: #### O UTREACH LIPID, OUTREACH CMP, CBCNOOUTREACH #### [facility] [address] [place] [address] Estimated GFR ( Marianne > 60 [facility] Comment on above: Result Comment: GFR estimated reference range: According to KDOQI guidelines, <60 ml/min/1.73m2 is sufficient to diagnose a patient with chronic kidney disease. Performed By: #### O UTREACH LIPID, OUTREACH CMP, CBCNOOUTREACH #### [facility] [address] [place] [address] Estimated GFR (Non- Am > 60 Normal [facility] Comment on above: Performed By: #### O UTREACH LIPID, OUTREACH CMP, CBCNOOUTREACH #### [place] [address] [place] Glucose [Mass/Vol] 118 mg/dL High 70-100 [facility] Comment on above: Result Comment: [place] Glucose Reference Range is dependent on time and content of last meal. Glucose of more than 200 mg/dL in a nonstressed, ambulatory subject supports the diagnosis of Diabetes Mellitus. ADA recommended reference range Performed By: #### O UTREACH LIPID, OUTREACH CMP, CBCNOOUTREACH #### [facility] [address] [place] [address] Potassium [Moles/Vol] 4.1 mmol/L Normal 3.5-5.1 [facility] Comment on above: Performed By: #### O UTREACH LIPID, OUTREACH CMP, CBCNOOUTREACH #### [address] [place] [address] [facility] Protein [Mass/Vol] 6.5 g/dL Normal 6.1-7.9 [facility] Comment on above: Performed By: #### O UTREACH LIPID, OUTREACH CMP, CBCNOOUTREACH #### [facility] [address] [place] [address] [place] Sodium [Moles/Vol] 141 mmol/L Normal 136-146 [facility] Comment on above: Performed By: #### O UTREACH LIPID, OUTREACH CMP, CBCNOOUTREACH #### [facility] [address] [place] [phone] [place] Urea nitrogen [Mass/Vol] 15 mg/dL Normal 9-23 [facility] Comment on above: Performed By: #### O UTREACH LIPID, OUTREACH CMP, CBCNOOUTREACH #### [facility] [address] [place] [phone] [place] Lipid Profile Outreachon Cholesterol [Mass/Vol] 237 mg/dL High 140-200 [facility] Comment on above: Result Comment: Chol less than 200 mg/dl low risk Chol 201-239 mg/dl borderline risk Chol 240 mg/dl and greater high risk Performed By: #### O UTREACH LIPID, OUTREACH CMP, CBCNOOUTREACH #### [facility] [address] [place] [phone] [place] Cholesterol in HDL [Mass/Vol] 37 mg/dL Normal 35-85 [facility] Comment on above: Result Comment: HDL CHOL ATP-III CLASSIFICATION Cardiovascular Risk HDL > or equal to 60 mg/dL LOW HDL < 40 mg/dL HIGH Performed By: #### O UTREACH LIPID, OUTREACH CMP, CBCNOOUTREACH #### [facility] [address] [place] [phone] [facility] Cholesterol.total/Ch olesterol in HDL [Mass ratio] 6.4 {ratio} Normal <5.0 [facility] Comment on above: Result Comment: PERF ORMED BY: [place] [address] PATHOLOGIST [employer] MARSHA ASTORGA M.D. Performed By: #### O UTREACH LIPID, OUTREACH CMP, CBCNOOUTREACH #### [facility] [address] [place] [phone] [place] LDL Cholesterol,Calculat ed 127 mg/dL High 0-100 [facility] Comment on above: Result Comment: LDL ATP III CLASSIFICATION LDL less than 100 mg/dL Optimal LDL 100-129 mg/dL Near or above optimal LDL 130-159 mg/dL Borderline high LDL 160-189 mg/dL High LDL greater than 189 mg/dL Very high Performed By: #### O UTREACH LIPID, OUTREACH CMP, CBCNOOUTREACH #### [facility] [address] [place] [phone] [facility] Triglyceride w/Reflex 364 mg/dL High 35-149 [facility] Comment on above: Result Comment: TRIG ATP III CLASSIFICATION TRIG less than 150 mg/dL Normal TRIG 150-199 mg/dL Borderline high TRIG 200-500 mg/dL High TRIG greater than 500 mg/dL Very high Standard traceable to the Center for Disease Conrtrol and Prevention (CDC) test method. Performed By: #### O UTREACH LIPID, OUTREACH CMP, CBCNOOUTREACH #### [facility] [address] [place] [phone] [facility] VLDL CHOLESTEROL 72 mg/dL Normal [facility] Comment on above: Performed By: #### O UTREACH LIPID, OUTREACH CMP, CBCNOOUTREACH #### [facility] [address] [place] [phone] [facility] Vital Signs Date Time Vital Sign Value Performing Clinician Facility 02-16-2023 10:00-0500 Body height 167.64 cm Negrito Shannon Other [facility] Other 02-16-2023 10:00-0500 Body mass index (BMI) [Ratio] 25.08 kg/m2 Negrito Locai Other [facility] Other 02-16-2023 10:00-0500 Body weight 70.49 kg Negrito Locai Other [facility] Other 02-16-2023 10:00-0500 Diastolic blood pressure 85 mm[Hg] Negrito Ball Other [facility] Other 02-16-2023 10:00-0500 Respiratory rate 18 /min Negrito Ball Other [facility] Other 02-16-2023 10:00-0500 Systolic blood pressure 135 mm[Hg] Negrito Ball Other [facility] Other 11-17-2022 11:30-0400 Body height 167.64 cm Negrito Ball Other [facility] Other 11-17-2022 11:30-0400 Body mass index (BMI) [Ratio] 24.6 kg/m2 Negrito Ball Other [facility] Other 11-17-2022 11:30-0400 Body weight 69.13 kg Negrito Ball Other [facility] Other 11-17-2022 11:30-0400 Diastolic blood pressure 84 mm[Hg] Negrito Ball Other [facility] Other 11-17-2022 11:30-0400 Respiratory rate 12 /min Negrito Ball Other [facility] Other 11-17-2022 11:30-0400 Systolic blood pressure 147 mm[Hg] Negrito Ball Other [facility] Other 08-18-2022 10:15-0400 Body height 167.64 cm Negrito Ball Other [facility] Other 08-18-2022 10:15-0400 Body mass index (BMI) [Ratio] 24.56 kg/m2 Negrito Ball Other [facility] Other 08-18-2022 10:15-0400 Body weight 69.04 kg Negrito Ball Other [facility] Other 08-18-2022 10:15-0400 Diastolic blood pressure 90 mm[Hg] Negrito Ball Other [facility] Other 08-18-2022 10:15-0400 Respiratory rate 12 /min Negrito Ball Other [facility] Other 08-18-2022 10:15-0400 Systolic blood pressure 155 mm[Hg] Negrito Ball Other [facility] Other 05-29-2022 15:30-0400 Body height 167.64 cm Negrito Ball Other [facility] Other 05-29-2022 15:30-0400 Body mass index (BMI) [Ratio] 24.24 kg/m2 Negrito Ball Other [facility] Other 05-29-2022 15:30-0400 Body weight 68.13 kg Negrito Ball Other [facility] Other 05-29-2022 15:30-0400 Diastolic blood pressure 68 mm[Hg] Negrito Ball Other [facility] Other 05-29-2022 15:30-0400 Respiratory rate 12 /min Negrito Ball Other [facility] Other 05-29-2022 15:30-0400 Systolic blood pressure 153 mm[Hg] Negrito Ball Other [facility] Other Encounters Encounter Date Encounter Type Care Provider Facility Start: 06-02-2024 End: 06-02-2024 ambulatory Warren Ayoub MD [facility]: [facility] Start: 05-26-2024 End: 05-26-2024 ambulatory Andgloria Ayoub MD [facility]: [facility] Start: 02-18-2024 End: 02-18-2024 ambulatory Andrius Karina Tomasitis Facility:[facility] Start: 01-14-2024 End: 01-14-2024 ambulatory Andgloria Tomasitis Facility:[facility] Start: 01-07-2024 End: 01-07-2024 ambulatory Andrius Karina Tomasitis Facility:[facility] Start: 12-24-2023 End: 12-24-2023 ambulatory Andrius Karina Ayoub MD Facility:[facility] Start: 12-10-2023 End: 12-10-2023 ambulatory Andgloria Tomasitis Facility:[facility] Start: 12-03-2023 End: 12-03-2023 ambulatory Warren Ayoub MD Facility: [facility] Start: 03-28-2023 End: 03-28-2023 ambulatory Negrito Shannon Other [facility] Other Start: 03-28-2023 Telephone encounter Negrito DUMONT [facility] Start: 03-26-2023 End: 03-26-2023 ambulatory Negrito Shannon Other [facility] Other Start: 03-26-2023 Telephone encounter Ngerito DUMONT [facility] Start: 02-16-2023 End: 02-16-2023 ambulatory Negrito Shannon Other [facility] Other Start: 02-16-2023 Office outpatient vi sit 15 minutes Negrito Shannon [facility] Start: 01-29-2023 End: 01-29-2023 ambulatory Negrito Elie Other [facility] Other Start: 01-29-2023 Telephone encounter Negrito DUMONT [facility] Start: 12-06-2022 End: 12-06-2022 ambulatory Negrito Shannon Other [facility] Other Start: 12-06-2022 Telephone encounter Negrito Shannon [facility] Start: 12-05-2022 End: 12-05-2022 ambulatory Negrito Shannon Other [facility] Other Start: 12-05-2022 Telephone encounter Negrito Shannon [facility] Start: 11-17-2022 End: 11-17-2022 ambulatory Negrito Shannon Other [facility] Other Start: 11-17-2022 Patient encounter procedure Negrito Shannon [facility] Start: 11-01-2022 End: 11-01-2022 ambulatory Negrito Shannon Other [facility] Start: 11-01-2022 Telephone encounter Negrito Shannon [facility] Start: 09-07-2022 End: 09-07-2022 ambulatory Negrito Shannno Other [facility] Other Start: 09-07-2022 Telephone encounter Negrito Shannon [facility] Start: 08-18-2022 End: 08-18-2022 ambulatory Negrito Shannon Other [facility] Other Start: 08-18-2022 Office outpatient vi sit 15 minutes Negrito Shannon [facility] Start: 08-18-2022 Telephone encounter Negrito Shannon [facility] Start: 08-01-2022 End: 08-01-2022 ambulatory Negrito Shannon Other [facility] Other Start: 08-01-2022 Telephone encounter Negrito Shannon [facility] Start: 05-29-2022 End: 05-29-2022 ambulatory Negrito Shannon Other [facility] Other Start: 05-29-2022 Office outpatient vi sit 15 minutes Negrito Ball [facility] Start: 11-11-2021 Adult health examination Negrito Shannon Other [facility] Other Start: 03-11-2021 End: 03-12-[address] NEGRITO SHANNON Facility:[facility] Procedures Date Procedure Procedure Detail Performing Clinician Start: 11-20-2017 Screening for malign ant neoplasm of colon Negrito Shannon Other Start: 11-14-2013 General examination of patient Negrito Shannon Other Depression screening Lawrence Shannon Other Screening for malign ant neoplasm of breast Negrito Shannon Other Immunizations Immunization Date Immunization Notes Care Provider Fa cili 01-23-2022 influenza virus vaccine, split virus (incl. purified surface antigen) Negrito Shannon Other [facility] Other 12-30-2021 influenza virus vaccine, split virus (incl. purified surface antigen) Negrito Shannon Other [facility] Other 12-31-2020 COVID-19 Vaccine Pfi zer - Documentation Purposes Only Negrito Shannon Other [facility] Other 11-08-2020 influenza virus vaccine, split virus (incl. purified surface antigen) Negrito Shannon Other [facility] Other 05-27-2020 COVID-19 Vaccine Pfi zer - Documentation Purposes Only Negrito Shannon Other [facility] Other 05-06-2020 COVID-19 Vaccine Pfi zer - Documentation Purposes Only Negrito Shannon Other [facility] Other 11-22-2019 influenza virus vaccine, split virus (incl. purified surface antigen) Negrito Shannon Other [facility] Other 10-25-2019 tetanus toxoid, redu paramjit diphtheria toxoid, and acellular pertussis vaccine, adsorbed Negrito Shannon Other [facility] Other 11-10-2014 tetanus and diphther ia toxoids, adsorbed, preservative free, for adult use (5 Lf of tetanus toxoid and 2 Lf of diphtheria toxoid) Negrito Shannon Other [facility] Other 12-17-2012 tetanus and diphther ia toxoids, adsorbed, preservative free, for adult use (5 Lf of tetanus toxoid and 2 Lf of diphtheria toxoid) Negrito Shannon Other [facility] Other 10-07-2003 diphtheria, tetanus toxoids and acellular pertussis vaccine, unspecified formulation Negrito Elie Other [facility] Other Payers Date Payer Category Payer Medicare 2023 Unknown 1959 Medicare [id number] 1959 Unknown [id number] 1955 Unknown [id number] 2.16.84 [id number] 1955 Unknown [id number] 2.16. [id number] 1955 Unknown [id number] 2.16. [id number] 1955 Unknown [id number] 2.16. [id number] 1955 Unknown [id number] 2.16. [id number] 1955 Unknown [id number] 2.16. [id number] 1955 Unknown [id number] 2.16. [id number] 1955 Unknown [id number] 2.16. [id number] 1955 Unknown [id number] 2.16. [id number] Unknown [id number] 2.16.84 [id number] Social History Date Type Detail Facility Unknown if ever smoked [facility] Other Sex Assigned At Sex Assigned At Bir th [facility] Other Clinical Notes 05-29-2022 to 03-28-2023 Note Date & Type Note Facility 03-28-2023 Evaluation note Encounter Date Diagnosis Assessment Notes Feb, Hypercholesterolemia (ICD-10 - E78.00) [facility] Other 12-22-2023 Evaluation note* Encounter Date Diagnosis [...] report is being monitored every 90 days. [facility] Other 12-04-2023 Evaluation note* Encounter Date Diagnosis Assessment Notes Treatment Notes Treatment Clinical Notes Jan, Fibromyalgia (ICD-10 - M79.7) [facility] Other 10-11-2023 Evaluation note* Encounter Date Diagnosis Assessment Notes Treatment Notes Treatment Clinical Notes Nov, Age-related osteoporosis without current pathological fracture (ICD-10 - M81.0) [facility] Other 09-22-2023 Evaluation note* Encounter Date Diagnosis [...] Screening for colon cancer (ICD-10 - Z12.11) [facility] Other 09-06-2023 Evaluation note* Encounter Date Diagnosis Assessment Notes Treatment Notes Treatment Clinical Notes Oct, Lumbar spondylosis (ICD-10 - M47.816) [facility] Other 07-13-2023 Evaluation note* Encounter Date Diagnosis Assessment Notes Treatment Notes Treatment Clinical Notes Aug, Lumbar spondylosis (ICD-10 - M47.816) [facility] Other 06-23-2023 Evaluation note* Encounter Date Diagnosis [...] phone, computer and exercise prior to bedtime [facility] Other 06-23-2023 Evaluation note* Encounter Date Diagnosis Assessment Notes Treatment Notes Treatment Clinical Notes Jul, Lumbar spondylosis (ICD-10 - M47.816) [facility] Other 06-06-2023 Evaluation note* Encounter Date Diagnosis Assessment Notes Treatment Notes Treatment Clinical Notes Jul, Lumbar spondylosis (ICD-10 - M47.816) [facility] Other 04-03-2023 Evaluation note* Encounter Date Diagnosis [...] avoid bedtime food, TV, computer and exercise [facility] Other Evaluation noteNo InformationNort vChatter Other History general Narrative - Reported* Type [...] right shoul gaby Hospitalization History see above [facility] Other Summary Purpose Family History No Family History Records FoundNo Family History Records FoundNo Family History Records Found Advance Directives No Advanced Directives Records FoundNo Advanced Directives Records FoundNo Advanced Directives Records Found Additional Source Comments INFORMATION SOURCE (unrecogn ized section and content) DATE CREATED AUTHOR 03/16/2021 [facility] DATE CREATED AUTHOR AUTHOR'S ORGANIZ ATION 03/21/2021 [facility] DATE CREATED AUTHOR AUTHOR'S ORGANIZ ATION 06/08/2024 [facility] REASON FOR VISIT (unrecogniz ed section and [...] BE BASED ON THE PRIMARY CLINICAL RECORDS. [facility]. provides no warranty or guarantee of the accuracy or completeness of information in this document.
[2024-06-16] MEDS: BUPIVACAINE HCL 0.25% PF 25 MG/10 ML VIAL 4 ML INJ (08:48)
[2024-06-16] MEDS: DEXAMETHASONE SOD PHOS 10 MG/ML VIAL INJ (08:48)
[2024-06-16] MEDS: LIDOCAINE HCL 2% 400 MG/20 ML MDV 8 ML INJ (08:48)
[2024-06-16 08:50] VITALS: BP 149/73; BP 150/80; PULSE 76; PULSE 82; O2SAT 95; O2SAT 96
--- NOTE | 2024-06-16 08:54 | P.ON_ITS ---
Date of procedure: 06/16/24 Pre-op diagnosis: Pain due to cervical spondylosis without myelopathy Post-op diagnosis: same as pre-op Procedure: Procedure: Left C5-6, 6-7 radiofrequency ablation Medications: Bupivacaine 0.25% 2cc, dexamethasone 10mg, lidocaine 2% 5cc The patient was seen and examined in the preoperative holding area.? The site was marked.? Written informed consent was obtained and placed on the chart.? The patient was brought to the medical procedure unit and placed in the prone position.? A timeout was completed verifying correct patient, procedure, positioning, and special requirements.? The skin overlying the target points, the designated medial branch, were prepped and draped in the usual sterile fashion.? The target point was achieved with a 20-gauge 15 cm with a 10 mm curved active tip radiofrequency cannula under direct fluoroscopic visualization .? The needle was inserted at level C5 on the left side. Needle tip position was confirmed with lateral fluoroscopic position.? Motor stimulation was carried out at 2 Hz up to 5 volts with the absence of extremity activity.? This was repeated at level C6, 7 on left side.?? Sensory stimulation was carried out.? Concordant pain was realized at the above- mentioned sites.? Then radiofrequency lesioning was carried out times 90 seconds at 80 degrees times 2 lesions at each level.? The radiofrequency probe was removed prior to cannula removal.? The above-mentioned injectate was placed in 1 mL increments.? The needle was removed.? Insertion sites were covered.? The patient was taken to the postoperative recovery area and monitored for an appropriate length of time before being found suitable for discharge in the company of a responsible adult. Anesthesia: Local Surgeon: Warren Ayoub Pathology: none sent Condition: stable Disposition: no change
== END 2024-06-16 08:59 | disposition home or self-care (01) ==
LOC: SURGOUT 07:55
PROVIDERS: Visit Provider Anesthesiology
DX: M47.812 Spondylosis without myelopathy or radiculopathy, cervical region (principal); M54.2 Cervicalgia
CPT/HCPCS: 64633; 64634; J0665; J1100

== ENCOUNTER 2024-07-16 10:36 | Outpatient (OUT) | payer MEDICARE, OTHER, SELFPAY ==
--- OUTSIDE RECORDS SUMMARY | 2024-07-16 10:41 | XMS_ITS | CCD ---
Author Organization [facility] Team Providers Care International Relations Teacher Name Role Phone DR NEGRITO SHANNON Admitting Crow SHANNON, DR VELA Primary Care Unavailable DR NEGRITO SHANNON Consulting Unavailable SHIVA, DR VELA Attending Unavailable KETAN, DR ZAIN [...] source) Lidocaine Drug Allergy 3 [facility] Repository (13 sources) Fenofibrate Drug Allergy Unknown [facility] Other (13 sources) Lovastatin Drug Allergy Unknown [facility] Other (13 sources) lidoderm patches Propensity to adverse reactions itching [facility] Other (1 source) patient allergy list reviewed by nurse or physicia Propensity to adverse reactions 3 Comment:Done [facility] Other Medications Current Medications Medication Drug Class(es) [...] day Active Baclofen Not-Chip ing Calcium 1200 5191-0303 MG-UNIT (3 sources) take 1 tablet by mouth once daily Calcium 1200 5522-5116 MG-UNIT 1 tablet Orally Once a day [...] for 30 days p/u 01/29, start 01/30 2RJan, Active Start: 11-01-2022 take 1 tablet by mary th every twelve hours traMADol HCl 50 MG 1 tablet Orally twice a day Start 11/01/ 2ROct, Active Start: 08-01-2022 take 1 tablet by mary th every twelve hours traMADol HCl 50 MG 1 tablet Orally twice a day p/u /, start 08/02 w 2rf Jul, Active Start: 05-02-2022 take 1 tablet by mary th every twelve hours traMADol HCl 50 MG 1 tablet Orally twice a day p/u /, start 05/04 w/ 2 RF Apr, Active [...] High risk drug monitoring status; 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 Admission #: [id number] Family : Order #: [id number] CLICK HERE TO VIEW EXAM RADIOLOGY REPORT [...] No Treatments None Family Cancers None LOCATION: [facility] BREAST COMPOSITION: Heterogeneously dense,which may obscure [...] Owusu M.D. on 03/11/2021 at 15:[address] [facility] CBC Without Differentialon 0 11-06-2020 Erythrocyte distribution width (RBC) [Ratio] 13.5 % Normal 11.9-15.3 [facility] Comment on above: Performed By: #### O UTREACH LIPID, OUTREACH CMP, CBCNOOUTREACH #### [facility] [address] Hematocrit (Bld) [Volume fraction] 41.1 % Normal 34.0-46.4 [facility] Comment on above: Performed By: #### O UTREACH LIPID, OUTREACH CMP, CBCNOOUTREACH #### [facility] [address] [place] [id number] [place] Hemoglobin (Bld) [Mass/Vol] 13.6 g/dL Normal 11.8-15.4 [facility] Comment on above: Performed By: #### O UTREACH LIPID, OUTREACH CMP, CBCNOOUTREACH #### [facility] [address] [place] [id number] [place] MCH (RBC) [Entitic mass] 27.4 pg Normal 24.7-34.3 [facility] Comment on above: Performed By: #### O UTREACH LIPID, OUTREACH CMP, CBCNOOUTREACH #### [address] MCV (RBC) [Entitic vol] 82.5 fL Normal 80-100 [facility] Comment on above: Performed By: #### O UTREACH LIPID, OUTREACH CMP, CBCNOOUTREACH #### [facility] [address] Mean Corpuscular HGB Conc 33.2 g/dL Normal 32.0-35.0 [facility] Comment on above: Performed By: #### O UTREACH LIPID, OUTREACH CMP, CBCNOOUTREACH #### [address] Platelet mean volume (Bld) [Entitic vol] 9.6 fL Normal 6.3-10.7 [facility] Comment on above: Result Comment: PERF ORMED BY: [place] [address] PATHOLOGIST CLINICAL EDUCATION MANAGER MARSHA ASTORGA M.D. Performed By: #### O UTREACH LIPID, OUTREACH CMP, CBCNOOUTREACH #### [address] Platelets (Bld) [#/Vol] 231 10*3/uL Normal 150-450 [facility] Comment on above: Performed By: #### O UTREACH LIPID, OUTREACH CMP, CBCNOOUTREACH #### [place] [address] [place] RBC (Bld) [#/Vol] 4.98 10*6/uL Normal 3.60-5.00 [facility] Comment on above: Performed By: #### O UTREACH LIPID, OUTREACH CMP, CBCNOOUTREACH #### [address] WBC (Bld) [#/Vol] 4.3 10*3/uL Normal 3.8-11.6 [facility] Comment on above: Performed By: #### O UTREACH LIPID, OUTREACH CMP, CBCNOOUTREACH #### [facility] [address] [place] [id number] [place] CMP Outreachon 11-06-2020 Albumin [Mass/Vol] 4.4 g/dL Normal 3.2-5.5 [facility] Comment on above: Performed By: #### O UTREACH LIPID, OUTREACH CMP, CBCNOOUTREACH #### [facility] [address] [place] [id number] [facility] ALP [Catalytic activity/Vol] 64 U/L Normal 32-92 [facility] Comment on above: Performed By: #### O UTREACH LIPID, OUTREACH CMP, CBCNOOUTREACH #### [facility] [address] [place], [place] [id number] [facility] ALT [Catalytic activity/Vol] 32 U/L Normal 10-60 [facility] Comment on above: Performed By: #### O UTREACH LIPID, OUTREACH CMP, CBCNOOUTREACH #### [facility] [address] [place] [address] [place] AST [Catalytic activity/Vol] 25 U/L Normal 10-42 [facility] Comment on above: Performed By: #### O UTREACH LIPID, OUTREACH CMP, CBCNOOUTREACH #### [facility] [address] [place], [place] [id number] [place] Bilirubin [Mass/Vol] 0.5 mg/dL Normal 0.3-1.2 [facility] Comment on above: Performed By: #### O UTREACH LIPID, OUTREACH CMP, CBCNOOUTREACH #### [facility] [address] [place] [phone] [place] Calcium [Mass/Vol] 9.6 mg/dL Normal 8.2-10.2 [facility] Comment on above: Performed By: #### O UTREACH LIPID, OUTREACH CMP, CBCNOOUTREACH #### [facility] [address] [place] [phone] [place] Chloride [Moles/Vol] 105 mmol/L Normal 95-114 [facility] Comment on above: Performed By: #### O UTREACH LIPID, OUTREACH CMP, CBCNOOUTREACH #### [facility] [address] [place] [address] [place] CO2 [Moles/Vol] 26.7 mmol/L Normal 22.0-30.[address] [facility] Comment on above: Performed By: #### O UTREACH LIPID, OUTREACH CMP, CBCNOOUTREACH #### [facility] [address] Creatinine [Mass/Vol] 0.63 mg/dL Normal 0.44-1.03 [facility] Comment on above: Performed By: #### O UTREACH LIPID, OUTREACH CMP, CBCNOOUTREACH #### [facility] [address] Estimated GFR ( Marianne > 60 [facility] Comment on above: Result Comment: GFR estimated reference range: According to KDOQI guidelines, <60 ml/min/1.73m2 is sufficient to diagnose a patient with chronic kidney disease. Performed By: #### O UTREACH LIPID, OUTREACH CMP, CBCNOOUTREACH #### [facility] [address] Estimated GFR (Non- Am > 60 [facility] Comment on above: Performed By: #### O UTREACH LIPID, OUTREACH CMP, CBCNOOUTREACH #### [facility] [address] [place] [address] [place] Glucose [Mass/Vol] 118 mg/dL High 70-100 [facility] Comment on above: Result Comment: [place] Glucose Reference Range is dependent on time and content of last meal. Glucose of more than 200 mg/dL in a nonstressed, ambulatory subject supports the diagnosis of Diabetes Mellitus. ADA recommended reference range Performed By: #### O UTREACH LIPID, OUTREACH CMP, CBCNOOUTREACH #### [facility] [address] Potassium [Moles/Vol] 4.1 mmol/L Normal 3.5-5.1 [facility] Comment on above: Performed By: #### O UTREACH LIPID, OUTREACH CMP, CBCNOOUTREACH #### [facility] [address] [place] [id number] [facility] Protein [Mass/Vol] 6.5 g/dL Normal 6.1-7.9 [facility] Comment on above: Performed By: #### O UTREACH LIPID, OUTREACH CMP, CBCNOOUTREACH #### [facility] [address] [place] [address] [place] Sodium [Moles/Vol] 141 mmol/L Normal 136-146 [facility] Comment on above: Performed By: #### O UTREACH LIPID, OUTREACH CMP, CBCNOOUTREACH #### [facility] [address] Urea nitrogen [Mass/Vol] 15 mg/dL Normal 9-23 [facility] Comment on above: Performed By: #### O UTREACH LIPID, OUTREACH CMP, CBCNOOUTREACH #### [facility] [address] [place] [phone] [place] Lipid Profile Outreachon Cholesterol [Mass/Vol] 237 mg/dL High 140-200 [facility] Comment on above: Result Comment: Chol less than 200 mg/dl low risk Chol 201-239 mg/dl borderline risk Chol 240 mg/dl and greater high risk Performed By: #### O UTREACH LIPID, OUTREACH CMP, CBCNOOUTREACH #### [facility] [address] [place], [place] [id number] [place] Cholesterol in HDL [Mass/Vol] 37 mg/dL Normal 35-85 [facility] Comment on above: Result Comment: HDL CHOL ATP-III CLASSIFICATION Cardiovascular Risk HDL > or equal to 60 mg/dL LOW HDL < 40 mg/dL HIGH Performed By: #### O UTREACH LIPID, OUTREACH CMP, CBCNOOUTREACH #### [facility] [address] [place] [phone] [facility] Cholesterol.total/Ch olesterol in HDL [Mass ratio] 6.4 {ratio} Normal <5.0 [facility] Comment on above: Result Comment: PERF ORMED BY: [place] [address] PATHOLOGIST CLINICAL EDUCATION MANAGER MARSHA ASTORGA M.D. Performed By: #### O UTREACH LIPID, OUTREACH CMP, CBCNOOUTREACH #### [facility] [address] [place] [phone] [place] LDL Cholesterol,Calculat ed 127 mg/dL High 0-100 [facility] Comment on above: Result Comment: LDL ATP III CLASSIFICATION LDL less than 100 mg/dL Optimal LDL 100-129 mg/dL Near or above optimal LDL 130-159 mg/dL Borderline high LDL 160-189 mg/dL High LDL greater than 189 mg/dL Very high Performed By: #### O UTREACH LIPID, OUTREACH CMP, CBCNOOUTREACH #### [facility] [address] Triglyceride w/Reflex 364 mg/dL High 35-149 [facility] Comment on above: Result Comment: TRIG ATP III CLASSIFICATION TRIG less than 150 mg/dL Normal TRIG 150-199 mg/dL Borderline high TRIG 200-500 mg/dL High TRIG greater than 500 mg/dL Very high Standard traceable to the Center for Disease Conrtrol and Prevention (CDC) test method. Performed By: #### O UTREACH LIPID, OUTREACH CMP, CBCNOOUTREACH #### [facility] [address] [place] [id number] [facility] VLDL CHOLESTEROL 72 mg/dL Normal [facility] Comment on above: Performed By: #### O UTREACH LIPID, OUTREACH CMP, CBCNOOUTREACH #### [facility] [address] [place] [id number] [facility] Vital Signs Date Time Vital Sign Value Performing Clinician Facility 02-16-2023 10:00-0500 Body height 167.64 cm Negrito 71lbs Other [facility] Other 02-16-2023 10:00-0500 Body mass index (BMI) [Ratio] 25.08 kg/m2 Any.DO Other [facility] Other 02-16-2023 10:00-0500 Body weight 70.49 kg Any.DO Other [facility] Other 02-16-2023 10:00-0500 Diastolic blood pressure 85 mm[Hg] Negrito Ball Other [facility] Other 02-16-2023 10:00-0500 Respiratory rate 18 /min Negrito Ball Other [facility] Other 02-16-2023 10:00-0500 Systolic blood pressure 135 mm[Hg] Negrito Ball Other [facility] Other 11-17-2022 11:30-0400 Body height 167.64 cm Negrito Ball Other [facility] Other 11-17-2022 11:30-0400 Body mass index (BMI) [Ratio] 24.6 kg/m2 Negrito Ball Other [facility] Other 11-17-2022 11:30-0400 Body weight 69.13 kg Negrito Ball Other [facility] Other 11-17-2022 11:30-0400 Diastolic blood pressure 84 mm[Hg] Negrito Ball Other [facility] Other 11-17-2022 11:30-0400 Respiratory rate 12 /min Negrito Ball Other [facility] Other 11-17-2022 11:30-0400 Systolic blood pressure 147 mm[Hg] Negrito Ball Other [facility] Other 08-18-2022 10:15-0400 Body height 167.64 cm Negrito Ball Other [facility] Other 08-18-2022 10:15-0400 Body mass index (BMI) [Ratio] 24.56 kg/m2 Negrito Ball Other [facility] Other 08-18-2022 10:15-0400 Body weight 69.04 kg Negrito Ball Other [facility] Other 08-18-2022 10:15-0400 Diastolic blood pressure 90 mm[Hg] Negrito Ball Other [facility] Other 08-18-2022 10:15-0400 Respiratory rate 12 /min Negrito Ball Other [facility] Other 08-18-2022 10:15-0400 Systolic blood pressure 155 mm[Hg] Negrito Ball Other [facility] Other 05-29-2022 15:30-0400 Body height 167.64 cm Negrito Ball Other [facility] Other 05-29-2022 15:30-0400 Body mass index (BMI) [Ratio] 24.24 kg/m2 Negrito Ball Other [facility] Other 05-29-2022 15:30-0400 Body weight 68.13 kg Negrito Ball Other [facility] Other 05-29-2022 15:30-0400 Diastolic blood pressure 68 mm[Hg] Negrito Ball Other [facility] Other 05-29-2022 15:30-0400 Respiratory rate 12 /min Negrito Ball Other [facility] Other 05-29-2022 15:30-0400 Systolic blood pressure 153 mm[Hg] Negrito Ball Other [facility] Other Encounters Encounter Date Encounter Type Care Provider Facility Start: 06-16-2024 End: 06-16-2024 ambulatory Andgloria Ayoub MD Facility: [facility] Start: 06-02-2024 End: 06-02-2024 [facility] Start: 05-26-2024 End: 05-26-2024 ambulatory [facility] Start: 02-18-2024 End: 02-18-2024 ambulatory Andgloria Tomasitis [facility] Start: 01-14-2024 End: 01-14-2024 ambulatory Andrius Karina Tomasitis Facility:[facility] Start: 01-07-2024 End: 01-07-2024 ambulatory Andrius Karina Tomasitis Facility:[facility] Start: 12-24-2023 End: 12-24-2023 ambulatory Andgl[facility] Start: 12-10-2023 End: 12-10-2023 [facility]ulatory [facility] Start: 12-03-2023 End: 12-03-2023 ambulatory Warren [facility] Start: 03-28-2023 End: 03-28-2023 ambulatory Negrito Shannon Other [facility] Other Start: 03-28-2023 Telephone encounter Negrito DUMONT [facility] Start: 03-26-2023 End: 03-26-2023 ambulatory Negrito Shannon Other [facility] Other Start: 03-26-2023 Telephone encounter Negrito DUMONT [facility] Start: 02-16-2023 End: 02-16-2023 ambulatory Negrito Shannon Other [facility] Other Start: 02-16-2023 Office outpatient vi sit 15 minutes Negrito Shannon [facility] Start: 01-29-2023 End: 01-29-2023 ambulatory Negrito Shannon Other [facility] Other Start: 01-29-2023 Telephone encounter Negrito Ball [facility] Start: 12-06-2022 End: 12-06-2022 ambulatory Negrito Ball Other [facility] Other Start: 12-06-2022 Telephone encounter Negrito Ball [facility] Start: 12-05-2022 End: 12-05-2022 ambulatory Negrtio Ball Other [facility] Other Start: 12-05-2022 Telephone encounter Negrito Ball [facility] Start: 11-17-2022 End: 11-17-2022 ambulatory Negrito Ball Other [facility] Other Start: 11-17-2022 Patient encounter procedure Negrito Ball [facility] Start: 11-01-2022 End: 11-01-2022 ambulatory Negrito Ball Other [facility] Other Start: 11-01-2022 Telephone encounter Negrito Ball [facility] Start: 09-07-2022 End: 09-07-2022 ambulatory Negrito Ball Other [facility] Other Start: 09-07-2022 Telephone encounter Negrito Ball [facility] Start: 08-18-2022 End: 08-18-2022 ambulatory Negrito Ball Other [facility] Other Start: 08-18-2022 Office outpatient vi sit 15 minutes Negrito Ball [facility] Start: 08-18-2022 Telephone encounter Negrito Ball [facility] Start: 08-01-2022 End: 08-01-2022 ambulatory Negrito Ball Other [facility] Other Start: 08-01-2022 Telephone encounter Negrito Ball [facility] Start: 05-29-2022 End: 05-29-2022 ambulatory Negrito Ball Other [facility] Other Start: 05-29-2022 Office outpatient vi sit 15 minutes [facility] Start: 11-11-2021 Adult health examination Negrito Shannon Other [facility] Other Start: 03-11-2021 End: 03-12-[address] NEGRITO SHANNON Facility:[facility] Procedures Date Procedure Procedure Detail Performing Clinician Start: 11-20-2017 Screening for malign ant neoplasm of colon Negrito Shannon Other Start: 11-14-2013 General examination of patient Negrito Shannon Other Depression screening Lawrence Shannon Other Screening for malign ant neoplasm of breast Negrito Shannon Other Immunizations Immunization Date Immunization Notes Care Provider Fa [facility] 01-23-2022 influenza virus vaccine, split virus (incl. purified surface antigen) Negrito Shannon Other [facility] Other 12-30-2021 influenza virus vaccine, split virus (incl. purified surface antigen) Negrito Shannon Other [facility] Other 12-31-2020 COVID-19 Vaccine Pfi zer - Documentation Purposes Only Negrito Shannon Other [facility] Other 11-08-2020 influenza virus vaccine, split virus (incl. purified surface antigen) Negrito Shannon Other [facility] Other 05-27-2020 COVID-19 Vaccine Pfi zer - Documentation Purposes Only Negrito Shannon Other [facility] Other 05-06-2020 COVID-19 Vaccine Pfi zer - Documentation Purposes Only Negrito Shannon Other [facility] Other 11-22-2019 influenza virus vaccine, split virus (incl. purified surface antigen) Negrito Shannon Other [facility] Other 10-25-2019 tetanus toxoid, redu paramjit diphtheria toxoid, and acellular pertussis vaccine, adsorbed Negrito Shannon Other [facility] Other 11-10-2014 tetanus and diphther ia toxoids, adsorbed, preservative free, for adult use (5 Lf of tetanus toxoid and 2 Lf of diphtheria toxoid) Negrito Shannon Other [facility] Other 12-17-2012 tetanus and diphther ia toxoids, adsorbed, preservative free, for adult use (5 Lf of tetanus toxoid and 2 Lf of diphtheria toxoid) Negrito Shannon Other [facility] Other 10-07-2003 diphtheria, tetanus toxoids and acellular pertussis vaccine, unspecified formulation Negrito Shannon Other [facility] Other Payers Date Payer Category Payer Medicare 2023 Unknown 1959 Medicare [id number] 1959 Unknown [id number] 1955 Unknown [id number] 2.16.84 [id number] 1955 Unknown [id number] 2.16. [id number]. 1955 Unknown [id number] 2.16. 840.1.602235.3.579.2. 1955 Unknown [id number] 2.16. 840.1.420096.3.579.2. 1955 Unknown [id number] 2.16. 840.1.549084.3.579.2. 1955 Unknown [id number] 2.16. 840.1.128799.3.579.2. 1955 Unknown [id number] 2.16. 840.1.062222.3.579.2.196 1955 Unknown [id number] 2.16. 840.1.126113.3.579.2.196 1955 Unknown [id number] 2.16. 840.1.587520.3.579.2.196 1955 Unknown [id number] 2.16. 840.1.735324.3.579.2.196 Unknown [id number] 2.16.84 [id number] Social History Date Type Detail Facility Unknown if ever smoked [facility] Other Sex Assigned At Sex Assigned At Bir th [facility] Other Clinical Notes 05-29-2022 to 03-28-2023 Note Date & Type Note Facility 03-28-2023 Evaluation note Encounter Date Diagnosis Assessment Notes Feb, Hypercholesterolemia (ICD-10 - E78.00) [facility] Other [id number] Evaluation note* Encounter Date Diagnosis Assessment Notes [...] report is being monitored every 90 days. [facility] Other 12-04-2023 Evaluation note* Encounter Date Diagnosis Assessment Notes Treatment Notes Treatment Clinical Notes Jan, Fibromyalgia (ICD-10 - M79.7) [facility] Other 10-11-2023 Evaluation note* Encounter Date Diagnosis Assessment Notes Treatment Notes Treatment Clinical Notes Nov, Age-related osteoporosis without current pathological fracture (ICD-10 - M81.0) [facility] Other 09-22-2023 Evaluation note* Encounter Date Diagnosis [...] Screening for colon cancer (ICD-10 - Z12.11) [facility] Other 09-06-2023 Evaluation note* Encounter Date Diagnosis Assessment Notes Treatment Notes Treatment Clinical Notes Oct, Lumbar spondylosis (ICD-10 - M47.816) [facility] Other 07-13-2023 Evaluation note* Encounter Date Diagnosis Assessment Notes Treatment Notes Treatment Clinical Notes Aug, Lumbar spondylosis (ICD-10 - M47.816) [facility] Other 06-23-2023 Evaluation note* Encounter Date Diagnosis [...] phone, computer and exercise prior to bedtime [facility] Other 06-23-2023 Evaluation note* Encounter Date Diagnosis Assessment Notes Treatment Notes Treatment Clinical Notes Jul, Lumbar spondylosis (ICD-10 - M47.816) [facility] Other 06-06-2023 Evaluation note* Encounter Date Diagnosis Assessment Notes Treatment Notes Treatment Clinical Notes Jul, Lumbar spondylosis (ICD-10 - M47.816) [facility] Other 04-03-2023 Evaluation note* Encounter Date Diagnosis [...] avoid bedtime food, TV, computer and exercise [facility] Other Evaluation noteNo [employer] Other History general Narrative - Reported* Type [...] right shoul gaby Hospitalization History see above [facility] Other Summary Purpose Family History No Family History Records FoundNo Family History Records FoundNo Family History Records Found Advance Directives No Advanced Directives Records FoundNo Advanced Directives Records FoundNo Advanced Directives Records Found Additional Source Comments INFORMATION SOURCE (unrecogn ized section and content) DATE CREATED AUTHOR 03/16/2021 [facility] DATE CREATED AUTHOR AUTHOR'S ORGANIZ ATION 03/21/2021 [facility] DATE CREATED AUTHOR AUTHOR'S ORGANIZ ATION 06/24/2024 [facility] REASON FOR VISIT (unrecogniz ed section [...] BE BASED ON THE PRIMARY CLINICAL RECORDS. [facility] [employer] [facility]. provides no warranty or guarantee of the accuracy or completeness of information in this document.
--- NOTE | 2024-07-16 11:17 | PM.CN ---
Consult Note: HPI Data of Consult Patient: known to practice within the last 3 years Requesting Physician: Abena Cotton NP Primary Care Provider: Non-Staff Physician, MD Consult Narrative Reason for consult: pain Narrative: 69yof who presents for assessment. continues to have low back, bilateral hip, neck and bilateral shoulder pain. imaging reviewed, which is significant for moderate facet arthropathy in both the lumbar and cervical spine. she continues in a series of provider directed home exercises, which she has attempted for over 6 weeks without benefit. she uses tramadol and mobic as needed. denies adverse med side effects. recently underwent left SIJ injection with >50% improvement ongoing, as well as right and left C5-6 C6-7 facet RFA with >50% improvement ongoing. ROOSEVELT 10%. noticing increased bilateral elbow pain with recent gardening, has bought voltaren gel but has not started cc:: CC: Abena Cotton NP Review of Systems ROS Status of ROS 10 or more systems reviewed and unremarkable except as noted in history and below Musculoskeletal Reports: back pain, neck pain and joint pain PFSH PFS Medical History (Updated 05/07/24 @ 11:36 by Abena Cotton NP) Osteoarthritis ?M19.90 - Unspecified osteoarthritis, unspecified site (ICD-10) Anxiety ?F41.9 - Anxiety disorder, unspecified (ICD-10) Fibromyalgia ?M79.7 - Fibromyalgia (ICD-10) HTN (hypertension) ?I10 - Essential (primary) hypertension (ICD-10) Surgical History History of lumbar laminectomy ?Z98.890 - Other specified postprocedural states (ICD-10) H/O section ?Z98.891 - History of uterine scar from previous surgery (ICD-10) Hx of tonsillectomy ?Z90.89 - Acquired absence of other organs (ICD-10) Meds Home Medications and Allergies Home Medications ?Medication ?Instructions ?Recorded ?Confirmed ?Type Probiotic DAILY 12/03/23 History amlodipine 5 mg tablet 5 mg PO DAILY 12/03/23 06/16/24 History baclofen 20 mg tablet 20 mg PO DAILY 12/03/23 06/16/24 History duloxetine 60 mg capsule,delayed 60 mg PO DAILY 12/03/23 06/16/24 History release ezetimibe 10 mg tablet (Zetia) 10 mg PO DAILY 12/03/23 06/16/24 History losartan 25 mg tablet 25 mg PO DAILY 12/03/23 06/16/24 History meloxicam 7.5 mg tablet 7.5 mg PO DAILY 12/03/23 06/16/24 History tramadol 50 mg tablet 50 mg PO BID 12/03/23 06/16/24 History trazodone 50 mg tablet 50 mg PO DAILY 12/03/23 06/16/24 History Allergies Allergy/AdvReac Type Severity Reaction Status Date / Time No Known Drug Allergies Allergy Verified 06/16/24 08:03 Exam Constitutional Documenting provider has reviewed patient's vital signs: yes Common normals: no apparent distress, oriented x3, healthy appearing, alert and well nourished General appearance: cooperative HENMT Common normals: normocephalic, hearing grossly normal bilaterally and moist oral mucous membranes Head and scalp: normocephalic Eye Common normals: PERRL Pupil: PERRL Neck & C-Spine Common normals: full ROM General: normal visual inspection Cervical spine: trapezius muscle tenderness; cervical ROM not abnormal, no pain with cervical ROM and no cervical spine tenderness Other: negative facet loading negative spurlings strength 5/5 in BUE Chest Common normals: inspection of chest normal Respiratory Common normals: normal respiratory effort, no retractions and no use of accessory muscles Back & Pelvis Lumbar spine/lower back: no pain with ROM and no lumbar spinal tenderness Sacroiliac joints: SI joints normal Other: left sij negative eugene(patricks), gaenslens, thigh thrust, compression test Neuro Common normals: oriented x3, CN's II-XII intact bilaterally, moves all extremities, no focal motor deficits, no sensory deficits noted and deep tendon reflexes 2+ bilaterally Sensorium/orientation: alert Motor exam: strength 5/5 throughout and no movement abnormalities noted Psych Common normals: mental status grossly normal, thought process normal, cooperative, affect normal, speech normal and activity/motor behavior normal Speech: normal speech Thought process: normal thought process Assessment and Plan Assessment and Plan (1) Cervical spondylosis: Assessment and Plan: ROOSEVELT 10% significant improvement ongoing from cervical RFA (2) Lumbar spondylosis: (3) Sacroiliitis: Plan continue medications through PCP at this time, encouraged voltaren gel TID PRN pain to bilateral elbows continue HEP as tolerated f/u 3 months, sooner if needed
== END 2024-07-16 10:37 | disposition home or self-care (01) ==
LOC: PM 10:36
PROVIDERS: Visit Provider Nurse Practitioner
DX: M47.812 Spondylosis without myelopathy or radiculopathy, cervical region (principal); M47.816 Spondylosis without myelopathy or radiculopathy, lumbar region; M46.1 Sacroiliitis, not elsewhere classified
CPT/HCPCS: G0463

== ENCOUNTER 2024-10-15 10:27 | Outpatient (OUT) | payer MEDICARE, OTHER, SELFPAY ==
--- OUTSIDE RECORDS SUMMARY | 2024-10-15 10:29 | XMS_ITS | Clinical Summary ---
Author Organization [facility] Address [id number] [address] [place] [address] Care Team Providers Care Chief Wheelage Clerk Name Role Phone ElieNegrito Primary Care Provider Allergies Active Allergy Reactions Criticality Noted Date Comments Lidocaine Rash Low 01/19/2016 Medications baclofen (LIORESAL) 10 mg tablet Take 10 mg by mouth 2 (two) times a day. Active traMADol (ULTRAM) 50 mg tablet Take 50 mg by mouth every 6 (six) hours as needed for pain. Active traZODone (DESYREL) 50 mg tablet Take 50 mg by mouth nightly. Active meloxicam (MOBIC) 7.5 mg tablet Take 7.5 mg by mouth daily. Active DULoxetine (CYMBALTA) 60 mg capsule Take 60 mg by mouth daily. Active acetaminophen (TYLENOL ARTHRITIS) 650 mg 8 hr tablet Take 650 mg by mouth every 8 (eight) hours as needed for pain. Active red yeast rice 600 mg capsule Take 1,200 mg by mouth. Active Active Problems Problem Noted Date Diagnosed Date Postmenopausal 03/04/2021 History of back surgery 02/11/2019 Overview (02/11/2019): 2010 Family History Medical History Relation Name Comments Alcohol abuse Brother Depression Brother Depression Father Diabetes Father Heart disease Father Hyperlipidemia Father Hypertension Father Thyroid disease Father Alcohol abuse Maternal Grandfather Depression Maternal Grandmother Depression Mother Diabetes Mother Heart disease Mother Hyperlipidemia Mother Hypertension Mother Osteoarthritis Mother Thyroid disease Mother Alcohol abuse Paternal Grandfather Alcohol abuse Sister Depression Sister Drug abuse Sister Hyperlipidemia Sister Hypertension Sister Osteoarthritis Sister Thyroid disease Sister Ulcers Sister Relation Name Status Comments Brother Father Maternal Grandfather Maternal Grandmother Mother Paternal Grandfather Sister Social History Tobacco Use Types Packs/Day Years Used Date Smoking Tobacco: Never Smokeless Tobacco: Never Alcohol Use Standard Drinks/Week Comments Yes 0 (1 standard drink = 0.6 oz pur e alcohol) rarely Childcare Answer Date Recorded Childcare Unknown 08/07/2018 Employment Answer Date Recorded Employment Unknown 08/07/2018 Purpose - Life Answer Date Recorded Purpose and direction in life Unknown Comments No Sex and Gender Information Value Date Recorded Sex Assigned at Not on file Legal Sex Female 11:30 AM EDT Gender Identity Not on file Sexual Orientation Not on file Last Filed Vital Signs Vital Sign Reading Time Taken Comments Blood Pressure 150/60 03/04/2021 10:46 AM EST Pulse 80 02/11/2019 11:16 AM EST Temperature - - Respiratory Rate 16 02/11/2019 11:16 AM EST Oxygen Saturation - - Inhaled Oxygen Concentration - - Weight 62.1 kg (137 lb) 03/04/2021 10:46 AM EST Height 167.6 cm (5' 6 ) 03/04/2021 10:46 AM EST Body Mass Index 22.11 03/04/2021 10:46 AM EST Plan of Treatment Health Maintenance Due Date Last Done Comments Depression Screening 1967 Tobacco Screening 1967 Adult BMI Screening 05/07/1973 Colonoscopy 05/07/2000 Zoster (Shingles) Vaccine (1 of 2) 05/07/2005 Mammogram 02/21/2020 02/20/2019, 07/0 10/2018, 03/06/2018, Additional history exists Fall Risk Screening 05/07/2020 COVID-19 Vaccine ( - 2023-2 5 season) 2023 12/31/2020, 05/27/2020, 05/06/2020 Influenza Vaccine 10/27/2024 11/08/2020, , 01/16/2019, Additional history exists DTaP,Tdap and Td Vaccines (2 - Td or Tdap) 10/24/2029 10/25/2019 Medical Devices Not on file Procedures Procedure Name Priority Date/Time Associated Diagnosis Comments MAMM SCREENING BILATERAL W CAD Routine 02/20/2019 11:09 AM EST Encounter for screening mammogram for breast cancer from Last 3 Months or Most Recently Relevant to Health Maintenance Results * Mammography screening bilateral with CAD (02/20/2019 11:09 AM EST) Anatomical Region Laterality Modality Breast Bilateral Mammography Toma Beltran MONOTYPE OPERATOR-CNM IMG MAMMOGRAPHY ORDERA BLES Final Result from Last 3 Months or Most Recently Relevant to Health Maintenance Insurance MEDICARE Care Teams Chief Wheelage Clerk Relationship Specialty Start Date End Date Negrito Delgadillo DO [address] [place] [address] PCP - General Internal Medicine 02/11/19
--- OUTSIDE RECORDS SUMMARY | 2024-10-15 10:29 | XMS_ITS | Encounter Summary ---
Author Organization [facility] Address [id number] [address] [place] [address] Care Team Providers Care Lock Tender Chief Operator Name Role Phone Negrito Delgadillo DO Primary Care Provider [phone] Reason for Visit * Reason Comments Med Refill Encounter Details Date Type Department Care Team (Late st Contact Info) Description 05/13/2020 Refill [facility] [address] [facility] [place] [address] Alexia Ronquillo APRN-TIM [address] [place], [place] [id number] Menopausal vasomotor syndrome Social History Tobacco Use Types Packs/Day Years [...] on file Sexual Orientation Not on file documented as of this encounter Miscellaneous Notes * Telephone Encounter - DUNCAN Pugh - 05/13/2020 9:41 AM EDT Patient is taking estrace 0.5 tablets daily documented in this encounter Plan of Treatment Not on file documented as of this encounter Visit Diagnoses Diagnosis Menopausal vasomotor syndrome documented in this encounter Additional Health Concerns Assessment Noted Time A Body Mass Index follow-up plan has been documented for the patient 02/18/2020 2:25 PM EST documented as of this encounter Care Teams Lock Tender Chief Operator Relationship Specialty Start Date End Date Negrito Delgadillo DO [address] [place] [address] PCP - General Internal Medicine 02/11/19 documented as of this encounter
--- OUTSIDE RECORDS SUMMARY | 2024-10-15 10:29 | XMS_ITS | Clinical Summary ---
Author Organization [facility] Address [address] [place] [address] Care Team Providers Care Tack Cleaner Name Role Phone Unavailable Primary Care Provider Unavailabl e Social History Tobacco Use Types Packs/Day Years Used Date Smoking Tobacco: Never Assessed Comments Unknown Sex and Gender Information Value Date Recorded Sex Assigned at Not on file Legal Sex Female 9:59 AM EST Gender Identity Not on file Sexual Orientation Not on file Plan of Treatment Not on file
--- OUTSIDE RECORDS SUMMARY | 2024-10-15 10:36 | XMS_ITS | CCD ---
Author Organization [facility] Team Providers Care Child Protective Investigator Name Role Phone DR NEGRITO SHANNON Admitting [...] (1 source) Lidocaine Drug Allergy 3 [facility] Repository (13 sources) Fenofibrate Drug Allergy Unknown [facility] Other (13 sources) Lovastatin Drug Allergy Unknown [facility] Other (13 sources) lidoderm patches Propensity to adverse reactions itching [facility] Other (1 source) patient allergy list reviewed by nurse or physicia Propensity to adverse reactions 3 Comment:Done [facility] Other Medications Current Medications Medication Drug Class(es) [...] day Active Baclofen Not-Chip ing Calcium 1200 2774-7544 MG-UNIT (3 sources) take 1 tablet by mouth once daily Calcium 1200 9941-3785 MG-UNIT 1 tablet Orally Once a day [...] sources) High risk drug monitoring status; Translations: [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 Admission #: [id number] Family : Order #: [id number] CLICK HERE TO VIEW EXAM RADIOLOGY REPORT [...] No Treatments None Family Cancers None LOCATION: [facility] BREAST COMPOSITION: Heterogeneously dense,which may obscure [...] on 03/11/2021 at 15:[address] [facility] CBC Without Differentialon 0 11-06-2020 Erythrocyte distribution width (RBC) [Ratio] 13.5 % Normal 11.9-15.3 [facility] Comment on above: Performed By: #### O UTREACH LIPID, OUTREACH CMP, CBCNOOUTREACH #### [facility] [address] Hematocrit (Bld) [Volume fraction] 41.1 % Normal 34.0-46.4 [facility] Comment on above: Performed By: #### O UTREACH LIPID, OUTREACH CMP, CBCNOOUTREACH #### [facility] [address] [place] [id number] [place] Hemoglobin (Bld) [Mass/Vol] 13.6 g/dL Normal 11.8-15.4 [facility] Comment on above: Performed By: #### O UTREACH LIPID, OUTREACH CMP, CBCNOOUTREACH #### [facility] [address] [id number] [place] MCH (RBC) [Entitic mass] 27.4 pg Normal 24.7-34.3 [facility] Comment on above: Performed By: #### O UTREACH LIPID, OUTREACH CMP, CBCNOOUTREACH #### [address] MCV (RBC) [Entitic vol] 82.5 fL Normal 80-100 [facility] Comment on above: Performed By: #### O UTREACH LIPID, OUTREACH CMP, CBCNOOUTREACH #### [facility] [address] Mean Corpuscular HGB Conc 33.2 g/dL Normal 32.0-35.0 [facility] Comment on above: Performed By: #### O UTREACH LIPID, OUTREACH CMP, CBCNOOUTREACH #### [address] Platelet mean volume (Bld) [Entitic vol] 9.6 fL Normal 6.3-10.7 [facility] Comment on above: Result Comment: PERF ORMED BY: [place] [address] PATHOLOGIST EXTRACT WRINGER MARSHA ASTORGA M.D. Performed By: #### O UTREACH LIPID, OUTREACH CMP, CBCNOOUTREACH #### [address] Platelets (Bld) [#/Vol] 231 10*3/uL Normal 150-450 [facility] Comment on above: Performed By: #### O UTREACH LIPID, OUTREACH CMP, CBCNOOUTREACH #### [place] [address] [place] RBC (Bld) [#/Vol] 4.98 10*6/uL Normal 3.60-5.00 [facility] Comment on above: Performed By: #### O UTREACH LIPID, OUTREACH CMP, CBCNOOUTREACH #### [address] WBC (Bld) [#/Vol] 4.3 10*3/uL Normal 3.8-11.6 [facility] Comment on above: Performed By: #### O UTREACH LIPID, OUTREACH CMP, CBCNOOUTREACH #### [facility] [address] [id number] [place] CMP Outreachon 11-06-2020 Albumin [Mass/Vol] 4.4 g/dL Normal 3.2-5.5 [facility] Comment on above: Performed By: #### O UTREACH LIPID, OUTREACH CMP, CBCNOOUTREACH #### [facility] [address] [id number] [facility] ALP [Catalytic activity/Vol] 64 U/L Normal 32-92 [facility] Comment on above: Performed By: #### O UTREACH LIPID, OUTREACH CMP, CBCNOOUTREACH #### [facility] [address] [place], [place] [id number] [facility] ALT [Catalytic activity/Vol] 32 U/L Normal 10-60 [facility] Comment on above: Performed By: #### O UTREACH LIPID, OUTREACH CMP, CBCNOOUTREACH #### [facility] [address] [place] [address] [place] AST [Catalytic activity/Vol] 25 U/L Normal 10-42 [facility] Comment on above: Performed By: #### O UTREACH LIPID, OUTREACH CMP, CBCNOOUTREACH #### [facility] [address] [place], [place] [phone] [place] Bilirubin [Mass/Vol] 0.5 mg/dL Normal 0.3-1.2 [facility] Comment on above: Performed By: #### O UTREACH LIPID, OUTREACH CMP, CBCNOOUTREACH #### [facility] [address] [id number] [place] Calcium [Mass/Vol] 9.6 mg/dL Normal 8.2-10.2 [facility] Comment on above: Performed By: #### O UTREACH LIPID, OUTREACH CMP, CBCNOOUTREACH #### [facility] [address] [phone] [place] Chloride [Moles/Vol] 105 mmol/L Normal 95-114 [facility] Comment on above: Performed By: #### O UTREACH LIPID, OUTREACH CMP, CBCNOOUTREACH #### [facility] [address] [place] [address] [place] CO2 [Moles/Vol] 26.7 mmol/L Normal 22.0-30.0 [facility] Comment on above: Performed By: #### O UTREACH LIPID, OUTREACH CMP, CBCNOOUTREACH #### [facility] [address] Creatinine [Mass/Vol] 0.63 mg/dL Normal 0.44-1.03 [facility] Comment on above: Performed By: #### O UTREACH LIPID, OUTREACH CMP, CBCNOOUTREACH #### [facility] [address] Estimated GFR ( Marianne > 60 [facility] Comment on above: Result Comment: GFR estimated reference range: According to KDOQI guidelines, <60 ml/min/1.73m2 is sufficient to diagnose a patient with chronic kidney disease. Performed By: #### O UTREACH LIPID, OUTREACH CMP, CBCNOOUTREACH #### [facility] [address] Estimated GFR (Non- Am > 60 [facility] Comment on above: Performed By: #### O UTREACH LIPID, OUTREACH CMP, CBCNOOUTREACH #### [facility] [address] [place] [address] [place] Glucose [Mass/Vol] 118 mg/dL High 70-100 [facility] Comment on above: Result Comment: [place] Glucose Reference Range is dependent on time and content of last meal. Glucose of more than 200 mg/dL in a nonstressed, ambulatory subject supports the diagnosis of Diabetes Mellitus. ADA recommended reference range Performed By: #### O UTREACH LIPID, OUTREACH CMP, CBCNOOUTREACH #### [facility] [address] Potassium [Moles/Vol] 4.1 mmol/L Normal 3.5-5.1 [facility] Comment on above: Performed By: #### O UTREACH LIPID, OUTREACH CMP, CBCNOOUTREACH #### [facility] [address] [id number] [facility] Protein [Mass/Vol] 6.5 g/dL Normal 6.1-7.9 [facility] Comment on above: Performed By: #### O UTREACH LIPID, OUTREACH CMP, CBCNOOUTREACH #### [facility] [address] [place] [address] [place] Sodium [Moles/Vol] 141 mmol/L Normal 136-146 [facility] Comment on above: Performed By: #### O UTREACH LIPID, OUTREACH CMP, CBCNOOUTREACH #### [facility] [address] Urea nitrogen [Mass/Vol] 15 mg/dL Normal 9-23 [facility] Comment on above: Performed By: #### O UTREACH LIPID, OUTREACH CMP, CBCNOOUTREACH #### [facility] [address] [phone] [place] Lipid Profile Outreachon Cholesterol [Mass/Vol] 237 mg/dL High 140-200 [facility] Comment on above: Result Comment: Chol less than 200 mg/dl low risk Chol 201-239 mg/dl borderline risk Chol 240 mg/dl and greater high risk Performed By: #### O UTREACH LIPID, OUTREACH CMP, CBCNOOUTREACH #### [facility] [address] [place], [place] [phone] [place] Cholesterol in HDL [Mass/Vol] 37 mg/dL Normal 35-85 [facility] Comment on above: Result Comment: HDL CHOL ATP-III CLASSIFICATION Cardiovascular Risk HDL > or equal to 60 mg/dL LOW HDL < 40 mg/dL HIGH Performed By: #### O UTREACH LIPID, OUTREACH CMP, CBCNOOUTREACH #### [facility] [address] [phone] [facility] Cholesterol.total/Ch olesterol in HDL [Mass ratio] 6.4 {ratio} Normal <5.0 [facility] Comment on above: Result Comment: PERF ORMED BY: [place] [address] PATHOLOGIST EXTRACT WRINGER MARSHA ASTORGA M.D. Performed By: #### O UTREACH LIPID, OUTREACH CMP, CBCNOOUTREACH #### [facility] [address] [phone] [place] LDL Cholesterol,Calculat ed 127 mg/dL High 0-100 [facility] Comment on above: Result Comment: LDL ATP III CLASSIFICATION LDL less than 100 mg/dL Optimal LDL 100-129 mg/dL Near or above optimal LDL 130-159 mg/dL Borderline high LDL 160-189 mg/dL High LDL greater than 189 mg/dL Very high Performed By: #### O UTREACH LIPID, OUTREACH CMP, CBCNOOUTREACH #### [facility] [address] Triglyceride w/Reflex 364 mg/dL High 35-149 [facility] Comment on above: Result Comment: TRIG ATP III CLASSIFICATION TRIG less than 150 mg/dL Normal TRIG 150-199 mg/dL Borderline high TRIG 200-500 mg/dL High TRIG greater than 500 mg/dL Very high Standard traceable to the Center for Disease Conrtrol and Prevention (CDC) test method. Performed By: #### O UTREACH LIPID, OUTREACH CMP, CBCNOOUTREACH #### [facility] [address] [id number] [facility] VLDL CHOLESTEROL 72 mg/dL Normal [facility] Comment on above: Performed By: #### O UTREACH LIPID, OUTREACH CMP, CBCNOOUTREACH #### [facility] [address] [phone] [facility] Vital Signs Date Time Vital Sign Value Performing Clinician Facility 02-16-2023 10:00-0500 Body height 167.64 cm Negrito [employer] Other [facility] Other 02-16-2023 10:00-0500 Body mass index (BMI) [Ratio] 25.08 kg/m2 [facility] Other [facility] Other 02-16-2023 10:00-0500 Body weight 70.49 kg [facility] Other [facility] Other 02-16-2023 10:00-0500 Diastolic blood pressure 85 mm[Hg] Negrito Ball Other [facility] Other 02-16-2023 10:00-0500 Respiratory rate 18 /min Negrito Ball Other [facility] Other 02-16-2023 10:00-0500 Systolic blood pressure 135 mm[Hg] Negrito Ball Other [facility] Other 11-17-2022 11:30-0400 Body height 167.64 cm Negrito Ball Other [facility] Other 11-17-2022 11:30-0400 Body mass index (BMI) [Ratio] 24.6 kg/m2 Negrito Ball Other [facility] Other 11-17-2022 11:30-0400 Body weight 69.13 kg Negrito Ball Other [facility] Other 11-17-2022 11:30-0400 Diastolic blood pressure 84 mm[Hg] Negrito Ball Other [facility] Other 11-17-2022 11:30-0400 Respiratory rate 12 /min Negrito Ball Other [facility] Other 11-17-2022 11:30-0400 Systolic blood pressure 147 mm[Hg] Negrito Ball Other [facility] Other 08-18-2022 10:15-0400 Body height 167.64 cm Negrito Ball Other [facility] Other 08-18-2022 10:15-0400 Body mass index (BMI) [Ratio] 24.56 kg/m2 Negrito Ball Other [facility] Other 08-18-2022 10:15-0400 Body weight 69.04 kg Negrito Ball Other [facility] Other 08-18-2022 10:15-0400 Diastolic blood pressure 90 mm[Hg] Negrito Ball Other [facility] Other 08-18-2022 10:15-0400 Respiratory rate 12 /min Negrito Ball Other [facility] Other 08-18-2022 10:15-0400 Systolic blood pressure 155 mm[Hg] Negrito Ball Other [facility] Other 05-29-2022 15:30-0400 Body height 167.64 cm Negrito Ball Other [facility] Other 05-29-2022 15:30-0400 Body mass index (BMI) [Ratio] 24.24 kg/m2 Negrito Ball Other [facility] Other 05-29-2022 15:30-0400 Body weight 68.13 kg Negrito Ball Other [facility] Other 05-29-2022 15:30-0400 Diastolic blood pressure 68 mm[Hg] Negrito Ball Other [facility] Other 05-29-2022 15:30-0400 Respiratory rate 12 /min Negrito Ball Other [facility] Other 05-29-2022 15:30-0400 Systolic blood pressure 153 mm[Hg] Negrito Ball Other [facility] Other Encounters Encounter Date Encounter Type Care Provider Facility Start: 06-16-2024 End: 06-16-2024 ambulatory Andgloria Ayoub MD Facility: [facility] Start: 06-02-2024 End: 06-02-2024 [facility] Start: 05-26-2024 End: 05-26-2024 ambulatory Andrius Karina Tomasitis [facility] Start: 02-18-2024 End: 02-18-2024 ambulatory Andgloria Tomasitis [facility] Start: 01-14-2024 End: 01-14-2024 ambulatory Andrius Karina Tomasitis Facility:[facility] Start: 01-07-2024 End: 01-07-2024 ambulatory Andrius Karina Tomasitis Facility:[facility] Start: 12-24-2023 End: 12-24-2023 ambulatory Andgloria Ayoub MD [facility] Start: 12-10-2023 End: 12-10-2023 [facility]ulatory [facility] Start: 12-03-2023 End: 12-03-2023 ambulatory Warren Ayoub MD [facility] Start: 03-28-2023 End: 03-28-2023 ambulatory Negrito Shannon Other [facility] Other Start: 03-28-2023 Telephone encounter Negrito DUMONT [facility] Start: 03-26-2023 End: 03-26-2023 ambulatory Negrito Shannon Other [facility] Other Start: 03-26-2023 Telephone encounter Negrito DUMONT [facility] Start: 02-16-2023 End: 02-16-2023 ambulatory Negrito Shannon Other [facility] Other Start: 02-16-2023 Office outpatient vi sit 15 minutes Negrito Shannon [facility] Start: 01-29-2023 End: 01-29-2023 ambulatory Negrito Shannon Other [facility] Other Start: 01-29-2023 Telephone encounter Negrito Ball [facility] Start: 12-06-2022 End: 12-06-2022 ambulatory Negrito Ball Other [facility] Other Start: 12-06-2022 Telephone encounter Negrito Ball [facility] Start: 12-05-2022 End: 12-05-2022 ambulatory Negrito Ball Other [facility] Other Start: 12-05-2022 Telephone encounter Negrito Ball [facility] Start: 11-17-2022 End: 11-17-2022 ambulatory Negrito Ball Other [facility] Other Start: 11-17-2022 Patient encounter procedure Negrito Ball [facility] Start: 11-01-2022 End: 11-01-2022 ambulatory Negrito Ball Other [facility] Other Start: 11-01-2022 Telephone encounter Negrito Ball [facility] Start: 09-07-2022 End: 09-07-2022 ambulatory Negrito Ball Other [facility] Other Start: 09-07-2022 Telephone encounter Negrito Ball [facility] Start: 08-18-2022 End: 08-18-2022 ambulatory Negrito Ball Other [facility] Other Start: 08-18-2022 Office outpatient vi sit 15 minutes Negrito Ball [facility] Start: 08-18-2022 Telephone encounter Negrito Ball [facility] Start: 08-01-2022 End: 08-01-2022 ambulatory Negrito Ball Other [facility] Other Start: 08-01-2022 Telephone encounter Negrito Ball [facility] Start: 05-29-2022 End: 05-29-2022 ambulatory Negrito Ball Other [facility] Other Start: 05-29-2022 Office outpatient vi sit 15 minutes [facility] Start: 11-11-2021 Adult health examination Negrito Shannon Other [facility] Other Start: 03-11-2021 End: 03-12-[address] NEGRITO SHANNON Facility:[facility] Procedures Date Procedure Procedure Detail Performing Clinician Start: 11-20-2017 Screening for malign ant neoplasm of colon Negrito Shannon Other Start: 11-14-2013 General examination of patient Negrito Shannon Other Depression screening Lawrence Shannon Other Screening for malign ant neoplasm of breast Negrito Shannon Other Immunizations Immunization Date Immunization Notes Care Provider Fa [facility] 01-23-2022 influenza virus vaccine, split virus (incl. purified surface antigen) Negrito Shannon Other [facility] Other 12-30-2021 influenza virus vaccine, split virus (incl. purified surface antigen) Negrito Shannon Other [facility] Other 12-31-2020 COVID-19 Vaccine Pfi zer - Documentation Purposes Only Negrito Shannon Other [facility] Other 11-08-2020 influenza virus vaccine, split virus (incl. purified surface antigen) Negrito Shannon Other [facility] Other 05-27-2020 COVID-19 Vaccine Pfi zer - Documentation Purposes Only Negrito Shannon Other [facility] Other 05-06-2020 COVID-19 Vaccine Pfi zer - Documentation Purposes Only Negrito Shannon Other [facility] Other 11-22-2019 influenza virus vaccine, split virus (incl. purified surface antigen) Negrito Shannon Other [facility] Other 10-25-2019 tetanus toxoid, redu paramjit diphtheria toxoid, and acellular pertussis vaccine, adsorbed Negrito Shannon Other [facility] Other 11-10-2014 tetanus and diphther ia toxoids, adsorbed, preservative free, for adult use (5 Lf of tetanus toxoid and 2 Lf of diphtheria toxoid) Negrito Shannon Other [facility] Other 12-17-2012 tetanus and diphther ia toxoids, adsorbed, preservative free, for adult use (5 Lf of tetanus toxoid and 2 Lf of diphtheria toxoid) Negrito Shannon Other [facility] Other 10-07-2003 diphtheria, tetanus toxoids and acellular pertussis vaccine, unspecified formulation Negrito Shannon Other [facility] Other Payers Date Payer Category Payer Medicare 2023 Unknown 1959 Medicare [id number] 1959 Unknown [id number] 1955 Unknown [id number] 2.16.84 [id number] 1955 Unknown [id number] 2.16. [id number]. 1955 Unknown [id number] 2.16. 840.1.220400.3.579.2. 1955 Unknown [id number] 2.16. [id number]. 1955 Unknown [id number] 2.16. 840.1.926685.3.579.2. 1955 Unknown [id number] 2.16. 840.1.520093.3.579.2. 1955 Unknown [id number] 2.16. [id number] 1955 Unknown [id number] 2.16. [id number] 1955 Unknown [id number] 2.16. [id number] 1955 Unknown [id number] 2.16. 840.1.129239.3.579.2.196 Unknown [id number] 2.16.84 [id number] Social History Date Type Detail Facility Unknown if ever smoked [facility] Other Sex Assigned At Sex Assigned At Bir th [facility] Other Clinical Notes 05-29-2022 to 03-28-2023 Note Date & Type Note Facility 03-28-2023 Evaluation note Encounter Date Diagnosis Assessment Notes Feb, Hypercholesterolemia (ICD-10 - E78.00) [facility] Other [id number] Evaluation note* Encounter Date Diagnosis Assessment Notes [...] report is being monitored every 90 days. [facility] Other 12-04-2023 Evaluation note* Encounter Date Diagnosis Assessment Notes Treatment Notes Treatment Clinical Notes Jan, Fibromyalgia (ICD-10 - M79.7) [facility] Other 10-11-2023 Evaluation note* Encounter Date Diagnosis Assessment Notes Treatment Notes Treatment Clinical Notes Nov, Age-related osteoporosis without current pathological fracture (ICD-10 - M81.0) [facility] Other 09-22-2023 Evaluation note* Encounter Date Diagnosis [...] Screening for colon cancer (ICD-10 - Z12.11) [facility] Other 09-06-2023 Evaluation note* Encounter Date Diagnosis Assessment Notes Treatment Notes Treatment Clinical Notes Oct, Lumbar spondylosis (ICD-10 - M47.816) [facility] Other 07-13-2023 Evaluation note* Encounter Date Diagnosis Assessment Notes Treatment Notes Treatment Clinical Notes Aug, Lumbar spondylosis (ICD-10 - M47.816) [facility] Other 06-23-2023 Evaluation note* Encounter Date Diagnosis [...] phone, computer and exercise prior to bedtime [facility] Other 06-23-2023 Evaluation note* Encounter Date Diagnosis Assessment Notes Treatment Notes Treatment Clinical Notes Jul, Lumbar spondylosis (ICD-10 - M47.816) [facility] Other 06-06-2023 Evaluation note* Encounter Date Diagnosis Assessment Notes Treatment Notes Treatment Clinical Notes Jul, Lumbar spondylosis (ICD-10 - M47.816) [facility] Other 04-03-2023 Evaluation note* Encounter Date Diagnosis [...] avoid bedtime food, TV, computer and exercise [facility] Other Evaluation noteNo [employer] Other History general Narrative - Reported* Type [...] right shoul gaby Hospitalization History see above [facility] Other Summary Purpose Family History No Family History Records FoundNo Family History Records FoundNo Family History Records Found Advance Directives No Advanced Directives Records FoundNo Advanced Directives Records FoundNo Advanced Directives Records Found Additional Source Comments INFORMATION SOURCE (unrecogn ized section and content) DATE CREATED AUTHOR 03/16/2021 [facility] DATE CREATED AUTHOR AUTHOR'S ORGANIZ ATION 03/21/2021 [facility] DATE CREATED AUTHOR AUTHOR'S ORGANIZ ATION 06/24/2024 [facility] REASON FOR VISIT (unrecogniz ed [...] BE BASED ON THE PRIMARY CLINICAL RECORDS. [facility] [employer] [facility]. provides no warranty or guarantee of the accuracy or completeness of information in this document.
--- NOTE | 2024-10-15 11:02 | PM.CN ---
Consult Note: HPI Data of Consult Patient: known to practice within the last 3 years Consult date: 10/15/24 Requesting Physician: Abena Cotton NP Primary Care Provider: Non-Staff Physician, MD Consult Narrative Reason for consult: pain Narrative: 69yof who presents for assessment. continues to have low back, bilateral hip, neck, bilateral shoulder pain with worsening numbness to bilateral arms. pain today 6/10 pain worsening with pushing, pulling, housework, standing, walking, bending, activity, and sleep. pain improves with lying flat and leaning. utilizing baclofen, duloxetine, tramadol, trazodone, and otc tylenol with benefit. denies fall or injury since last visit. prior cervical and lumbar xray consitent with degenerative changes. pt has undergone cervical and lumbar RFAs with benefit but patient reports they have worn off after 6 months and thats not worth repeating. cc:: CC: Abena Cotton NP Review of Systems ROS Status of ROS 10 or more systems reviewed and unremarkable except as noted in history and below Musculoskeletal Reports: back pain, neck pain and joint pain PFSH PFS Medical History (Updated 10/15/24 @ 11:08 by Abena Cotton NP) Osteoarthritis ?M19.90 - Unspecified osteoarthritis, unspecified site (ICD-10) Anxiety ?F41.9 - Anxiety disorder, unspecified (ICD-10) Fibromyalgia ?M79.7 - Fibromyalgia (ICD-10) HTN (hypertension) ?I10 - Essential (primary) hypertension (ICD-10) Surgical History History of lumbar laminectomy ?Z98.890 - Other specified postprocedural states (ICD-10) H/O section ?Z98.891 - History of uterine scar from previous surgery (ICD-10) Hx of tonsillectomy ?Z90.89 - Acquired absence of other organs (ICD-10) Meds Home Medications and Allergies Home Medications ?Medication ?Instructions ?Recorded ?Confirmed ?Type Probiotic DAILY 12/03/23 History amlodipine 5 mg tablet 5 mg PO DAILY 12/03/23 06/16/24 History baclofen 20 mg tablet 20 mg PO DAILY 12/03/23 06/16/24 History duloxetine 60 mg capsule,delayed 60 mg PO DAILY 12/03/23 06/16/24 History release ezetimibe 10 mg tablet (Zetia) 10 mg PO DAILY 12/03/23 06/16/24 History losartan 25 mg tablet 25 mg PO DAILY 12/03/23 06/16/24 History meloxicam 7.5 mg tablet 7.5 mg PO DAILY 12/03/23 06/16/24 History tramadol 50 mg tablet 50 mg PO BID 12/03/23 06/16/24 History trazodone 50 mg tablet 50 mg PO DAILY 12/03/23 06/16/24 History Allergies Allergy/AdvReac Type Severity Reaction Status Date / Time No Known Drug Allergies Allergy Verified 06/16/24 08:03 Exam Constitutional Documenting provider has reviewed patient's vital signs: yes Common normals: no apparent distress, oriented x3, healthy appearing, alert and well nourished General appearance: cooperative HENMT Common normals: normocephalic, hearing grossly normal bilaterally and moist oral mucous membranes Head and scalp: normocephalic Eye Common normals: PERRL Pupil: PERRL Neck & C-Spine Common normals: full ROM General: normal visual inspection Cervical spine: cervical ROM abnormal and pain with cervical ROM; no cervical spine tenderness Other: negative facet loading negative spurlings strength 5/5 in BUE numbness to bilateral C5,6,7 Chest Common normals: inspection of chest normal Respiratory Common normals: normal respiratory effort, no retractions and no use of accessory muscles Back & Pelvis Lumbar spine/lower back: no pain with ROM and no lumbar spinal tenderness Sacroiliac joints: SI joint(s) abnormal Other: left sij positive eugene(patricks), gaenslens, thigh thrust, compression test Neuro Common normals: oriented x3 Sensorium/orientation: alert Motor exam: strength 5/5 throughout and no movement abnormalities noted Psych Common normals: mental status grossly normal, thought process normal, cooperative, affect normal, speech normal and activity/motor behavior normal Speech: normal speech Thought process: normal thought process Results Additional Findings Additional findings: If on a controlled substance or opioids, I have checked an [place] report on this patient and there are no aberrancies noted in the prescribing history.??If on a controlled substance or opioid a drug screen was completed and reviewed within the last year, and if there has not been a drug screen completed we ordered one today to monitor higher risk, state monitored pain medication use. As part of providing excellent, safe, comprehensive care, the following was completed at our patient's visit: 1. A medication reconciliation and review to ensure accurate knowledge of current/active medications, including asking our patients to inform us about any [id number] medications or herbal remedies/nutritional supplements/alternative remedies. 2. A review to specifically ensure our patients have had annual screening for screening for depression, screening for tobacco use, and screening for unhealthy alcohol use. For concerning screenings had a discussion with the patient, provided patient education, and recommended follow-up with primary care provider when appropriate. If patient noted with a risk of falling, they received education on strength, gait, and balance training to prevent future risk of falling. Portions of this note may have been carried over from the previous visit and updated as appropriate. Please note this office utilizes paper charting in addition to the electronic medical record. A list of current medications, vitals, and PMH is available there as the clinical staff outside of myself do not have access to [employer] charting during the clinic day operations. As part of providing quality comprehensive care the current medications, vitals, and PMH were reviewed in the paper chart. Assessment and Plan Assessment and Plan (1) Sacroiliitis: Assessment and Plan: The patient has had over 3 months of moderate to severe neck, low back, and left SIJ pain with functional impairment and inadequate response to conservative care including NSAIDS (unless there are contraindication such as concurrent blood thinners), multiple oral or topical pain medications, and home exercise program/physical therapy.? Patient has completed >6 weeks of guided home exercise program and/or formal physical therapy program without relief of their symptoms.?? The Oswestry Disability Index was completed, and the patient scored a 22%.? (2) Cervical radiculopathy: (3) Lumbar stenosis with neurogenic claudication: (4) Cervical spondylosis: (5) Lumbar spondylosis: Plan declining cervical/lumbar MRI to assess cervical radiculopathy and lumbar stenosis with NC pt would like to repeat left SIJ injection under fluoroscopy as prior injection provided at least 50% improvement for 3 months continue medication management thorreagan PCP f/u after injection
== END 2024-10-15 10:28 | disposition home or self-care (01) ==
LOC: PM 10:27
PROVIDERS: Visit Provider Nurse Practitioner
DX: M46.1 Sacroiliitis, not elsewhere classified (principal); M54.12 Radiculopathy, cervical region; M48.062 Spinal stenosis, lumbar region with neurogenic claudication; M47.812 Spondylosis without myelopathy or radiculopathy, cervical region; M47.816 Spondylosis without myelopathy or radiculopathy, lumbar region
CPT/HCPCS: G0463

== ENCOUNTER 2024-11-10 07:36 | Day surgery (SDC) | payer MEDICARE, OTHER, SELFPAY ==
--- OUTSIDE RECORDS SUMMARY | 2024-11-10 07:41 | XMS_ITS | CCD ---
Author Organization [facility] InformFormerly [facility] Care Team Providers Care Customer Care Assistant Name Role Phone DR NEGRITO SHANNON Admitting [...] (1 source) Lidocaine Drug Allergy 3 [facility] Repository (13 sources) Fenofibrate Drug Allergy Unknown [facility] Other (13 sources) Lovastatin Drug Allergy Unknown [facility] Other (13 sources) lidoderm patches Propensity to adverse reactions itching [facility] Other (1 source) patient allergy list reviewed by nurse or physicia Propensity to adverse reactions 3 Comment:Done [employer] [facility] Other Medications Current Medications Medication Drug Class(es) [...] day Active Baclofen Not-Chip ing Calcium 1200 0769-4632 MG-UNIT (3 sources) take 1 tablet by mouth once daily Calcium 1200 7197-8530 MG-UNIT 1 tablet Orally Once a day [...] analgesic] Episodic Other aftercare (5 sources) 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 Admission #: [id number] Family : Order #: [id number] CLICK HERE TO VIEW EXAM RADIOLOGY REPORT [...] No Treatments None Family Cancers None LOCATION: [facility] BREAST COMPOSITION: Heterogeneously dense,which may obscure [...] Owusu M.D. on 03/11/2021 at 15:06 Normal [facility] CBC Without Differentialon 0 11-06-2020 Erythrocyte distribution width (RBC) [Ratio] 13.5 % Normal 11.9-15.3 [facility] Comment on above: Performed By: #### O UTREACH LIPID, OUTREACH CMP, CBCNOOUTREACH #### [facility] [address] Hematocrit (Bld) [Volume fraction] 41.1 % Normal 34.0-46.4 [facility] Comment on above: Performed By: #### O UTREACH LIPID, OUTREACH CMP, CBCNOOUTREACH #### [facility] [address] [place] [id number] [place] Hemoglobin (Bld) [Mass/Vol] 13.6 g/dL Normal 11.8-15.4 [facility] Comment on above: Performed By: #### O UTREACH LIPID, OUTREACH CMP, CBCNOOUTREACH #### [facility] [address] [id number] [place] MCH (RBC) [Entitic mass] 27.4 pg Normal 24.7-34.3 [facility] Comment on above: Performed By: #### O UTREACH LIPID, OUTREACH CMP, CBCNOOUTREACH #### [address] MCV (RBC) [Entitic vol] 82.5 fL Normal 80-100 [facility] Comment on above: Performed By: #### O UTREACH LIPID, OUTREACH CMP, CBCNOOUTREACH #### [facility] [address] Mean Corpuscular HGB Conc 33.2 g/dL Normal 32.0-35.0 [facility] Comment on above: Performed By: #### O UTREACH LIPID, OUTREACH CMP, CBCNOOUTREACH #### [address] Platelet mean volume (Bld) [Entitic vol] 9.6 fL Normal 6.3-10.7 [facility] Comment on above: Result Comment: PERF ORMED BY: [place] [address] PATHOLOGIST [employer] MARSHA ASTORGA M.D. Performed By: #### O UTREACH LIPID, OUTREACH CMP, CBCNOOUTREACH #### [address] Platelets (Bld) [#/Vol] 231 10*3/uL Normal 150-450 [facility] Comment on above: Performed By: #### O UTREACH LIPID, OUTREACH CMP, CBCNOOUTREACH #### [place] [address] [place] RBC (Bld) [#/Vol] 4.98 10*6/uL Normal 3.60-5.00 [facility] Comment on above: Performed By: #### O UTREACH LIPID, OUTREACH CMP, CBCNOOUTREACH #### [address] WBC (Bld) [#/Vol] 4.3 10*3/uL Normal 3.8-11.6 [facility] Comment on above: Performed By: #### O UTREACH LIPID, OUTREACH CMP, CBCNOOUTREACH #### [facility] [address] [place] [id number] [place] CMP Outreachon 11-06-2020 Albumin [Mass/Vol] 4.4 g/dL Normal 3.2-5.5 [facility] Comment on above: Performed By: #### O UTREACH LIPID, OUTREACH CMP, CBCNOOUTREACH #### [facility] [address] [place] [id number] [facility] ALP [Catalytic activity/Vol] 64 U/L Normal 32-92 [facility] Comment on above: Performed By: #### O UTREACH LIPID, OUTREACH CMP, CBCNOOUTREACH #### [facility] [address] [place], [place] [id number] [facility] ALT [Catalytic activity/Vol] 32 U/L Normal 10-60 [facility] Comment on above: Performed By: #### O UTREACH LIPID, OUTREACH CMP, CBCNOOUTREACH #### [facility] [address] [place] [address] [place] AST [Catalytic activity/Vol] 25 U/L Normal 10-42 [facility] Comment on above: Performed By: #### O UTREACH LIPID, OUTREACH CMP, CBCNOOUTREACH #### [facility] [address] [place], [place] [address] [place] Bilirubin [Mass/Vol] 0.5 mg/dL Normal 0.3-1.2 [facility] Comment on above: Performed By: #### O UTREACH LIPID, OUTREACH CMP, CBCNOOUTREACH #### [facility] [address] [place] [id number] [place] Calcium [Mass/Vol] 9.6 mg/dL Normal 8.2-10.2 [facility] Comment on above: Performed By: #### O UTREACH LIPID, OUTREACH CMP, CBCNOOUTREACH #### [facility] [address] [id number] [place] Chloride [Moles/Vol] 105 mmol/L Normal 95-114 [facility] Comment on above: Performed By: #### O UTREACH LIPID, OUTREACH CMP, CBCNOOUTREACH #### [facility] [address] [place] [address] [place] CO2 [Moles/Vol] 26.7 mmol/L Normal 22.0-30.0 [facility] Comment on above: Performed By: #### O UTREACH LIPID, OUTREACH CMP, CBCNOOUTREACH #### [facility] [address] Creatinine [Mass/Vol] 0.63 mg/dL Normal 0.44-1.03 [facility] Comment on above: Performed By: #### O UTREACH LIPID, OUTREACH CMP, CBCNOOUTREACH #### [facility] [address] Estimated GFR ( Marianne > 60 [facility] Comment on above: Result Comment: GFR estimated reference range: According to KDOQI guidelines, <60 ml/min/1.73m2 is sufficient to diagnose a patient with chronic kidney disease. Performed By: #### O UTREACH LIPID, OUTREACH CMP, CBCNOOUTREACH #### [facility] [address] Estimated GFR (Non- Am > 60 [facility] Comment on above: Performed By: #### O UTREACH LIPID, OUTREACH CMP, CBCNOOUTREACH #### [facility] [address] [place] [address] [place] Glucose [Mass/Vol] 118 mg/dL High 70-100 [facility] Comment on above: Result Comment: [place] Glucose Reference Range is dependent on time and content of last meal. Glucose of more than 200 mg/dL in a nonstressed, ambulatory subject supports the diagnosis of Diabetes Mellitus. ADA recommended reference range Performed By: #### O UTREACH LIPID, OUTREACH CMP, CBCNOOUTREACH #### [facility] [address] Potassium [Moles/Vol] 4.1 mmol/L Normal 3.5-5.1 [facility] Comment on above: Performed By: #### O UTREACH LIPID, OUTREACH CMP, CBCNOOUTREACH #### [facility] [address] [place] [id number] [facility] Protein [Mass/Vol] 6.5 g/dL Normal 6.1-7.9 [facility] Comment on above: Performed By: #### O UTREACH LIPID, OUTREACH CMP, CBCNOOUTREACH #### [facility] [address] [place] [address] [place] Sodium [Moles/Vol] 141 mmol/L Normal 136-146 [facility] Comment on above: Performed By: #### O UTREACH LIPID, OUTREACH CMP, CBCNOOUTREACH #### [facility] [address] Urea nitrogen [Mass/Vol] 15 mg/dL Normal 9-23 [facility] Comment on above: Performed By: #### O UTREACH LIPID, OUTREACH CMP, CBCNOOUTREACH #### [facility] [address] [id number] [place] Lipid Profile Outreachon Cholesterol [Mass/Vol] 237 mg/dL High 140-200 [facility] Comment on above: Result Comment: Chol less than 200 mg/dl low risk Chol 201-239 mg/dl borderline risk Chol 240 mg/dl and greater high risk Performed By: #### O UTREACH LIPID, OUTREACH CMP, CBCNOOUTREACH #### [facility] [address] [place], [place] [address] [place] Cholesterol in HDL [Mass/Vol] 37 mg/dL Normal 35-85 [facility] Comment on above: Result Comment: HDL CHOL ATP-III CLASSIFICATION Cardiovascular Risk HDL > or equal to 60 mg/dL LOW HDL < 40 mg/dL HIGH Performed By: #### O UTREACH LIPID, OUTREACH CMP, CBCNOOUTREACH #### [facility] [address] [phone] [facility] Cholesterol.total/Ch olesterol in HDL [Mass ratio] 6.4 {ratio} Normal <5.0 [facility] Comment on above: Result Comment: PERF ORMED BY: [place] [address] PATHOLOGIST [employer] MARSHA ASTORGA M.D. Performed By: #### O UTREACH LIPID, OUTREACH CMP, CBCNOOUTREACH #### [facility] [address] [id number] [place] LDL Cholesterol,Calculat ed 127 mg/dL High 0-100 [facility] Comment on above: Result Comment: LDL ATP III CLASSIFICATION LDL less than 100 mg/dL Optimal LDL 100-129 mg/dL Near or above optimal LDL 130-159 mg/dL Borderline high LDL 160-189 mg/dL High LDL greater than 189 mg/dL Very high Performed By: #### O UTREACH LIPID, OUTREACH CMP, CBCNOOUTREACH #### [facility] [address] Triglyceride w/Reflex 364 mg/dL High 35-149 [facility] Comment on above: Result Comment: TRIG ATP III CLASSIFICATION TRIG less than 150 mg/dL Normal TRIG 150-199 mg/dL Borderline high TRIG 200-500 mg/dL High TRIG greater than 500 mg/dL Very high Standard traceable to the Center for Disease Conrtrol and Prevention (CDC) test method. Performed By: #### O UTREACH LIPID, OUTREACH CMP, CBCNOOUTREACH #### [facility] [address] [place] [id number] [facility] VLDL CHOLESTEROL 72 mg/dL Normal [facility] Comment on above: Performed By: #### O UTREACH LIPID, OUTREACH CMP, CBCNOOUTREACH #### [facility] [address] [id number] [facility] Vital Signs Date Time Vital Sign Value Performing Clinician Facility 02-16-2023 10:00-0500 Body height 167.64 cm Negrito Oxagen Other [facility] Other 02-16-2023 10:00-0500 Body mass index (BMI) [Ratio] 25.08 kg/m2 [facility] Other [facility] Other 02-16-2023 10:00-0500 Body weight 70.49 kg [facility] Other [facility] Other 02-16-2023 10:00-0500 Diastolic blood pressure 85 mm[Hg] Negrito Ball Other [facility] Other 02-16-2023 10:00-0500 Respiratory rate 18 /min Negrito Ball Other [facility] Other 02-16-2023 10:00-0500 Systolic blood pressure 135 mm[Hg] Negrito Ball Other [facility] Other 11-17-2022 11:30-0400 Body height 167.64 cm Negrito Ball Other [facility] Other 11-17-2022 11:30-0400 Body mass index (BMI) [Ratio] 24.6 kg/m2 Negrito Ball Other [facility] Other 11-17-2022 11:30-0400 Body weight 69.13 kg Negrito Ball Other [facility] Other 11-17-2022 11:30-0400 Diastolic blood pressure 84 mm[Hg] Negrito Ball Other [facility] Other 11-17-2022 11:30-0400 Respiratory rate 12 /min Negrito Ball Other [facility] Other 11-17-2022 11:30-0400 Systolic blood pressure 147 mm[Hg] Negrito Ball Other [facility] Other 08-18-2022 10:15-0400 Body height 167.64 cm Negrito Ball Other [facility] Other 08-18-2022 10:15-0400 Body mass index (BMI) [Ratio] 24.56 kg/m2 Negrito Ball Other [facility] Other 08-18-2022 10:15-0400 Body weight 69.04 kg Negrito Ball Other [facility] Other 08-18-2022 10:15-0400 Diastolic blood pressure 90 mm[Hg] Negrito Ball Other [facility] Other 08-18-2022 10:15-0400 Respiratory rate 12 /min Negrito Ball Other [facility] Other 08-18-2022 10:15-0400 Systolic blood pressure 155 mm[Hg] Negrito Ball Other [facility] Other 05-29-2022 15:30-0400 Body height 167.64 cm Negrito Ball Other [facility] Other 05-29-2022 15:30-0400 Body mass index (BMI) [Ratio] 24.24 kg/m2 Negrito Ball Other [facility] Other 05-29-2022 15:30-0400 Body weight 68.13 kg Negrito Ball Other [facility] Other 05-29-2022 15:30-0400 Diastolic blood pressure 68 mm[Hg] Negrito Ball Other [facility] Other 05-29-2022 15:30-0400 Respiratory rate 12 /min Negrito Ball Other [facility] Other 05-29-2022 15:30-0400 Systolic blood pressure 153 mm[Hg] Negrito Ball Other [facility] Other Encounters Encounter Date Encounter Type Care Provider Facility Start: 06-16-2024 End: 06-16-2024 ambulatory Andgloria Ayoub MD Facility: [facility] Start: 06-02-2024 End: 06-02-2024 [facility] Start: 05-26-2024 End: 05-26-2024 ambulatory Andrius Karina Tomasitis [facility] Start: 02-18-2024 End: 02-18-2024 ambulatory Andgloria Tomasitis Facility:[facility] Start: 01-14-2024 End: 01-14-2024 ambulatory Andrius Karina Tomasitis Facility:[facility] Start: 01-07-2024 End: 01-07-2024 ambulatory Andrius Karina Tomasitis Facility:[facility] Start: 12-24-2023 End: 12-24-2023 ambulatory Andgloria Ayoub MD Facility:[facility] Start: 12-10-2023 End: 12-10-2023 ambulatory [facility] Start: 12-03-2023 End: 12-03-2023 ambulatory Warren Ayoub MD Facility:[facility] Start: 03-28-2023 End: 03-28-2023 ambulatory Negrito Shannon Other [facility] Other Start: 03-28-2023 Telephone encounter Negrito DUMONT [facility] Start: 03-26-2023 End: 03-26-2023 ambulatory Negrito Shannon Other [facility] Other Start: 03-26-2023 Telephone encounter Negrito DUMONT [facility] Start: 02-16-2023 End: 02-16-2023 ambulatory Negrito Shannon Other [facility] Other Start: 02-16-2023 Office outpatient vi sit 15 minutes Negrito Shannon [facility] Start: 01-29-2023 End: 01-29-2023 ambulatory Negrito Shannon Other [facility] Other Start: 01-29-2023 Telephone encounter Negrito Ball [facility] Start: 12-06-2022 End: 12-06-2022 ambulatory Negrito Ball Other [facility] Other Start: 12-06-2022 Telephone encounter Negrito Ball [facility] Start: 12-05-2022 End: 12-05-2022 ambulatory Negrito Ball Other [facility] Other Start: 12-05-2022 Telephone encounter Negrito Ball [facility] Start: 11-17-2022 End: 11-17-2022 ambulatory Negrito Ball Other [facility] Other Start: 11-17-2022 Patient encounter procedure Negrito Ball [facility] Start: 11-01-2022 End: 11-01-2022 ambulatory Negrito Ball Other [facility] Other Start: 11-01-2022 Telephone encounter Negrito Ball [facility] Start: 09-07-2022 End: 09-07-2022 ambulatory Negrito Ball Other [facility] Other Start: 09-07-2022 Telephone encounter Negrito Ball [facility] Start: 08-18-2022 End: 08-18-2022 ambulatory Negrito Ball Other [facility] Other Start: 08-18-2022 Office outpatient vi sit 15 minutes Negrito Ball [facility] Start: 08-18-2022 Telephone encounter Negrito Ball [facility] Start: 08-01-2022 End: 08-01-2022 ambulatory Negrito Ball Other [facility] Other Start: 08-01-2022 Telephone encounter Negrito Ball [facility] Start: 05-29-2022 End: 05-29-2022 ambulatory Negrito Ball Other [facility] Other Start: 05-29-2022 Office outpatient vi sit 15 minutes [facility] Start: 11-11-2021 Adult health examination Negrito Shannon Other [facility] Other Start: 03-11-2021 End: 03-12-[address] NEGRITO SHANNON Facility:[facility] Procedures Date Procedure Procedure Detail Performing Clinician Start: 11-20-2017 Screening for malign ant neoplasm of colon Negrito Shannon Other Start: 11-14-2013 General examination of patient Negrito Shannon Other Depression screening Lawrence Shannon Other Screening for malign ant neoplasm of breast Negrito Shannon Other Immunizations Immunization Date Immunization Notes Care Provider Fa [facility] 01-23-2022 influenza virus vaccine, split virus (incl. purified surface antigen) Negrito Shannon Other [facility] Other 12-30-2021 influenza virus vaccine, split virus (incl. purified surface antigen) Negrito Shannon Other [facility] Other 12-31-2020 COVID-19 Vaccine Pfi zer - Documentation Purposes Only Negrito Shannon Other [facility] Other 11-08-2020 influenza virus vaccine, split virus (incl. purified surface antigen) Negrito Shannon Other [facility] Other 05-27-2020 COVID-19 Vaccine Pfi zer - Documentation Purposes Only Negrito Shannon Other [facility] Other 05-06-2020 COVID-19 Vaccine Pfi zer - Documentation Purposes Only Negrito Shannon Other [facility] Other 11-22-2019 influenza virus vaccine, split virus (incl. purified surface antigen) Negrito Shannon Other [facility] Other 10-25-2019 tetanus toxoid, redu paramjit diphtheria toxoid, and acellular pertussis vaccine, adsorbed Negrito Shannon Other [facility] Other 11-10-2014 tetanus and diphther ia toxoids, adsorbed, preservative free, for adult use (5 Lf of tetanus toxoid and 2 Lf of diphtheria toxoid) Negrito Shannon Other [facility] Other 12-17-2012 tetanus and diphther ia toxoids, adsorbed, preservative free, for adult use (5 Lf of tetanus toxoid and 2 Lf of diphtheria toxoid) Negrito Shannon Other [facility] Other 10-07-2003 diphtheria, tetanus toxoids and acellular pertussis vaccine, unspecified formulation Negrito Shannon Other [facility] Other Payers Date Payer Category Payer Medicare 2023 Unknown 1959 Medicare [id number] 1959 Unknown [id number] 1955 Unknown [id number] 2.16.84 [id number] 1955 Unknown [id number] 2.16. [id number]. 1955 Unknown [id number] 2.16. 840.1.071974.3.579.2. 1955 Unknown [id number] 2.16. 840.1.011834.3.579.2. 1955 Unknown [id number] 2.16. 840.1.605379.3.579.2. 1955 Unknown [id number] 2.16. 840.1.089630.3.579.2. 1955 Unknown [id number] 2.16. [id number] 1955 Unknown [id number] 2.16. 840.1.832125.3.579.2.196 1955 Unknown [id number] 2.16. [id number] 1955 Unknown [id number] 2.16. 840.1.053078.3.579.2.196 Unknown [id number] 2.16.84 [id number] Social History Date Type Detail Facility Unknown if ever smoked [facility] Other Sex Assigned At Sex Assigned At Bir th [facility] Other Clinical Notes 05-29-2022 to 03-28-2023 Note Date & Type Note Facility 03-28-2023 Evaluation note Encounter Date Diagnosis Assessment Notes Feb, Hypercholesterolemia (ICD-10 - E78.00) [facility] Other [id number] Evaluation note* Encounter Date Diagnosis Assessment Notes [...] report is being monitored every 90 days. [facility] Other 12-04-2023 Evaluation note* Encounter Date Diagnosis Assessment Notes Treatment Notes Treatment Clinical Notes Jan, Fibromyalgia (ICD-10 - M79.7) [facility] Other 10-11-2023 Evaluation note* Encounter Date Diagnosis Assessment Notes Treatment Notes Treatment Clinical Notes Nov, Age-related osteoporosis without current pathological fracture (ICD-10 - M81.0) [facility] Other 09-22-2023 Evaluation note* Encounter Date Diagnosis [...] Screening for colon cancer (ICD-10 - Z12.11) [facility] Other 09-06-2023 Evaluation note* Encounter Date Diagnosis Assessment Notes Treatment Notes Treatment Clinical Notes Oct, Lumbar spondylosis (ICD-10 - M47.816) [facility] Other 07-13-2023 Evaluation note* Encounter Date Diagnosis Assessment Notes Treatment Notes Treatment Clinical Notes Aug, Lumbar spondylosis (ICD-10 - M47.816) [facility] Other 06-23-2023 Evaluation note* Encounter Date Diagnosis [...] phone, computer and exercise prior to bedtime [facility] Other 06-23-2023 Evaluation note* Encounter Date Diagnosis Assessment Notes Treatment Notes Treatment Clinical Notes Jul, Lumbar spondylosis (ICD-10 - M47.816) [facility] Other 06-06-2023 Evaluation note* Encounter Date Diagnosis Assessment Notes Treatment Notes Treatment Clinical Notes Jul, Lumbar spondylosis (ICD-10 - M47.816) [facility] Other 04-03-2023 Evaluation note* Encounter Date Diagnosis [...] avoid bedtime food, TV, computer and exercise [facility] Other Evaluation noteNo [employer] Other History general Narrative - Reported* Type [...] right shoul gaby Hospitalization History see above [facility] Other Summary Purpose Family History No Family History Records FoundNo Family History Records FoundNo Family History Records Found Advance Directives No Advanced Directives Records FoundNo Advanced Directives Records FoundNo Advanced Directives Records Found Additional Source Comments INFORMATION SOURCE (unrecogn ized section and content) DATE CREATED AUTHOR 03/16/2021 [facility] DATE CREATED AUTHOR AUTHOR'S ORGANIZ ATION 03/21/2021 [facility] DATE CREATED AUTHOR AUTHOR'S ORGANIZ ATION 06/24/2024 [facility] REASON FOR VISIT (unrecogniz ed section [...] BE BASED ON THE PRIMARY CLINICAL RECORDS. [facility] [employer] [facility]. provides no warranty or guarantee of the accuracy or completeness of information in this document.
[2024-11-10 08:07] VITALS: BP 127/78; PULSE 81; TEMP 37.1; O2SAT 100
[2024-11-10 08:51] VITALS: BP 155/74; PULSE 75; O2SAT 97
[2024-11-10 08:53] VITALS: BP 151/74; PULSE 78; O2SAT 96
[2024-11-10] MEDS: IOHEXOL 240 MG/ML - 10 ML VIAL 12 MG INJ (08:54)
[2024-11-10] MEDS: METHYLPREDNISOLONE ACETATE 40 MG/ML VIAL INJ (08:54)
[2024-11-10] MEDS: LIDOCAINE HCL 2% 400 MG/20 ML MDV INJ (08:54)
[2024-11-10] MEDS: BUPIVACAINE HCL 0.25% PF 25 MG/10 ML VIAL 2 ML INJ (08:54)
--- NOTE | 2024-11-10 08:55 | W.PM.PROCNOT ---
Date of procedure: 11/10/24 Pre-op diagnosis: Pain due to left sacroiliitis Post-op diagnosis: same as pre-op Procedure: Procedure: Left sacroiliac joint injection Medications: Bupivacaine 0.25% 3cc, depomedrol 40mg After informed consent was obtained, the patient was brought to the medical procedure unit and placed in the prone position, when a timeout was completed verifying correct patient, procedure, site, positioning, implant, and/or special equipment.? The skin overlying the area was prepped and draped in standard sterile fashion using alcohol.? A 25-gauge needle was inserted towards the left sacroiliac joint under direct fluoroscopic imaging.? Needle tip was advanced until the joint was encountered.? We instilled a total of 2 mL of solution.? Postoperatively needles were removed.? The patient tolerated the procedure well without complication.? The patient reported reduction in pain symptoms postoperatively. Anesthesia: Local Surgeon: Warren Ayoub Pathology: none sent Condition: stable Disposition: no change
== END 2024-11-10 08:57 | disposition home or self-care (01) ==
PROVIDERS: Visit Provider Anesthesiology
DX: M46.1 Sacroiliitis, not elsewhere classified (principal)
CPT/HCPCS: 27096; J0665; J1010; Q9966

== ENCOUNTER 2024-11-20 11:16 | Outpatient (OUT) | payer MEDICARE, OTHER, SELFPAY ==
--- OUTSIDE RECORDS SUMMARY | 2024-11-20 11:19 | XMS_ITS | Encounter Summary ---
Author Organization [facility] Address [id number] [address] [place] [address] Care Team Providers Care Yard Jockey Name Role Phone Negrito Delgadillo DO Primary Care Provider [phone] Reason for Visit * Reason Comments Med Refill Encounter Details Date Type Department Care Team (Late st Contact Info) Description 05/13/2020 Refill [facility] [address] [facility] [place] [address] Alexia Ronquillo APRN-TIM [address] [place], [place] [id number] Menopausal vasomotor syndrome Social History Tobacco Use [...] documented as of this encounter Care Teams Yard Jockey Relationship Specialty Start Date End Date Negrito Delgadillo DO [address] [place] [address] PCP - General Internal Medicine 02/11/19 documented as of this encounter
--- OUTSIDE RECORDS SUMMARY | 2024-11-20 11:19 | XMS_ITS | Clinical Summary ---
Author Organization [employer] Address [facility] [id number] [address] [place] [address] Care Team Providers Care Harp Action Assembler Name Role Phone ElieNegrito Primary Care Provider [phone] Allergies Active Allergy Reactions Criticality Noted Date [...] Risk Screening 05/07/2020 COVID-19 Vaccine ( - 2024-2 6 season) 2024 12/31/2020, 05/27/2020, 05/06/2020 Influenza Vaccine 10/27/2024 11/08/2020, [...] Laterality Modality Breast Bilateral Mammography Toma Beltran COORDINATOR OF [employer]-CNM IMG MAMMOGRAPHY ORDERA BLES Final Result from Last 3 Months or Most Recently Relevant to Health Maintenance Insurance MEDICARE Care Teams Harp Action Assembler Relationship Specialty Start Date End Date Negrito Delgadillo DO [address] [place] [address] PCP - General Internal Medicine 02/11/19
--- OUTSIDE RECORDS SUMMARY | 2024-11-20 11:19 | XMS_ITS | Encounter Summary ---
Author Organization [employer] [address] tem Address [facility] [id number] [address] [place] [address] Care Team Providers Care Gore Seamer Name Role Phone Negrito Delgadillo DO Primary Care Provider Reason for Visit * Reason Comments Med Refill Encounter Details Date Type Department Care Team (Late st Contact Info) Description 02/15/2020 Refill [facility] Ob[facility]ne[facility] [address] [place] [address] Toma Beltran APRN-CNM [address] [facility] [place], [place] [id number] Social History Tobacco Use Types Packs/Day Years Used Date Smoking Tobacco: Never Smokeless Tobacco: Never Alcohol Use Standard Drinks/Week Comments Yes 0 (1 standard drink = 0.6 oz pur e alcohol) Childcare Answer Date Recorded Childcare Unknown 08/07/2018 Employment Answer Date Recorded Employment Unknown 08/07/2018 Comments No Sex and Gender Information Value Date Recorded Sex Assigned at Not on file Legal Sex Female 11:30 AM EDT Gender Identity Not on file Sexual Orientation Not on file COVID-19 Exposure Response Date Recorded In the last month, have you been in contact with someone who was confirmed or suspected to have Coronavirus / COVID-19? No / Unsure 02/18/2020 11:30 AM EST documented as of this encounter Miscellaneous Notes * Telephone Encounter - RIGO Tarango - 02/15/2020 9:42 AM EST Jitendra Ross refilled this 5 days ago. documented in this encounter Plan of Treatment Not on file documented as of this encounter Visit Diagnoses Not on filedocumented in this encounter Care Teams Gore Seamer Relationship Specialty Start Date End Date Negrito Delgadillo DO [address] [place] [address] PCP - General Internal Medicine 02/11/19 documented as of this encounter
--- OUTSIDE RECORDS SUMMARY | 2024-11-20 11:19 | XMS_ITS | Clinical Summary ---
Author Organization [facility] Address [address] [place] [address] Care Team Providers Care District Captain Name Role Phone Unavailable Primary Care Provider [...]
--- OUTSIDE RECORDS SUMMARY | 2024-11-20 11:31 | XMS_ITS | CCD ---
Author Organization [facility] InformFormerly [facility] Care Team Providers Care Broadband Technician Name Role Phone DR NEGRITO SHANNON Admitting [...] source) Lidocaine Drug Allergy 3 [facility] Repository (13 sources) Fenofibrate Drug Allergy Unknown [employer] Other (13 sources) Lovastatin Drug Allergy Unknown [employer] Other (13 sources) lidoderm patches Propensity to adverse reactions itching [employer] Other (1 source) patient allergy list reviewed by nurse or physicia Propensity to adverse reactions 3 Comment:Done [employer] Other Medications Current Medications Medication Drug Class(es) [...] day Active Baclofen Not-Chip ing Calcium 1200 5904-8814 MG-UNIT (3 sources) take 1 tablet by mouth once daily Calcium 1200 8455-2502 MG-UNIT 1 tablet Orally Once a day [...] day for 30 days p/u 01/29, start 01/30/ 2RJan, Active Start: 11-01-2022 take 1 tablet by mary every twelve hours traMADol HCl 50 MG [...] 1 tablet Orally twice a day p/u 3/7, start 3 w/ 2 RF Apr, Active [...] High risk drug monitoring status; Translations: [senior care (current) use of opiate analgesic] Episodic Other aftercare (5 sources) senior care (current) use of opiate analgesic; Translations: [Chronic [...] : DR NEGRITO SHANNON D.O. Admission #: [id number] Family : Order #: [id number] CLICK HERE TO VIEW EXAM RADIOLOGY REPORT [...] None Family Cancers None LOCATION: [facility] BREAST COMPOSITION: Heterogeneously dense,which may obscure [...] on 03/11/2021 at 15:06 Normal [facility] CBC Without Differentialon 0 11-06-2020 Erythrocyte distribution width (RBC) [Ratio] 13.5 % Normal 11.9-15.3 [facility] Comment on above: Performed By: #### O UTREACH LIPID, OUTREACH CMP, CBCNOOUTREACH #### [address] Hematocrit (Bld) [Volume fraction] 41.1 % Normal 34.0-46.4 [facility] Comment on above: Performed By: #### O UTREACH LIPID, OUTREACH CMP, CBCNOOUTREACH #### [facility] [address] Hemoglobin (Bld) [Mass/Vol] 13.6 g/dL Normal 11.8-15.4 [facility] Comment on above: Performed By: #### O UTREACH LIPID, OUTREACH CMP, CBCNOOUTREACH #### [facility] [address] MCH (RBC) [Entitic mass] 27.4 pg Normal 24.7-34.3 [facility] Comment on above: Performed By: #### O UTREACH LIPID, OUTREACH CMP, CBCNOOUTREACH #### [address] MCV (RBC) [Entitic vol] 82.5 fL Normal 80-100 [facility] Comment on above: Performed By: #### O UTREACH LIPID, OUTREACH CMP, CBCNOOUTREACH #### [address] Mean Corpuscular HGB Conc 33.2 g/dL Normal 32.0-35.0 [facility] Comment on above: Performed By: #### O UTREACH LIPID, OUTREACH CMP, CBCNOOUTREACH #### [address] Platelet mean volume (Bld) [Entitic vol] 9.6 fL Normal 6.3-10.7 [facility] Comment on above: Result Comment: PERF ORMED BY: [place] [address] PATHOLOGIST IMMUNOPATHOLOGIST MARSHA ASTORGA M.D. Performed By: #### O UTREACH LIPID, OUTREACH CMP, CBCNOOUTREACH #### [place] [address] [place] Platelets (Bld) [#/Vol] 231 10*3/uL Normal 150-450 [facility] Comment on above: Performed By: #### O UTREACH LIPID, OUTREACH CMP, CBCNOOUTREACH #### [facility] [address] [place] [address] [place] RBC (Bld) [#/Vol] 4.98 10*6/uL Normal 3.60-5.00 [facility] Comment on above: Performed By: #### O UTREACH LIPID, OUTREACH CMP, CBCNOOUTREACH #### [place] [address] [place] WBC (Bld) [#/Vol] 4.3 10*3/uL Normal 3.8-11.6 [facility] Comment on above: Performed By: #### O UTREACH LIPID, OUTREACH CMP, CBCNOOUTREACH #### [facility] [address] [place] [address] [place] CMP Outreachon 11-06-2020 Albumin [Mass/Vol] 4.4 g/dL Normal 3.2-5.5 [facility] Comment on above: Performed By: #### O UTREACH LIPID, OUTREACH CMP, CBCNOOUTREACH #### [facility] [address] ALP [Catalytic activity/Vol] 64 U/L Normal 32-92 [facility] Comment on above: Performed By: #### O UTREACH LIPID, OUTREACH CMP, CBCNOOUTREACH #### [facility] [address] ALT [Catalytic activity/Vol] 32 U/L Normal 10-60 [facility] Comment on above: Performed By: #### O UTREACH LIPID, OUTREACH CMP, CBCNOOUTREACH #### [facility] [address] [place] [address] [place] AST [Catalytic activity/Vol] 25 U/L Normal 10-42 [facility] Comment on above: Performed By: #### O UTREACH LIPID, OUTREACH CMP, CBCNOOUTREACH #### [facility] [address] [place] [address] [place] Bilirubin [Mass/Vol] 0.5 mg/dL Normal 0.3-1.2 [facility] Comment on above: Performed By: #### O UTREACH LIPID, OUTREACH CMP, CBCNOOUTREACH #### [facility] [address] [place] [address] [place] Calcium [Mass/Vol] 9.6 mg/dL Normal 8.2-10.2 [facility] Comment on above: Performed By: #### O UTREACH LIPID, OUTREACH CMP, CBCNOOUTREACH #### [facility] [address] [place] [address] [place] Chloride [Moles/Vol] 105 mmol/L Normal 95-114 [facility] Comment on above: Performed By: #### O UTREACH LIPID, OUTREACH CMP, CBCNOOUTREACH #### [facility] [address] CO2 [Moles/Vol] 26.7 mmol/L Normal 22.0-30.0 [facility] Comment on above: Performed By: #### O UTREACH LIPID, OUTREACH CMP, CBCNOOUTREACH #### [facility] [address] Creatinine [Mass/Vol] 0.63 mg/dL Normal 0.44-1.03 [facility] Comment on above: Performed By: #### O UTREACH LIPID, OUTREACH CMP, CBCNOOUTREACH #### [address] Estimated GFR ( Marianne > 60 Normal [facility] Comment on above: Result Comment: GFR estimated reference range: According to KDOQI guidelines, <60 ml/min/1.73m2 is sufficient to diagnose a patient with chronic kidney disease. Performed By: #### O UTREACH LIPID, OUTREACH CMP, CBCNOOUTREACH #### [facility] [address] [place] [address] Estimated GFR (Non- Am > 60 [facility] Comment on above: Performed By: #### O UTREACH LIPID, OUTREACH CMP, CBCNOOUTREACH #### [facility] [address] [place] [address] [place] Glucose [Mass/Vol] 118 mg/dL High 70-100 [facility] Comment on above: Result Comment: [place] om Glucose Reference Range is dependent on time and content of last meal. Glucose of more than 200 mg/dL in a nonstressed, ambulatory subject supports the diagnosis of Diabetes Mellitus. ADA recommended reference range Performed By: #### O UTREACH LIPID, OUTREACH CMP, CBCNOOUTREACH #### [address] Potassium [Moles/Vol] 4.1 mmol/L Normal 3.5-5.1 [facility] Comment on above: Performed By: #### O UTREACH LIPID, OUTREACH CMP, CBCNOOUTREACH #### [facility] [address] Protein [Mass/Vol] 6.5 g/dL Normal 6.1-7.9 [facility] Comment on above: Performed By: #### O UTREACH LIPID, OUTREACH CMP, CBCNOOUTREACH #### [facility] [address] Sodium [Moles/Vol] 141 mmol/L Normal 136-146 [facility] Comment on above: Performed By: #### O UTREACH LIPID, OUTREACH CMP, CBCNOOUTREACH #### [facility] [address] [place] [address] Urea nitrogen [Mass/Vol] 15 mg/dL Normal 9-23 [facility] Comment on above: Performed By: #### O UTREACH LIPID, OUTREACH CMP, CBCNOOUTREACH #### [facility] [address] [place] [address] Lipid Profile Outreachon Cholesterol [Mass/Vol] 237 mg/dL High 140-200 [facility] Comment on above: Result Comment: Chol less than 200 mg/dl low risk Chol 201-239 mg/dl borderline risk Chol 240 mg/dl and greater high risk Performed By: #### O UTREACH LIPID, OUTREACH CMP, CBCNOOUTREACH #### [facility] [address] [place] [address] Cholesterol in HDL [Mass/Vol] 37 mg/dL Normal 35-85 [facility] Comment on above: Result Comment: HDL CHOL ATP-III CLASSIFICATION Cardiovascular Risk HDL > or equal to 60 mg/dL LOW HDL < 40 mg/dL HIGH Performed By: #### O UTREACH LIPID, OUTREACH CMP, CBCNOOUTREACH #### [facility] [address] [place] [address] Cholesterol.total/Ch olesterol in HDL [Mass ratio] 6.4 {ratio} Normal <5.0 [facility] Comment on above: Result Comment: PERF ORMED BY: [place] [address] PATHOLOGIST IMMUNOPATHOLOGIST MARSHA ASTORGA M.D. Performed By: #### O UTREACH LIPID, OUTREACH CMP, CBCNOOUTREACH #### [facility] [address] LDL Cholesterol,Calculat ed 127 mg/dL High 0-100 [facility] Comment on above: Result Comment: LDL ATP III CLASSIFICATION LDL less than 100 mg/dL Optimal LDL 100-129 mg/dL Near or above optimal LDL 130-159 mg/dL Borderline high LDL 160-189 mg/dL High LDL greater than 189 mg/dL Very high Performed By: #### O UTREACH LIPID, OUTREACH CMP, CBCNOOUTREACH #### [facility] [address] [place] [address] Triglyceride w/Reflex 364 mg/dL High 35-149 [facility] Comment on above: Result Comment: TRIG ATP III CLASSIFICATION TRIG less than 150 mg/dL Normal TRIG 150-199 mg/dL Borderline high TRIG 200-500 mg/dL High TRIG greater than 500 mg/dL Very high Standard traceable to the Center for Disease Conrtrol and Prevention (CDC) test method. Performed By: #### O UTREACH LIPID, OUTREACH CMP, CBCNOOUTREACH #### [facility] [address] [place] [address] VLDL CHOLESTEROL 72 mg/dL Normal [facility] Comment on above: Performed By: #### O UTREACH LIPID, OUTREACH CMP, CBCNOOUTREACH #### [facility] [address] [place] [address] Vital Signs Date Time Vital Sign Value Performing Clinician Facility 02-16-2023 10:00-0500 Body height 167.64 cm [facility] Other [employer] [facility] [facility] Other 02-16-2023 10:00-0500 Body mass index (BMI) [Ratio] 25.08 kg/m2 [facility] Other [employer] [facility] [facility] Other 02-16-2023 10:00-0500 Body weight 70.49 kg [facility] [facility] Other [employer] [facility] [facility] Other 02-16-2023 10:00-0500 Diastolic blood pressure 85 mm[Hg] Negrito Ball Other [employer] [facility] [facility] Other 02-16-2023 10:00-0500 Respiratory rate 18 /min Negrito Ball Other [employer] [facility] Other 02-16-2023 10:00-0500 Systolic blood pressure 135 mm[Hg] Negrito Ball Other [employer] [facility] [facility] Other 11-17-2022 11:30-0400 Body height 167.64 cm Negrito Ball Other [facility] Other 11-17-2022 11:30-0400 Body mass index (BMI) [Ratio] 24.6 kg/m2 Negrito Ball Other [facility] Other 11-17-2022 11:30-0400 Body weight 69.13 kg Negrito Ball Other [facility] [facility] Other 11-17-2022 11:30-0400 Diastolic blood pressure 84 mm[Hg] Negrito Ball Other [facility] [facility] Other 11-17-2022 11:30-0400 Respiratory rate 12 /min Negrito Ball Other [employer] [facility] [facility] Other 11-17-2022 11:30-0400 Systolic blood pressure 147 mm[Hg] Negrito Ball Other [facility] Other 08-18-2022 10:15-0400 Body height 167.64 cm Negrito Ball Other [employer] [facility] [facility] Other 08-18-2022 10:15-0400 Body mass index (BMI) [Ratio] 24.56 kg/m2 Ngerito Ball Other [employer] [facility] [facility] Other 08-18-2022 10:15-0400 Body weight 69.04 kg Negrito Ball Other [employer] [facility] [facility] Other 08-18-2022 10:15-0400 Diastolic blood pressure 90 mm[Hg] Negrito Ball Other [employer] [facility] [facility] Other 08-18-2022 10:15-0400 Respiratory rate 12 /min Negrito Ball Other [employer] [facility] Other 08-18-2022 10:15-0400 Systolic blood pressure 155 mm[Hg] Negrito Ball Other [employer] [facility] Other 05-29-2022 15:30-0400 Body height 167.64 cm Negrito Ball Other [employer] [facility] [facility] Other 05-29-2022 15:30-0400 Body mass index (BMI) [Ratio] 24.24 kg/m2 Negrito Ball Other [employer] [facility] [facility] Other 05-29-2022 15:30-0400 Body weight 68.13 kg Negrito Ball Other [employer] [facility] [facility] Other 05-29-2022 15:30-0400 Diastolic blood pressure 68 mm[Hg] Negrito Ball Other [employer] [facility] Other 05-29-2022 15:30-0400 Respiratory rate 12 /min Negrito Ball Other [employer] [facility] Other 05-29-2022 15:30-0400 Systolic blood pressure 153 mm[Hg] Negrito Ball Other [employer] [facility] Other Encounters Encounter Date Encounter Type Care Provider Facility Start: 11-10-2024 End: 11-10-2024 ambulatory Andrius Javierytoscar Tomasitis Facility: [facility] Start: 06-16-2024 End: 06-16-2024 ambulatory Andrius Karina Tomasitis Facility: [facility] Start: 06-02-2024 End: 06-02-2024 ambulatory Andrius Karina Tomasitis Facility: [facility] Start: 05-26-2024 End: 05-26-2024 ambulatory Andrius Javierytautjavier Tomasitis Facility: [facility] Start: 02-18-2024 End: 02-18-2024 ambulatory Andrius Javierytautjavier Tomasitis Facility: [facility] Start: 01-14-2024 End: 01-14-2024 ambulatory Andrius Karina Tomasitis Facility: [facility] Start: 01-07-2024 End: 01-07-2024 ambulatory Andrius Karina Tomasitis Facility: [facility] Start: 12-24-2023 End: 12-24-2023 ambulatory Andrius Karina Tomasitis Facility: [facility] Start: 12-10-2023 End: 12-10-2023 ambulatory Andrius Karina Tomasitis Facility: [facility] Start: 12-03-2023 End: 12-03-2023 ambulatory Andrius Karina Tomasitis Facility: [facility] Start: 03-28-2023 End: 03-28-2023 ambulatory Negrito Shannon Other [employer] [facility] Other Start: 03-28-2023 Telephone encounter Negrito DUMONT [facility] Start: 03-26-2023 End: 03-26-2023 ambulatory Negrito Shannon Other [employer] Other Start: 03-26-2023 Telephone encounter Negrito Bangura [facility] Start: 02-16-2023 End: 02-16-2023 ambulatory Negrito Shannon Other [employer] Other Start: 02-16-2023 Office outpatient vi sit 15 minutes Negrito Ball [facility] Start: 01-29-2023 End: 01-29-2023 ambulatory Negrito Ball Other [employer] Other Start: 01-29-2023 Telephone encounter Negrito Ball [facility] Start: 12-06-2022 End: 12-06-2022 ambulatory Negrito Ball Other [employer] Other Start: 12-06-2022 Telephone encounter Negrito Ball [facility] Start: 12-05-2022 End: 12-05-2022 ambulatory Negrito Ball Other [employer] [facility] [facility] Other Start: 12-05-2022 Telephone encounter Negrito Ball [facility] Start: 11-17-2022 End: 11-17-2022 ambulatory Negrito Ball Other [employer] [facility] Other Start: 11-17-2022 Patient encounter procedure Negrito Ball [facility] Start: 11-01-2022 End: 11-01-2022 ambulatory Negrito Ball Other [employer] [facility] [facility] Other Start: 11-01-2022 Telephone encounter Negrito Ball [facility] Start: 09-07-2022 End: 09-07-2022 ambulatory Negrito Ball Other [employer] [facility] [facility] Other Start: 09-07-2022 Telephone encounter Negrito Ball [facility] Start: 08-18-2022 End: 08-18-2022 ambulatory Negrito Ball Other [employer] Other Start: 08-18-2022 Office outpatient vi sit 15 minutes Negrito Ball [facility] Start: 08-18-2022 Telephone encounter Negrito Ball [facility] Start: 08-01-2022 End: 08-01-2022 ambulatory Negrito Ball Other [employer] [facility] Other Start: 08-01-2022 Telephone encounter Negrito Shannon [facility] Start: 05-29-2022 End: 05-29-2022 ambulatory Negrito Shannon Other [employer] Other Start: 05-29-2022 Office outpatient vi sit 15 minutes [facility] Start: 11-11-2021 Adult health examination Negrito Shannon Other [employer] Other Start: 03-11-2021 End: 03-12-[address] NEGRITO SHANNON Facility:[facility] Procedures Date Procedure Procedure Detail Performing Clinician Start: 11-20-2017 Screening for malign ant neoplasm of colon Negrito Shannon Other Start: 11-14-2013 General examination of patient Negrito Shannon Other Depression screening Lawrence Shannon Other Screening for malign ant neoplasm of breast Negrito Shannon Other Immunizations Immunization Date Immunization Notes Care Provider Fa [facility] 01-23-2022 influenza virus vaccine, split virus (incl. purified surface antigen) Negrito Shannon Other [employer] [facility] Other 12-30-2021 influenza virus vaccine, split virus (incl. purified surface antigen) Negrito Shannon Other [employer] [facility] [facility] Other 12-31-2020 COVID-19 Vaccine Pfi zer - Documentation Purposes Only Negrito Shannon Other [employer] [facility] Other 11-08-2020 influenza virus vaccine, split virus (incl. purified surface antigen) Negrito Shannon Other [employer] [facility] Other 05-27-2020 COVID-19 Vaccine Pfi zer - Documentation Purposes Only Negrito Shannon Other [employer] [facility] Other 05-06-2020 COVID-19 Vaccine Pfi zer - Documentation Purposes Only Negrito Shannon Other [employer] [facility] Other 11-22-2019 influenza virus vaccine, split virus (incl. purified surface antigen) Negrito Shannon Other [employer] [facility] Other 10-25-2019 tetanus toxoid, redu paramjit diphtheria toxoid, and acellular pertussis vaccine, adsorbed Negrito Shannon Other [employer] [facility] Other 11-10-2014 tetanus and diphther ia toxoids, adsorbed, preservative free, for adult use (5 Lf of tetanus toxoid and 2 Lf of diphtheria toxoid) Negrito Shannon Other [employer] [facility] Other 12-17-2012 tetanus and diphther ia toxoids, adsorbed, preservative free, for adult use (5 Lf of tetanus toxoid and 2 Lf of diphtheria toxoid) Negrito Shannon Other [employer] [facility] Other 10-07-2003 diphtheria, tetanus toxoids and acellular pertussis vaccine, unspecified formulation Negrito Shannon Other [employer] [facility] Other Payers Date Payer Category Payer Medicare 2023 Unknown 1959 Medicare [id number] 1959 Unknown [id number] 1955 Unknown [id number] 2.16.84 [id number] 1955 Unknown [id number] 2.16. [id number] 1955 Unknown [id number] 2.16. [id number] 1955 Unknown [id number] 2.16. [id number] 1955 Unknown [id number] 2.16. [id number] 1955 Unknown [id number] 2.16. [id number] 1955 Unknown [id number] 2.16. [id number] 1955 Unknown [id number] 2.16. 840.1.125901.3.579.2.196 1955 Unknown [id number] 2.16. 840.1.009097.3.579.2.196 1955 Unknown [id number] 2.16. 840.1.170484.3.579.2.196 1955 Unknown [id number] 2.16. [id number]. Unknown [id number] 2.16.84 [id number] Social History Date Type Detail Facility Unknown if ever smoked [employer] [facility] Other Sex Assigned At Sex Assigned At Bir th [employer] [facility] Other Clinical Notes 05-29-2022 to 03-28-2023 Note Date & Type Note Facility 03-28-2023 Evaluation note Encounter Date Diagnosis Assessment Notes Feb, Hypercholesterolemia (ICD-10 - E78.00) [facility] Other [id number] Evaluation note* Encounter Date Diagnosis Assessment Notes [...] report is being monitored every 90 days. [employer] [facility] [facility] Other 12-04-2023 Evaluation note* Encounter Date Diagnosis Assessment Notes Treatment Notes Treatment Clinical Notes Jan, Fibromyalgia (ICD-10 - M79.7) [employer] [facility] [facility] Other 10-11-2023 Evaluation note* Encounter Date Diagnosis Assessment Notes Treatment Notes Treatment Clinical Notes Nov, Age-related osteoporosis without current pathological fracture (ICD-10 - M81.0) [facility] Other 09-22-2023 Evaluation note* Encounter Date Diagnosis [...] Screening for colon cancer (ICD-10 - Z12.11) [employer] [facility] [facility] Other 09-06-2023 Evaluation note* Encounter Date Diagnosis Assessment Notes Treatment Notes Treatment Clinical Notes Oct, Lumbar spondylosis (ICD-10 - M47.816) [facility] Other 07-13-2023 Evaluation note* Encounter Date Diagnosis Assessment Notes Treatment Notes Treatment Clinical Notes Aug, Lumbar spondylosis (ICD-10 - M47.816) [facility] Other 06-23-2023 Evaluation note* Encounter Date Diagnosis [...] phone, computer and exercise prior to bedtime [employer] [facility] Other 06-23-2023 Evaluation note* Encounter Date Diagnosis Assessment Notes Treatment Notes Treatment Clinical Notes Jul, Lumbar spondylosis (ICD-10 - M47.816) [employer] [facility] Other 06-06-2023 Evaluation note* Encounter Date Diagnosis Assessment Notes Treatment Notes Treatment Clinical Notes Jul, Lumbar spondylosis (ICD-10 - M47.816) [facility] Other 04-03-2023 Evaluation note* Encounter Date Diagnosis [...] avoid bedtime food, TV, computer and exercise [employer] [facility] Other Evaluation noteNo InformationNort iPerceptions Other History general Narrative - Reported* Type [...] right shoul gaby Hospitalization History see above [employer] [facility] Other Summary Purpose Family History No Family History Records FoundNo Family History Records FoundNo Family History Records Found Advance Directives No Advanced Directives Records FoundNo Advanced Directives Records FoundNo Advanced Directives Records Found Additional Source Comments INFORMATION SOURCE (unrecogn ized section and content) DATE CREATED AUTHOR [facility]16/2021 [facility] DATE CREATED AUTHOR AUTHOR'S ORGANIZ ATION 03/21/2021 [facility] DATE CREATED AUTHOR AUTHOR'S ORGANIZ ATION 11/12/2024 [facility] REASON FOR VISIT (unrecogniz ed [...] THE PRIMARY CLINICAL RECORDS. [facility] [employer] [facility]. provides no warranty or guarantee of the accuracy or completeness of information in this document.
--- NOTE | 2024-11-20 11:45 | PM.CN ---
Consult Note: HPI Data of Consult Patient: known to practice within the last 3 years Consult date: 11/20/24 Requesting Physician: Abena Cotton NP Primary Care Provider: Non-Staff Physician, MD Consult Narrative Reason for consult: left sij pain Narrative: Raisa Carr a pleasant 69 year old female presents for evaluation of left SIJ pain, noting moderate relief from recent injection. Pain 4/10 tightness increasing with lifting, standing, walking, weather changes. previously not interested in working up neck or low back pain further but continues to endorse moderate to severe pain. utilizing baclofen, duloxetine, mobic, tramadol, trazodone through pcp. denies fall/injury since last visit. cc:: CC: Abena Cotton NP Review of Systems ROS Musculoskeletal Reports: back pain, neck pain and joint pain [facility] Medical History (Updated 10/15/24 @ 11:08 by Abena Cotton NP) Osteoarthritis ?M19.90 - Unspecified osteoarthritis, unspecified site (ICD-10) Anxiety ?F41.9 - Anxiety disorder, unspecified (ICD-10) Fibromyalgia ?M79.7 - Fibromyalgia (ICD-10) HTN (hypertension) ?I10 - Essential (primary) hypertension (ICD-10) Surgical History History of lumbar laminectomy ?Z98.890 - Other specified postprocedural states (ICD-10) H/O section ?Z98.891 - History of uterine scar from previous surgery (ICD-10) Hx of tonsillectomy ?Z90.89 - Acquired absence of other organs (ICD-10) Meds Home Medications and Allergies Home Medications ?Medication ?Instructions ?Recorded ?Confirmed ?Type Probiotic DAILY 12/03/23 History amlodipine 5 mg tablet 5 mg PO DAILY 12/03/23 06/16/24 History baclofen 20 mg tablet 20 mg PO DAILY 12/03/23 06/16/24 History duloxetine 60 mg capsule,delayed 60 mg PO DAILY 12/03/23 06/16/24 History release ezetimibe 10 mg tablet (Zetia) 10 mg PO DAILY 12/03/23 06/16/24 History losartan 25 mg tablet 25 mg PO DAILY 12/03/23 06/16/24 History meloxicam 7.5 mg tablet 7.5 mg PO DAILY 12/03/23 06/16/24 History tramadol 50 mg tablet 50 mg PO BID 12/03/23 06/16/24 History trazodone 50 mg tablet 50 mg PO DAILY 12/03/23 06/16/24 History Allergies Allergy/AdvReac Type Severity Reaction Status Date / Time No Known Drug Allergies Allergy Verified 06/16/24 08:03 Exam Constitutional Documenting provider has reviewed patient's vital signs: yes Common normals: no apparent distress, oriented x3, healthy appearing, alert and well nourished General appearance: cooperative HENMT Common normals: normocephalic, hearing grossly normal bilaterally and moist oral mucous membranes Head and scalp: normocephalic Eye Common normals: PERRL Pupil: PERRL Neck & C-Spine Common normals: full ROM General: normal visual inspection Cervical spine: pain with cervical ROM Chest Common normals: inspection of chest normal Respiratory Common normals: normal respiratory effort, no retractions and no use of accessory muscles Back & Pelvis Lumbar spine/lower back: lumbar spinal tenderness; ROM not limited and no pain with ROM Sacroiliac joints: SI joints normal Other: left sij negative eugene(patricks), gaenslens, thigh thrust, compression test Neuro Common normals: oriented x3 Sensorium/orientation: alert Psych Common normals: mental status grossly normal, thought process normal, cooperative, affect normal, speech normal and activity/motor behavior normal Speech: normal speech Thought process: normal thought process Results Additional Findings Additional findings: If on a controlled substance or opioids, I have checked an [place] report on this patient and there are no aberrancies noted in the prescribing history.??If on a controlled substance or opioid a drug screen was completed and reviewed within the last year, and if there has not been a drug screen completed we ordered one today to monitor higher risk, state monitored pain medication use. As part of providing excellent, safe, comprehensive care, the following was completed at our patient's visit: 1. A medication reconciliation and review to ensure accurate knowledge of current/active medications, including asking our patients to inform us about any [id number] medications or herbal remedies/nutritional supplements/alternative remedies. 2. A review to specifically ensure our patients have had annual screening for screening for depression, screening for tobacco use, and screening for unhealthy alcohol use. For concerning screenings had a discussion with the patient, provided patient education, and recommended follow-up with primary care provider when appropriate. If patient noted with a risk of falling, they received education on strength, gait, and balance training to prevent future risk of falling. Portions of this note may have been carried over from the previous visit and updated as appropriate. Please note this office utilizes paper charting in addition to the electronic medical record. A list of current medications, vitals, and PMH is available there as the clinical staff outside of myself do not have access to [employer] charting during the clinic day operations. As part of providing quality comprehensive care the current medications, vitals, and PMH were reviewed in the paper chart. Assessment and Plan Assessment and Plan (1) Sacroiliitis: (2) Lumbar stenosis with neurogenic claudication: Plan pain well controlled. pt previously not interested in additional imaging of cervical/lumbar spine in consideration of interventional therapy. call office when pain worsens. continue HEP as tolerated.
== END 2024-11-20 11:17 | disposition home or self-care (01) ==
LOC: PM 11:17
PROVIDERS: Visit Provider Nurse Practitioner
DX: M46.1 Sacroiliitis, not elsewhere classified (principal); M48.062 Spinal stenosis, lumbar region with neurogenic claudication
CPT/HCPCS: G0463